=== PATIENT | female | born 1960 | race Asian ===

== ENCOUNTER 2022-02-21 07:55 | Inpatient (IN) | payer MEDICARE ==
[~2022-02-21] VITALS: Ht 144.8 cm; Wt 35.9 kg
[2022-02-21] MEDS ORDERED: CARB-36 PO (08:25)
--- NOTE | 2022-02-21 08:30 | NUR ---
Dr. Wu evaluating patient at this time. family at bedside.
[2022-02-21] MEDS ORDERED: IV NS 1000 ML 1,000 ML IV ONE (08:45)
[2022-02-21] MEDS ORDERED: TRAMADOL HCL 50 MG TABLET PO ONE (08:45)
[2022-02-21] MEDS ORDERED: TRAMADOL HCL 50 MG TABLET ONE (08:48)
[2022-02-21] MEDS ORDERED: PRAM0.253 PO (09:00)
[2022-02-21] MEDS ORDERED: LACT10SO3 PO (09:00)
[2022-02-21] MEDS ORDERED: DIME118C3 TP (09:00)
[2022-02-21] MEDS ORDERED: TRAM50TA2 PO (09:00)
[2022-02-21] MEDS ORDERED: VENL75TA4 PO (09:00)
[2022-02-21] MEDS ORDERED: CLON1TAB12 PO (09:00)
[2022-02-21] MEDS ORDERED: TROL35.4 TP (09:00)
[2022-02-21] MEDS ORDERED: NEOMY/BACITRA/POLYMYXIN B OINT UD PACKET TP ONE ×2 (09:00→09:38)
[2022-02-21] MEDS ORDERED: BACL10TA PO (09:00)
[2022-02-21 09:06] LABS: MEAN CORPUSCULAR HEMOGLOBIN 33.7 uug (24.7-32.8); MEAN CORPUSCULAR VOLUME 97.1 fL (75.5-95.3); PLATELET COUNT (AUTO) 137 K/uL (179-408)
[2022-02-21 09:09] LABS: CARBON DIOXIDE 36 mmol/L (21-32); CHLORIDE 100 mmol/L (98-107); CREATININE 0.5 mg/dL (0.6-1.3); GLUCOSE 124 mg/dL (74-106); POTASSIUM 3.1 mmol/L (3.5-5.1); UREA NITROGEN, BLOOD 7 mg/dL (7-18)
[2022-02-21 09:25] LABS: ALANINE AMINOTRANSFERASE 37 U/L (14-59); ALKALINE PHOSPHATASE 79 U/L (50-136); ASPARTATE AMINOTRANSFERASE 23 U/L (15-37); BILIRUBIN,DIRECT 0.1 mg/dL (0.0-0.2); BILIRUBIN,TOTAL 0.5 mg/dL (0.2-1.0)
[2022-02-21] MEDS ORDERED: NUT.237L66 GT (09:44)
[2022-02-21 09:55] LABS: *BILIRUBIN,URIN NEGATIVE (NEGATIVE); *BLOOD, URINE 1+ (NEGATIVE); *CLARITY,URINE CLEAR (CLEAR); *COLOR,URINE YELLOW (YELLOW); *KETONES,URINE TRACE (NEGATIVE); *UROBILINOGEN,URINE 0.2 E.U./dl (NORMAL); LEUKOCYTE ESTERASE ,URINE 1+ (NEGATIVE); NITRITE, URINE POSITIVE (NEGATIVE); UGLUCOSE NEGATIVE (NEGATIVE)
--- NOTE | 2022-02-21 09:55 | NUR ---
MS bed available room 318 nurse to take patient is Jazzy. waiting for urine and covid test results. Carolyne charge nurse gave room.
[2022-02-21] MEDS ORDERED: PIPERACILLIN SODIUM/TAZOBACTAM 3.375 G in IV DEXTROSE 5% 50 ML IV ONE (10:15)
[2022-02-21] MEDS ORDERED: MORPHINE SULFATE 2 MG/1 ML DISP.SYRIN IV ONE (10:15)
[2022-02-21] MEDS ORDERED: ONDANSETRON 4 MG/2 ML VIAL IV ONE (10:15)
--- NOTE | 2022-02-21 10:23 | NUR ---
patient changed to tele admission with diagnosis of UTI unresolved from previous abx treatment
--- NOTE | 2022-02-21 10:56 | NUR ---
given report at this time to DARLENE SNEED. Patient will go to room 318.
[2022-02-21] MEDS ORDERED: MORPHINE SULFATE 2 MG/1 ML DISP.SYRIN ONE (11:29)
[2022-02-21] MEDS ORDERED: PIPERACILLIN/TAZOBACTAM/D5W 50 ML IV ONE (11:30)
[2022-02-21] MEDS ORDERED: ONDANSETRON 4 MG/2 ML VIAL ONE (11:30)
--- NOTE | 2022-02-21 12:00 | NUR ---
changed to room 306
--- NOTE | 2022-02-21 12:05 | NUR ---
received pt from ER, report received from Zohra. Pt is a/o x 3, unclear speech due to history of Parkinson's. Son and caregiver in room at this time. Pt has a sacral wound, cleaned and applied dressing. Pt has an indwelling urinary catheter draining yellow urine, changed bag to hang under bed. Pt's vitals BP: 114/75, HR 98, 98.8 temp, rr 21 SPO2 91% room air. Comfort measures provided. fluids resumed, notified of pt's arrival. Will continue to monitor pt.
--- NOTE | 2022-02-21 12:10 | NUR ---
PT HAS SACRAL WOUND, ATTEMPTED TO TAKE A PICTURE BUT FAMILY AND PT REFUSED DUE TO PT BEING FRAGILE AND IN PAIN WHEN MOVED.
[2022-02-21 12:15] VITALS: BP 114/75
[2022-02-21 13:23] LABS: BACTERIA,URINE MODERATE /HPF (NONE SEEN); SQUAMOUS EPITHELIAL CELL,UR FEW /HPF (NONE SEEN); URINE AMORPHOUS URATE MODERATE /HPF; WBC,URINE 20-50 /HPF (0-3)
[2022-02-21] MEDS ORDERED: ONDANSETRON 4 MG/2 ML VIAL IV PRN (14:45)
[2022-02-21] MEDS ORDERED: ACETAMINOPHEN 325 MG TABLET PO PRN (14:45)
[2022-02-21] MEDS ORDERED: ACETAMINOPHEN 325 MG TABLET GT PRN (16:19)
[2022-02-21 16:41] VITALS: BP 112/79
[2022-02-21] MEDS: TRAMADOL HCL 50 MG TABLET GT SCH (17:23)
[2022-02-21] MEDS: CARBIDOPA/LEVODOPA 25-250MG TABLET GT SCH ×2 (17:23→20:10)
[2022-02-21] MEDS: PRAMIPEXOLE 0.25 MG TABLET GT SCH (17:23)
[2022-02-21] MEDS: CLONAZEPAM 1 MG TABLET GT SCH ×2 (17:24→20:10)
[2022-02-21] MEDS: CEFTRIAXONE 1 G in IV DEXTROSE 5% 50 ML IV SCH (17:24)
[2022-02-21] MEDS: LACTULOSE 20 G/30 ML LIQUID UDC GT SCH (17:24)
[2022-02-21] MEDS: BACLOFEN 10 MG TABLET GT SCH (17:24)
[2022-02-21] MEDS ORDERED: Medication Not On Formulary EA (Lactulose (Duphalac) 30 ML) PO SCH (18:00)
[2022-02-21] MEDS ORDERED: ASCO-376 GT (18:06)
[2022-02-21] MEDS ORDERED: MULT-1201 GT (18:06)
--- NOTE | 2022-02-21 18:07 | NUR ---
Pt has G tube feeding at home (Suplena). Dietary consult ordered but no installation helper working at this time. Unable to get an order for feeding. MD okayed for home feeding to be given by pt's son until consult takes place tomorrow morning. Pt has difficulty processing new feedings and family requests to keep her on what she is getting at home. They have a supply at bedside until further notice. Per MD will try to get consent for son to stay over night for pt comfort. She does not sleep well without him next to her and will feel better if he stays.
--- NOTE | 2022-02-21 19:10 | NUR ---
special mattress was offered and explained the use and benefits for the patient , son refused to use it
--- NOTE | 2022-02-21 19:45 | NUR ---
patient 's son at bedside , refused the patient to be touched and turned frequently , unable to take picture of the wound skin issue of the sacral
--- NOTE | 2022-02-21 20:00 | NUR ---
RECEIVED PATIENT IN BED, BED BOUND. AAOX4, WITH PERIODS OF FORGETFULNESS. SONLISSETTE AT BEDSIDE GIVEN PERMISSION TO STAY OVERNIGHT TO ACCOMPANY MOTHER, FORM SIGNED AND ATTACHED TO CHART. NURSE PRACTICAL NURSING FACULTY AND DR. MORALES INFORMED. PATIENT NOTED TO HAVE LIMITED MOBILITY, REQUIRES MAXIMUM ASSISTANCE. BED BOUND. WITH G TUBE, FEEDING GIVEN BY SON WITH THEIR PRESCRIBED FEEDING WITH DR. MORALES'S APPROVAL. WITH JOHNSON CATHETER DRAINING CLEAR YELLOW URINE. WITH COMPRESSION PUMP. SINUS RHYTHM WITH EPISODES OF TACHYCARDIA ON TELEMONITOR. O2 SAT WAS NOTED TO BE AT 93%, NOW RECEIVING O2 VIA NASAL CANNULA AT 2LPM, SATURATING AT 97%. OFFERED TO TAKE PICTURE OF SACRAL, HOWEVER, PT'S SON REFUSED D/T TO COMPLAINS OF PAIN WHEN REPOSITIONED. IV ACCESS AT RFA, PATENT AND INTACT, HEPLOCK AND WRAPPED WITH GAUZE. SAFETY PRECAUTIONS IN PLACE. WILL CONTINUE TO MONITOR.
[2022-02-21 20:03] VITALS: BP_SYST 108; BP_SYST 99; BP_DIAS 67; BP_DIAS 74
--- NOTE | 2022-02-21 20:15 | NUR ---
called dr coulter to notify of request of own tf to be use from home , received order ,ok to use own tf
[2022-02-21] MEDS: REMEDY ESSENTIAL ZINC PASTE 113 GM TOP SCH (21:41)
[2022-02-22] VITALS: BP 127/79
[2022-02-22 04:03] VITALS: BP 104/73
--- NOTE | 2022-02-22 05:24 | NUR ---
PATIENT SLEPT THROUGH THE NIGHT. AAOX4. ABLE TO MAKE NEEDS KNOWN. NOTED TO HAVE DIFFICULTY WITH SPEECH. SINUS RHYTHM WITH HR OF 82BPM ON TELEMONITOR. GTUBE FLUSHED WITH 100CC OF WATER, SITE CLEANSED AND COVERED WITH GAUZE. JOHNSON CATHETER PATENT AND INTACT. IV ACCESS PATENT AND INTACT. REPOSITIONED FREQUENTLY. AWAIT DAY WORKER'S ADVISEMENT REGARDING SCHEDULED MRI OF BRAIN WITHOUT CONTRAST. WILL ENDORSE TO DAY SHIFT.
--- NOTE | 2022-02-22 06:29 | NUR ---
TEXT DR. JOHN FOR MRI APPROVAL.
[2022-02-22 06:57] LABS: MEAN CORPUSCULAR HEMOGLOBIN 33.5 uug (24.7-32.8); MEAN CORPUSCULAR VOLUME 96.3 fL (75.5-95.3); PLATELET COUNT (AUTO) 132 K/uL (179-408)
[2022-02-22 07:24] LABS: ALANINE AMINOTRANSFERASE 15 U/L (14-59); ALKALINE PHOSPHATASE 68 U/L (50-136); ASPARTATE AMINOTRANSFERASE 19 U/L (15-37); BILIRUBIN,TOTAL 0.4 mg/dL (0.2-1.0); CARBON DIOXIDE 33 mmol/L (21-32); CHLORIDE 103 mmol/L (98-107); CREATININE 0.4 mg/dL (0.6-1.3); GLUCOSE 87 mg/dL (74-106); MAGNESIUM 2.2 mg/dL (1.8-2.4); PHOSPHOROUS 3.4 mg/dL (2.5-4.9); POTASSIUM 3.1 mmol/L (3.5-5.1); TOTAL PROTEIN, SERUM 6.2 g/dL (6.4-8.2); UREA NITROGEN, BLOOD 6 mg/dL (7-18)
--- NOTE | 2022-02-22 08:00 | NUR ---
Received patient a/o x 4. Garbled speech secondary to illness. Son is at bedside. Denies pain or SOB. On O2 2L NC. Tele SR at 95. PEG tube in place and intact. Flushes well. El draining clear and yellow urine. [facility] assessment done, sacral wound present. Wound care ordered, Mepilex applied. Safety initiated. Call light within reach. Will continue to monitor.
[2022-02-22 08:04] LABS: CHOLESTEROL 171 mg/dL (<200); HDL CHOLESTEROL 74 mg/dL (40-60); TRIGLYCERIDES 54 MG/DL (30-150)
[2022-02-22] MEDS: PANTOPRAZOLE SODIUM 40 MG VIAL IV SCH (08:18)
[2022-02-22] MEDS: CARBIDOPA/LEVODOPA 25-250MG TABLET GT SCH ×4 (08:18→20:40)
[2022-02-22] MEDS: TRAMADOL HCL 50 MG TABLET GT SCH ×2 (08:18→16:47)
[2022-02-22] MEDS: BACLOFEN 10 MG TABLET GT SCH ×3 (08:18→16:46)
[2022-02-22] MEDS: REMEDY ESSENTIAL ZINC PASTE 113 GM TOP SCH ×2 (08:18→20:49)
[2022-02-22] MEDS: VENLAFAXINE 25 MG TABLET GT SCH (08:18)
[2022-02-22] MEDS ORDERED: VENLAFAXINE 25 MG TABLET PO SCH (09:00)
[2022-02-22] MEDS ORDERED: VENLAFAXINE HCL 25 MG PO SCH (09:00)
[2022-02-22 11:30] VITALS: BP 123/81
[2022-02-22] MEDS ORDERED: POTASSIUM CHLORIDE 20 MEQ POWDER PACKET GT ONE (12:00)
--- NOTE | 2022-02-22 12:15 | NUR ---
Transport here to picking tech pt for MRI at [facility]. Pt in stable condition. Denies pain or SOB.
--- NOTE | 2022-02-22 14:15 | NUR ---
Pt back from MRI in [facility]. Settled patient in her room. Back on TELE. Son at bedside. Wound nurse at bedside to eval sacral wound. Will continue to monitor.
--- NOTE | 2022-02-22 14:17 | NUR ---
WOUND CARE CONSULT: PT PRESENTS WITH STAGE 3 PRESSURE ULCER TO SACRUM, PRESENT ON ADMISSION. SURGICAL CONSULT CALLED TO DR AGUAYO. RECOMMENDATIONS MADE FOR SKIN PROTECTION. DISCUSSED WITH NURSING STAFF. CURRENT RASHI SCORE IS 8. FIRST STEP LOW AIRLOSS MATTRESS IS ON ORDER. MD IN AGREEMENT WITH PLAN OF CARE. Addendum: 02/22/22 at 1419 by GRAYSON PAUL RN Amended: Links added.
--- NOTE | 2022-02-22 16:22 | NUR ---
FARSHAD Mi at bedside.
--- NOTE | 2022-02-22 16:27 | NUR ---
Clinical Social Work Note: Pt. is a 61-year-old female brought to [facility] from home. Upon SS consult, pt. is alert and oriented x4. Pt. is bed ridden and presented with a depressed mood. Pt.s speech appeared unclear. Pt.s son Jamir ([phone]) and pt.s caregiver Kathie were bedside. ANASTACIO explored pt.s living situation. Jamir ([phone]) stated that he lives with the pt. and caregiver Kathie. Jamir ([phone]) stated that Kathie did not have a phone number. ANASTACIO explored if pt. was ambulatory. Jamir ([phone]) stated that pt. was bedridden. Jamir ([phone]) stated that pt.s caregiver assists the pt. with DMEs. ANASTACIO explored pt.s financial situation. Jamir ([phone]) stated that pt. receives disability and widows pay. ANASTACIO explored pt.s substance use hx. Jamir ([phone]) stated that the pt. does not have a history of substance use. ANASTACIO explored pt.s psychiatric diagnosis. Jamir ([phone]) stated that pt. is diagnosed with depression. Jamir ([phone]) stated that the pt. Does not see a psychiatrist but pt does see a neurologist Dr. Hui. Upon discharge, Jamir ([phone]) stated that pt. will return home and receive care from Kathie. Per Jamir, Jamir denied substance use for the pt. Jamir also denied suicidal and homicidal ideations for the pt. Jamir also denied auditory and visual hallucinations.
[2022-02-22] MEDS: CEFTRIAXONE 1 G in IV DEXTROSE 5% 50 ML IV SCH (16:47)
[2022-02-22] MEDS: ARGININE/GLUTAMINE/CALCIUM BMB 1 EACH POWD.PACK GT SCH (16:48)
[2022-02-22] MEDS: LACTULOSE 20 G/30 ML LIQUID UDC GT SCH (17:14)
[2022-02-22] MEDS: PRAMIPEXOLE 0.25 MG TABLET GT SCH (17:14)
[2022-02-22 17:15] VITALS: BP 116/62
--- NOTE | 2022-02-22 18:11 | NUR ---
Caregiver at bedside giving bolus feeds. No acute distress noted. Vital signs stable. TELE SR at 90. PEG tube in place, remains patent and intact. Abd soft and non-distended. El draining clear and yellow urine. Comfort and safety measures maintained T/O shift. All meds given as ordered. No new skin issues noted. All needs met.
--- NOTE | 2022-02-22 19:00 | NUR ---
Patient is awake, lying in bed, A/Ox4, slurred speech noted. Denies pain at this time. On RA, no signs of acute distress noted. PEG tube clamped, no gastric residual noted. El catheter draining well to gravity. Bed at lowest position, brakes on, bed alarm on, siderails x2. Call light within reach. Will continue to monitor.
[2022-02-22 20:00] VITALS: BP 141/82
[2022-02-22] MEDS: CLONAZEPAM 1 MG TABLET GT SCH (20:41)
[2022-02-22] MEDS ORDERED: JEVITY 1.2 1000 ML LIQUID GT SCH (22:00)
--- NOTE | 2022-02-22 23:00 | NUR ---
Started TF Jevity 1.2 @10mls/hr, no gastric residual noted. Will continue to monitor closely.
[2022-02-23] VITALS: BP 120/76
--- NOTE | 2022-02-23 03:00 | NUR ---
Restng comfortably. No significant change of condition noted. Will continue to monitor closely.
[2022-02-23 04:00] VITALS: BP 113/75
[2022-02-23] MEDS ORDERED: JEVITY 1.2 1000 ML LIQUID GT PRN (05:19)
[2022-02-23 07:10] LABS: HEMATOCRIT 34.3 % (31.2-41.9); MEAN CORPUSCULAR HEMOGLOBIN 33.9 uug (24.7-32.8); MEAN CORPUSCULAR VOLUME 96.4 fL (75.5-95.3); PLATELET COUNT (AUTO) 135 K/uL (179-408)
[2022-02-23 07:26] LABS: CARBON DIOXIDE 33 mmol/L (21-32); CHLORIDE 105 mmol/L (98-107); CREATININE 0.4 mg/dL (0.6-1.3); GLUCOSE 91 mg/dL (74-106); MAGNESIUM 2.3 mg/dL (1.8-2.4); POTASSIUM 3.5 mmol/L (3.5-5.1); UREA NITROGEN, BLOOD 11 mg/dL (7-18)
[2022-02-23] MEDS: BACLOFEN 10 MG TABLET GT SCH ×3 (08:02→16:17)
[2022-02-23] MEDS: TRAMADOL HCL 50 MG TABLET GT SCH ×2 (08:02→16:17)
[2022-02-23] MEDS: CARBIDOPA/LEVODOPA 25-250MG TABLET GT SCH ×4 (08:02→20:24)
[2022-02-23] MEDS: REMEDY ESSENTIAL ZINC PASTE 113 GM TOP SCH ×2 (08:02→21:00)
[2022-02-23] MEDS: VENLAFAXINE 25 MG TABLET GT SCH (08:05)
[2022-02-23] MEDS: PANTOPRAZOLE SODIUM 40 MG VIAL IV SCH (08:05)
[2022-02-23] MEDS: ARGININE/GLUTAMINE/CALCIUM BMB 1 EACH POWD.PACK GT SCH ×2 (08:12→16:17)
[2022-02-23 08:29] LABS: THYROID STIMULATING HORMONE 5.102 mIU/mL (0.358-3.740)
[2022-02-23 12:01] VITALS: BP 123/82
[2022-02-23] MEDS: THERAHONEY GEL 1.5 OZ TUBE TOP SCH (14:59)
[2022-02-23] MEDS: PRAMIPEXOLE 0.25 MG TABLET GT SCH (16:17)
[2022-02-23 16:29] VITALS: BP 122/83
[2022-02-23] MEDS: CEFTRIAXONE 1 G in IV DEXTROSE 5% 50 ML IV SCH (16:32)
[2022-02-23] MEDS: LACTULOSE 20 G/30 ML LIQUID UDC GT SCH (17:14)
[2022-02-23] MEDS: MEROPENEM 1 G in IV NORMAL SALINE 100 ML IV SCH ×2 (18:10→22:22)
--- NOTE | 2022-02-23 19:00 | NUR ---
Son and caregiver at bedside.
[2022-02-23 20:06] VITALS: BP 114/82
[2022-02-23] MEDS: CLONAZEPAM 1 MG TABLET GT SCH ×2 (20:15→22:56)
--- NOTE | 2022-02-23 20:55 | NUR ---
Clonazepam 1mg tablet wasted at [facility]. Addendum: 02/24/22 at 0246 by Kimberley Carver RN Clonazepam not given due to change of time 2300, wasted at [facility].
--- NOTE | 2022-02-23 23:00 | NUR ---
Restarted TF Jevity 1.2 @25mls/hr, no gastric residual noted.
--- NOTE | 2022-02-24 | NUR ---
Wound photo taken and placed to chart. Wound dressing done.
[2022-02-24 04:06] VITALS: BP 110/77
[2022-02-24] MEDS: MEROPENEM 1 G in IV NORMAL SALINE 100 ML IV SCH ×3 (05:33→22:12)
[2022-02-24] MEDS: CARBIDOPA/LEVODOPA 25-250MG TABLET GT SCH ×4 (08:52→21:09)
[2022-02-24] MEDS: PRAMIPEXOLE 0.25 MG TABLET GT SCH ×2 (08:52→17:13)
[2022-02-24] MEDS: TRAMADOL HCL 50 MG TABLET GT SCH ×2 (08:52→22:13)
[2022-02-24] MEDS: PANTOPRAZOLE ORAL SUSPENSION 40 MG SUSPDR.PKT GT SCH (08:52)
[2022-02-24] MEDS: BACLOFEN 10 MG TABLET GT SCH ×3 (08:52→17:13)
[2022-02-24] MEDS: VENLAFAXINE 25 MG TABLET GT SCH (08:54)
[2022-02-24] MEDS: ARGININE/GLUTAMINE/CALCIUM BMB 1 EACH POWD.PACK GT SCH ×2 (09:00→17:14)
[2022-02-24] MEDS: REMEDY ESSENTIAL ZINC PASTE 113 GM TOP SCH ×2 (09:31→22:14)
[2022-02-24] MEDS: THERAHONEY GEL 1.5 OZ TUBE TOP SCH (09:31)
--- NOTE | 2022-02-24 09:35 | NUR ---
patient is alert and oriented x4, speech is not very clear, caregiver at bedside and translating. patient with being treated for uti, unger catheter in place and patent, patient denies any dysuria or hematuria at this time, urine is clear and yellow, no sedimentation noted. patient with current stage 3 to sacral area with ongoing treatment tolerated well. currently nsr, v/s wnl, on r/a respirations even and non-labored, 0 episode of sob at this time, lungs clear bilateral. patient with abdomen soft and non-tender at this time. patient stating feeling discomfort to sacral area offered to reposition, patient repositioned and routine tramadol administered and tolerated well.
[2022-02-24 12:00] VITALS: BP 122/85
--- NOTE | 2022-02-24 15:00 | NUR ---
Son requesting for ENT consult and requesting for a video swallow and to increase pain medication, Dr. Capellan with new order for video swallow and new order order for tramadol 50mg tid, reviewed and carried out.
[2022-02-24 16:00] VITALS: BP 134/88
--- NOTE | 2022-02-24 16:04 | NUR ---
Per son " cancel the video swallow i dont think it is needed anymore" noted.
[2022-02-24] MEDS: LACTULOSE 20 G/30 ML LIQUID UDC GT SCH (17:13)
[2022-02-24 20:37] VITALS: BP 92/57
--- NOTE | 2022-02-24 21:28 | NUR ---
with orders to follow the patient diet at home.will follow up. gtube feeding at 30ml/hour, tolerating.well. head of bed elevated 45 degrees as per patient preference
[2022-02-24 21:44] VITALS: BP 134/76
[2022-02-24] MEDS ORDERED: TRAMADOL HCL 50 MG TABLET GT PRN (22:00)
[2022-02-24] MEDS: CLONAZEPAM 1 MG TABLET GT SCH (23:07)
--- NOTE | 2022-02-25 01:51 | NUR ---
patient is asleep.with feeding on flow at 30ml/hour. no residual .will follow up with the patient,s home feeding in am. sitter at bedside Addendum: 02/25/22 at 0155 by [facility]RY [facility] RN1 RN suctioning of secretions done.with mouth care had moderate amount of stool ,cleaned and kept dry.head of bed elevated 45 degrees as per sitter choice with patient
--- NOTE | 2022-02-25 03:20 | NUR ---
Asleep.with feeding on flow. tolerating well.
[2022-02-25] MEDS: MEROPENEM 1 G in IV NORMAL SALINE 100 ML IV SCH (05:18)
[2022-02-25] MEDS: TRAMADOL HCL 50 MG TABLET GT SCH (06:11)
--- NOTE | 2022-02-25 06:46 | NUR ---
medication due given via gtube. cleaned and kept dry. turned to sides
[2022-02-25] MEDS: PRAMIPEXOLE 0.25 MG TABLET GT SCH (08:53)
[2022-02-25] MEDS: PANTOPRAZOLE ORAL SUSPENSION 40 MG SUSPDR.PKT GT SCH (08:53)
[2022-02-25] MEDS: THERAHONEY GEL 1.5 OZ TUBE TOP SCH (08:53)
[2022-02-25] MEDS: VENLAFAXINE 25 MG TABLET GT SCH (08:53)
[2022-02-25] MEDS: BACLOFEN 10 MG TABLET GT SCH ×2 (08:53→12:19)
[2022-02-25] MEDS: CARBIDOPA/LEVODOPA 25-250MG TABLET GT SCH ×2 (08:53→12:19)
[2022-02-25] MEDS: ARGININE/GLUTAMINE/CALCIUM BMB 1 EACH POWD.PACK GT SCH (08:54)
[2022-02-25] MEDS: REMEDY ESSENTIAL ZINC PASTE 113 GM TOP SCH (09:04)
--- NOTE | 2022-02-25 11:00 | NUR ---
new discharge orders.
--- NOTE | 2022-02-25 11:50 | NUR ---
[facility] called spoke with Roula report was given. all questions answered.
[2022-02-25 12:00] VITALS: BP 115/78
--- NOTE | 2022-02-25 12:15 | NUR ---
reviewed discharge instructions with patient and with son, they state understanding. IV site remains due to continuation of IV merrem at facility, patient discharged with f/c in place and patent as well. All discharge paperwork given to SON, inventory list completed and signed by Son.
--- NOTE | 2022-02-25 13:00 | NUR ---
[facility] ambulance in unit. patient safely transferred onto [facility]. report was given, upon discharge v/s wnl, 0 co dysuria, hematuria, frequency.
== END 2022-02-25 13:15 | DRG 689 ==
LOC: ER 08:01 → MEDSURG3 11:17 → TELE3 13:00 → MEDSURG3 02-23 11:11
PROVIDERS: ADMIT Internal Medicine; ATTEND Internal Medicine
PROC: 0JB73ZZ Excision of Back Subcutaneous Tissue and Fascia, Percutaneous Approach (ICD-10-PCS; principal; 2022-02-22)
DX: N39.0 Urinary tract infection, site not specified (principal); L89.153 Pressure ulcer of sacral region, stage 3; G92.8 Other toxic encephalopathy; Z68.1 Body mass index [BMI] 19.9 or less, adult; D68.59 Other primary thrombophilia; E46 Unspecified protein-calorie malnutrition; E87.3 Alkalosis; Z16.12 Extended spectrum beta lactamase (ESBL) resistance; E44.0 Moderate protein-calorie malnutrition; G20 Parkinson's disease; R62.7 Adult failure to thrive; D69.6 Thrombocytopenia, unspecified; E03.9 Hypothyroidism, unspecified; E88.09 Other disorders of plasma-protein metabolism, not elsewhere classified; Z20.822 Contact with and (suspected) exposure to COVID-19; Z87.440 Personal history of urinary (tract) infections; Z93.1 Gastrostomy status; Z74.09 Other reduced mobility; D75.89 Other specified diseases of blood and blood-forming organs; F32.A Depression, unspecified; M24.571 Contracture, right ankle; M24.572 Contracture, left ankle; M24.542 Contracture, left hand; M24.541 Contracture, right hand; R53.1 Weakness; B96.20 Unspecified Escherichia coli [E. coli] as the cause of diseases classified elsewhere; F17.210 Nicotine dependence, cigarettes, uncomplicated; E87.6 Hypokalemia
CPT/HCPCS: 36415; 70551; 71045; 83605; 83735; 84100; 84443; 84484; 85025; 85730; 87040; 87077; 87086; 93005; 97161; A4663; A6209; C9113; G0378; J0696; J2185; J2270; J2405; J2543; J7040

== ENCOUNTER 2022-07-05 15:46 | Inpatient (IN) | payer MEDICARE ==
[~2022-07-05] VITALS: Ht 149.9 cm; Wt 38.6 kg
[~2022-07-05 15:46] MED LIST: ASCO-376 GT; BACL10TA PO; CARB-36 GT; CLON1TAB12 PO; DIME118C3 TP; LACT10SO3 PO; MULT-1201 GT; NUT.237L66 GT; PRAM0.253 PO; TRAM50TA2 PO; TROL35.4 TP; VENL75TA4 PO
[2022-07-05] MEDS ORDERED: IV NORMAL SALINE 1000 ML BAG IV ONE (16:15)
[2022-07-05] MEDS ORDERED: VANCOMYCIN 1G/D5W 200 ML PIGGYBACK IV ONE (16:15)
[2022-07-05] MEDS ORDERED: CEFTRIAXONE 1 G in IV DEXTROSE 5% 50 ML IV ONE (16:15)
[2022-07-05] MEDS ORDERED: PANT40TA49 GT (16:23)
[2022-07-05] MEDS ORDERED: MULT-594 GT (16:23)
[2022-07-05] MEDS ORDERED: ACET-73 PO (16:34)
[2022-07-05] MEDS ORDERED: VENL75CA62 PO (16:34)
[2022-07-05] MEDS ORDERED: CLON1TAB12 GT (16:34)
[2022-07-05] MEDS ORDERED: PRAM0.253 GT (16:34)
[2022-07-05] MEDS ORDERED: BACL10TA PO (16:34)
[2022-07-05] MEDS ORDERED: [UNRECOGNIZED DRUG - CODE] SL (16:34)
[2022-07-05] MEDS ORDERED: ARGI1POW17 GT (16:34)
[2022-07-05] MEDS ORDERED: MORPHINE SULFATE 2 MG/1 ML DISP.SYRIN IV ONE (16:45)
[2022-07-05] MEDS ORDERED: CEFTRIAXONE /D5W 50ML IVPB **ER PYXIS IV ONE (16:46)
[2022-07-05] MEDS ORDERED: VANCOMYCIN IV 200 ML ONE (16:46)
[2022-07-05] MEDS ORDERED: MORPHINE SULFATE 2 MG/1 ML DISP.SYRIN ONE (16:46)
[2022-07-05 16:47] LABS: HEMATOCRIT 36.3 % (31.2-41.9); MEAN CORPUSCULAR HEMOGLOBIN 31.3 uug (24.7-32.8); MEAN CORPUSCULAR VOLUME 93.6 fL (75.5-95.3); PLATELET COUNT (AUTO) 180 K/uL (179-408)
[2022-07-05 16:58] LABS: BILIRUBIN,DIRECT 0.1 mg/dL (0.0-0.2); BILIRUBIN,TOTAL 0.4 mg/dL (0.2-1.0); CREATININE 0.5 mg/dL (0.6-1.3); TOTAL PROTEIN, SERUM 7.2 g/dL (6.4-8.2)
--- NOTE | 2022-07-05 18:24 | NUR ---
Tested G-tube, flushes/patent.
--- NOTE | 2022-07-05 19:30 | NUR ---
Dr. Mayfield ordered split dose of Morphine -- wanted to administer 1mg, then later, if necessary a second dose of 1mg. However, the MAR order was for a total of 2mg, which was signed off at the time of first administration. The remaining 1mg ("second dose") was not given and will be wasted.
[2022-07-05] MEDS ORDERED: ENOXAPARIN SODIUM 40 MG/0.4 ML DISP.SYRIN SQ ONE (20:30)
[2022-07-05] MEDS ORDERED: REMEDY ESSENTIAL ZINC PASTE 113 GM TP PRN (21:15)
[2022-07-05] MEDS ORDERED: ONDANSETRON 4 MG/2 ML VIAL IV PRN (21:15)
[2022-07-05] MEDS ORDERED: MAGNESIUM HYDROXIDE 30 ML LIQUID UDC GT PRN (21:15)
--- NOTE | 2022-07-05 21:16 | NUR ---
called to the third floor for report on the pt and I was told that Vida will call back regarding what room and what nurse will take the pt.
--- NOTE | 2022-07-05 21:17 | NUR ---
call to [facility] panel for Dr. Raines per his request.
--- NOTE | 2022-07-05 21:32 | NUR ---
call to third floor, per carl SNEED states they are not ready to take the pt.
[2022-07-05] MEDS ORDERED: MEROPENEM 0.5 G in IV NORMAL SALINE 50 ML IV SCH (22:00)
--- NOTE | 2022-07-05 22:03 | NUR ---
report given to Willa SNEED, DR. Macias changed the status of the pt to tele, an ekg will be performed.
--- NOTE | 2022-07-05 22:45 | NUR ---
pt was transported to room 319 by melt house centrifugal operator Luiz via [place] with all belongings.
--- NOTE | 2022-07-05 22:55 | NUR ---
Admitted a 62 years old female with Dx of DVT and right LE cellulitis. Patient awake, but non-verbal, only makes non-sensical sounds. Upper extremities contracted. PEG tube in place and El catheter in place and draining via gravity. IV site on right hand intact and patent. NSR on tele with HR of 81/min. Noted with open wound on sacral area. Right inner LE reddened. Right heel red and left great toe also with redness noted and keep off pressure area using heel protector. GT site with greenish drainage noted. Clean and change dressing during admit. Routine admission care done. Plan of care initiated. Safety measure initiated. Patient with private caregiver on bedside. Continue to monitor.
[2022-07-05] MEDS ORDERED: MEROPENEM 0.5 G in IV NORMAL SALINE 50 ML IV ONE (23:15)
[2022-07-05] MEDS ORDERED: CARBIDOPA/LEVODOPA 25-250MG TABLET GT ONE (23:30)
[2022-07-05] MEDS ORDERED: BACLOFEN 10 MG TABLET GT ONE (23:30)
[2022-07-05] MEDS ORDERED: MEROPENEM 500 MG VIAL IV ONE (23:38)
[2022-07-05] MEDS: CLONAZEPAM 1 MG TABLET GT SCH (23:41)
[2022-07-05 23:45] VITALS: BP 117/63
[2022-07-05] MEDS: IV NS 1000 ML 1,000 ML IV PRN (23:45)
--- NOTE | 2022-07-06 05:24 | NUR ---
Patient slept well after admission. In no apparent distress. No signs or symptoms of pain or SOB. GT site intact and patent. Dressing dry and clean. IV site on right hand intact and patent. IVF infusing. No adverse reaction noted from IV antibiotic. NSR on tele with HR of 86/min. El catheter intact and draining via gravity with 400ml urine output since admission. Private caregiver on site. Needs assessed and attended to. Safety measure maintained and call light within reached.
[2022-07-06 05:34] VITALS: BP 115/58
[2022-07-06 06:14] LABS: HEMATOCRIT 33.8 % (31.2-41.9); MEAN CORPUSCULAR HEMOGLOBIN 31.6 uug (24.7-32.8); MEAN CORPUSCULAR VOLUME 94.5 fL (75.5-95.3); PLATELET COUNT (AUTO) 150 K/uL (179-408)
[2022-07-06] MEDS: PANTOPRAZOLE ORAL SUSPENSION 40 MG SUSPDR.PKT GT SCH (06:19)
[2022-07-06 06:37] VITALS: BP 115/58
[2022-07-06 06:46] LABS: CREATININE 0.5 mg/dL (0.6-1.3); MAGNESIUM 1.9 mg/dL (1.8-2.4); PHOSPHOROUS 3.3 mg/dL (2.5-4.9); POTASSIUM 3.8 mmol/L (3.5-5.1)
--- NOTE | 2022-07-06 07:30 | NUR ---
RECEIVED PATIENT IN BED NON RESPONSIVE ALL NEEDS ANTICIPATED AND SATISFIED TOTALLY DEPENDENT FOR ALL ADL CONTRACTED UPPER EXT TURNED AND REPOSITIONED Q2H IVF IN PROGRESS ORDERED WITH NO S/S OF INFILTERATION ON SITE AWAITING FOR SPEECH EVEL FOR FEEDINGS AND IF PATIENT CAN HAVE ANY ORAL GRATIFICATION PER FAMILY RLE ELEVATED TO REDUCE SWELLING MADE COMFORTABLE WILL CONTINUE TO OBSERVE.
[2022-07-06] MEDS: TRAMADOL HCL 50 MG TABLET GT SCH ×2 (08:47→17:46)
[2022-07-06] MEDS: BACLOFEN 10 MG TABLET GT SCH ×3 (08:48→17:45)
[2022-07-06] MEDS: ENOXAPARIN SODIUM 40 MG/0.4 ML DISP.SYRIN SQ SCH ×2 (08:49→20:22)
[2022-07-06] MEDS ORDERED: VENLAFAXINE XR 75 MG TAB.ER.24H PO SCH (09:00)
[2022-07-06] MEDS ORDERED: CARBIDOPA/LEVODOPA 25-250MG TABLET PO SCH (09:00)
[2022-07-06] MEDS ORDERED: VENLAFAXINE 25 MG TABLET PO SCH ×2 (09:00)
[2022-07-06] MEDS ORDERED: PANTOPRAZOLE SODIUM 40 MG TABLET.DR PO SCH (09:00)
[2022-07-06] MEDS ORDERED: PRAMIPEXOLE 0.25 MG TABLET PO SCH ×2 (09:00→18:00)
[2022-07-06] MEDS: MEROPENEM 1 G in IV NORMAL SALINE 100 ML IV SCH ×2 (09:02→17:50)
--- NOTE | 2022-07-06 09:50 | NUR ---
PATIENT HAS REGULAR DIET ORDER WHICH I DONT THINK IS APPROPRIATE FOR HER BUT HER FAMILY STATED THAT THEY DO GIVE HER ORAL FOOD IN ADDITION TO HER GT FEEDINGS SO I CALLED THE SLT AND SPOKE WITH HER AND SHE STATED WILL COME AND EVALUATE PATIENT TO MAKE SURE THAT ITS SAFE FOR HER TO HAVE ORAL FEEDINGS.
--- NOTE | 2022-07-06 09:58 | NUR ---
CALLED THE PROGRAM/MUSIC DIRECTOR AND INQUIRED FROM HER TO WHEN SHE WILL BE ABLE TO EVALUATE PATIENT RE HER TUBE FEEDING AND SHE STATED WILL DO IT SOON POSSIBLE.
--- NOTE | 2022-07-06 10:12 | NUR ---
PATIENT SEEN BY THE SLT AND STATED THAT PATIENT IS NOT SAFE FOR ORAL FEEDINGS AT THIS TIME AWAITING FOR THE DIETICIANS RECOMMENDATION TO WHAT TYPE OF FEEDINGS FOR HER AT THIS POINT MEANWHILE SHE IS ON IVF ORDERED.
[2022-07-06 12:16] VITALS: BP 112/51
[2022-07-06] MEDS: VANCOMYCIN IV 500 MG in IV DEXTROSE 5% 100 ML IV SCH (12:37)
[2022-07-06] MEDS: CARBIDOPA/LEVODOPA 25-250MG TABLET GT SCH ×3 (12:56→20:22)
[2022-07-06] MEDS ORDERED: VANCOMYCIN IV 500 MG in IV DEXTROSE 5% 100 ML IV SCH (13:00)
--- NOTE | 2022-07-06 15:45 | NUR ---
PATIENT SEEN AND EXAMINED BY JAMIE RODRIGUEZ JOB COUNSELOR FOR INFECTION CONTROL WITH NEW ORDERS SHE STATED TO NICK THE REDNESS ON HER RIGHT THIGH AND LEG AND ALSO ON HER NECK IN OTHER TO SEE IF ITS SPREADING.
[2022-07-06] MEDS ORDERED: VENL50TA4 PO (15:56)
[2022-07-06 16:14] VITALS: BP 99/65
[2022-07-06] MEDS: PRAMIPEXOLE 0.25 MG TABLET GT SCH (17:45)
[2022-07-06] MEDS: LACTULOSE 20 G/30 ML LIQUID UDC GT SCH (17:46)
[2022-07-06] MEDS: IV NS 1000 ML 1,000 ML IV PRN (18:25)
--- NOTE | 2022-07-06 18:32 | NUR ---
URINE AND MRSA NARES OBTAINED AND SENT TO THE LAB ORDERED.
--- NOTE | 2022-07-06 18:37 | NUR ---
TWO GIOVANNA FEEDING IN PROGRESS AT THIS TIME AT 10ML/HR ORDERED WILL INCREASE TO 20 AT MIDNIGHT NO GASTRIC RESIDUAL AT THIS TIME.WILL CONTINUE TO OBSERVE.
[2022-07-06] MEDS ORDERED: TWOCAL HN 1,000 ML LIQUID GT PRN (18:45)
--- NOTE | 2022-07-06 18:50 | NUR ---
IV SITE VERY POSITIONAL BVERY HARD STICK MD AWARE WITH ORDER TO INSERT A MIDLINE AND NOTED.
[2022-07-06 18:57] LABS: *BILIRUBIN,URIN NEGATIVE (NEGATIVE); *CLARITY,URINE SLIGHTLY CLOUDY (CLEAR); *COLOR,URINE YELLOW (YELLOW); *KETONES,URINE 3+ (NEGATIVE); *UROBILINOGEN,URINE 0.2 E.U./dl (NORMAL); LEUKOCYTE ESTERASE ,URINE 2+ (NEGATIVE); NITRITE, URINE POSITIVE (NEGATIVE); PH,URINE 7.5 (5.0-8.0); UGLUCOSE NEGATIVE (NEGATIVE)
[2022-07-06 18:58] LABS: *BLOOD, URINE TRACE (NEGATIVE)
--- NOTE | 2022-07-06 19:30 | NUR ---
Received patient lying in bed. Asleep at this time. Appears comfortable. In no acute distress. Private caregiver at bedside. GT feeding on going and tolerated at this time. NSR on tele with HR of 87/min. NPO. El catheter intact and draining via gravity. Needs assessed and anticipated to. Safety measure initiated and call light within reached.
[2022-07-06] MEDS: DOCUSATE SODIUM 100 MG/10 ML LIQUID UDC GT SCH (20:22)
[2022-07-06] MEDS: CLONAZEPAM 1 MG TABLET GT SCH (20:22)
[2022-07-06 21:02] LABS: BACTERIA,URINE MANY /HPF (NONE SEEN); SQUAMOUS EPITHELIAL CELL,UR MODERATE /HPF (NONE SEEN); TRIPLE PHOSPHATE CRYSTAL,UR MODERATE /HPF (NONE SEEN); WBC,URINE 50-80 /HPF (0-3)
[2022-07-06 21:40] VITALS: BP 118/64
[2022-07-07] VITALS: BP 97/56
[2022-07-07] MEDS: MEROPENEM 1 G in IV NORMAL SALINE 100 ML IV SCH ×3 (00:09→17:24)
--- NOTE | 2022-07-07 00:12 | NUR ---
Patient tolerating Gt feeding well. only had 5cc residual noted. Increase GT feeding to 20cc/hr. Continue to monitor.
[2022-07-07 04:00] VITALS: BP 102/59
[2022-07-07] MEDS: VANCOMYCIN IV 500 MG in IV DEXTROSE 5% 100 ML IV SCH (04:23)
--- NOTE | 2022-07-07 05:26 | NUR ---
Patient slept well during the night. In no apparent distress. Private caregiver at bedside. GT feeding/flushing well tolerated. NSR on tele with HR of 72/min. Midline on right upper arm and PIV on right hand intact and patent. No adverse effect noted from IV antibiotic. NPO. El catheter intact and draining via gravity. Needs assessed and anticipated to. Safety measure maintained and call light within reached.
[2022-07-07] MEDS: PANTOPRAZOLE ORAL SUSPENSION 40 MG SUSPDR.PKT GT SCH (06:08)
[2022-07-07 06:56] LABS: MEAN CORPUSCULAR HEMOGLOBIN 31.5 uug (24.7-32.8); MEAN CORPUSCULAR VOLUME 93.3 fL (75.5-95.3); PLATELET COUNT (AUTO) 158 K/uL (179-408)
[2022-07-07 07:29] LABS: CARBON DIOXIDE 30 mmol/L (21-32); CHLORIDE 106 mmol/L (98-107); CREATININE 0.4 mg/dL (0.6-1.3); GLUCOSE 106 mg/dL (74-106); PHOSPHOROUS 2.7 mg/dL (2.5-4.9); POTASSIUM 3.4 mmol/L (3.5-5.1); UREA NITROGEN, BLOOD 13 mg/dL (7-18)
--- NOTE | 2022-07-07 07:30 | NUR ---
RECEIVED PATIENT IN BED AWAKE ALERT TO SELF APHASIC MUMBLES BUT IS INCOHERENT ALL NEEDS ANTICIPATED AND SATISFIED REQUIRES MAX ASSIST FOR ALL ADL TURNED AND REPOSITIONED Q2H FOR COMFORT AND GOOD BODY ALLIGNMENT GT WITH FEEDINGS INTACT WITH NO GASTRIC RESIDUAL AT THIS TIME JOHNSON CATH WITH PAIGE COLORED URINE NO HEMATURIA MADE COMFORTABLE WILL CONTINUE TO OBSERVE
[2022-07-07 08:10] LABS: MAGNESIUM 1.9 mg/dL (1.8-2.4)
[2022-07-07] MEDS: BACLOFEN 10 MG TABLET GT SCH ×3 (08:24→17:24)
[2022-07-07] MEDS: TRAMADOL HCL 50 MG TABLET GT SCH ×2 (08:24→17:25)
[2022-07-07] MEDS: PRAMIPEXOLE 0.25 MG TABLET GT SCH ×2 (08:24→17:24)
[2022-07-07] MEDS: CARBIDOPA/LEVODOPA 25-250MG TABLET GT SCH ×4 (08:24→20:49)
[2022-07-07] MEDS: VENLAFAXINE 25 MG TABLET GT SCH (08:25)
[2022-07-07] MEDS: ENOXAPARIN SODIUM 40 MG/0.4 ML DISP.SYRIN SQ SCH ×2 (08:26→20:43)
[2022-07-07] MEDS ORDERED: POTASSIUM CHLORIDE 20 MEQ POWDER PACKET GT ONE (10:00)
[2022-07-07] MEDS: IV NS 1000 ML 1,000 ML IV PRN (11:40)
[2022-07-07 12:00] VITALS: BP 133/76
--- NOTE | 2022-07-07 12:46 | NUR ---
WOUND CARE CONSULT: PT PRESENTS WITH STAGE 3 SACRAL ULCER, AREAS OF REDNESS TO RT NECK AND CHEST WELL REDNESS TO RT LEG, PRESENT ON ADMISSION. DR AGUAYO NOTIFIED OF SURGICAL CONSULT REQUEST. RECOMMENDATIONS MADE FOR SKIN PROTECTION AND WOUND CARE. DISCUSSED WITH NURSING STAFF[facility] IN AGREEMENT WITH PLAN OF CARE.
--- NOTE | 2022-07-07 13:40 | NUR ---
PATIENT SEEN BY BERTHA WYLIE WITH ORDER FOR CONSCENT FOR SERIAL DEBRIDEMENT OF THE SACRUM WILL NOTIFY PATIENTS DAUGHTER FOR CONSCENT.
--- NOTE | 2022-07-07 14:15 | NUR ---
JOHNSON CATH CHANGED INSERTED A NEW GAUGE 16FRENCH AND CONNECTED TO GRAVITY DRAINAGE NOTED WITH YELLOW URINE BUT HAS FEW SEDIMENTS MADE COMFORTABLE WILL CONTINUE TO OBSERVE.
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
[2022-07-07 16:00] VITALS: BP_SYST 105; BP_DIAS 73; BP_DIAS 83
[2022-07-07] MEDS: LACTULOSE 20 G/30 ML LIQUID UDC GT SCH (17:40)
--- NOTE | 2022-07-07 18:00 | NUR ---
REMAIN ON GT FEEDINGS IVF AND IV ATB ORDERED WITH NO ADVERSE EFFECTS NOTED PATIENTS SON HERE AND SIGNED CONSCENT FOR THE SERIAL DEBRIDEMENT OF THE SACRUM AND FILED.DR KNAPP HERE SEEN PATIENT AND SPOKE WITH THE PATIENTS SON AT LENGTH RE PLAN OF CARE WILL CONTINUE TO OBSERVE.
--- NOTE | 2022-07-07 19:30 | NUR ---
Received patient lying in bed. Awake making non-sensical sound. In no acute distress. Private caregiver and son at bedside. GT feeding infusing. Suction secretion PRN. El catheter intact and draining via gravity. Needs assessed and anticipated to. Safety measure initiated and call light within reached.
[2022-07-07 20:00] VITALS: BP 112/48
[2022-07-07] MEDS: CLONAZEPAM 1 MG TABLET GT SCH (20:49)
[2022-07-07] MEDS: VANCOMYCIN IV 750 MG in IV DEXTROSE 5% 250 ML IV SCH (20:50)
[2022-07-07] MEDS: DOCUSATE SODIUM 100 MG/10 ML LIQUID UDC GT SCH (20:50)
[2022-07-08] MEDS: MEROPENEM 1 G in IV NORMAL SALINE 100 ML IV SCH ×2 (00:06→08:54)
[2022-07-08] MEDS: IV NS 1000 ML 1,000 ML IV PRN ×2 (01:05→17:28)
[2022-07-08] MEDS: ACETAMINOPHEN 325 MG TABLET GT PRN ×2 (03:16→12:38)
[2022-07-08 04:42] VITALS: BP 101/56
--- NOTE | 2022-07-08 05:16 | NUR ---
In no apparent distress. Private caregiver at bedside. GT feeding/flushing tolerated. Midline on right upper arm and PIV on right hand intact and patent. No adverse effect noted from IV antibiotic. El catheter intact and draining via gravity. Needs assessed and anticipated to. Safety measure maintained and call light within reached.
[2022-07-08] MEDS: PANTOPRAZOLE ORAL SUSPENSION 40 MG SUSPDR.PKT GT SCH (06:14)
[2022-07-08 06:38] LABS: HEMATOCRIT 31.4 % (31.2-41.9); MEAN CORPUSCULAR HEMOGLOBIN 32.8 uug (24.7-32.8); MEAN CORPUSCULAR VOLUME 94.1 fL (75.5-95.3); PLATELET COUNT (AUTO) 163 K/uL (179-408)
[2022-07-08 07:01] LABS: BILIRUBIN,TOTAL 0.2 mg/dL (0.2-1.0); CREATININE 0.5 mg/dL (0.6-1.3); MAGNESIUM 1.9 mg/dL (1.8-2.4); PHOSPHOROUS 2.3 mg/dL (2.5-4.9); POTASSIUM 3.5 mmol/L (3.5-5.1); TOTAL PROTEIN, SERUM 5.4 g/dL (6.4-8.2)
--- NOTE | 2022-07-08 08:00 | NUR ---
RECEIVED PATIENT MOANING WITH EYES CLOSED, NO SS OF DISTRESS CONTINUE WITH PAIN MANAGEMENT. TOLERATING FEEDING WELL
[2022-07-08] MEDS: CARBIDOPA/LEVODOPA 25-250MG TABLET GT SCH ×4 (08:55→20:41)
[2022-07-08] MEDS: ENOXAPARIN SODIUM 40 MG/0.4 ML DISP.SYRIN SQ SCH ×2 (08:55→20:44)
[2022-07-08] MEDS: PRAMIPEXOLE 0.25 MG TABLET GT SCH ×2 (08:55→16:58)
[2022-07-08] MEDS: BACLOFEN 10 MG TABLET GT SCH ×3 (08:55→16:58)
[2022-07-08] MEDS: TRAMADOL HCL 50 MG TABLET GT SCH ×2 (08:56→16:58)
[2022-07-08] MEDS: VANCOMYCIN IV 750 MG in IV DEXTROSE 5% 250 ML IV SCH (08:56)
[2022-07-08] MEDS: VENLAFAXINE 25 MG TABLET GT SCH (09:05)
[2022-07-08 10:12] LABS: THYROID STIMULATING HORMONE 1.572 mIU/mL (0.358-3.740)
[2022-07-08] MEDS: GUAIFENESIN/DEXTROMETHORPHAN 5 ML UDC PO PRN ×2 (10:33→20:46)
[2022-07-08] MEDS: MORPHINE SULFATE 2 MG/1 ML DISP.SYRIN IV PRN ×2 (10:34→20:43)
[2022-07-08] MEDS: ALBUTEROL SULFATE 1.25 MG/3 ML NEBU NEB PRN (11:18)
[2022-07-08 11:31] VITALS: BP 120/74
--- NOTE | 2022-07-08 12:00 | NUR ---
NOTED WITH ON AND OFF COUGH WITH MINIMAL WHITISH SECRETION HHN TX ORDERED. O2 3L NC STARTED FOR O2 SAT 86-88%. O2 SAT WENT UP TO 96-98% AFTER
[2022-07-08] MEDS ORDERED: POTASSIUM PHOSPHATE MM 7.5 MMOL in IV NORMAL SALINE 97.5 ML IV ONE (12:30)
[2022-07-08] MEDS: CEFAZOLIN 2 G in IV DEXTROSE 5% 100 ML IV SCH ×2 (12:43→21:36)
[2022-07-08 15:09] VITALS: BP 119/66
--- NOTE | 2022-07-08 16:37 | NUR ---
CONTINUE WITH IV ANTIBIOTICS AND PAIN MANAGEMENT. STARTED ON HHN TX WITH GOOD HELP. AFEBRILE
[2022-07-08] MEDS: LACTULOSE 20 G/30 ML LIQUID UDC GT SCH (17:03)
[2022-07-08 20:00] VITALS: BP 110/57
[2022-07-08] MEDS: DOCUSATE SODIUM 100 MG/10 ML LIQUID UDC GT SCH (20:40)
[2022-07-08] MEDS: CLONAZEPAM 1 MG TABLET GT SCH (20:40)
[2022-07-09] MEDS: ALBUTEROL SULFATE 1.25 MG/3 ML NEBU NEB PRN (03:06)
[2022-07-09] MEDS: MORPHINE SULFATE 2 MG/1 ML DISP.SYRIN IV PRN (03:53)
[2022-07-09] MEDS: GUAIFENESIN/DEXTROMETHORPHAN 5 ML UDC PO PRN (03:54)
[2022-07-09 04:30] VITALS: BP 107/63
[2022-07-09] MEDS: CEFAZOLIN 2 G in IV DEXTROSE 5% 100 ML IV SCH ×3 (05:30→21:21)
[2022-07-09] MEDS: IV NS 1000 ML 1,000 ML IV PRN ×2 (05:57→22:49)
[2022-07-09] MEDS: ACETAMINOPHEN 325 MG TABLET GT PRN ×2 (05:57→21:11)
[2022-07-09] MEDS: PANTOPRAZOLE ORAL SUSPENSION 40 MG SUSPDR.PKT GT SCH (06:07)
--- NOTE | 2022-07-09 06:54 | NUR ---
0615 pt picked up by ambulance for transport to [facility] same day surgery; pt will come back to room 303 for possible dc; pt npo fr midnight. continue to monitor; continue plan of care.
[2022-07-09] MEDS: BACLOFEN 10 MG TABLET GT SCH ×3 (09:29→17:31)
[2022-07-09] MEDS: VENLAFAXINE 25 MG TABLET GT SCH (09:29)
[2022-07-09] MEDS: CARBIDOPA/LEVODOPA 25-250MG TABLET GT SCH ×4 (09:29→21:00)
[2022-07-09] MEDS: PRAMIPEXOLE 0.25 MG TABLET GT SCH ×2 (09:29→17:32)
[2022-07-09] MEDS: TRAMADOL HCL 50 MG TABLET GT SCH ×2 (09:30→17:32)
[2022-07-09] MEDS: ENOXAPARIN SODIUM 40 MG/0.4 ML DISP.SYRIN SQ SCH ×2 (09:35→21:12)
[2022-07-09 11:08] VITALS: BP 147/78
[2022-07-09 15:29] VITALS: BP 143/85
[2022-07-09] MEDS: LACTULOSE 20 G/30 ML LIQUID UDC GT SCH (17:32)
--- NOTE | 2022-07-09 18:33 | NUR ---
Pt family at bedside. I explained that per speech therapist recommendation, pt should be NPO due to aspiration risk. Moistened pt lips with sponge and suctioned for comfort and complaint of dryness. Breathing tx Prn Requested from RT. Comfort measures provided, call light within reach. Will endorse to nuclear technologist.
[2022-07-09 20:00] VITALS: BP 146/76
[2022-07-09] MEDS: CLONAZEPAM 1 MG TABLET GT SCH (21:11)
[2022-07-09] MEDS: DOCUSATE SODIUM 100 MG/10 ML LIQUID UDC GT SCH (21:14)
--- NOTE | 2022-07-10 04:34 | NUR ---
Awake but non verbal. Family in @ beginning of shift. On continous TF of Two Wesley HN @ 30 cc/hr. Repositioned for comfort. Caregiver at bedside. IVF's infusing well via Right upper midline. IVF's infusing well. Oral suction done as needed. Respiratory Tx given as needed. VSS. El catheter draining yellow urine. I & O monitor. Incontinent of BM x2 Kept clean and dry. Will monitor patient. Siderails up for safety.
[2022-07-10 05:06] VITALS: BP 135/89
[2022-07-10] MEDS: CEFAZOLIN 2 G in IV DEXTROSE 5% 100 ML IV SCH ×3 (05:31→23:00)
[2022-07-10] MEDS: PANTOPRAZOLE ORAL SUSPENSION 40 MG SUSPDR.PKT GT SCH (07:00)
[2022-07-10] MEDS: ALBUTEROL SULFATE 1.25 MG/3 ML NEBU NEB PRN (07:53)
[2022-07-10] MEDS: ACETAMINOPHEN 325 MG TABLET GT PRN ×2 (08:50→17:20)
[2022-07-10] MEDS: PRAMIPEXOLE 0.25 MG TABLET GT SCH ×2 (08:50→17:20)
[2022-07-10] MEDS: BACLOFEN 10 MG TABLET GT SCH ×3 (08:50→17:20)
[2022-07-10] MEDS: TRAMADOL HCL 50 MG TABLET GT SCH ×2 (08:51→17:21)
[2022-07-10] MEDS: GUAIFENESIN/DEXTROMETHORPHAN 5 ML UDC PO PRN (08:51)
[2022-07-10] MEDS: CARBIDOPA/LEVODOPA 25-250MG TABLET GT SCH ×4 (08:51→21:23)
[2022-07-10] MEDS: VENLAFAXINE 25 MG TABLET GT SCH (08:52)
[2022-07-10] MEDS: ENOXAPARIN SODIUM 40 MG/0.4 ML DISP.SYRIN SQ SCH ×2 (08:53→21:23)
--- NOTE | 2022-07-10 11:44 | NUR ---
Pt has been afebrile this morning. Report of temperature during pm shift . Administered robitussen prn for cough this morning and had breathing tx prn as well. Educated family not to give anything PO to pt because she is aspiration risk.
[2022-07-10] MEDS: IV NS 1000 ML 1,000 ML IV PRN (13:47)
[2022-07-10] MEDS: LACTULOSE 20 G/30 ML LIQUID UDC GT SCH (17:21)
[2022-07-10 20:57] VITALS: BP 137/82
[2022-07-10] MEDS: CLONAZEPAM 1 MG TABLET GT SCH (21:23)
[2022-07-10] MEDS: DOCUSATE SODIUM 100 MG/10 ML LIQUID UDC GT SCH (21:23)
[2022-07-11 04:45] VITALS: BP 109/68
[2022-07-11] MEDS: CEFAZOLIN 2 G in IV DEXTROSE 5% 100 ML IV SCH ×2 (05:01→13:09)
[2022-07-11] MEDS: IV NS 1000 ML 1,000 ML IV PRN (05:10)
[2022-07-11] MEDS: PANTOPRAZOLE ORAL SUSPENSION 40 MG SUSPDR.PKT GT SCH (06:32)
[2022-07-11 07:34] LABS: MEAN CORPUSCULAR HEMOGLOBIN 32.1 uug (24.7-32.8); MEAN CORPUSCULAR VOLUME 93.9 fL (75.5-95.3); PLATELET COUNT (AUTO) 219 K/uL (179-408)
[2022-07-11 07:39] LABS: ALANINE AMINOTRANSFERASE 41 U/L (14-59); ALKALINE PHOSPHATASE 74 U/L (50-136); ASPARTATE AMINOTRANSFERASE 60 U/L (15-37); BILIRUBIN,TOTAL 0.1 mg/dL (0.2-1.0); CARBON DIOXIDE 32 mmol/L (21-32); CHLORIDE 104 mmol/L (98-107); CREATININE 0.4 mg/dL (0.6-1.3); GLUCOSE 120 mg/dL (74-106); MAGNESIUM 2.1 mg/dL (1.8-2.4); PHOSPHOROUS 2.7 mg/dL (2.5-4.9); TOTAL PROTEIN, SERUM 5.5 g/dL (6.4-8.2); UREA NITROGEN, BLOOD 6 mg/dL (7-18)
--- NOTE | 2022-07-11 08:00 | NUR ---
Patient is alert and awake. In no acute distress. On 2 L 02 via NC, no SOB or congestion noted. Patient is free of facial grimacing CG at bedside. Midline to right upper arm is intact and patent. GT feeding on at this time. GT placement confirmed by auscultation and flushing. All needs attended by staff.
[2022-07-11] MEDS: BACLOFEN 10 MG TABLET GT SCH ×3 (09:06→17:16)
[2022-07-11] MEDS: VENLAFAXINE 25 MG TABLET GT SCH (09:06)
[2022-07-11] MEDS: TRAMADOL HCL 50 MG TABLET GT SCH ×2 (09:06→17:17)
[2022-07-11] MEDS: PRAMIPEXOLE 0.25 MG TABLET GT SCH ×2 (09:06→17:17)
[2022-07-11] MEDS: CARBIDOPA/LEVODOPA 25-250MG TABLET GT SCH ×3 (09:06→17:17)
[2022-07-11] MEDS: ENOXAPARIN SODIUM 40 MG/0.4 ML DISP.SYRIN SQ SCH (09:11)
[2022-07-11] MEDS ORDERED: POTASSIUM CHLORIDE 20 MEQ POWDER PACKET GT ONE (11:00)
[2022-07-11] MEDS ORDERED: ACID1TAB4 GT (14:03)
[2022-07-11] MEDS ORDERED: CEPH500C2 GT (14:03)
[2022-07-11] MEDS ORDERED: APIX2.5T GT (14:09)
[2022-07-11] MEDS ORDERED: SCOP1PAT13 TP (14:13)
[2022-07-11 16:22] VITALS: BP 147/88
[2022-07-11] MEDS: LACTULOSE 20 G/30 ML LIQUID UDC GT SCH (17:17)
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
--- NOTE | 2022-07-11 18:45 | NUR ---
Patient is discharge home via private car with son Jamir and ANN. Discharge instructions and paperwork provided. Discharged home with all belongings. Patient is in stable condition. In no acute distress.
== END 2022-07-11 18:45 | disposition home or self-care (01) | DRG 853 ==
LOC: ER 15:46 → TELE3 22:32 → MEDSURG3 07-07 18:44
PROVIDERS: ADMIT Internal Medicine; ATTEND Internal Medicine
PROC: 05H533Z Insertion of Infusion Device into Right Subclavian Vein, Percutaneous Approach (ICD-10-PCS; principal; 2022-07-06)
PROC: B546ZZA Ultrasonography of Right Subclavian Vein, Guidance (ICD-10-PCS; 2022-07-06)
PROC: 0JB70ZZ Excision of Back Subcutaneous Tissue and Fascia, Open Approach (ICD-10-PCS; 2022-07-08)
DX: A41.9 Sepsis, unspecified organism (principal); E43 Unspecified severe protein-calorie malnutrition; L89.153 Pressure ulcer of sacral region, stage 3; N17.0 Acute kidney failure with tubular necrosis; G92.8 Other toxic encephalopathy; I82.411 Acute embolism and thrombosis of right femoral vein; L03.115 Cellulitis of right lower limb; D68.59 Other primary thrombophilia; E87.1 Hypo-osmolality and hyponatremia; N39.0 Urinary tract infection, site not specified; L03.221 Cellulitis of neck; Z74.09 Other reduced mobility; E03.9 Hypothyroidism, unspecified; D69.6 Thrombocytopenia, unspecified; E83.39 Other disorders of phosphorus metabolism; E86.1 Hypovolemia; E87.6 Hypokalemia; F32.9 Major depressive disorder, single episode, unspecified; K56.41 Fecal impaction; M20.41 Other hammer toe(s) (acquired), right foot; M20.42 Other hammer toe(s) (acquired), left foot; R13.10 Dysphagia, unspecified; Z87.891 Personal history of nicotine dependence; E88.09 Other disorders of plasma-protein metabolism, not elsewhere classified; R53.1 Weakness; Z93.1 Gastrostomy status; Z87.440 Personal history of urinary (tract) infections; M24.541 Contracture, right hand; M24.542 Contracture, left hand; M24.571 Contracture, right ankle; M24.572 Contracture, left ankle; G20 Parkinson's disease
CPT/HCPCS: 36415; 71045; 72192; 83605; 83735; 84100; 84443; 85025; 86803; 87040; 87086; 87806; 93005; 93307; 94640; 94664; A4663; A6209; A6213; G0378; J0690; J0696; J1650; J2185; J2270; J3370; J3490; J7040; J7050

== ENCOUNTER 2022-08-28 11:35 | Inpatient (IN) | payer MEDICARE ==
[~2022-08-28] VITALS: Ht 149.9 cm; Wt 36.3 kg
[~2022-08-28 11:35] MED LIST changes: +ACET-73 PO; +ACID1TAB4 GT; +APIX2.5T GT; +ARGI1POW17 GT; +CEPH500C2 GT; +CLON1TAB12 GT; -CLON1TAB12 PO; -MULT-1201 GT; +MULT-594 GT; +PANT40TA49 GT; +PRAM0.253 GT; -PRAM0.253 PO; +SCOP1PAT13 TP; +VENL50TA4 PO; -VENL75TA4 PO
[2022-08-28 13:00] LABS: HEMATOCRIT 40.4 % (31.2-41.9); MEAN CORPUSCULAR HEMOGLOBIN 32.7 uug (24.7-32.8); MEAN CORPUSCULAR VOLUME 97.3 fL (75.5-95.3); PLATELET COUNT (AUTO) 184 K/uL (179-408)
[2022-08-28 13:14] LABS: ALANINE AMINOTRANSFERASE 12 U/L (14-59); ALKALINE PHOSPHATASE 70 U/L (50-136); ASPARTATE AMINOTRANSFERASE 18 U/L (15-37); BILIRUBIN,TOTAL 0.3 mg/dL (0.2-1.0); CARBON DIOXIDE 30 mmol/L (21-32); CHLORIDE 102 mmol/L (98-107); CREATININE 0.4 mg/dL (0.6-1.3); GLUCOSE 104 mg/dL (74-106); TOTAL PROTEIN, SERUM 7.4 g/dL (6.4-8.2); UREA NITROGEN, BLOOD 23 mg/dL (7-18)
[2022-08-28] MEDS ORDERED: MEROPENEM 1,000 MG in IV NORMAL SALINE 100 ML IV ONE (13:15)
[2022-08-28 14:01] LABS: *BILIRUBIN,URIN NEGATIVE (NEGATIVE); *CLARITY,URINE CLOUDY (CLEAR); *COLOR,URINE YELLOW (YELLOW); *KETONES,URINE 1+ (NEGATIVE); *UROBILINOGEN,URINE 0.2 E.U./dl (NORMAL); LEUKOCYTE ESTERASE ,URINE 2+ (NEGATIVE); NITRITE, URINE NEGATIVE (NEGATIVE); PH,URINE 8.5 (5.0-8.0); UGLUCOSE NEGATIVE (NEGATIVE)
[2022-08-28] MEDS ORDERED: SCOPOLAMINE PATCH 1 MG/72 HRS PATCH TD PRN (14:15)
[2022-08-28] MEDS ORDERED: TRAMADOL HCL 50 MG TABLET GT PRN (14:15)
[2022-08-28] MEDS ORDERED: MEROPENEM 0.5 G in IV NORMAL SALINE 50 ML IV SCH (14:15)
[2022-08-28] MEDS ORDERED: ONDANSETRON 4 MG/2 ML VIAL IV PRN (14:15)
[2022-08-28] MEDS ORDERED: ACETAMINOPHEN ES 500 MG TABLET PO PRN ×2 (14:15→17:15)
[2022-08-28] MEDS ORDERED: REMEDY ESSENTIAL ZINC PASTE 113 GM TP PRN (14:15)
[2022-08-28] MEDS ORDERED: MEROPENEM 1GM/NS 100ML IVPB **ER PYXIS ONLY IV ONE (14:16)
[2022-08-28 14:20] LABS: *BLOOD, URINE TRACE (NEGATIVE)
[2022-08-28 14:27] LABS: BACTERIA,URINE MANY /HPF (NONE SEEN); CALCIUM PHOSPHATE CRYSTALS,UR RARE /HPF (NONE SEEN); SQUAMOUS EPITHELIAL CELL,UR FEW /HPF (NONE SEEN); WBC,URINE 20-50 /HPF (0-3)
[2022-08-28] MEDS ORDERED: KETOROLAC TROMETHAMINE 15 MG INJ IVP ONE (15:30)
[2022-08-28] MEDS ORDERED: KETOROLAC TROMETHAMINE 15 MG INJ ONE (15:47)
--- NOTE | 2022-08-28 16:01 | NUR ---
pt to be tramsfered to [facility] unit for midline placement and peg tube placement. accepting MD is . report given to NEDRA Le. pt in stable condition. pt is accompanied by her daughter and caregiver, they have all her belongings.
[2022-08-28] MEDS ORDERED: ACET-73 PO (17:00)
[2022-08-28] MEDS ORDERED: BACLOFEN 10 MG TABLET GT SCH (17:00)
[2022-08-28] MEDS: MEROPENEM 1 G in IV NORMAL SALINE 100 ML IV SCH (17:25)
[2022-08-28] MEDS: CARBIDOPA/LEVODOPA 25-250MG TABLET GT SCH ×2 (17:25→21:11)
[2022-08-28] MEDS: PRAMIPEXOLE 0.25 MG TABLET GT SCH (17:25)
[2022-08-28] MEDS ORDERED: LACTULOSE 20 G/30 ML LIQUID UDC PO SCH (18:00)
[2022-08-28] MEDS ORDERED: LACTULOSE 20 G/30 ML LIQUID UDC GT SCH (18:00)
--- NOTE | 2022-08-28 18:00 | NUR ---
Received pt from ER, daughter and caregiver sitter at bedside. Caregiver sitter will stay with the patient over night. Patient is not in distress or pain. All needs met right away. Skinwise, patient had red coccyx area with moisture related skin tearing. Pictures are in the chart. Also, around PEG tube skin is pinkish and moist (pic also in her chart). Other than that, skin is intact throughout. Dietary made a tube feeding recommendation, dr Buck is informed. Still waiting for his answer to approve it in order to start the feeding.
[2022-08-28 18:01] VITALS: BP 116/74
[2022-08-28 20:30] VITALS: BP 108/68
[2022-08-28] MEDS ORDERED: CLONAZEPAM 1 MG TABLET GT SCH (21:00)
[2022-08-28] MEDS ORDERED: ACIDOPHILUS/BULGARICUS CHEW TAB GT SCH (21:00)
[2022-08-28] MEDS: APIXABAN 2.5 MG TABLET GT SCH (21:11)
[2022-08-28] MEDS: ACETAMINOPHEN ES 500 MG TABLET PO SCH (22:07)
[2022-08-28] MEDS: CLONAZEPAM 1 MG TABLET GT SCH (22:07)
[2022-08-28] MEDS: BACLOFEN 10 MG TABLET GT SCH (22:07)
[2022-08-29] MEDS: MEROPENEM 1 G in IV NORMAL SALINE 100 ML IV SCH ×3 (02:02→17:31)
[2022-08-29 04:48] VITALS: BP 98/59
[2022-08-29] MEDS: PANTOPRAZOLE ORAL SUSPENSION 40 MG SUSPDR.PKT GT SCH (06:28)
[2022-08-29] MEDS: ACETAMINOPHEN ES 500 MG TABLET PO SCH ×3 (06:29→22:18)
--- NOTE | 2022-08-29 06:48 | NUR ---
Slept intermittently, no acute distress noted, denies pain. GT intact and patent. Needs assessed and attended to. Left bed in low and lock position. Call light within easy reach.
[2022-08-29 07:06] LABS: HEMATOCRIT 36.8 % (31.2-41.9); MEAN CORPUSCULAR HEMOGLOBIN 32.8 uug (24.7-32.8); MEAN CORPUSCULAR VOLUME 97.8 fL (75.5-95.3); PLATELET COUNT (AUTO) 166 K/uL (179-408)
[2022-08-29 07:26] LABS: CARBON DIOXIDE 30 mmol/L (21-32); CHLORIDE 104 mmol/L (98-107); CREATININE 0.4 mg/dL (0.6-1.3); GLUCOSE 81 mg/dL (74-106); MAGNESIUM 2.2 mg/dL (1.8-2.4); PHOSPHOROUS 4.2 mg/dL (2.5-4.9); UREA NITROGEN, BLOOD 18 mg/dL (7-18)
[2022-08-29] MEDS: PRAMIPEXOLE 0.25 MG TABLET GT SCH ×2 (08:37→17:30)
[2022-08-29] MEDS: LACTULOSE 20 G/30 ML LIQUID UDC GT SCH (08:37)
[2022-08-29] MEDS: APIXABAN 2.5 MG TABLET GT SCH ×2 (08:38→21:05)
[2022-08-29] MEDS: CARBIDOPA/LEVODOPA 25-250MG TABLET GT SCH ×4 (08:39→21:05)
[2022-08-29] MEDS: VENLAFAXINE 25 MG TABLET GT SCH (08:41)
[2022-08-29] MEDS: HYDROCODONE/APAP 5-325MG TABLET GT PRN ×2 (09:43→15:05)
[2022-08-29 11:58] VITALS: BP 117/63
[2022-08-29] MEDS: BACLOFEN 10 MG TABLET GT SCH ×2 (13:52→22:18)
[2022-08-29 16:00] VITALS: BP 116/72
[2022-08-29 20:00] VITALS: BP 117/72
[2022-08-29] MEDS: CLONAZEPAM 1 MG TABLET GT SCH (22:18)
[2022-08-30] MEDS: MEROPENEM 1 G in IV NORMAL SALINE 100 ML IV SCH ×3 (01:16→18:17)
[2022-08-30 04:00] VITALS: BP 122/65
[2022-08-30 06:33] LABS: HEMATOCRIT 34.6 % (31.2-41.9); MEAN CORPUSCULAR HEMOGLOBIN 33.2 uug (24.7-32.8); PLATELET COUNT (AUTO) 172 K/uL (179-408)
--- NOTE | 2022-08-30 06:34 | NUR ---
Slept comfortably. Air mattress placed. Gtube feedings at 35 cc/hr. Tolerated well. No residual. Administered meds as ordered. Le cath intact and draining. All needs attended. Safety and Aspiration precautions maintained. Will endorse to incoming shift.
[2022-08-30] MEDS: PANTOPRAZOLE ORAL SUSPENSION 40 MG SUSPDR.PKT GT SCH (06:37)
[2022-08-30] MEDS: ACETAMINOPHEN ES 500 MG TABLET PO SCH ×3 (06:38→15:52)
[2022-08-30 07:05] LABS: CREATININE 0.5 mg/dL (0.6-1.3); MAGNESIUM 2.2 mg/dL (1.8-2.4); PHOSPHOROUS 3.2 mg/dL (2.5-4.9); POTASSIUM 3.6 mmol/L (3.5-5.1)
[2022-08-30] MEDS: LACTULOSE 20 G/30 ML LIQUID UDC GT SCH (08:27)
[2022-08-30] MEDS: PRAMIPEXOLE 0.25 MG TABLET GT SCH ×2 (08:27→16:54)
[2022-08-30] MEDS: CARBIDOPA/LEVODOPA 25-250MG TABLET GT SCH ×4 (08:27→21:55)
[2022-08-30] MEDS: APIXABAN 2.5 MG TABLET GT SCH ×2 (08:29→21:54)
[2022-08-30] MEDS: VENLAFAXINE 25 MG TABLET GT SCH (08:32)
[2022-08-30 11:31] VITALS: BP 134/43
--- NOTE | 2022-08-30 12:04 | NUR ---
62 year old female, came from home. Admit Dx: Peg placement. A&Ox2, on room air and EMILY mid line/RFA 20 gauge which is not suppose to be removed. Patient found awake in hospital bed. She is comfortable at this time. Pcg at bedside. No apparent distress noted. She is full code. Allergies NKA. She has a bedbound has unger and diaper. Patient is contracted both arm and has bootys on lower bilateral feet. She is NPO, g-tube, Jevity plus 1.2. Usually feedings are stopped at 0900 and starts at 1300. Will continue to monitor.
[2022-08-30] MEDS: BACLOFEN 10 MG TABLET GT SCH ×2 (13:41→21:52)
--- NOTE | 2022-08-30 15:36 | NUR ---
Peg placement will be done matthew, Spoke with Dr. Woody. Procedure consent order placed. Pt was unable to sign due to both contractions on both arm. Daughter was able to sign for patient considering the fact that she does have a power of yarn conditioner.
[2022-08-30 16:00] VITALS: BP 135/87
[2022-08-30 20:00] VITALS: BP 116/93
[2022-08-30] MEDS: HYDROCODONE/APAP 5-325MG TABLET GT PRN (20:12)
[2022-08-30] MEDS: CLONAZEPAM 1 MG TABLET GT SCH (21:54)
[2022-08-31] MEDS: MEROPENEM 1 G in IV NORMAL SALINE 100 ML IV SCH ×3 (02:21→18:00)
[2022-08-31 04:00] VITALS: BP 101/58
--- NOTE | 2022-08-31 05:53 | NUR ---
DR ALICEA SAW PT AND REMOVED OLD PEG TUBE AND LEFT PT IN WITH POOL OF BLOOD FAMILY MEMBER WANTS A ABD XRAY FOR PLACEMENT CALL DR MARC SANCHEZ HE OKAYED FOR AM CHEST XRAY THIS AM. NO SIGNS OF DISTRESS NOTED CLEANED AREA APPLIED GAUZE DRAINED. PT GIVEN NORCO 5/325 FOR PAIN INSTEAD OF TYLENOL WILL CONTINUE TO MONITOR AND ENDORSE TO AM NURSE. FALL AND SAFETY MAINTAINED.
[2022-08-31 06:14] LABS: MEAN CORPUSCULAR HEMOGLOBIN 32.3 uug (24.7-32.8); MEAN CORPUSCULAR VOLUME 96.4 fL (75.5-95.3); PLATELET COUNT (AUTO) 163 K/uL (179-408)
[2022-08-31 06:42] LABS: CARBON DIOXIDE 30 mmol/L (21-32); CHLORIDE 106 mmol/L (98-107); CREATININE 0.4 mg/dL (0.6-1.3); GLUCOSE 101 mg/dL (74-106); MAGNESIUM 2.2 mg/dL (1.8-2.4); PHOSPHOROUS 2.9 mg/dL (2.5-4.9); POTASSIUM 3.6 mmol/L (3.5-5.1); UREA NITROGEN, BLOOD 13 mg/dL (7-18)
[2022-08-31] MEDS: PANTOPRAZOLE ORAL SUSPENSION 40 MG SUSPDR.PKT GT SCH (07:52)
[2022-08-31] MEDS: ACETAMINOPHEN ES 500 MG TABLET PO SCH ×3 (07:52→20:39)
[2022-08-31 08:00] VITALS: BP 108/63
[2022-08-31] MEDS: LACTULOSE 20 G/30 ML LIQUID UDC GT SCH (09:33)
[2022-08-31] MEDS: PRAMIPEXOLE 0.25 MG TABLET GT SCH ×2 (09:33→18:01)
[2022-08-31] MEDS: CARBIDOPA/LEVODOPA 25-250MG TABLET GT SCH ×4 (09:33→20:39)
[2022-08-31] MEDS: APIXABAN 2.5 MG TABLET GT SCH ×2 (09:34→20:40)
[2022-08-31] MEDS: VENLAFAXINE 25 MG TABLET GT SCH (09:35)
[2022-08-31 11:40] VITALS: BP 123/82
[2022-08-31] MEDS: BACLOFEN 10 MG TABLET GT SCH ×2 (13:08→20:40)
[2022-08-31 15:45] VITALS: BP 122/78
[2022-08-31] MEDS: HYDROCODONE/APAP 5-325MG TABLET GT PRN (18:01)
[2022-08-31 20:00] VITALS: BP 122/77
[2022-08-31] MEDS: CLONAZEPAM 1 MG TABLET GT SCH (20:39)
[2022-09-01] MEDS: MEROPENEM 1 G in IV NORMAL SALINE 100 ML IV SCH ×3 (02:45→17:13)
[2022-09-01 04:00] VITALS: BP 103/69
--- NOTE | 2022-09-01 08:31 | NUR ---
RECEIVED REPORT FROM AM NURSE PT IS ALERT AND ORIENTED FAMILY MEMBERS AT BEDSIDE NO SIGNS OF RESPIRATORY DISTRESS NOTED. PT GIVEN MEDICATION FOR PAIN TYLENOL ES NO SIGNS OF ADVERSE REACTION FROM ANY OF THE MEDICATION. PT HAD PICTURES TAKEN OF WOUND TOLERATED WELL NO SIGNS OF DISTRESS NOTED. WILL CONTINUE TO MONITOR FOR SAFETY AND FALLLS
[2022-09-01] MEDS: PANTOPRAZOLE ORAL SUSPENSION 40 MG SUSPDR.PKT GT SCH (09:12)
[2022-09-01] MEDS: ACETAMINOPHEN ES 500 MG TABLET PO SCH ×3 (09:12→22:28)
[2022-09-01] MEDS: LACTULOSE 20 G/30 ML LIQUID UDC GT SCH (09:17)
[2022-09-01] MEDS: CARBIDOPA/LEVODOPA 25-250MG TABLET GT SCH ×4 (09:17→22:28)
[2022-09-01] MEDS: PRAMIPEXOLE 0.25 MG TABLET GT SCH ×2 (09:17→17:13)
[2022-09-01] MEDS: APIXABAN 2.5 MG TABLET GT SCH ×2 (09:18→22:28)
[2022-09-01] MEDS: VENLAFAXINE 25 MG TABLET GT SCH (10:09)
--- NOTE | 2022-09-01 10:37 | NUR ---
PATIENT SEEN AND EXAMINED BY HANH FLORES AND JAMIE HUTCHISON LAB ENGINEER WITH NEW ORDERS AND NOTED FAMILY AT THE BEDSIDE RAN GT FEEDING WITH NO GASTRIC RESIDUAL AT THIS TIME IVPB ATB IN PROGRESS WITH NO S/S OF INFILTERATION MAX ASSIST FOR ALL ADL REPOSITIONED FOR COMFORT MADE COMFORTABLE WILL CONTINUE TO OBSERVE.
[2022-09-01 11:40] VITALS: BP 132/77
[2022-09-01] MEDS: BACLOFEN 10 MG TABLET GT SCH ×2 (12:26→22:29)
--- NOTE | 2022-09-01 12:26 | NUR ---
TEMP AT THIS TIME IS 99.6 PATIENT HAS ROUTINE TYLENOL DUE SO GIVEN AT THIS TIME PATIENT MADE COMFORTABLE WILL CONTINUE WO OBSERVE.
[2022-09-01] MEDS: JEVITY 1.2 1000 ML LIQUID GT PRN (14:33)
[2022-09-01 16:00] VITALS: BP 135/93
--- NOTE | 2022-09-01 18:00 | NUR ---
RESTING AFEBRILE WITH GT FEEDINGS IN PROGRESS ORDERED WITH NO GASTRIC RESIDUAL AT THIS TIME TURNED AND REPOSITIONED Q2H IV ATB IN PROGRESS WITH NO S/S OF GASTRIC RESIDUAL NO DISTRESS AT THIS TIME.
[2022-09-01 20:00] VITALS: BP_SYST 104; BP_SYST 123; BP_DIAS 63; BP_DIAS 73; BP_DIAS 77
[2022-09-01] MEDS: CLONAZEPAM 1 MG TABLET GT SCH (22:28)
[2022-09-02] VITALS: BP 119/69
[2022-09-02] MEDS: MEROPENEM 1 G in IV NORMAL SALINE 100 ML IV SCH (02:31)
[2022-09-02 04:00] VITALS: BP 105/69
[2022-09-02] MEDS: ACETAMINOPHEN ES 500 MG TABLET PO SCH ×3 (06:13→21:12)
[2022-09-02] MEDS: PANTOPRAZOLE ORAL SUSPENSION 40 MG SUSPDR.PKT GT SCH (06:14)
[2022-09-02 07:19] LABS: HEMATOCRIT 35.7 % (31.2-41.9); MEAN CORPUSCULAR HEMOGLOBIN 33.3 uug (24.7-32.8); MEAN CORPUSCULAR VOLUME 97.7 fL (75.5-95.3); PLATELET COUNT (AUTO) 180 K/uL (179-408)
[2022-09-02] MEDS ORDERED: levoFLOXacin 500 MG TABLET PO SCH (07:45)
[2022-09-02 07:46] LABS: CARBON DIOXIDE 31 mmol/L (21-32); CHLORIDE 104 mmol/L (98-107); CREATININE 0.4 mg/dL (0.6-1.3); GLUCOSE 122 mg/dL (74-106); MAGNESIUM 2.3 mg/dL (1.8-2.4); POTASSIUM 3.5 mmol/L (3.5-5.1); UREA NITROGEN, BLOOD 12 mg/dL (7-18)
--- NOTE | 2022-09-02 07:53 | NUR ---
SHIFT NOTES; RECEIVED REPORT FROM AM NURSE ON 09/01/22 IRIS PATIENT WAS GIVEN MEDICATION ORDERED PATIENT DENIES PAIN PATIENT WAS IV FLUSHED WITH 200ML OF WATER EVERY 6 HOURS. NO SIGNS OF RESPIRATORY DISTRESS NOTED. PLT DENIES PAIN AND OTHER SIGNS OF PT IS MONITORED ON HOURLY ROUNDS NO SIGNS FALLS NOTED AND SAFETY KEPT.PT ALSO HAS A CAREGIVER. GAVE REPORT TO SOFI SHARMA PT TODAY . Addendum: 09/02/22 at 0759 by [facility] RN6 RN REPORT GIVEN TO EDITH MOYA 09/02/22 NURSE WILL HANG FEEDING OF JEVKENNEDY 1.2.
[2022-09-02] MEDS ORDERED: AMOXICILLIN-CLAVUL 875-125MG TABLET ONE (08:17)
--- NOTE | 2022-09-02 08:20 | NUR ---
El cath plugged. Unable to irrigate cath. El cath. dc'd, and large amount of urine followed.
[2022-09-02] MEDS: PRAMIPEXOLE 0.25 MG TABLET GT SCH ×2 (08:25→17:18)
[2022-09-02] MEDS: LACTULOSE 20 G/30 ML LIQUID UDC GT SCH (08:27)
[2022-09-02] MEDS: CARBIDOPA/LEVODOPA 25-250MG TABLET GT SCH ×4 (08:27→21:12)
[2022-09-02] MEDS: APIXABAN 2.5 MG TABLET GT SCH ×2 (08:28→21:31)
[2022-09-02] MEDS: AMOXICILLIN-CLAVUL 875-125MG TABLET PO SCH ×2 (08:29→21:12)
[2022-09-02] MEDS: VENLAFAXINE 25 MG TABLET GT SCH (08:31)
[2022-09-02 08:47] LABS: EOSINOPHILS % (MANUAL) 4 % (0-8); LYMPHOCYTES % (MANUAL) 34 % (20-40); MONOCYTES % (MANUAL) 5 % (2-10); NEUTROPHILS % (MANUAL) 57 % (42-75)
--- NOTE | 2022-09-02 08:55 | NUR ---
El cath number 18 inserted without incidence, and draining moderate amount of clear yellow urine.
[2022-09-02 11:23] VITALS: BP 118/78
[2022-09-02] MEDS: BACLOFEN 10 MG TABLET GT SCH ×2 (13:10→21:13)
[2022-09-02] MEDS: HYDROCODONE/APAP 5-325MG TABLET GT PRN (14:53)
[2022-09-02 15:09] VITALS: BP 136/84
--- NOTE | 2022-09-02 19:30 | NUR ---
received patient in bed, with private sitter, patient has multiple episode of anxiety, crying and shaking, tries attend all needs as much as possible, kept clean dry and comfortable, hob elevated GTf tolerate well, cont to monitor.
--- NOTE | 2022-09-02 20:40 | NUR ---
Patient midline was changed by Midline staff, tolerate well, cont to monitor.
[2022-09-02] MEDS: CLONAZEPAM 1 MG TABLET GT SCH (21:12)
[2022-09-02 21:32] VITALS: BP 125/51
[2022-09-03 04:10] VITALS: BP 117/68
[2022-09-03] MEDS: ACETAMINOPHEN ES 500 MG TABLET PO SCH ×3 (05:52→21:27)
[2022-09-03] MEDS: PANTOPRAZOLE ORAL SUSPENSION 40 MG SUSPDR.PKT GT SCH (05:52)
--- NOTE | 2022-09-03 06:13 | NUR ---
Patient slept most of the night no sob no chest pain noted, no s/s of pain at this time. Patient still has episode of low grade fever, on Tylenol Es for pain and temp, unger cath patent draining yellow color urine in moderate amount, GTF tolerate well no residual noted, kept comfortable.
[2022-09-03 07:03] LABS: HEMATOCRIT 35.9 % (31.2-41.9); MEAN CORPUSCULAR VOLUME 97.6 fL (75.5-95.3); PLATELET COUNT (AUTO) 174 K/uL (179-408)
[2022-09-03] MEDS: CARBIDOPA/LEVODOPA 25-250MG TABLET GT SCH ×4 (08:28→21:27)
[2022-09-03] MEDS: LACTULOSE 20 G/30 ML LIQUID UDC GT SCH (08:28)
[2022-09-03] MEDS: PRAMIPEXOLE 0.25 MG TABLET GT SCH ×2 (08:28→17:12)
[2022-09-03] MEDS: VENLAFAXINE 25 MG TABLET GT SCH (08:29)
[2022-09-03] MEDS: APIXABAN 2.5 MG TABLET GT SCH ×2 (08:30→21:31)
[2022-09-03] MEDS: JEVITY 1.2 1000 ML LIQUID GT PRN (09:04)
[2022-09-03] MEDS: ACIDOPHILUS/BULGARICUS CHEW TAB GT SCH ×2 (14:07→21:27)
[2022-09-03] MEDS: BACLOFEN 10 MG TABLET GT SCH ×2 (14:07→21:27)
[2022-09-03 15:43] VITALS: BP 121/84
[2022-09-03 16:28] LABS: *BILIRUBIN,URIN NEGATIVE (NEGATIVE); *BLOOD, URINE 1+ (NEGATIVE); *CLARITY,URINE CLEAR (CLEAR); *COLOR,URINE YELLOW (YELLOW); *KETONES,URINE NEGATIVE (NEGATIVE); *UROBILINOGEN,URINE 0.2 E.U./dl (NORMAL); LEUKOCYTE ESTERASE ,URINE TRACE (NEGATIVE); NITRITE, URINE NEGATIVE (NEGATIVE); UGLUCOSE NEGATIVE (NEGATIVE)
[2022-09-03 16:57] LABS: BACTERIA,URINE MODERATE /HPF (NONE SEEN); SQUAMOUS EPITHELIAL CELL,UR FEW /HPF (NONE SEEN)
[2022-09-03 16:58] LABS: URINE AMORPHOUS URATE MODERATE /HPF
[2022-09-03 20:46] VITALS: BP 115/77
[2022-09-03] MEDS: CLONAZEPAM 1 MG TABLET GT SCH (21:27)
--- NOTE | 2022-09-04 01:24 | NUR ---
Patient moaning, check and clean GT site, check unger cath for placement and patentcy, turn and reposition, pillow applied on sacral area per patient request/and family, given Tylenol ES via gt for pain and comfort. cont to monitor.
[2022-09-04 04:35] VITALS: BP 113/74
[2022-09-04] MEDS: ACIDOPHILUS/BULGARICUS CHEW TAB GT SCH ×3 (06:00→21:04)
[2022-09-04] MEDS: ACETAMINOPHEN ES 500 MG TABLET PO SCH ×3 (06:00→21:02)
[2022-09-04] MEDS: PANTOPRAZOLE ORAL SUSPENSION 40 MG SUSPDR.PKT GT SCH (06:00)
--- NOTE | 2022-09-04 06:49 | NUR ---
Patient asleep no further episode of moaning at this time, GTF tolerate well, no residual noted, unger cath patent, draining with yellow color urine, in moderate amount, private inspector health care facilities at bedside, cont to monitor.
[2022-09-04 07:32] LABS: HEMATOCRIT 35.1 % (31.2-41.9); MEAN CORPUSCULAR HEMOGLOBIN 32.9 uug (24.7-32.8); MEAN CORPUSCULAR VOLUME 96.4 fL (75.5-95.3); PLATELET COUNT (AUTO) 169 K/uL (179-408)
[2022-09-04 07:37] LABS: CARBON DIOXIDE 31 mmol/L (21-32); CHLORIDE 105 mmol/L (98-107); CREATININE 0.4 mg/dL (0.6-1.3); GLUCOSE 101 mg/dL (74-106); POTASSIUM 3.7 mmol/L (3.5-5.1); UREA NITROGEN, BLOOD 13 mg/dL (7-18)
[2022-09-04] MEDS: CARBIDOPA/LEVODOPA 25-250MG TABLET GT SCH ×4 (09:09→21:02)
[2022-09-04] MEDS: PRAMIPEXOLE 0.25 MG TABLET GT SCH ×2 (09:09→17:58)
[2022-09-04] MEDS: VENLAFAXINE 25 MG TABLET GT SCH (09:09)
[2022-09-04] MEDS: APIXABAN 2.5 MG TABLET GT SCH ×2 (09:11→21:14)
[2022-09-04 11:39] VITALS: BP 124/77
[2022-09-04] MEDS: BACLOFEN 10 MG TABLET GT SCH ×2 (15:08→21:02)
[2022-09-04 15:42] VITALS: BP 138/87
--- NOTE | 2022-09-04 17:53 | NUR ---
Flushed FC. no obstruction. ptent and draining well
[2022-09-04 20:33] VITALS: BP 118/68
[2022-09-04] MEDS: CLONAZEPAM 1 MG TABLET GT SCH (21:02)
[2022-09-05 04:23] VITALS: BP 101/67
[2022-09-05] MEDS: PANTOPRAZOLE ORAL SUSPENSION 40 MG SUSPDR.PKT GT SCH (06:06)
[2022-09-05] MEDS: ACETAMINOPHEN ES 500 MG TABLET PO SCH ×2 (06:06→13:00)
[2022-09-05] MEDS: ACIDOPHILUS/BULGARICUS CHEW TAB GT SCH ×2 (06:06→14:00)
[2022-09-05] MEDS: PRAMIPEXOLE 0.25 MG TABLET GT SCH (08:47)
[2022-09-05] MEDS: CARBIDOPA/LEVODOPA 25-250MG TABLET GT SCH ×2 (08:47→13:00)
[2022-09-05] MEDS: VENLAFAXINE 25 MG TABLET GT SCH (08:48)
[2022-09-05] MEDS: APIXABAN 2.5 MG TABLET GT SCH (08:49)
[2022-09-05] MEDS: LACTULOSE 20 G/30 ML LIQUID UDC PO SCH ×2 (08:49→08:53)
[2022-09-05 11:41] VITALS: BP 102/54
[2022-09-05] MEDS ORDERED: ACID1TAB4 GT (11:45)
[2022-09-05] MEDS ORDERED: LACT-209 GT (11:45)
--- NOTE | 2022-09-05 11:49 | NUR ---
pt will be discharge today. pt will go home with a caregiver via s ambulance, machine operator picker [phone]. family notified.
[2022-09-05] MEDS: BACLOFEN 10 MG TABLET GT SCH (13:00)
--- NOTE | 2022-09-05 14:15 | NUR ---
pt is discharge. pt was miner pick by the emt. all belongings accounted for. vitals wnl. pt cg was accompanied by her cg. pt family is notified. pt will go back to her home.
== END 2022-09-05 14:15 | disposition home health service (06) | DRG 689 ==
LOC: ER 11:37 → MEDSURG3 16:25
PROVIDERS: ATTEND Nurse Practitioner Acute Care
PROC: 05H533Z Insertion of Infusion Device into Right Subclavian Vein, Percutaneous Approach (ICD-10-PCS; principal; 2022-08-28)
PROC: B546ZZA Ultrasonography of Right Subclavian Vein, Guidance (ICD-10-PCS; 2022-08-28)
PROC: 0D20XUZ Change Feeding Device in Upper Intestinal Tract, External Approach (ICD-10-PCS; 2022-08-31)
PROC: 05H533Z Insertion of Infusion Device into Right Subclavian Vein, Percutaneous Approach (ICD-10-PCS; 2022-09-02)
PROC: B546ZZA Ultrasonography of Right Subclavian Vein, Guidance (ICD-10-PCS; 2022-09-02)
DX: N39.0 Urinary tract infection, site not specified (principal); E43 Unspecified severe protein-calorie malnutrition; D68.59 Other primary thrombophilia; R64 Cachexia; Z16.12 Extended spectrum beta lactamase (ESBL) resistance; Z68.1 Body mass index [BMI] 19.9 or less, adult; Z16.24 Resistance to multiple antibiotics; B96.5 Pseudomonas (aeruginosa) (mallei) (pseudomallei) as the cause of diseases classified elsewhere; B96.20 Unspecified Escherichia coli [E. coli] as the cause of diseases classified elsewhere; D64.9 Anemia, unspecified; D69.6 Thrombocytopenia, unspecified; E03.9 Hypothyroidism, unspecified; G20 Parkinson's disease; E88.09 Other disorders of plasma-protein metabolism, not elsewhere classified; F32.9 Major depressive disorder, single episode, unspecified; L89.159 Pressure ulcer of sacral region, unspecified stage; R13.10 Dysphagia, unspecified; Z87.891 Personal history of nicotine dependence; Z20.822 Contact with and (suspected) exposure to COVID-19; M62.50 Muscle wasting and atrophy, not elsewhere classified, unspecified site; B95.2 Enterococcus as the cause of diseases classified elsewhere; M24.59 Contracture, other specified joint; Z99.3 Dependence on wheelchair; Z86.718 Personal history of other venous thrombosis and embolism; Z93.1 Gastrostomy status
CPT/HCPCS: 36415; 70030-TC; 71045; 74018; 83735; 84100; 85025; 85730; 87040; 87077; 87086; 87806; 93005; A4663; A6209; A6213; A9150; G0378; J1885; J2185; J7040

== ENCOUNTER 2023-04-19 08:45 | Inpatient (IN) | payer MEDICARE ==
[~2023-04-19] VITALS: Ht 149.9 cm; Wt 42.3 kg
[~2023-04-19 08:45] MED LIST changes: +ACET-73 GT; -ACET-73 PO; +BACL10TA GT; -BACL10TA PO; -CEPH500C2 GT; -DIME118C3 TP; +LACT-209 GT; +LACT10SO3 GT; -LACT10SO3 PO; -NUT.237L66 GT; -SCOP1PAT13 TP; -TRAM50TA2 PO; -TROL35.4 TP; +VENL50TA4 GT; -VENL50TA4 PO
[2023-04-19] MEDS ORDERED: PIPERACILLIN SODIUM/TAZOBACTAM 3.375 G in IV DEXTROSE 5% 50 ML IV ONE (09:15)
[2023-04-19] MEDS ORDERED: IV NORMAL SALINE 1000 ML BAG IV ONE (09:15)
[2023-04-19] MEDS ORDERED: CLINDAMYCIN PHOSPHATE IV 600 MG in IV DEXTROSE 5% 100 ML IV ONE (09:15)
[2023-04-19] MEDS ORDERED: VANCOMYCIN IV 1,000 MG in IV DEXTROSE 5% 250 ML IV ONE (09:15)
--- NOTE | 2023-04-19 09:20 | NUR ---
Seen and examined by
--- NOTE | 2023-04-19 09:24 | NUR ---
cxr in process
--- NOTE | 2023-04-19 09:25 | NUR ---
covid and mrsa swab collected and sent to lab
--- NOTE | 2023-04-19 09:48 | NUR ---
midline insertion in process
--- NOTE | 2023-04-19 09:48 | NUR ---
family at bedside
[2023-04-19 09:50] LABS: HEMATOCRIT 36.7 % (31.2-41.9); MEAN CORPUSCULAR VOLUME 93.4 fL (75.5-95.3); PLATELET COUNT (AUTO) 316 K/uL (179-408)
[2023-04-19] MEDS ORDERED: VANCOMYCIN IV 200 ML ONE (09:51)
[2023-04-19] MEDS ORDERED: CLINDAMYCIN 600 MG PIGGYBACK**ER OMNI IV ONE (09:51)
[2023-04-19] MEDS ORDERED: PIPERACILLIN/TAZOBACTAM/D5W 50 ML IV ONE ×2 (09:51→23:10)
--- NOTE | 2023-04-19 10:32 | NUR ---
meds given 120/80, 95, 95% 02 sat, 18 rr family at bedside
[2023-04-19 10:33] LABS: CARBON DIOXIDE 32 mmol/L (21-32); CHLORIDE 98 mmol/L (98-107); CREATININE 0.5 mg/dL (0.6-1.3); GLUCOSE 124 mg/dL (74-106); POTASSIUM 4.1 mmol/L (3.5-5.1); UREA NITROGEN, BLOOD 26 mg/dL (7-18)
[2023-04-19 10:41] LABS: ALANINE AMINOTRANSFERASE 8 U/L (14-59); ALKALINE PHOSPHATASE 90 U/L (50-136); ASPARTATE AMINOTRANSFERASE 11 U/L (15-37); BILIRUBIN,DIRECT 0.1 mg/dL (0.0-0.2); BILIRUBIN,TOTAL 0.4 mg/dL (0.2-1.0); TOTAL PROTEIN, SERUM 7.8 g/dL (6.4-8.2)
[2023-04-19 13:20] LABS: *BILIRUBIN,URIN NEGATIVE (NEGATIVE); *BLOOD, URINE NEGATIVE (NEGATIVE); *CLARITY,URINE CLOUDY (CLEAR); *COLOR,URINE YELLOW (YELLOW); *KETONES,URINE 1+ (NEGATIVE); *UROBILINOGEN,URINE 0.2 E.U./dl (NORMAL); LEUKOCYTE ESTERASE ,URINE 2+ (NEGATIVE); NITRITE, URINE POSITIVE (NEGATIVE); UGLUCOSE NEGATIVE (NEGATIVE)
[2023-04-19 13:27] LABS: BACTERIA,URINE FEW /HPF (NONE SEEN); RBC,URINE 0-3 /HPF (0-3); WBC,URINE 20-50 /HPF (0-3)
[2023-04-19 13:28] LABS: SQUAMOUS EPITHELIAL CELL,UR FEW /HPF (NONE SEEN)
[2023-04-19] MEDS ORDERED: ONDANSETRON 4 MG/2 ML VIAL IV ONE (13:45)
[2023-04-19] MEDS ORDERED: MORPHINE SULFATE 4 MG/1 ML DISP.SYRIN IV ONE (13:45)
[2023-04-19] MEDS ORDERED: MORPHINE SULFATE 4 MG/1 ML DISP.SYRIN ONE (13:48)
[2023-04-19] MEDS ORDERED: ONDANSETRON 4 MG/2 ML VIAL ONE (13:57)
--- NOTE | 2023-04-19 19:15 | NUR ---
REPORT RECEIVED FROM ELIZABETH GALAVIZ
--- NOTE | 2023-04-19 21:00 | NUR ---
PT STABLE WITH VSS AND NO S/S OF PAIN WITH HOB UP 45 DEGREES AND PIGMENT PROCESSOR AT BEDSIDE.
[2023-04-19] MEDS: PRAMIPEXOLE 0.25 MG TABLET GT SCH (21:15)
[2023-04-19] MEDS ORDERED: ONDANSETRON 4 MG/2 ML VIAL IV PRN (21:15)
[2023-04-19] MEDS: PIPERACILLIN SODIUM/TAZOBACTAM 3.375 G in IV DEXTROSE 5% 50 ML IV SCH (23:00)
--- NOTE | 2023-04-19 23:00 | NUR ---
PT STABLE WITH KATLIN UPPER EXT'S CONTRACTED AND KATLIN LOWER EXT'S FLACCID. PEG IN UPPER ABD ,SITE C/D/I WITH NUTREN 2.0 INFUSING AT 40 ML/HR, F/C IN PLACE DRAINING DK YELLOW URINE. PT TURNED ON HER RIGHT SIDE WITH JOURNEYMAN MEAT CUTTER AT BEDSIDE.
[2023-04-20] MEDS: PIPERACILLIN SODIUM/TAZOBACTAM 3.375 G in IV DEXTROSE 5% 50 ML IV SCH ×3 (00:37→12:00)
--- NOTE | 2023-04-20 02:00 | NUR ---
PT SLEEPING QUIETLY WITH NAD OBSERVED, TOP LIFT TRIMMER AT BEDSIDE.
--- NOTE | 2023-04-20 04:00 | NUR ---
PT STABLE,VSS. PT TURNED TO L SIDE WITH HOB UP 45 DEGREES, F/C [id number] DK YELLOW URINE.
[2023-04-20] MEDS ORDERED: PIPERACILLIN/TAZOBACTAM/D5W 50 ML IV ONE (06:03)
--- NOTE | 2023-04-20 06:30 | NUR ---
PT SLEEPING QUIETLY WITH VSS AND NAD OBSERVED.
--- NOTE | 2023-04-20 07:00 | NUR ---
Endorsed by NEDRA Contreras, flushed line on R arm flushing well.
--- NOTE | 2023-04-20 07:15 | NUR ---
REPORT GIVEN TO ELIZABETH SNEED.
[2023-04-20 07:37] LABS: HEMATOCRIT 31.8 % (31.2-41.9); MEAN CORPUSCULAR HEMOGLOBIN 30.9 uug (24.7-32.8); MEAN CORPUSCULAR VOLUME 94.6 fL (75.5-95.3); PLATELET COUNT (AUTO) 254 K/uL (179-408)
[2023-04-20 07:59] LABS: ALANINE AMINOTRANSFERASE 24 U/L (14-59); ALKALINE PHOSPHATASE 76 U/L (50-136); ASPARTATE AMINOTRANSFERASE 11 U/L (15-37); BILIRUBIN,TOTAL 0.3 mg/dL (0.2-1.0); CARBON DIOXIDE 29 mmol/L (21-32); CHLORIDE 102 mmol/L (98-107); CREATININE 0.4 mg/dL (0.6-1.3); GLUCOSE 151 mg/dL (74-106); MAGNESIUM 2.1 mg/dL (1.8-2.4); PHOSPHOROUS 3.2 mg/dL (2.5-4.9); POTASSIUM 3.7 mmol/L (3.5-5.1); TOTAL PROTEIN, SERUM 6.3 g/dL (6.4-8.2); UREA NITROGEN, BLOOD 17 mg/dL (7-18)
[2023-04-20] MEDS ORDERED: VANCOMYCIN IV 500 MG in IV DEXTROSE 5% 100 ML IV SCH (08:00)
[2023-04-20 08:09] LABS: THYROID STIMULATING HORMONE 3.822 mIU/mL (0.358-3.740)
--- NOTE | 2023-04-20 08:15 | NUR ---
RECEIVED REPORT: 1) Patient AO x 1 - 2, able to state needs, but no speach 2) Bilateral upper contraction. Lower extremities Flaccid. 3) Patient has a PEG feed patient's own running at 44ml/hr. 4) El catheter running as per regime 5) Patient needs all care.
[2023-04-20] MEDS: BACLOFEN 10 MG TABLET GT SCH ×3 (09:00→21:04)
[2023-04-20] MEDS: CARBIDOPA/LEVODOPA 25-250MG TABLET GT SCH ×4 (09:00→21:02)
[2023-04-20] MEDS: VENLAFAXINE 25 MG TABLET GT SCH (09:00)
[2023-04-20] MEDS: PRAMIPEXOLE 0.25 MG TABLET GT SCH ×3 (09:00→16:58)
[2023-04-20] MEDS ORDERED: LACTULOSE 20 G/30 ML LIQUID UDC GT SCH (09:00)
[2023-04-20] MEDS ORDERED: MULTIVITAMINS 5 ML LIQUID UDC GT SCH (09:00)
[2023-04-20] MEDS: APIXABAN 2.5 MG TABLET GT SCH ×2 (09:00→21:02)
[2023-04-20] MEDS: PANTOPRAZOLE ORAL SUSPENSION 40 MG SUSPDR.PKT GT SCH (09:00)
[2023-04-20] MEDS ORDERED: ARGININE/GLUTAMINE/CALCIUM BMB 1 EACH POWD.PACK GT SCH ×2 (09:00→17:00)
[2023-04-20] MEDS: ASCORBIC ACID 500 MG TABLET GT SCH (09:00)
[2023-04-20] MEDS: VANCOMYCIN IV 750 MG in IV DEXTROSE 5% 250 ML IV SCH ×2 (10:43→11:26)
[2023-04-20] MEDS: MULTIVITAMINS,THERAPEUTIC TABLET GT SCH (10:47)
--- NOTE | 2023-04-20 11:02 | NUR ---
AM MEDICATION: 1) Family administered home meds per their regime. 2) Pharmacy in ER at the time of this report - aware and family informed to not administer meds without
[2023-04-20 11:46] LABS: IRON, SERUM 24 ug/dL (50-175)
[2023-04-20] MEDS ORDERED: PIPERACILLIN SODIUM/TAZO 3.375 GM VIAL ONE ×2 (12:53→22:17)
[2023-04-20] MEDS ORDERED: BACLOFEN 10 MG TABLET ONE (13:50)
[2023-04-20] MEDS ORDERED: CARBIDOPA/LEVODOPA 25-250MG TABLET ONE ×2 (13:50→16:43)
--- NOTE | 2023-04-20 17:00 | NUR ---
TRANSFER TO MED/SUR) BERNA with a patient and ER nurse not allocated a patient a nurse. 2) company secretary will let BERNA know.
[2023-04-20] MEDS: JEVITY 1.2 1000 ML LIQUID GT PRN (17:31)
--- NOTE | 2023-04-20 17:35 | NUR ---
TRANSFER TO MED/SUR) Called and room still not fully cleaned. 2) Will call us once done - and the allocated nurse will take report then. 3) BERNA in charge informed.
--- NOTE | 2023-04-20 17:47 | NUR ---
PM MEDICATION: 1) Family wanted Baclofen administered at 22:00hrs not 17:00hrs. 2) Pharmacist changed dosage to 21:00 instead. 3) Family wants Tylenol extra strength added - Parhist will talk to MD to have that ordered as well.
--- NOTE | 2023-04-20 17:50 | NUR ---
TRANSFER TO MED SUR) Called to check of progress with room cleaning. 2) Room still not completely cleaned. 3) Unit nurses will call when ready.
--- NOTE | 2023-04-20 17:59 | NUR ---
PEG FEED: 1) Jevity started at 44ml, instead of the prescribed rate of 30ml/hr. 2) Daughter stated that the MD prescription will result in mum's loosing weight. 3) No residual, no sigh of vomiting, aspiration observed at the time of this report.
--- NOTE | 2023-04-20 19:00 | NUR ---
Received admission from ER via stretcher 62y/lo female. Dx. Skin wounds, patient conscious and coherent. IV site at right AC midline intact and patent. El catheter intact connected to urine bag. G-tube intact and clean with Jevity 1.2 @ 35ml/hr. Routine admission done. Safety measures initiated and call light within reached.
[2023-04-20 19:30] VITALS: BP 139/93
--- NOTE | 2023-04-20 19:30 | NUR ---
Endorsed care to night nurse accordingly.
--- NOTE | 2023-04-20 19:31 | NUR ---
Transferred to Tele unit - clinically stable, no sign of distress
--- NOTE | 2023-04-20 20:00 | NUR ---
Admitted a 62 years old female with Dx of Skin wound. Patient with open wound on sacral area. Cleans with saline and cover with dry dressing and Optifoam. Patient non-verbal. Nathaniel UE severely contracted. Gt site with redness and minimal bleeding noted. Midline on right upper arm intact and patent. El catheter intact and draining via gravity. Routine admission care done. Plan of care initiated. Safety measure initiated. Private caregiver and son on site during admission.
[2023-04-20] MEDS ORDERED: ACIDOPHILUS/BULGARICUS CHEW TAB GT SCH (21:00)
[2023-04-20] MEDS: ACETAMINOPHEN ES 500 MG TABLET PO SCH (21:01)
[2023-04-20] MEDS: CLONAZEPAM 1 MG TABLET GT SCH (21:02)
[2023-04-20] MEDS: ARGININE/GLUTAMINE/CALCIUM BMB 1 EACH POWD.PACK GT SCH (21:09)
[2023-04-20] MEDS ORDERED: VANCOMYCIN 1000 MG VIAL ONE (22:18)
[2023-04-20 22:34] VITALS: BP 132/88
[2023-04-21] MEDS: PIPERACILLIN SODIUM/TAZOBACTAM 3.375 G in IV DEXTROSE 5% 50 ML IV SCH ×2 (00:39→05:35)
[2023-04-21] MEDS ORDERED: PIPERACILLIN SODIUM/TAZO 3.375 GM VIAL ONE (04:17)
[2023-04-21] MEDS: VANCOMYCIN IV 750 MG in IV DEXTROSE 5% 250 ML IV SCH ×2 (04:34→22:08)
[2023-04-21 04:48] VITALS: BP 108/69
[2023-04-21] MEDS: BACLOFEN 10 MG TABLET GT SCH ×3 (06:13→21:42)
--- NOTE | 2023-04-21 07:30 | NUR ---
MORNING REPORT: 1) Received awake and seemed comfortable. 2) No sign of SOB - on 2 liters oxygen, no sign of pain, or discomfort observed. 3) Iv access dressing, clean , dry, patent and intact. 4) PEG feeds off , to restart at 8am. 4) Family in the room giving care accordingly. 5) Clinically stable at the time of report
[2023-04-21] MEDS: LACTULOSE 20 G/30 ML LIQUID UDC GT SCH (09:42)
[2023-04-21] MEDS: PRAMIPEXOLE 0.25 MG TABLET GT SCH ×2 (09:46→18:40)
[2023-04-21] MEDS: ARGININE/GLUTAMINE/CALCIUM BMB 1 EACH POWD.PACK GT SCH ×2 (09:46→15:00)
[2023-04-21] MEDS: CARBIDOPA/LEVODOPA 25-250MG TABLET GT SCH ×4 (09:46→21:00)
[2023-04-21] MEDS: ACETAMINOPHEN ES 500 MG TABLET PO SCH ×4 (09:47→21:36)
[2023-04-21] MEDS: ASCORBIC ACID 500 MG TABLET GT SCH (09:47)
[2023-04-21] MEDS: MULTIVITAMINS,THERAPEUTIC TABLET GT SCH (09:47)
[2023-04-21] MEDS: PANTOPRAZOLE ORAL SUSPENSION 40 MG SUSPDR.PKT GT SCH (09:48)
[2023-04-21] MEDS: APIXABAN 2.5 MG TABLET GT SCH ×2 (09:58→20:59)
--- NOTE | 2023-04-21 10:51 | NUR ---
WOUND CARE CONSULT: PT PRESENTS WITH SACRAL STAGE 4 PRESSURE ULCER WITH SURROUNDING ERYTHEMA AND REDNESS/OPEN SKIN AROUND G TUBE SITE, PRESENT ON ADMISSION. DR AGUAYO CALLED FOR SURGICAL CONSULT. DISCUSSED SKIN PROTECTION AND WOUND CARE RECOMMENDATIONS WITH NURSING STAFF. PT IS ON FIRST STEP CHEN SILVERIO MD IN AGREEMENT WITH PLAN OF CARE. Addendum: 04/21/23 at 1055 by GRAYSON PAUL RN Amended: Links added.
--- NOTE | 2023-04-21 11:00 | NUR ---
WOUND CARE: Seen by wound care - see notes for dressing orders
[2023-04-21] MEDS: VENLAFAXINE 25 MG TABLET GT SCH (11:31)
[2023-04-21 12:00] VITALS: BP 139/84
--- NOTE | 2023-04-21 14:25 | NUR ---
Wound dressed according to pln
[2023-04-21 16:00] VITALS: BP 146/98
[2023-04-21] MEDS: SODIUM HYPOCHLORITE 0.125% (QUARTER STRENGTH) 473 ML BOTTLE TP SCH (16:04)
[2023-04-21] MEDS ORDERED: PIPERACILLIN SODIUM/TAZOBACTAM 3.375 G in IV DEXTROSE 5% 100 ML IV SCH (17:00)
[2023-04-21] MEDS: MORPHINE SULFATE 2 MG/1 ML DISP.SYRIN IV PRN (18:33)
--- NOTE | 2023-04-21 19:45 | NUR ---
Endorsed care accordingly to night nurses.
--- NOTE | 2023-04-21 19:46 | NUR ---
Informed night nurse - MD allowed patient's family to stay overnight moving forward
[2023-04-21] MEDS: CLONAZEPAM 1 MG TABLET GT SCH (20:56)
[2023-04-21] MEDS: CEFEPIME HCL 1 G in IV DEXTROSE 5% 50 ML IV SCH (22:07)
[2023-04-21] MEDS: METRONIDAZOLE 500 MG TABLET PO SCH (22:08)
[2023-04-21] MEDS ORDERED: LIDOCAINE 1%-EPI 1:200,000 MPF 30 ML VIAL IJ ONE (22:15)
[2023-04-21] MEDS ORDERED: SILVER NITRATE APPLICATOR STICK EACH TP ONE ×2 (22:15→22:51)
[2023-04-21] MEDS ORDERED: SODIUM HYPOCHLORITE 0.125% (QUARTER STRENGTH) 473 ML BOTTLE TP SCH (22:15)
[2023-04-21] MEDS ORDERED: LIDOCAINE 1%-EPI 1:100,000 20 ML VIAL ONE (22:52)
[2023-04-22] MEDS ORDERED: CEFEPIME HCL 1 G VIAL ONE (01:25)
[2023-04-22 04:58] VITALS: BP 115/69
[2023-04-22] MEDS: MORPHINE SULFATE 2 MG/1 ML DISP.SYRIN IV PRN (05:24)
--- NOTE | 2023-04-22 06:00 | NUR ---
Receive the patient in bed resting comfortably, no acute distress noted, no dressing change completed. Abx given, family at bedside and are very helpful. Medicated with morphine 2mg IV when the patient began groaning aloud. Good relief noted.
[2023-04-22] MEDS: METRONIDAZOLE 500 MG TABLET PO SCH ×3 (06:08→22:26)
[2023-04-22] MEDS: CEFEPIME HCL 1 G in IV DEXTROSE 5% 50 ML IV SCH (06:08)
[2023-04-22] MEDS: BACLOFEN 10 MG TABLET GT SCH ×3 (06:09→22:25)
[2023-04-22 06:26] LABS: HEMATOCRIT 33.9 % (31.2-41.9); MEAN CORPUSCULAR HEMOGLOBIN 30.8 uug (24.7-32.8); MEAN CORPUSCULAR VOLUME 94.5 fL (75.5-95.3); PLATELET COUNT (AUTO) 247 K/uL (179-408)
[2023-04-22 07:08] LABS: CARBON DIOXIDE 32 mmol/L (21-32); CHLORIDE 104 mmol/L (98-107); CREATININE 0.4 mg/dL (0.6-1.3); GLUCOSE 94 mg/dL (74-106); MAGNESIUM 2.3 mg/dL (1.8-2.4); PHOSPHOROUS 4.7 mg/dL (2.5-4.9); POTASSIUM 3.9 mmol/L (3.5-5.1); UREA NITROGEN, BLOOD 23 mg/dL (7-18)
[2023-04-22] MEDS: SODIUM HYPOCHLORITE 0.125% (QUARTER STRENGTH) 473 ML BOTTLE TP SCH (09:00)
[2023-04-22] MEDS: ARGININE/GLUTAMINE/CALCIUM BMB 1 EACH POWD.PACK GT SCH ×2 (09:00→14:57)
[2023-04-22] MEDS: LACTULOSE 20 G/30 ML LIQUID UDC GT SCH (10:02)
[2023-04-22] MEDS: VENLAFAXINE 25 MG TABLET GT SCH (10:18)
[2023-04-22] MEDS: CARBIDOPA/LEVODOPA 25-250MG TABLET GT SCH ×4 (10:18→20:44)
[2023-04-22] MEDS: PANTOPRAZOLE ORAL SUSPENSION 40 MG SUSPDR.PKT GT SCH (10:18)
[2023-04-22] MEDS: ACETAMINOPHEN ES 500 MG TABLET PO SCH ×4 (10:19→20:43)
[2023-04-22] MEDS: APIXABAN 2.5 MG TABLET GT SCH ×2 (10:19→20:45)
[2023-04-22] MEDS: PRAMIPEXOLE 0.25 MG TABLET GT SCH ×2 (10:19→17:59)
[2023-04-22] MEDS: MULTIVITAMINS,THERAPEUTIC TABLET GT SCH (10:19)
[2023-04-22] MEDS: ASCORBIC ACID 500 MG TABLET GT SCH (10:20)
[2023-04-22 12:00] VITALS: BP 125/61
[2023-04-22] MEDS: CEFEPIME HCL 2 G in IV DEXTROSE 5% 100 ML IV SCH (14:58)
[2023-04-22 15:49] VITALS: BP 135/80
[2023-04-22 20:17] VITALS: BP 124/67
[2023-04-22] MEDS: VANCOMYCIN IV 500 MG in IV DEXTROSE 5% 100 ML IV SCH (20:40)
[2023-04-22] MEDS: CLONAZEPAM 1 MG TABLET GT SCH (20:44)
[2023-04-23] MEDS: CEFEPIME HCL 2 G in IV DEXTROSE 5% 100 ML IV SCH (01:05)
[2023-04-23] MEDS: VANCOMYCIN IV 500 MG in IV DEXTROSE 5% 100 ML IV SCH ×3 (01:05→18:31)
[2023-04-23 04:12] VITALS: BP 111/74
[2023-04-23] MEDS: METRONIDAZOLE 500 MG TABLET PO SCH ×3 (06:07→21:45)
[2023-04-23] MEDS: BACLOFEN 10 MG TABLET GT SCH ×3 (06:07→21:45)
[2023-04-23] MEDS ORDERED: GLUCERNA 1.2 1000ML LIQUID GT SCH (08:00)
[2023-04-23] MEDS: PANTOPRAZOLE ORAL SUSPENSION 40 MG SUSPDR.PKT GT SCH (08:39)
[2023-04-23] MEDS: ASCORBIC ACID 500 MG TABLET GT SCH (08:39)
[2023-04-23] MEDS: ACETAMINOPHEN ES 500 MG TABLET PO SCH ×4 (08:39→21:44)
[2023-04-23] MEDS: PRAMIPEXOLE 0.25 MG TABLET GT SCH ×2 (08:40→16:14)
[2023-04-23] MEDS: APIXABAN 2.5 MG TABLET GT SCH ×2 (08:40→21:44)
[2023-04-23] MEDS: MULTIVITAMINS,THERAPEUTIC TABLET GT SCH (08:40)
[2023-04-23] MEDS: CARBIDOPA/LEVODOPA 25-250MG TABLET GT SCH ×4 (08:40→21:45)
[2023-04-23] MEDS: LACTULOSE 20 G/30 ML LIQUID UDC GT SCH (08:40)
[2023-04-23] MEDS: SODIUM HYPOCHLORITE 0.125% (QUARTER STRENGTH) 473 ML BOTTLE TP SCH (08:41)
[2023-04-23] MEDS: ARGININE/GLUTAMINE/CALCIUM BMB 1 EACH POWD.PACK GT SCH ×2 (08:41→12:52)
[2023-04-23] MEDS: VENLAFAXINE 25 MG TABLET GT SCH (08:57)
[2023-04-23] MEDS ORDERED: MEROPENEM 1 G in IV NORMAL SALINE 100 ML IV SCH (10:30)
[2023-04-23] MEDS: MEROPENEM 1 G in IV NORMAL SALINE 100 ML IV SCH ×2 (11:48→21:43)
[2023-04-23 12:32] VITALS: BP 136/80
[2023-04-23 16:41] VITALS: BP 112/50
[2023-04-23] MEDS: JEVITY 1.2 1000 ML LIQUID GT PRN (18:31)
--- NOTE | 2023-04-23 18:54 | NUR ---
g-tube noted with redness, wound care consult in place. kept clean and dry, new dressing placed. no events noted during shift
[2023-04-23 20:12] VITALS: BP 136/81
[2023-04-23] MEDS: CLONAZEPAM 1 MG TABLET GT SCH (21:45)
[2023-04-24] MEDS: VANCOMYCIN IV 500 MG in IV DEXTROSE 5% 100 ML IV SCH (02:59)
[2023-04-24] MEDS: MEROPENEM 1 G in IV NORMAL SALINE 100 ML IV SCH ×3 (03:01→19:59)
[2023-04-24 04:22] VITALS: BP 112/62
[2023-04-24] MEDS: BACLOFEN 10 MG TABLET GT SCH ×3 (06:41→21:57)
[2023-04-24] MEDS: METRONIDAZOLE 500 MG TABLET PO SCH (06:41)
[2023-04-24] MEDS: CARBIDOPA/LEVODOPA 25-250MG TABLET GT SCH ×4 (08:41→20:51)
[2023-04-24] MEDS: LACTULOSE 20 G/30 ML LIQUID UDC GT SCH (08:41)
[2023-04-24] MEDS: ACETAMINOPHEN ES 500 MG TABLET PO SCH ×4 (08:41→20:53)
[2023-04-24] MEDS: APIXABAN 2.5 MG TABLET GT SCH ×2 (08:42→20:52)
[2023-04-24] MEDS: ASCORBIC ACID 500 MG TABLET GT SCH (08:43)
[2023-04-24] MEDS: PRAMIPEXOLE 0.25 MG TABLET GT SCH ×2 (08:47→17:20)
[2023-04-24] MEDS: PANTOPRAZOLE ORAL SUSPENSION 40 MG SUSPDR.PKT GT SCH (08:47)
[2023-04-24] MEDS: ARGININE/GLUTAMINE/CALCIUM BMB 1 EACH POWD.PACK GT SCH ×2 (08:48→13:07)
[2023-04-24] MEDS: VENLAFAXINE 25 MG TABLET GT SCH (08:49)
[2023-04-24] MEDS: MULTIVITAMINS,THERAPEUTIC TABLET GT SCH (08:49)
[2023-04-24] MEDS: SODIUM HYPOCHLORITE 0.125% (QUARTER STRENGTH) 473 ML BOTTLE TP SCH (08:50)
[2023-04-24] MEDS: VANCOMYCIN IV 1,000 MG in IV DEXTROSE 5% 250 ML IV SCH ×2 (08:50→20:53)
--- NOTE | 2023-04-24 10:00 | NUR ---
Wound dressing done as ordered. Sacral wound no odor noted. Wound beefy red Packed with dakins soln as ordered, noted scant serous sanguanous drainage noted.
[2023-04-24 11:37] VITALS: BP 128/87
[2023-04-24] MEDS: FLUCONAZOLE 200 MG TABLET PO SCH (11:42)
[2023-04-24 16:00] VITALS: BP 133/86
[2023-04-24 20:00] VITALS: BP 126/82
[2023-04-24] MEDS: CLONAZEPAM 1 MG TABLET GT SCH (20:53)
[2023-04-25] MEDS: MEROPENEM 1 G in IV NORMAL SALINE 100 ML IV SCH (02:55)
[2023-04-25 04:00] VITALS: BP 108/68
[2023-04-25] MEDS: BACLOFEN 10 MG TABLET GT SCH ×3 (06:24→21:43)
--- NOTE | 2023-04-25 06:41 | NUR ---
Slept well throughout the night. GT intact and patent with on going feeding, no residual noted. Head of bed elevated. El cath intact and draining to yellow color urine output. Needs assessed and attended to.
[2023-04-25 06:52] LABS: CARBON DIOXIDE 34 mmol/L (21-32); CHLORIDE 104 mmol/L (98-107); CREATININE 0.4 mg/dL (0.6-1.3); GLUCOSE 112 mg/dL (74-106); POTASSIUM 3.3 mmol/L (3.5-5.1); UREA NITROGEN, BLOOD 15 mg/dL (7-18)
[2023-04-25] MEDS: LACTULOSE 20 G/30 ML LIQUID UDC GT SCH (10:08)
[2023-04-25] MEDS: SODIUM HYPOCHLORITE 0.125% (QUARTER STRENGTH) 473 ML BOTTLE TP SCH (10:11)
[2023-04-25] MEDS: FLUCONAZOLE 200 MG TABLET PO SCH (10:11)
[2023-04-25] MEDS: ASCORBIC ACID 500 MG TABLET GT SCH (10:14)
[2023-04-25] MEDS: CARBIDOPA/LEVODOPA 25-250MG TABLET GT SCH ×4 (10:15→21:44)
[2023-04-25] MEDS: PANTOPRAZOLE ORAL SUSPENSION 40 MG SUSPDR.PKT GT SCH (10:15)
[2023-04-25] MEDS: MULTIVITAMINS,THERAPEUTIC TABLET GT SCH (10:15)
[2023-04-25] MEDS: PRAMIPEXOLE 0.25 MG TABLET GT SCH ×2 (10:16→17:15)
[2023-04-25] MEDS: VENLAFAXINE 25 MG TABLET GT SCH (10:17)
[2023-04-25] MEDS: APIXABAN 2.5 MG TABLET GT SCH ×2 (10:18→21:43)
[2023-04-25] MEDS: ARGININE/GLUTAMINE/CALCIUM BMB 1 EACH POWD.PACK GT SCH ×2 (10:19→12:23)
[2023-04-25] MEDS: ACETAMINOPHEN ES 500 MG TABLET PO SCH (10:19)
[2023-04-25 11:52] VITALS: BP 139/86
[2023-04-25] MEDS: ACETAMINOPHEN ES 500 MG TABLET GT SCH ×3 (12:22→21:44)
[2023-04-25] MEDS ORDERED: POTASSIUM CHLORIDE 20 MEQ POWDER PACKET GT ONE (12:30)
[2023-04-25 16:05] VITALS: BP 138/83
[2023-04-25] MEDS: JEVITY 1.2 1000 ML LIQUID GT PRN (17:16)
[2023-04-25] MEDS ORDERED: VANCOMYCIN IV 750 MG in IV DEXTROSE 5% 250 ML IV SCH (21:00)
[2023-04-25] MEDS: CLONAZEPAM 1 MG TABLET GT SCH (21:43)
[2023-04-26] MEDS ORDERED: levoFLOXacin 500 MG TABLET GT SCH
[2023-04-26 04:00] VITALS: BP 121/83
[2023-04-26] MEDS: BACLOFEN 10 MG TABLET GT SCH ×2 (06:25→12:52)
[2023-04-26] MEDS: LACTULOSE 20 G/30 ML LIQUID UDC GT SCH (08:49)
[2023-04-26] MEDS: PRAMIPEXOLE 0.25 MG TABLET GT SCH (08:49)
[2023-04-26] MEDS: CARBIDOPA/LEVODOPA 25-250MG TABLET GT SCH ×2 (08:50→12:35)
[2023-04-26] MEDS: MULTIVITAMINS,THERAPEUTIC TABLET GT SCH (08:50)
[2023-04-26] MEDS: APIXABAN 2.5 MG TABLET GT SCH (08:51)
[2023-04-26] MEDS: PANTOPRAZOLE ORAL SUSPENSION 40 MG SUSPDR.PKT GT SCH (08:51)
[2023-04-26] MEDS: ARGININE/GLUTAMINE/CALCIUM BMB 1 EACH POWD.PACK GT SCH ×2 (08:51→12:52)
[2023-04-26] MEDS: ASCORBIC ACID 500 MG TABLET GT SCH (08:52)
[2023-04-26] MEDS: ACETAMINOPHEN ES 500 MG TABLET GT SCH ×2 (08:56→12:35)
[2023-04-26] MEDS: VENLAFAXINE 25 MG TABLET GT SCH (08:56)
[2023-04-26] MEDS: FLUCONAZOLE 200 MG TABLET PO SCH (08:56)
[2023-04-26] MEDS: SODIUM HYPOCHLORITE 0.125% (QUARTER STRENGTH) 473 ML BOTTLE TP SCH (08:57)
[2023-04-26] MEDS ORDERED: LEVO500T90 PO (11:15)
[2023-04-26] MEDS ORDERED: FLUC200T8 PO (11:15)
[2023-04-26 11:43] VITALS: BP 153/95
--- NOTE | 2023-04-26 12:08 | NUR ---
WOUND CARE CONSULT/FOLLOW UP: PT SEEN FOR RE-EVALUATION OF G TUBE SITE WHICH HAS LESS REDNESS AT THIS TIME. CONTINUE PRESENT TREATMENT. DISCUSSED WITH NURSING STAFF.
--- NOTE | 2023-04-26 14:00 | NUR ---
Dressing on sacral wound done as ordered. Noted Red beefy colored wound with Scant sanguineous drainage.
--- NOTE | 2023-04-26 15:40 | NUR ---
Pt is in no acute distress upon d/c. D/c MidLine on RIGht upper arm and HL on left hand. Discharge instructions given to daughter and report given to Kathya SNEED from SNF. Pictures updated of wound sacral and g tube site. Report given to EMT.
== END 2023-04-26 15:40 | DRG 539 ==
LOC: ER 08:45 → TRANSITION 19:04 → TELE3 04-20 19:14 → MEDSURG3 04-20 19:35
PROVIDERS: ADMIT Internal Medicine; ATTEND Internal Medicine
PROC: 05H933Z Insertion of Infusion Device into Right Brachial Vein, Percutaneous Approach (ICD-10-PCS; 2023-04-19)
PROC: 0KBP3ZZ Excision of Left Hip Muscle, Percutaneous Approach (ICD-10-PCS; principal; 2023-04-22)
PROC: 0KBN3ZZ Excision of Right Hip Muscle, Percutaneous Approach (ICD-10-PCS; 2023-04-22)
DX: M46.28 Osteomyelitis of vertebra, sacral and sacrococcygeal region (principal); G92.8 Other toxic encephalopathy; L89.154 Pressure ulcer of sacral region, stage 4; J69.0 Pneumonitis due to inhalation of food and vomit; N39.0 Urinary tract infection, site not specified; D68.59 Other primary thrombophilia; E46 Unspecified protein-calorie malnutrition; L08.9 Local infection of the skin and subcutaneous tissue, unspecified; G20 Parkinson's disease; M17.12 Unilateral primary osteoarthritis, left knee; E88.09 Other disorders of plasma-protein metabolism, not elsewhere classified; Z74.01 Bed confinement status; R13.10 Dysphagia, unspecified; Z93.1 Gastrostomy status; Z86.718 Personal history of other venous thrombosis and embolism; Z87.891 Personal history of nicotine dependence; E03.9 Hypothyroidism, unspecified; M62.49 Contracture of muscle, multiple sites; Z79.890 Hormone replacement therapy; Z79.01 Long term (current) use of anticoagulants; Z79.899 Other long term (current) drug therapy; G31.9 Degenerative disease of nervous system, unspecified; Z20.822 Contact with and (suspected) exposure to COVID-19
CPT/HCPCS: 36415; 71045; 72192; 72220; 83550; 83605; 83735; 84100; 84443; 84484; 85025; 85730; 87040; 93005; A6209; A6213; A9150; G0378; J0692; J2185; J2270; J2405; J2543; J3370; J3490; J7040; J7050

== ENCOUNTER 2023-11-09 17:15 | Inpatient (IN) | payer MEDICARE ==
[~2023-11-09] VITALS: Ht 152.4 cm; Wt 60.0 kg
[~2023-11-09 17:15] MED LIST changes: +FLUC200T8 PO; +LEVO500T90 PO
[2023-11-09] MEDS ORDERED: IV NORMAL SALINE 1000 ML BAG IV ONE (18:30)
[2023-11-09 19:00] LABS: BASOPHILS % (AUTO) 0.4 % (0.0-2.0); EOSINOPHILS % (AUTO) 0.1 % (0.0-7.0); HEMOGLOBIN 8.9 g/dL (10.9-14.3); LYMPHOCYTES # (AUTO) 0.7 K/uL (0.8-4.8); LYMPHOCYTES % (AUTO) 6.5 % (20.5-51.5); MEAN CORPUSCULAR HGB CONC 32 g/dL (32.3-35.6); MEAN CORPUSCULAR VOLUME 87.8 fL (75.5-95.3); MONOCYTES # (AUTO) 0.6 K/uL (0.1-1.30); MONOCYTES % (AUTO) 5.6 % (0.0-11.0); NEUTROPHILS # (AUTO) 9.5 K/uL (1.8-8.9); NEUTROPHILS % (AUTO) 87.4 % (38.5-71.5); PLATELET COUNT (AUTO) 244 K/uL (179-408); RED BLOOD CELL COUNT(AUTO) 3.19 MIL/uL (3.63-4.92); RED CELL DISTRIBUTION WIDTH 19.9 % (12.3-17.7); WHITE BLOOD COUNT (AUTO) 10.8 K/uL (3.8-11.8)
[2023-11-09 19:10] LABS: DIFFERENTIAL COMMENT 1
[2023-11-09 19:14] LABS: CALCIUM 8.2 mg/dL (8.5-10.1); CARBON DIOXIDE 32 mmol/L (21-32); CHLORIDE 85 mmol/L (98-107); CREATININE 0.3 mg/dL (0.6-1.3); GLUCOSE 122 mg/dL (74-106); POTASSIUM 4.2 mmol/L (3.5-5.1); SODIUM SERUM 123 mmol/L (136-145); UREA NITROGEN, BLOOD 26 mg/dL (7-18)
[2023-11-09 19:15] LABS: *BILIRUBIN,URIN NEGATIVE (NEGATIVE); *CLARITY,URINE CLEAR (CLEAR); *COLOR,URINE YELLOW (YELLOW); *KETONES,URINE TRACE (NEGATIVE); *PROTEIN,URINE 2+ (NEGATIVE); *UROBILINOGEN,URINE 0.2 E.U./dl (NORMAL); LEUKOCYTE ESTERASE ,URINE 1+ (NEGATIVE); NITRITE, URINE POSITIVE (NEGATIVE); UGLUCOSE NEGATIVE (NEGATIVE)
[2023-11-09 19:21] LABS: *BLOOD, URINE TRACE (NEGATIVE)
[2023-11-09 19:23] LABS: ALANINE AMINOTRANSFERASE 16 U/L (14-59); ALBUMIN 2.3 g/dL (3.4-5.0); ALKALINE PHOSPHATASE 58 U/L (50-136); ASPARTATE AMINOTRANSFERASE 46 U/L (15-37); BILIRUBIN,DIRECT < 0.1 mg/dL (0.0-0.2); BILIRUBIN,TOTAL 0.5 mg/dL (0.2-1.0); TOTAL PROTEIN, SERUM 6.7 g/dL (6.4-8.2)
[2023-11-09 19:42] LABS: BACTERIA,URINE MODERATE /HPF (NONE SEEN); RBC,URINE 0-3 /HPF (0-3); SQUAMOUS EPITHELIAL CELL,UR FEW /HPF (NONE SEEN); WBC,URINE 20-50 /HPF (0-3)
[2023-11-09] MEDS ORDERED: KETOROLAC TROMETHAMINE 30 MG INJ ONE (20:04)
[2023-11-09] MEDS ORDERED: KETOROLAC TROMETHAMINE 30 MG INJ IVP ONE (20:15)
[2023-11-09] MEDS ORDERED: ALBU0.63 IH (20:52)
[2023-11-09] MEDS ORDERED: ZINC1CAP3 PO (20:52)
[2023-11-09] MEDS ORDERED: FERR-68 PO (20:52)
[2023-11-09] MEDS ORDERED: CEFTRIAXONE /D5W 50ML IVPB **ER PYXIS IV ONE (21:28)
[2023-11-09] MEDS ORDERED: CEFTRIAXONE 1 G in IV DEXTROSE 5% 50 ML IV ONE (21:30)
[2023-11-09] MEDS ORDERED: ACETAMINOPHEN 650 MG/20.3 ML LIQUID UDC PO PRN (23:15)
[2023-11-09] MEDS ORDERED: ONDANSETRON 4 MG/2 ML VIAL IV PRN (23:15)
[2023-11-10] VITALS (8 sets, daily range): BP systolic 120–155; BP diastolic 82–89; TEMP 97.7–102.4; O2SAT 94–100
[2023-11-10] MEDS ORDERED: ACETAMINOPHEN 160 MG/5 ML UDC PO ONE (02:03)
[2023-11-10] MEDS ORDERED: ACETAMINOPHEN 650 MG/20.3 ML LIQUID UDC ONE (02:04)
[2023-11-10 06:46] LABS: BASOPHILS % (AUTO) 0.3 % (0.0-2.0); EOSINOPHILS % (AUTO) 0.1 % (0.0-7.0); HEMATOCRIT 28.6 % (31.2-41.9); HEMOGLOBIN 9.2 g/dL (10.9-14.3); LYMPHOCYTES # (AUTO) 0.7 K/uL (0.8-4.8); LYMPHOCYTES % (AUTO) 7.5 % (20.5-51.5); MEAN CORPUSCULAR HEMOGLOBIN 28.1 uug (24.7-32.8); MEAN CORPUSCULAR HGB CONC 32 g/dL (32.3-35.6); MEAN CORPUSCULAR VOLUME 87.6 fL (75.5-95.3); MONOCYTES # (AUTO) 0.4 K/uL (0.1-1.30); MONOCYTES % (AUTO) 4.8 % (0.0-11.0); NEUTROPHILS # (AUTO) 7.6 K/uL (1.8-8.9); NEUTROPHILS % (AUTO) 87.3 % (38.5-71.5); PLATELET COUNT (AUTO) 229 K/uL (179-408); RED BLOOD CELL COUNT(AUTO) 3.27 MIL/uL (3.63-4.92); RED CELL DISTRIBUTION WIDTH 19.4 % (12.3-17.7); WHITE BLOOD COUNT (AUTO) 8.7 K/uL (3.8-11.8)
[2023-11-10 06:57] LABS: CALCIUM 8.7 mg/dL (8.5-10.1); CARBON DIOXIDE 31 mmol/L (21-32); CHLORIDE 86 mmol/L (98-107); CREATININE 0.2 mg/dL (0.6-1.3); GLUCOSE 105 mg/dL (74-106); MAGNESIUM 2.3 mg/dL (1.8-2.4); POTASSIUM 4.1 mmol/L (3.5-5.1); SODIUM SERUM 123 mmol/L (136-145); UREA NITROGEN, BLOOD 22 mg/dL (7-18)
[2023-11-10 07:05] LABS: DIFFERENTIAL COMMENT 1
[2023-11-10] MEDS: IV NS 1000 ML 1,000 ML IV PRN (07:57)
[2023-11-10] MEDS ORDERED: ACETAMINOPHEN 325 MG TABLET PO PRN (09:00)
[2023-11-10] MEDS ORDERED: LEVODOPA GT SCH (09:00)
[2023-11-10] MEDS ORDERED: APIXABAN 2.5 MG TABLET GT SCH (09:00)
[2023-11-10] MEDS ORDERED: BACLOFEN 10 MG TABLET GT SCH (09:00)
[2023-11-10] MEDS ORDERED: CARBIDOPA GT SCH (09:00)
[2023-11-10] MEDS ORDERED: MULTIVITAMINS,THERAPEUTIC TABLET GT SCH (09:00)
[2023-11-10] MEDS: ARGININE/GLUTAMINE/CALCIUM BMB 1 EACH POWD.PACK GT SCH ×2 (09:00→17:00)
[2023-11-10] MEDS ORDERED: [UNRECOGNIZED DRUG - OTHER] GT SCH (09:00)
[2023-11-10] MEDS ORDERED: ACETAMINOPHEN 325 MG TABLET GT PRN (09:00)
[2023-11-10] MEDS ORDERED: VENLAFAXINE 25 MG TABLET GT SCH (09:00)
[2023-11-10] MEDS ORDERED: MULTIVITAMINS 5 ML LIQUID UDC GT SCH (09:00)
[2023-11-10] MEDS ORDERED: CARBIDOPA/LEVODOPA 25-250MG TABLET GT SCH (09:00)
[2023-11-10] MEDS: LACTULOSE 20 G/30 ML LIQUID UDC GT SCH (11:34)
[2023-11-10] MEDS: ASCORBIC ACID 500 MG TABLET GT SCH (11:34)
[2023-11-10] MEDS: FERROUS SULFATE 300 MG/5 ML LIQUID UDC GT SCH ×2 (11:34→22:23)
[2023-11-10] MEDS: NUTREN 2.0 1,000 ML LIQUID GT PRN (11:34)
[2023-11-10] MEDS: CARBIDOPA/LEVODOPA 25-250MG TABLET GT SCH ×3 (11:35→23:13)
[2023-11-10] MEDS: PRAMIPEXOLE 0.25 MG TABLET GT SCH ×2 (11:36→18:22)
[2023-11-10] MEDS: VENLAFAXINE 25 MG TABLET GT SCH (11:41)
[2023-11-10] MEDS: BACLOFEN 10 MG TABLET GT SCH ×3 (11:43→22:23)
[2023-11-10] MEDS: ZINC SULFATE 220 MG CAPSULE GT SCH (11:43)
[2023-11-10] MEDS: PROTEIN SUPPLEMENT (PROSTAT) 30 ML LIQUID PO SCH (11:47)
[2023-11-10] MEDS ORDERED: PIPERACILLIN SODIUM/TAZOBACTAM 3.375 G in IV DEXTROSE 5% 100 ML IV SCH (14:00)
[2023-11-10] MEDS ORDERED: PIPERACILLIN SODIUM/TAZOBACTAM 3.375 G in IV DEXTROSE 5% 50 ML IV SCH (14:00)
[2023-11-10 14:59] LABS: *SODIUM RNDM,URINE 25 mmol/L (40-220)
[2023-11-10] MEDS ORDERED: NEUTRA PHOS PACKET GT ONE (15:15)
[2023-11-10] MEDS ORDERED: NEUTRA PHOS PACKET PO ONE (15:15)
[2023-11-10] MEDS: MULTIVITAMINS,THERAPEUTIC TABLET GT SCH (15:18)
[2023-11-10] MEDS: IPRATROPIUM BROMIDE 0.5 MG/2.5 ML NEBU NEB SCH ×2 (15:56→19:35)
[2023-11-10] MEDS: ALBUTEROL SULFATE 2.5 MG/3 ML NEBU NEB SCH ×2 (15:56→19:35)
[2023-11-10] MEDS: MEDIHONEY= THERAHONEY 1.5 OZ TUBE TOP SCH (18:22)
[2023-11-10] MEDS: VANCOMYCIN IV 500 MG in IV DEXTROSE 5% 100 ML IV SCH (18:24)
[2023-11-10] MEDS: MEROPENEM 1 G in IV NORMAL SALINE 100 ML IV SCH (20:28)
[2023-11-10] MEDS ORDERED: CEFTRIAXONE 1 G in IV DEXTROSE 5% 50 ML IV SCH (21:00)
[2023-11-10] MEDS ORDERED: CLONAZEPAM 1 MG TABLET GT SCH (21:00)
[2023-11-10] MEDS: CLONAZEPAM 1 MG TABLET GT SCH (22:23)
[2023-11-10] MEDS: ACETAMINOPHEN ES 500 MG TABLET GT SCH (22:23)
[2023-11-10] MEDS: APIXABAN 2.5 MG TABLET GT SCH (23:09)
[2023-11-11] VITALS (12 sets, daily range): BP systolic 115–145; BP diastolic 70–90; TEMP 97–99.4; O2SAT 93–100
[2023-11-11] MEDS: VANCOMYCIN IV 500 MG in IV DEXTROSE 5% 100 ML IV SCH ×2 (01:19→08:52)
[2023-11-11] MEDS: MEROPENEM 1 G in IV NORMAL SALINE 100 ML IV SCH ×3 (02:34→17:23)
[2023-11-11] MEDS: IV NS 1000 ML 1,000 ML IV PRN (02:44)
[2023-11-11 06:04] LABS: ABG BASE EXCESS 12.8 mmol/L (-2.0-2.0); ABG HCO3 38.4 mmol/L (22.0-26.0); ABG PCO2 54.9 mmHg (35.0-48.0); ABG PH 7.463 (7.340-7.440); ABG PO2 71.7 mmHg (75.0-100.0); ABG SITE RIGHT RADIAL; ABG TOTAL HEMOGLOBIN 11.1 G/dL (12.0-16.0); AaDO2 94.9 mmHg; COHb 0.6 % (0.0-3.9); MetHb 0.3 % (0.0-1.5); O2Hb 94.4 % (94.0-97.0)
[2023-11-11] MEDS: PANTOPRAZOLE ORAL SUSPENSION 40 MG SUSPDR.PKT GT SCH (06:23)
[2023-11-11] MEDS: ACETAMINOPHEN ES 500 MG TABLET GT SCH ×2 (06:23→22:15)
[2023-11-11 07:05] LABS: BASOPHILS % (AUTO) 0.2 % (0.0-2.0); EOSINOPHILS % (AUTO) 0.2 % (0.0-7.0); HEMATOCRIT 25.6 % (31.2-41.9); HEMOGLOBIN 8.2 g/dL (10.9-14.3); LYMPHOCYTES # (AUTO) 0.5 K/uL (0.8-4.8); LYMPHOCYTES % (AUTO) 7.7 % (20.5-51.5); MEAN CORPUSCULAR HEMOGLOBIN 28.2 uug (24.7-32.8); MEAN CORPUSCULAR HGB CONC 32 g/dL (32.3-35.6); MEAN CORPUSCULAR VOLUME 87.6 fL (75.5-95.3); MONOCYTES # (AUTO) 0.4 K/uL (0.1-1.30); MONOCYTES % (AUTO) 7.3 % (0.0-11.0); NEUTROPHILS # (AUTO) 5.2 K/uL (1.8-8.9); NEUTROPHILS % (AUTO) 84.6 % (38.5-71.5); PLATELET COUNT (AUTO) 218 K/uL (179-408); RED BLOOD CELL COUNT(AUTO) 2.92 MIL/uL (3.63-4.92); RED CELL DISTRIBUTION WIDTH 19.3 % (12.3-17.7); WHITE BLOOD COUNT (AUTO) 6.1 K/uL (3.8-11.8)
[2023-11-11 07:07] LABS: DIFFERENTIAL COMMENT 1
[2023-11-11 07:16] LABS: CALCIUM 7.9 mg/dL (8.5-10.1); CARBON DIOXIDE 37 mmol/L (21-32); CHLORIDE 91 mmol/L (98-107); CREATININE 0.4 mg/dL (0.6-1.3); GLUCOSE 147 mg/dL (74-106); MAGNESIUM 2.2 mg/dL (1.8-2.4); POTASSIUM 3.2 mmol/L (3.5-5.1); SODIUM SERUM 131 mmol/L (136-145); UREA NITROGEN, BLOOD 17 mg/dL (7-18); URIC ACID 1.7 mg/dL (2.6-6.0)
[2023-11-11 07:25] LABS: THYROID STIMULATING HORMONE 1.491 mIU/mL (0.358-3.740)
[2023-11-11] MEDS: ALBUTEROL SULFATE 2.5 MG/3 ML NEBU NEB SCH ×3 (08:03→21:47)
[2023-11-11] MEDS: IPRATROPIUM BROMIDE 0.5 MG/2.5 ML NEBU NEB SCH ×3 (08:03→21:46)
[2023-11-11] MEDS ORDERED: POTASSIUM PHOSPHATE MM 15 MMOL in IV NORMAL SALINE 250 ML IV ONE ×2 (08:15→09:15)
[2023-11-11] MEDS: CARBIDOPA/LEVODOPA 25-250MG TABLET GT SCH ×4 (08:45→20:30)
[2023-11-11] MEDS: ASCORBIC ACID 500 MG TABLET GT SCH (08:45)
[2023-11-11] MEDS: ZINC SULFATE 220 MG CAPSULE GT SCH (08:45)
[2023-11-11] MEDS: APIXABAN 2.5 MG TABLET GT SCH ×2 (08:46→20:31)
[2023-11-11] MEDS: MEDIHONEY= THERAHONEY 1.5 OZ TUBE TOP SCH (08:47)
[2023-11-11] MEDS: ARGININE/GLUTAMINE/CALCIUM BMB 1 EACH POWD.PACK GT SCH ×2 (08:47→16:32)
[2023-11-11] MEDS: PRAMIPEXOLE 0.25 MG TABLET GT SCH ×2 (08:47→16:28)
[2023-11-11] MEDS: BACLOFEN 10 MG TABLET GT SCH ×3 (08:47→22:15)
[2023-11-11] MEDS: LACTULOSE 20 G/30 ML LIQUID UDC GT SCH (08:47)
[2023-11-11] MEDS: VENLAFAXINE 25 MG TABLET GT SCH (10:32)
[2023-11-11] MEDS: FERROUS SULFATE 300 MG/5 ML LIQUID UDC GT SCH ×2 (10:32→22:15)
[2023-11-11] MEDS: PROTEIN SUPPLEMENT (PROSTAT) 30 ML LIQUID PO SCH (10:33)
[2023-11-11] MEDS: MULTIVITAMINS,THERAPEUTIC TABLET GT SCH (13:04)
[2023-11-11] MEDS: VANCOMYCIN IV 750 MG in IV DEXTROSE 5% 250 ML IV SCH (16:32)
[2023-11-11] MEDS: CLONAZEPAM 1 MG TABLET GT SCH (22:15)
[2023-11-12] VITALS (12 sets, daily range): BP systolic 125–137; BP diastolic 78–83; TEMP 98–101.5; O2SAT 93–99
[2023-11-12] MEDS: VANCOMYCIN IV 750 MG in IV DEXTROSE 5% 250 ML IV SCH ×4 (00:06→23:15)
[2023-11-12] MEDS: MEROPENEM 1 G in IV NORMAL SALINE 100 ML IV SCH ×3 (02:10→17:31)
[2023-11-12] MEDS: PANTOPRAZOLE ORAL SUSPENSION 40 MG SUSPDR.PKT GT SCH (06:48)
[2023-11-12] MEDS: ACETAMINOPHEN ES 500 MG TABLET GT SCH ×2 (06:48→21:00)
[2023-11-12 07:04] LABS: BASOPHILS % (AUTO) 0.5 % (0.0-2.0); EOSINOPHILS # (AUTO) 0.1 K/uL (0.0-0.7); EOSINOPHILS % (AUTO) 1.9 % (0.0-7.0); HEMATOCRIT 26.2 % (31.2-41.9); HEMOGLOBIN 8.4 g/dL (10.9-14.3); LYMPHOCYTES # (AUTO) 0.4 K/uL (0.8-4.8); LYMPHOCYTES % (AUTO) 6.5 % (20.5-51.5); MEAN CORPUSCULAR HEMOGLOBIN 28.1 uug (24.7-32.8); MEAN CORPUSCULAR HGB CONC 32 g/dL (32.3-35.6); MEAN CORPUSCULAR VOLUME 87.6 fL (75.5-95.3); MONOCYTES # (AUTO) 0.4 K/uL (0.1-1.30); MONOCYTES % (AUTO) 6.1 % (0.0-11.0); NEUTROPHILS # (AUTO) 5.7 K/uL (1.8-8.9); PLATELET COUNT (AUTO) 213 K/uL (179-408); RED BLOOD CELL COUNT(AUTO) 2.99 MIL/uL (3.63-4.92); RED CELL DISTRIBUTION WIDTH 20.2 % (12.3-17.7); WHITE BLOOD COUNT (AUTO) 6.7 K/uL (3.8-11.8)
[2023-11-12 07:21] LABS: DIFFERENTIAL COMMENT 1
[2023-11-12] MEDS: IPRATROPIUM BROMIDE 0.5 MG/2.5 ML NEBU NEB SCH ×3 (07:31→21:21)
[2023-11-12] MEDS: ALBUTEROL SULFATE 2.5 MG/3 ML NEBU NEB SCH ×3 (07:31→21:21)
[2023-11-12 07:35] LABS: CALCIUM 8.3 mg/dL (8.5-10.1); CARBON DIOXIDE 37 mmol/L (21-32); CHLORIDE 93 mmol/L (98-107); CREATININE 0.3 mg/dL (0.6-1.3); GLUCOSE 136 mg/dL (74-106); MAGNESIUM 2.2 mg/dL (1.8-2.4); PHOSPHOROUS 1.6 mg/dL (2.5-4.9); POTASSIUM 3.1 mmol/L (3.5-5.1); SODIUM SERUM 132 mmol/L (136-145); UREA NITROGEN, BLOOD 16 mg/dL (7-18)
[2023-11-12] MEDS: APIXABAN 2.5 MG TABLET GT SCH ×2 (08:18→20:59)
[2023-11-12] MEDS: LACTULOSE 20 G/30 ML LIQUID UDC GT SCH (08:18)
[2023-11-12] MEDS: CARBIDOPA/LEVODOPA 25-250MG TABLET GT SCH ×4 (08:18→20:59)
[2023-11-12] MEDS: ZINC SULFATE 220 MG CAPSULE GT SCH (08:19)
[2023-11-12] MEDS: BACLOFEN 10 MG TABLET GT SCH ×3 (08:19→21:00)
[2023-11-12] MEDS: PRAMIPEXOLE 0.25 MG TABLET GT SCH ×2 (08:19→16:55)
[2023-11-12] MEDS: ARGININE/GLUTAMINE/CALCIUM BMB 1 EACH POWD.PACK GT SCH ×2 (08:19→17:31)
[2023-11-12] MEDS: ASCORBIC ACID 500 MG TABLET GT SCH (08:19)
[2023-11-12] MEDS: MEDIHONEY= THERAHONEY 1.5 OZ TUBE TOP SCH (08:21)
[2023-11-12] MEDS: MUPIROCIN 2% OINT 22 GM TUBE NS SCH ×2 (08:32→21:01)
[2023-11-12] MEDS ORDERED: POTASSIUM PHOSPHATE MM 15 MMOL in IV NORMAL SALINE 250 ML IV ONE (10:00)
[2023-11-12] MEDS: PROTEIN SUPPLEMENT (PROSTAT) 30 ML LIQUID PO SCH (11:18)
[2023-11-12] MEDS: FERROUS SULFATE 300 MG/5 ML LIQUID UDC GT SCH ×2 (11:18→21:00)
[2023-11-12] MEDS: VENLAFAXINE 25 MG TABLET GT SCH (11:46)
[2023-11-12] MEDS: MULTIVITAMINS,THERAPEUTIC TABLET GT SCH (13:42)
[2023-11-12] MEDS: CLONAZEPAM 1 MG TABLET GT SCH (21:00)
[2023-11-13] VITALS (11 sets, daily range): BP systolic 99–129; BP diastolic 62–78; TEMP 97.8–102.4; O2SAT 93–100
[2023-11-13] MEDS: MEROPENEM 1 G in IV NORMAL SALINE 100 ML IV SCH ×3 (01:04→17:12)
[2023-11-13] MEDS: ACETAMINOPHEN ES 500 MG TABLET GT SCH ×2 (06:25→21:37)
[2023-11-13] MEDS: PANTOPRAZOLE ORAL SUSPENSION 40 MG SUSPDR.PKT GT SCH (06:26)
[2023-11-13 07:13] LABS: BASOPHILS % (AUTO) 0.9 % (0.0-2.0); EOSINOPHILS # (AUTO) 0.4 K/uL (0.0-0.7); HEMATOCRIT 26.5 % (31.2-41.9); HEMOGLOBIN 8.4 g/dL (10.9-14.3); LYMPHOCYTES # (AUTO) 0.4 K/uL (0.8-4.8); LYMPHOCYTES % (AUTO) 9.1 % (20.5-51.5); MEAN CORPUSCULAR HGB CONC 32 g/dL (32.3-35.6); MEAN CORPUSCULAR VOLUME 88.6 fL (75.5-95.3); MONOCYTES # (AUTO) 0.4 K/uL (0.1-1.30); MONOCYTES % (AUTO) 7.2 % (0.0-11.0); NEUTROPHILS # (AUTO) 3.7 K/uL (1.8-8.9); NEUTROPHILS % (AUTO) 74.8 % (38.5-71.5); PLATELET COUNT (AUTO) 199 K/uL (179-408); RED CELL DISTRIBUTION WIDTH 19.9 % (12.3-17.7); WHITE BLOOD COUNT (AUTO) 4.9 K/uL (3.8-11.8)
[2023-11-13 07:30] LABS: CALCIUM 8.5 mg/dL (8.5-10.1); CARBON DIOXIDE 38 mmol/L (21-32); CHLORIDE 96 mmol/L (98-107); CREATININE 0.2 mg/dL (0.6-1.3); GLUCOSE 133 mg/dL (74-106); MAGNESIUM 2.3 mg/dL (1.8-2.4); PHOSPHOROUS 1.5 mg/dL (2.5-4.9); SODIUM SERUM 136 mmol/L (136-145); UREA NITROGEN, BLOOD 14 mg/dL (7-18)
[2023-11-13 07:35] LABS: DIFFERENTIAL COMMENT 1
[2023-11-13] MEDS: IPRATROPIUM BROMIDE 0.5 MG/2.5 ML NEBU NEB SCH ×3 (08:05→21:36)
[2023-11-13] MEDS: ALBUTEROL SULFATE 2.5 MG/3 ML NEBU NEB SCH ×3 (08:05→21:36)
[2023-11-13] MEDS: VANCOMYCIN IV 750 MG in IV DEXTROSE 5% 250 ML IV SCH (08:14)
[2023-11-13] MEDS: LACTULOSE 20 G/30 ML LIQUID UDC GT SCH (08:14)
[2023-11-13] MEDS: ZINC SULFATE 220 MG CAPSULE GT SCH (08:14)
[2023-11-13] MEDS: CARBIDOPA/LEVODOPA 25-250MG TABLET GT SCH ×4 (08:15→21:38)
[2023-11-13] MEDS: BACLOFEN 10 MG TABLET GT SCH ×3 (08:15→21:37)
[2023-11-13] MEDS: PRAMIPEXOLE 0.25 MG TABLET GT SCH ×2 (08:15→16:11)
[2023-11-13] MEDS: APIXABAN 2.5 MG TABLET GT SCH ×2 (08:15→22:53)
[2023-11-13] MEDS: ASCORBIC ACID 500 MG TABLET GT SCH (08:15)
[2023-11-13] MEDS: ARGININE/GLUTAMINE/CALCIUM BMB 1 EACH POWD.PACK GT SCH ×2 (08:42→16:22)
[2023-11-13] MEDS: MUPIROCIN 2% OINT 22 GM TUBE NS SCH ×2 (08:42→21:59)
[2023-11-13] MEDS: MEDIHONEY= THERAHONEY 1.5 OZ TUBE TOP SCH (08:42)
[2023-11-13] MEDS ORDERED: POTASSIUM CHLORIDE 20 MEQ POWDER PACKET GT ONE (10:00)
[2023-11-13] MEDS ORDERED: POTASSIUM PHOSPHATE MM 15 MMOL in IV NORMAL SALINE 250 ML IV ONE (10:00)
[2023-11-13] MEDS: FERROUS SULFATE 300 MG/5 ML LIQUID UDC GT SCH ×2 (10:28→21:38)
[2023-11-13] MEDS: PROTEIN SUPPLEMENT (PROSTAT) 30 ML LIQUID PO SCH (10:37)
[2023-11-13] MEDS: VENLAFAXINE 25 MG TABLET GT SCH (10:37)
[2023-11-13] MEDS ORDERED: ACETAzolamide SODIUM 500 MG VIAL IV ONE (11:45)
[2023-11-13] MEDS: MULTIVITAMINS,THERAPEUTIC TABLET GT SCH (12:17)
[2023-11-13] MEDS: NUTREN 2.0 1,000 ML LIQUID GT PRN (13:08)
[2023-11-13] MEDS: ACETAMINOPHEN 650 MG/20.3 ML LIQUID UDC GT PRN (14:54)
[2023-11-13] MEDS: CLONAZEPAM 1 MG TABLET GT SCH (21:37)
[2023-11-13] MEDS: IV NS 1000 ML 1,000 ML IV PRN (22:00)
[2023-11-14] VITALS (10 sets, daily range): BP systolic 105–145; BP diastolic 69–86; TEMP 98.2–101.7; O2SAT 94–100
[2023-11-14] MEDS: MEROPENEM 1 G in IV NORMAL SALINE 100 ML IV SCH ×2 (02:21→09:05)
[2023-11-14] MEDS: PANTOPRAZOLE ORAL SUSPENSION 40 MG SUSPDR.PKT GT SCH (06:05)
[2023-11-14] MEDS: ACETAMINOPHEN ES 500 MG TABLET GT SCH ×2 (06:06→21:46)
[2023-11-14] MEDS: IPRATROPIUM BROMIDE 0.5 MG/2.5 ML NEBU NEB SCH ×3 (07:35→20:44)
[2023-11-14] MEDS: ALBUTEROL SULFATE 2.5 MG/3 ML NEBU NEB SCH ×3 (07:35→20:44)
[2023-11-14] MEDS: APIXABAN 2.5 MG TABLET GT SCH ×2 (08:08→20:45)
[2023-11-14] MEDS: BACLOFEN 10 MG TABLET GT SCH ×3 (08:26→21:46)
[2023-11-14] MEDS: LACTULOSE 20 G/30 ML LIQUID UDC GT SCH (08:26)
[2023-11-14] MEDS: CARBIDOPA/LEVODOPA 25-250MG TABLET GT SCH ×4 (08:26→20:44)
[2023-11-14] MEDS: ASCORBIC ACID 500 MG TABLET GT SCH (08:26)
[2023-11-14] MEDS: ZINC SULFATE 220 MG CAPSULE GT SCH (08:26)
[2023-11-14] MEDS: PRAMIPEXOLE 0.25 MG TABLET GT SCH ×2 (08:26→16:04)
[2023-11-14 08:27] LABS: BASOPHILS # (AUTO) 0.1 K/UL (0.0-0.2); BASOPHILS % (AUTO) 1.2 % (0.0-2.0); EOSINOPHILS # (AUTO) 0.2 K/uL (0.0-0.7); EOSINOPHILS % (AUTO) 2.6 % (0.0-7.0); HEMATOCRIT 27.8 % (31.2-41.9); HEMOGLOBIN 8.7 g/dL (10.9-14.3); LYMPHOCYTES # (AUTO) 0.4 K/uL (0.8-4.8); LYMPHOCYTES % (AUTO) 5.8 % (20.5-51.5); MEAN CORPUSCULAR HEMOGLOBIN 27.9 uug (24.7-32.8); MEAN CORPUSCULAR HGB CONC 31 g/dL (32.3-35.6); MEAN CORPUSCULAR VOLUME 89.6 fL (75.5-95.3); MONOCYTES # (AUTO) 0.2 K/uL (0.1-1.30); MONOCYTES % (AUTO) 2.3 % (0.0-11.0); NEUTROPHILS # (AUTO) 6.4 K/uL (1.8-8.9); NEUTROPHILS % (AUTO) 88.1 % (38.5-71.5); PLATELET COUNT (AUTO) 245 K/uL (179-408); RED CELL DISTRIBUTION WIDTH 20.1 % (12.3-17.7); WHITE BLOOD COUNT (AUTO) 7.2 K/uL (3.8-11.8)
[2023-11-14] MEDS: ARGININE/GLUTAMINE/CALCIUM BMB 1 EACH POWD.PACK GT SCH ×2 (08:27→16:04)
[2023-11-14 08:42] LABS: DIFFERENTIAL COMMENT 1
[2023-11-14] MEDS: MEDIHONEY= THERAHONEY 1.5 OZ TUBE TOP SCH (08:47)
[2023-11-14] MEDS: MUPIROCIN 2% OINT 22 GM TUBE NS SCH ×2 (08:49→21:49)
[2023-11-14 09:40] LABS: CALCIUM 8.4 mg/dL (8.5-10.1); CARBON DIOXIDE 30 mmol/L (21-32); CHLORIDE 96 mmol/L (98-107); CREATININE 0.3 mg/dL (0.6-1.3); GLUCOSE 114 mg/dL (74-106); MAGNESIUM 2.5 mg/dL (1.8-2.4); PHOSPHOROUS 1.6 mg/dL (2.5-4.9); POTASSIUM 4.4 mmol/L (3.5-5.1); SODIUM SERUM 131 mmol/L (136-145); UREA NITROGEN, BLOOD 19 mg/dL (7-18); VANCOMYCIN,RANDOM 5.6 ug/mL (20.0-30.0)
[2023-11-14] MEDS: VENLAFAXINE 25 MG TABLET GT SCH (11:10)
[2023-11-14] MEDS: FERROUS SULFATE 300 MG/5 ML LIQUID UDC GT SCH ×2 (11:10→21:46)
[2023-11-14] MEDS: PROTEIN SUPPLEMENT (PROSTAT) 30 ML LIQUID PO SCH (11:11)
[2023-11-14] MEDS: VANCOMYCIN IV 750 MG in IV DEXTROSE 5% 250 ML IV SCH ×2 (11:42→22:04)
[2023-11-14] MEDS: MULTIVITAMINS,THERAPEUTIC TABLET GT SCH (12:13)
[2023-11-14] MEDS: CEFEPIME HCL 2 G in IV DEXTROSE 5% 100 ML IV SCH ×2 (14:07→21:47)
[2023-11-14] MEDS ORDERED: NEUTRA PHOS PACKET GT ONE (15:45)
[2023-11-14] MEDS ORDERED: NEUTRA PHOS PACKET PO ONE (15:45)
[2023-11-14] MEDS: NUTREN 2.0 1,000 ML LIQUID GT PRN (15:54)
[2023-11-14 16:34] LABS: *BILIRUBIN,URIN NEGATIVE (NEGATIVE); *CLARITY,URINE CLEAR (CLEAR); *COLOR,URINE YELLOW (YELLOW); *KETONES,URINE NEGATIVE (NEGATIVE); *PROTEIN,URINE 1+ (NEGATIVE); *UROBILINOGEN,URINE 0.2 E.U./dl (NORMAL); LEUKOCYTE ESTERASE ,URINE NEGATIVE (NEGATIVE); NITRITE, URINE NEGATIVE (NEGATIVE); PH,URINE 7.5 (5.0-8.0); UGLUCOSE NEGATIVE (NEGATIVE)
[2023-11-14 16:43] LABS: *BLOOD, URINE NEGATIVE (NEGATIVE)
[2023-11-14 16:44] LABS: RBC,URINE 0-3 /HPF (0-3); WBC,URINE 0-3 /HPF (0-3)
[2023-11-14 16:47] LABS: *CREATININE,URINE 17.6 mg/dL (30-125); *URINE TOTAL PROTEIN RANDOM 35.1 mg/dL (<150/24HR)
[2023-11-14] MEDS: CLONAZEPAM 1 MG TABLET GT SCH (21:46)
[2023-11-15] VITALS (12 sets, daily range): BP systolic 105–135; BP diastolic 63–85; TEMP 98–101.8; O2SAT 96–100
[2023-11-15] MEDS: PANTOPRAZOLE ORAL SUSPENSION 40 MG SUSPDR.PKT GT SCH (06:27)
[2023-11-15] MEDS: ACETAMINOPHEN ES 500 MG TABLET GT SCH ×2 (06:27→22:29)
[2023-11-15] MEDS: CEFEPIME HCL 2 G in IV DEXTROSE 5% 100 ML IV SCH ×3 (06:29→22:43)
[2023-11-15] MEDS: IPRATROPIUM BROMIDE 0.5 MG/2.5 ML NEBU NEB SCH ×3 (07:35→20:10)
[2023-11-15] MEDS: ALBUTEROL SULFATE 2.5 MG/3 ML NEBU NEB SCH ×3 (07:35→20:10)
[2023-11-15 07:41] LABS: BASOPHILS % (AUTO) 0.7 % (0.0-2.0); EOSINOPHILS # (AUTO) 0.3 K/uL (0.0-0.7); EOSINOPHILS % (AUTO) 5.1 % (0.0-7.0); HEMATOCRIT 26.7 % (31.2-41.9); HEMOGLOBIN 8.4 g/dL (10.9-14.3); LYMPHOCYTES # (AUTO) 0.4 K/uL (0.8-4.8); LYMPHOCYTES % (AUTO) 7.1 % (20.5-51.5); MEAN CORPUSCULAR HEMOGLOBIN 28.2 uug (24.7-32.8); MEAN CORPUSCULAR HGB CONC 32 g/dL (32.3-35.6); MEAN CORPUSCULAR VOLUME 89.2 fL (75.5-95.3); MONOCYTES # (AUTO) 0.3 K/uL (0.1-1.30); MONOCYTES % (AUTO) 5.8 % (0.0-11.0); NEUTROPHILS # (AUTO) 4.4 K/uL (1.8-8.9); NEUTROPHILS % (AUTO) 81.3 % (38.5-71.5); PLATELET COUNT (AUTO) 201 K/uL (179-408); RED CELL DISTRIBUTION WIDTH 20.3 % (12.3-17.7); WHITE BLOOD COUNT (AUTO) 5.4 K/uL (3.8-11.8)
[2023-11-15 07:51] LABS: CALCIUM 8.2 mg/dL (8.5-10.1); CARBON DIOXIDE 36 mmol/L (21-32); CHLORIDE 97 mmol/L (98-107); CREATININE 0.3 mg/dL (0.6-1.3); GLUCOSE 135 mg/dL (74-106); MAGNESIUM 2.2 mg/dL (1.8-2.4); PHOSPHOROUS 1.7 mg/dL (2.5-4.9); POTASSIUM 3.7 mmol/L (3.5-5.1); SODIUM SERUM 135 mmol/L (136-145); UREA NITROGEN, BLOOD 18 mg/dL (7-18)
[2023-11-15 08:02] LABS: DIFFERENTIAL COMMENT 1
[2023-11-15 08:10] LABS: ABG BASE EXCESS 8.1 mmol/L (-2.0-2.0); ABG HCO3 33.8 mmol/L (22.0-26.0); ABG PCO2 53.4 mmHg (35.0-48.0); ABG PH 7.419 (7.340-7.440); ABG PO2 115.1 mmHg (75.0-100.0); ABG SITE RIGHT RADIAL; ABG TOTAL HEMOGLOBIN 10.1 G/dL (12.0-16.0); AaDO2 98.2 mmHg; COHb 0.2 % (0.0-3.9); MetHb 0.3 % (0.0-1.5); O2Hb 97.8 % (94.0-97.0)
[2023-11-15] MEDS: CARBIDOPA/LEVODOPA 25-250MG TABLET GT SCH ×4 (08:59→20:13)
[2023-11-15] MEDS: ASCORBIC ACID 500 MG TABLET GT SCH (08:59)
[2023-11-15] MEDS: PRAMIPEXOLE 0.25 MG TABLET GT SCH ×2 (08:59→16:14)
[2023-11-15] MEDS: VANCOMYCIN IV 750 MG in IV DEXTROSE 5% 250 ML IV SCH ×2 (08:59→18:30)
[2023-11-15] MEDS: BACLOFEN 10 MG TABLET GT SCH ×3 (08:59→22:29)
[2023-11-15] MEDS: ARGININE/GLUTAMINE/CALCIUM BMB 1 EACH POWD.PACK GT SCH ×2 (08:59→16:13)
[2023-11-15] MEDS: ZINC SULFATE 220 MG CAPSULE GT SCH (08:59)
[2023-11-15] MEDS: MUPIROCIN 2% OINT 22 GM TUBE NS SCH ×2 (09:01→20:59)
[2023-11-15] MEDS: MEDIHONEY= THERAHONEY 1.5 OZ TUBE TOP SCH (09:01)
[2023-11-15] MEDS: APIXABAN 2.5 MG TABLET GT SCH ×2 (09:24→20:14)
[2023-11-15] MEDS: FERROUS SULFATE 300 MG/5 ML LIQUID UDC GT SCH ×2 (11:58→22:29)
[2023-11-15] MEDS: VENLAFAXINE 25 MG TABLET GT SCH (11:59)
[2023-11-15] MEDS: PROTEIN SUPPLEMENT (PROSTAT) 30 ML LIQUID PO SCH (11:59)
[2023-11-15] MEDS: MULTIVITAMINS,THERAPEUTIC TABLET GT SCH (13:59)
[2023-11-15] MEDS ORDERED: SODIUM PHOSPHATE MM 15 MMOL in IV NORMAL SALINE 250 ML IV ONE (16:00)
[2023-11-15] MEDS: ACETAMINOPHEN 650 MG/20.3 ML LIQUID UDC GT PRN (18:29)
[2023-11-15] MEDS: CLONAZEPAM 1 MG TABLET GT SCH (22:29)
[2023-11-16] VITALS (8 sets, daily range): BP systolic 101–143; BP diastolic 61–78; TEMP 98.4–101.4; O2SAT 96–99
[2023-11-16] MEDS: ACETAMINOPHEN 650 MG/20.3 ML LIQUID UDC GT PRN ×2 (00:45→20:22)
[2023-11-16] MEDS: VANCOMYCIN IV 750 MG in IV DEXTROSE 5% 250 ML IV SCH ×3 (03:56→23:59)
[2023-11-16] MEDS: CEFEPIME HCL 2 G in IV DEXTROSE 5% 100 ML IV SCH ×3 (05:50→22:01)
[2023-11-16] MEDS: ACETAMINOPHEN ES 500 MG TABLET GT SCH ×2 (06:33→21:55)
[2023-11-16] MEDS: PANTOPRAZOLE ORAL SUSPENSION 40 MG SUSPDR.PKT GT SCH (06:33)
[2023-11-16 06:35] LABS: BASOPHILS # (AUTO) 0.1 K/UL (0.0-0.2); BASOPHILS % (AUTO) 0.9 % (0.0-2.0); EOSINOPHILS # (AUTO) 0.2 K/uL (0.0-0.7); EOSINOPHILS % (AUTO) 3.8 % (0.0-7.0); HEMATOCRIT 26.6 % (31.2-41.9); HEMOGLOBIN 8.5 g/dL (10.9-14.3); LYMPHOCYTES # (AUTO) 0.7 K/uL (0.8-4.8); LYMPHOCYTES % (AUTO) 12.2 % (20.5-51.5); MEAN CORPUSCULAR HEMOGLOBIN 28.3 uug (24.7-32.8); MEAN CORPUSCULAR HGB CONC 32 g/dL (32.3-35.6); MEAN CORPUSCULAR VOLUME 88.4 fL (75.5-95.3); MONOCYTES # (AUTO) 0.4 K/uL (0.1-1.30); MONOCYTES % (AUTO) 7.7 % (0.0-11.0); NEUTROPHILS # (AUTO) 4.4 K/uL (1.8-8.9); NEUTROPHILS % (AUTO) 75.4 % (38.5-71.5); PLATELET COUNT (AUTO) 221 K/uL (179-408); RED BLOOD CELL COUNT(AUTO) 3.01 MIL/uL (3.63-4.92); RED CELL DISTRIBUTION WIDTH 20.6 % (12.3-17.7); WHITE BLOOD COUNT (AUTO) 5.8 K/uL (3.8-11.8)
[2023-11-16 06:42] LABS: DIFFERENTIAL COMMENT 1
[2023-11-16 06:46] LABS: CALCIUM 8.2 mg/dL (8.5-10.1); CARBON DIOXIDE 35 mmol/L (21-32); CHLORIDE 92 mmol/L (98-107); CREATININE 0.3 mg/dL (0.6-1.3); GLUCOSE 143 mg/dL (74-106); POTASSIUM 3.9 mmol/L (3.5-5.1); SODIUM SERUM 131 mmol/L (136-145); UREA NITROGEN, BLOOD 19 mg/dL (7-18)
[2023-11-16] MEDS: IPRATROPIUM BROMIDE 0.5 MG/2.5 ML NEBU NEB SCH ×3 (08:04→23:30)
[2023-11-16] MEDS: ALBUTEROL SULFATE 2.5 MG/3 ML NEBU NEB SCH (08:04)
[2023-11-16] MEDS: CARBIDOPA/LEVODOPA 25-250MG TABLET GT SCH ×4 (08:35→20:08)
[2023-11-16] MEDS: ARGININE/GLUTAMINE/CALCIUM BMB 1 EACH POWD.PACK GT SCH ×2 (08:35→17:17)
[2023-11-16] MEDS: ZINC SULFATE 220 MG CAPSULE GT SCH (08:35)
[2023-11-16] MEDS: PRAMIPEXOLE 0.25 MG TABLET GT SCH ×2 (08:35→16:43)
[2023-11-16] MEDS: BACLOFEN 10 MG TABLET GT SCH ×3 (08:35→21:55)
[2023-11-16] MEDS: ASCORBIC ACID 500 MG TABLET GT SCH (08:35)
[2023-11-16] MEDS: MUPIROCIN 2% OINT 22 GM TUBE NS SCH ×2 (08:36→21:57)
[2023-11-16] MEDS: MEDIHONEY= THERAHONEY 1.5 OZ TUBE TOP SCH (08:36)
[2023-11-16] MEDS: APIXABAN 2.5 MG TABLET GT SCH ×2 (08:39→20:10)
[2023-11-16] MEDS ORDERED: POTASSIUM PHOSPHATE MM 15 MMOL in IV NORMAL SALINE 250 ML IV ONE (09:00)
[2023-11-16] MEDS ORDERED: LEVALBUTEROL HCL 1.25 MG/0.5 ML NEB NEB SCH (11:20)
[2023-11-16] MEDS ORDERED: LACTULOSE 20 G/30 ML LIQUID UDC PO ONE (11:30)
[2023-11-16] MEDS: VENLAFAXINE 25 MG TABLET GT SCH (11:43)
[2023-11-16] MEDS: FERROUS SULFATE 300 MG/5 ML LIQUID UDC GT SCH ×2 (11:43→22:02)
[2023-11-16] MEDS: PROTEIN SUPPLEMENT (PROSTAT) 30 ML LIQUID PO SCH (11:44)
[2023-11-16] MEDS: LEVALBUTEROL HCL 1.25 MG/0.5 ML NEB NEB SCH ×2 (13:30→23:30)
[2023-11-16] MEDS: MULTIVITAMINS,THERAPEUTIC TABLET GT SCH (13:45)
[2023-11-16] MEDS: CLONAZEPAM 1 MG TABLET GT SCH (21:55)
[2023-11-17] VITALS (14 sets, daily range): BP systolic 101–159; BP diastolic 57–86; TEMP 97.8–103.4; O2SAT 95–99
[2023-11-17] MEDS: IPRATROPIUM BROMIDE 0.5 MG/2.5 ML NEBU NEB SCH ×4 (01:50→22:36)
[2023-11-17] MEDS: LEVALBUTEROL HCL 1.25 MG/0.5 ML NEB NEB SCH ×4 (01:55→22:36)
[2023-11-17] MEDS: ACETAMINOPHEN 650 MG/20.3 ML LIQUID UDC GT PRN ×2 (05:10→21:04)
[2023-11-17] MEDS: CEFEPIME HCL 2 G in IV DEXTROSE 5% 100 ML IV SCH ×3 (05:22→23:28)
[2023-11-17] MEDS: PANTOPRAZOLE ORAL SUSPENSION 40 MG SUSPDR.PKT GT SCH (06:07)
[2023-11-17] MEDS: ACETAMINOPHEN ES 500 MG TABLET GT SCH ×2 (06:07→22:37)
[2023-11-17 08:01] LABS: BASOPHILS % (AUTO) 0.8 % (0.0-2.0); EOSINOPHILS % (AUTO) 0.8 % (0.0-7.0); HEMATOCRIT 27.1 % (31.2-41.9); HEMOGLOBIN 8.7 g/dL (10.9-14.3); LYMPHOCYTES # (AUTO) 0.7 K/uL (0.8-4.8); MEAN CORPUSCULAR HEMOGLOBIN 28.2 uug (24.7-32.8); MEAN CORPUSCULAR HGB CONC 32 g/dL (32.3-35.6); MEAN CORPUSCULAR VOLUME 88.2 fL (75.5-95.3); MONOCYTES # (AUTO) 0.7 K/uL (0.1-1.30); MONOCYTES % (AUTO) 10.5 % (0.0-11.0); NEUTROPHILS # (AUTO) 4.7 K/uL (1.8-8.9); NEUTROPHILS % (AUTO) 75.9 % (38.5-71.5); PLATELET COUNT (AUTO) 253 K/uL (179-408); RED BLOOD CELL COUNT(AUTO) 3.07 MIL/uL (3.63-4.92); RED CELL DISTRIBUTION WIDTH 20.6 % (12.3-17.7); WHITE BLOOD COUNT (AUTO) 6.2 K/uL (3.8-11.8)
[2023-11-17 08:15] LABS: CALCIUM 8.1 mg/dL (8.5-10.1); CARBON DIOXIDE 36 mmol/L (21-32); CHLORIDE 88 mmol/L (98-107); CREATININE 0.3 mg/dL (0.6-1.3); GLUCOSE 149 mg/dL (74-106); SODIUM SERUM 126 mmol/L (136-145); UREA NITROGEN, BLOOD 12 mg/dL (7-18)
[2023-11-17 08:17] LABS: MAGNESIUM 2.5 mg/dL (1.8-2.4)
[2023-11-17 08:27] LABS: DIFFERENTIAL COMMENT 1
[2023-11-17] MEDS: PRAMIPEXOLE 0.25 MG TABLET GT SCH ×2 (08:32→16:34)
[2023-11-17] MEDS: CARBIDOPA/LEVODOPA 25-250MG TABLET GT SCH ×4 (08:32→20:47)
[2023-11-17] MEDS: ASCORBIC ACID 500 MG TABLET GT SCH (08:32)
[2023-11-17] MEDS: ZINC SULFATE 220 MG CAPSULE GT SCH (08:32)
[2023-11-17] MEDS: BACLOFEN 10 MG TABLET GT SCH ×3 (08:32→22:37)
[2023-11-17] MEDS: MUPIROCIN 2% OINT 22 GM TUBE NS SCH ×2 (08:34→21:46)
[2023-11-17] MEDS: MEDIHONEY= THERAHONEY 1.5 OZ TUBE TOP SCH (08:34)
[2023-11-17] MEDS: ARGININE/GLUTAMINE/CALCIUM BMB 1 EACH POWD.PACK GT SCH ×2 (08:34→17:50)
[2023-11-17] MEDS: APIXABAN 2.5 MG TABLET GT SCH ×2 (08:37→20:48)
[2023-11-17] MEDS: METRONIDAZOLE 500 MG TABLET GT SCH ×3 (08:38→22:38)
[2023-11-17] MEDS: VENLAFAXINE 25 MG TABLET GT SCH (10:33)
[2023-11-17] MEDS: FERROUS SULFATE 300 MG/5 ML LIQUID UDC GT SCH ×2 (10:34→22:37)
[2023-11-17] MEDS: PROTEIN SUPPLEMENT (PROSTAT) 30 ML LIQUID PO SCH (10:34)
[2023-11-17] MEDS: VANCOMYCIN IV 750 MG in IV DEXTROSE 5% 250 ML IV SCH ×2 (10:35→20:53)
[2023-11-17] MEDS: MULTIVITAMINS,THERAPEUTIC TABLET GT SCH (13:40)
[2023-11-17] MEDS ORDERED: LACTULOSE 20 G/30 ML LIQUID UDC GT PRN (13:45)
[2023-11-17] MEDS ORDERED: NEUTRA PHOS PACKET GT ONE (16:00)
[2023-11-17] MEDS: CLONAZEPAM 1 MG TABLET GT SCH (22:37)
[2023-11-18] VITALS (7 sets, daily range): BP systolic 93; BP diastolic 49; TEMP 98.2–98.4; O2SAT 92–99
[2023-11-18] MEDS: VANCOMYCIN IV 750 MG in IV DEXTROSE 5% 250 ML IV SCH (05:05)
[2023-11-18] MEDS: ACETAMINOPHEN ES 500 MG TABLET GT SCH ×2 (06:08→22:00)
[2023-11-18] MEDS: METRONIDAZOLE 500 MG TABLET GT SCH ×3 (06:08→22:27)
[2023-11-18 06:10] LABS: ADENOVIRUS Not Detected (Not Detected); CORONAVIRUS 229E Not Detected (Not Detected); CORONAVIRUS HKU1 Not Detected (Not Detected); CORONAVIRUS NL63 Not Detected (Not Detected); CORONAVIRUS OC43 Not Detected (Not Detected); NP BORDETELLA PERTUSIS Not Detected (Not Detected); NP CHLAMYDOPHILA PNEUMONIAE Not Detected (Not Detected); NP HUMAN METAPNEUMOVIRUS Not Detected (Not Detected); NP HUMAN RHINO/ENTERO VIRUS Not Detected (Not Detected); NP INFLUENZA A Not Detected (Not Detected); NP INFLUENZA A/H1 Not Detected (Not Detected); NP INFLUENZA A/H1-2009 Not Detected (Not Detected); NP INFLUENZA A/H3 Not Detected (Not Detected); NP INFLUENZA B Not Detected (Not Detected); NP MYCOPLASMA PNEUMONIAE Not Detected (Not Detected); NP PARAINFLUENZA 1 Not Detected (Not Detected); NP PARAINFLUENZA 2 Not Detected (Not Detected); NP PARAINFLUENZA 3 Not Detected (Not Detected); NP PARAINFLUENZA 4 Not Detected (Not Detected); NP RESPIRATORY SYNCYTIAL VIRUS Not Detected (Not Detected)
[2023-11-18] MEDS: CEFEPIME HCL 2 G in IV DEXTROSE 5% 100 ML IV SCH ×3 (06:53→23:28)
[2023-11-18] MEDS: PANTOPRAZOLE ORAL SUSPENSION 40 MG SUSPDR.PKT GT SCH (06:54)
[2023-11-18 07:14] LABS: BASOPHILS % (AUTO) 0.7 % (0.0-2.0); CALCIUM 8.3 mg/dL (8.5-10.1); CARBON DIOXIDE 36 mmol/L (21-32); CHLORIDE 90 mmol/L (98-107); CREATININE 0.3 mg/dL (0.6-1.3); DIFFERENTIAL COMMENT 0; EOSINOPHILS % (AUTO) 0.4 % (0.0-7.0); GLUCOSE 177 mg/dL (74-106); HEMATOCRIT 25.2 % (31.2-41.9); HEMOGLOBIN 8.1 g/dL (10.9-14.3); LYMPHOCYTES # (AUTO) 0.8 K/uL (0.8-4.8); LYMPHOCYTES % (AUTO) 16.1 % (20.5-51.5); MEAN CORPUSCULAR HEMOGLOBIN 28.4 uug (24.7-32.8); MEAN CORPUSCULAR HGB CONC 32 g/dL (32.3-35.6); MEAN CORPUSCULAR VOLUME 88.1 fL (75.5-95.3); MONOCYTES # (AUTO) 0.7 K/uL (0.1-1.30); MONOCYTES % (AUTO) 14.4 % (0.0-11.0); NEUTROPHILS # (AUTO) 3.2 K/uL (1.8-8.9); NEUTROPHILS % (AUTO) 68.4 % (38.5-71.5); PLATELET COUNT (AUTO) 214 K/uL (179-408); POTASSIUM 3.5 mmol/L (3.5-5.1); RED BLOOD CELL COUNT(AUTO) 2.86 MIL/uL (3.63-4.92); RED CELL DISTRIBUTION WIDTH 20.3 % (12.3-17.7); SODIUM SERUM 128 mmol/L (136-145); UREA NITROGEN, BLOOD 18 mg/dL (7-18); WHITE BLOOD COUNT (AUTO) 4.7 K/uL (3.8-11.8)
[2023-11-18] MEDS: LEVALBUTEROL HCL 1.25 MG/0.5 ML NEB NEB SCH ×3 (07:35→22:33)
[2023-11-18] MEDS: IPRATROPIUM BROMIDE 0.5 MG/2.5 ML NEBU NEB SCH ×3 (07:35→22:33)
[2023-11-18] MEDS: ASCORBIC ACID 500 MG TABLET GT SCH (08:57)
[2023-11-18] MEDS: ZINC SULFATE 220 MG CAPSULE GT SCH (08:57)
[2023-11-18] MEDS: PRAMIPEXOLE 0.25 MG TABLET GT SCH ×2 (08:57→16:31)
[2023-11-18] MEDS: BACLOFEN 10 MG TABLET GT SCH ×3 (08:57→22:27)
[2023-11-18] MEDS: MEDIHONEY= THERAHONEY 1.5 OZ TUBE TOP SCH (09:06)
[2023-11-18] MEDS: MUPIROCIN 2% OINT 22 GM TUBE NS SCH ×2 (09:06→20:54)
[2023-11-18] MEDS: ARGININE/GLUTAMINE/CALCIUM BMB 1 EACH POWD.PACK GT SCH ×2 (09:06→16:32)
[2023-11-18] MEDS: CARBIDOPA/LEVODOPA 25-250MG TABLET GT SCH ×4 (09:10→20:54)
[2023-11-18] MEDS: APIXABAN 2.5 MG TABLET GT SCH ×2 (09:16→20:56)
[2023-11-18] MEDS: DOXYCYCLINE HYCLATE IV 100 MG in IV DEXTROSE 5% 100 ML IV SCH ×2 (10:53→21:59)
[2023-11-18] MEDS: MULTIVITAMINS,THERAPEUTIC TABLET GT SCH (12:02)
[2023-11-18] MEDS: PROTEIN SUPPLEMENT (PROSTAT) 30 ML LIQUID PO SCH (12:02)
[2023-11-18] MEDS: FERROUS SULFATE 300 MG/5 ML LIQUID UDC GT SCH ×2 (12:02→22:26)
[2023-11-18] MEDS ORDERED: NEUTRA PHOS PACKET GT ONE (15:30)
[2023-11-18] MEDS: ACETAMINOPHEN 650 MG/20.3 ML LIQUID UDC GT PRN (20:53)
[2023-11-18] MEDS: CLONAZEPAM 1 MG TABLET GT SCH (22:27)
[2023-11-18] MEDS: NUTREN 2.0 1,000 ML LIQUID GT PRN (22:34)
[2023-11-19] VITALS (16 sets, daily range): BP systolic 107–123; BP diastolic 66–83; TEMP 97.6–101.3; O2SAT 95–100
[2023-11-19] MEDS: PANTOPRAZOLE ORAL SUSPENSION 40 MG SUSPDR.PKT GT SCH (06:02)
[2023-11-19] MEDS: ACETAMINOPHEN ES 500 MG TABLET GT SCH ×2 (06:03→22:10)
[2023-11-19] MEDS: METRONIDAZOLE 500 MG TABLET GT SCH ×3 (06:03→21:36)
[2023-11-19] MEDS: CEFEPIME HCL 2 G in IV DEXTROSE 5% 100 ML IV SCH ×3 (06:04→23:00)
[2023-11-19 06:39] LABS: BASOPHILS % (AUTO) 0.8 % (0.0-2.0); EOSINOPHILS # (AUTO) 0.1 K/uL (0.0-0.7); HEMATOCRIT 26.1 % (31.2-41.9); HEMOGLOBIN 8.3 g/dL (10.9-14.3); LYMPHOCYTES # (AUTO) 0.6 K/uL (0.8-4.8); LYMPHOCYTES % (AUTO) 11.3 % (20.5-51.5); MEAN CORPUSCULAR HEMOGLOBIN 28.3 uug (24.7-32.8); MEAN CORPUSCULAR HGB CONC 32 g/dL (32.3-35.6); MONOCYTES # (AUTO) 0.5 K/uL (0.1-1.30); MONOCYTES % (AUTO) 10.3 % (0.0-11.0); NEUTROPHILS # (AUTO) 3.7 K/uL (1.8-8.9); NEUTROPHILS % (AUTO) 74.6 % (38.5-71.5); PLATELET COUNT (AUTO) 230 K/uL (179-408); RED BLOOD CELL COUNT(AUTO) 2.94 MIL/uL (3.63-4.92); RED CELL DISTRIBUTION WIDTH 20.6 % (12.3-17.7); WHITE BLOOD COUNT (AUTO) 4.9 K/uL (3.8-11.8)
[2023-11-19 06:44] LABS: DIFFERENTIAL COMMENT 1
[2023-11-19 06:51] LABS: CALCIUM 8.5 mg/dL (8.5-10.1); CARBON DIOXIDE 38 mmol/L (21-32); CHLORIDE 93 mmol/L (98-107); CREATININE 0.3 mg/dL (0.6-1.3); GLUCOSE 137 mg/dL (74-106); POTASSIUM 3.9 mmol/L (3.5-5.1); SODIUM SERUM 131 mmol/L (136-145); UREA NITROGEN, BLOOD 19 mg/dL (7-18)
[2023-11-19] MEDS: IPRATROPIUM BROMIDE 0.5 MG/2.5 ML NEBU NEB SCH ×3 (08:02→23:31)
[2023-11-19] MEDS: LEVALBUTEROL HCL 1.25 MG/0.5 ML NEB NEB SCH ×3 (08:02→23:30)
[2023-11-19] MEDS: BACLOFEN 10 MG TABLET GT SCH ×3 (10:19→21:35)
[2023-11-19] MEDS: CARBIDOPA/LEVODOPA 25-250MG TABLET GT SCH ×5 (10:19→21:36)
[2023-11-19] MEDS: PRAMIPEXOLE 0.25 MG TABLET GT SCH ×2 (10:19→18:06)
[2023-11-19] MEDS: ZINC SULFATE 220 MG CAPSULE GT SCH (10:20)
[2023-11-19] MEDS: ASCORBIC ACID 500 MG TABLET GT SCH (10:20)
[2023-11-19] MEDS: ARGININE/GLUTAMINE/CALCIUM BMB 1 EACH POWD.PACK GT SCH ×2 (10:20→17:42)
[2023-11-19] MEDS: APIXABAN 2.5 MG TABLET GT SCH ×2 (10:21→21:40)
[2023-11-19] MEDS: DOXYCYCLINE HYCLATE IV 100 MG in IV DEXTROSE 5% 100 ML IV SCH ×2 (10:32→21:30)
[2023-11-19] MEDS: MEDIHONEY= THERAHONEY 1.5 OZ TUBE TOP SCH (10:46)
[2023-11-19] MEDS: PROTEIN SUPPLEMENT (PROSTAT) 30 ML LIQUID PO SCH (11:08)
[2023-11-19] MEDS: FERROUS SULFATE 300 MG/5 ML LIQUID UDC GT SCH ×2 (11:51→21:36)
[2023-11-19 13:44] LABS: ABG BASE EXCESS 11.5 mmol/L (-2.0-2.0); ABG HCO3 37.7 mmol/L (22.0-26.0); ABG PCO2 59.8 mmHg (35.0-48.0); ABG PH 7.417 (7.340-7.440); ABG PO2 99.9 mmHg (75.0-100.0); ABG SITE RIGHT RADIAL; AaDO2 97.5 mmHg; COHb 0.7 % (0.0-3.9); MetHb 0.3 % (0.0-1.5); O2Hb 96.5 % (94.0-97.0)
[2023-11-19] MEDS: MULTIVITAMINS,THERAPEUTIC TABLET GT SCH (13:48)
[2023-11-19] MEDS: NUTREN 2.0 1,000 ML LIQUID GT PRN (17:40)
[2023-11-19] MEDS: CLONAZEPAM 1 MG TABLET GT SCH (21:36)
[2023-11-20] VITALS (20 sets, daily range): BP systolic 93–114; BP diastolic 63–73; TEMP 97.8–99.4; O2SAT 93–100
[2023-11-20 05:40] LABS: EOSINOPHILS # (AUTO) 0.2 K/uL (0.0-0.7); EOSINOPHILS % (AUTO) 4.6 % (0.0-7.0); HEMATOCRIT 25.6 % (31.2-41.9); HEMOGLOBIN 8.2 g/dL (10.9-14.3); LYMPHOCYTES # (AUTO) 0.6 K/uL (0.8-4.8); MEAN CORPUSCULAR HEMOGLOBIN 28.6 uug (24.7-32.8); MEAN CORPUSCULAR HGB CONC 32 g/dL (32.3-35.6); MEAN CORPUSCULAR VOLUME 88.7 fL (75.5-95.3); MONOCYTES # (AUTO) 0.4 K/uL (0.1-1.30); MONOCYTES % (AUTO) 9.1 % (0.0-11.0); NEUTROPHILS # (AUTO) 3.4 K/uL (1.8-8.9); NEUTROPHILS % (AUTO) 72.3 % (38.5-71.5); PLATELET COUNT (AUTO) 218 K/uL (179-408); RED BLOOD CELL COUNT(AUTO) 2.89 MIL/uL (3.63-4.92); WHITE BLOOD COUNT (AUTO) 4.7 K/uL (3.8-11.8)
[2023-11-20 05:47] LABS: DIFFERENTIAL COMMENT 1
[2023-11-20 05:50] LABS: CALCIUM 8.9 mg/dL (8.5-10.1); CARBON DIOXIDE 38 mmol/L (21-32); CHLORIDE 95 mmol/L (98-107); CREATININE 0.3 mg/dL (0.6-1.3); GLUCOSE 130 mg/dL (74-106); POTASSIUM 3.5 mmol/L (3.5-5.1); SODIUM SERUM 136 mmol/L (136-145); UREA NITROGEN, BLOOD 19 mg/dL (7-18)
[2023-11-20] MEDS: CEFEPIME HCL 2 G in IV DEXTROSE 5% 100 ML IV SCH ×3 (05:52→22:31)
[2023-11-20] MEDS: METRONIDAZOLE 500 MG TABLET GT SCH ×3 (06:22→22:32)
[2023-11-20] MEDS: ACETAMINOPHEN ES 500 MG TABLET GT SCH ×2 (06:23→22:37)
[2023-11-20] MEDS: PANTOPRAZOLE ORAL SUSPENSION 40 MG SUSPDR.PKT GT SCH (06:23)
[2023-11-20] MEDS: IPRATROPIUM BROMIDE 0.5 MG/2.5 ML NEBU NEB SCH ×3 (07:17→23:40)
[2023-11-20] MEDS: LEVALBUTEROL HCL 1.25 MG/0.5 ML NEB NEB SCH ×3 (07:17→23:40)
[2023-11-20 07:43] LABS: ABG BASE EXCESS 12.7 mmol/L (-2.0-2.0); ABG PCO2 53.5 mmHg (35.0-48.0); ABG PH 7.469 (7.340-7.440); ABG SITE RIGHT RADIAL; ABG TOTAL HEMOGLOBIN 9.2 G/dL (12.0-16.0); AaDO2 93.5 mmHg; COHb 0.4 % (0.0-3.9); MetHb 0.3 % (0.0-1.5); O2Hb 92.1 % (94.0-97.0)
[2023-11-20] MEDS: MICAFUNGIN SODIUM 100 MG in IV NORMAL SALINE 100 ML IV SCH (08:06)
[2023-11-20] MEDS: APIXABAN 2.5 MG TABLET GT SCH ×2 (08:07→22:33)
[2023-11-20] MEDS: BACLOFEN 10 MG TABLET GT SCH ×3 (08:30→22:37)
[2023-11-20] MEDS: PRAMIPEXOLE 0.25 MG TABLET GT SCH ×2 (08:30→16:12)
[2023-11-20] MEDS: ASCORBIC ACID 500 MG TABLET GT SCH (08:30)
[2023-11-20] MEDS: ZINC SULFATE 220 MG CAPSULE GT SCH (08:30)
[2023-11-20] MEDS: ARGININE/GLUTAMINE/CALCIUM BMB 1 EACH POWD.PACK GT SCH ×2 (08:31→16:13)
[2023-11-20] MEDS: DOXYCYCLINE HYCLATE IV 100 MG in IV DEXTROSE 5% 100 ML IV SCH ×2 (09:55→22:31)
[2023-11-20] MEDS: MEDIHONEY= THERAHONEY 1.5 OZ TUBE TOP SCH (11:00)
[2023-11-20] MEDS: CARBIDOPA/LEVODOPA 25-250MG TABLET GT SCH ×3 (11:21→22:37)
[2023-11-20] MEDS: FERROUS SULFATE 300 MG/5 ML LIQUID UDC GT SCH ×2 (11:21→22:33)
[2023-11-20] MEDS: PROTEIN SUPPLEMENT (PROSTAT) 30 ML LIQUID PO SCH (11:21)
[2023-11-20] MEDS: MULTIVITAMINS,THERAPEUTIC TABLET GT SCH (12:02)
[2023-11-20] MEDS: ACETAMINOPHEN 650 MG/20.3 ML LIQUID UDC GT PRN (14:42)
[2023-11-20] MEDS: NUTREN 2.0 1,000 ML LIQUID GT PRN (16:54)
[2023-11-20] MEDS: CLONAZEPAM 1 MG TABLET GT SCH (22:33)
[2023-11-21] VITALS (13 sets, daily range): BP systolic 105–121; BP diastolic 63–75; TEMP 98–101.4; O2SAT 92–99
[2023-11-21] MEDS: IPRATROPIUM BROMIDE 0.5 MG/2.5 ML NEBU NEB SCH ×3 (04:00→23:17)
[2023-11-21] MEDS: LEVALBUTEROL HCL 1.25 MG/0.5 ML NEB NEB SCH ×3 (04:00→23:17)
[2023-11-21] MEDS: METRONIDAZOLE 500 MG TABLET GT SCH ×3 (05:24→21:33)
[2023-11-21] MEDS: ACETAMINOPHEN ES 500 MG TABLET GT SCH ×2 (05:24→21:36)
[2023-11-21] MEDS: CEFEPIME HCL 2 G in IV DEXTROSE 5% 100 ML IV SCH ×3 (05:25→21:37)
[2023-11-21] MEDS: PANTOPRAZOLE ORAL SUSPENSION 40 MG SUSPDR.PKT GT SCH (05:25)
[2023-11-21 07:13] LABS: BASOPHILS % (AUTO) 0.5 % (0.0-2.0); EOSINOPHILS # (AUTO) 0.2 K/uL (0.0-0.7); EOSINOPHILS % (AUTO) 2.4 % (0.0-7.0); HEMATOCRIT 25.9 % (31.2-41.9); HEMOGLOBIN 8.1 g/dL (10.9-14.3); LYMPHOCYTES # (AUTO) 0.4 K/uL (0.8-4.8); LYMPHOCYTES % (AUTO) 5.5 % (20.5-51.5); MEAN CORPUSCULAR HEMOGLOBIN 28.5 uug (24.7-32.8); MEAN CORPUSCULAR HGB CONC 31 g/dL (32.3-35.6); MEAN CORPUSCULAR VOLUME 90.9 fL (75.5-95.3); MONOCYTES # (AUTO) 0.4 K/uL (0.1-1.30); NEUTROPHILS # (AUTO) 6.7 K/uL (1.8-8.9); NEUTROPHILS % (AUTO) 86.6 % (38.5-71.5); PLATELET COUNT (AUTO) 226 K/uL (179-408); RED BLOOD CELL COUNT(AUTO) 2.85 MIL/uL (3.63-4.92); RED CELL DISTRIBUTION WIDTH 21.5 % (12.3-17.7); WHITE BLOOD COUNT (AUTO) 7.7 K/uL (3.8-11.8)
[2023-11-21 07:22] LABS: CALCIUM 8.8 mg/dL (8.5-10.1); CARBON DIOXIDE 37 mmol/L (21-32); CHLORIDE 95 mmol/L (98-107); CREATININE 0.4 mg/dL (0.6-1.3); GLUCOSE 156 mg/dL (74-106); POTASSIUM 3.7 mmol/L (3.5-5.1); SODIUM SERUM 134 mmol/L (136-145); UREA NITROGEN, BLOOD 27 mg/dL (7-18)
[2023-11-21 07:26] LABS: DIFFERENTIAL COMMENT 1
[2023-11-21] MEDS: CARBIDOPA/LEVODOPA 25-250MG TABLET GT SCH ×4 (08:20→20:57)
[2023-11-21] MEDS: DOXYCYCLINE HYCLATE IV 100 MG in IV DEXTROSE 5% 100 ML IV SCH ×2 (08:21→20:57)
[2023-11-21] MEDS: BACLOFEN 10 MG TABLET GT SCH ×3 (08:23→21:33)
[2023-11-21] MEDS: PRAMIPEXOLE 0.25 MG TABLET GT SCH ×2 (08:23→16:21)
[2023-11-21] MEDS: ASCORBIC ACID 500 MG TABLET GT SCH (08:23)
[2023-11-21] MEDS: ZINC SULFATE 220 MG CAPSULE GT SCH (08:24)
[2023-11-21] MEDS: MICAFUNGIN SODIUM 100 MG in IV NORMAL SALINE 100 ML IV SCH (08:26)
[2023-11-21] MEDS: APIXABAN 2.5 MG TABLET GT SCH ×2 (08:26→20:56)
[2023-11-21] MEDS: ACETAMINOPHEN 650 MG/20.3 ML LIQUID UDC GT PRN ×3 (09:06→21:33)
[2023-11-21] MEDS: MEDIHONEY= THERAHONEY 1.5 OZ TUBE TOP SCH (09:07)
[2023-11-21] MEDS: ARGININE/GLUTAMINE/CALCIUM BMB 1 EACH POWD.PACK GT SCH ×2 (09:07→16:22)
[2023-11-21] MEDS: PROTEIN SUPPLEMENT (PROSTAT) 30 ML LIQUID PO SCH (11:58)
[2023-11-21] MEDS: FERROUS SULFATE 300 MG/5 ML LIQUID UDC GT SCH ×2 (11:58→21:33)
[2023-11-21] MEDS: MULTIVITAMINS,THERAPEUTIC TABLET GT SCH (13:00)
[2023-11-21] MEDS: NUTREN 2.0 1,000 ML LIQUID GT PRN (17:22)
[2023-11-21] MEDS: CLONAZEPAM 1 MG TABLET GT SCH (21:33)
[2023-11-21] MEDS: METOCLOPRAMIDE HCL 10 MG/2 ML VIAL IV SCH (21:34)
[2023-11-22] VITALS (11 sets, daily range): BP systolic 109–124; BP diastolic 56–80; TEMP 98.6–101; O2SAT 90–100
[2023-11-22] MEDS: METRONIDAZOLE 500 MG TABLET GT SCH (05:25)
[2023-11-22] MEDS: METOCLOPRAMIDE HCL 10 MG/2 ML VIAL IV SCH ×3 (05:25→21:33)
[2023-11-22] MEDS: CEFEPIME HCL 2 G in IV DEXTROSE 5% 100 ML IV SCH (05:25)
[2023-11-22] MEDS: PANTOPRAZOLE ORAL SUSPENSION 40 MG SUSPDR.PKT GT SCH (06:19)
[2023-11-22] MEDS: ACETAMINOPHEN ES 500 MG TABLET GT SCH ×2 (06:19→21:34)
[2023-11-22 07:13] LABS: CARBON DIOXIDE 37 mmol/L (21-32); CHLORIDE 99 mmol/L (98-107); CREATININE 0.3 mg/dL (0.6-1.3); GLUCOSE 147 mg/dL (74-106); POTASSIUM 3.6 mmol/L (3.5-5.1); SODIUM SERUM 138 mmol/L (136-145); UREA NITROGEN, BLOOD 25 mg/dL (7-18)
[2023-11-22 07:22] LABS: BASOPHILS # (AUTO) 0.1 K/UL (0.0-0.2); BASOPHILS % (AUTO) 1.1 % (0.0-2.0); DIFFERENTIAL COMMENT 0; EOSINOPHILS # (AUTO) 0.2 K/uL (0.0-0.7); EOSINOPHILS % (AUTO) 3.3 % (0.0-7.0); HEMATOCRIT 26.5 % (31.2-41.9); HEMOGLOBIN 8.4 g/dL (10.9-14.3); LYMPHOCYTES # (AUTO) 0.5 K/uL (0.8-4.8); LYMPHOCYTES % (AUTO) 7.6 % (20.5-51.5); MEAN CORPUSCULAR HEMOGLOBIN 29.1 uug (24.7-32.8); MEAN CORPUSCULAR HGB CONC 32 g/dL (32.3-35.6); MEAN CORPUSCULAR VOLUME 91.5 fL (75.5-95.3); MONOCYTES # (AUTO) 0.2 K/uL (0.1-1.30); MONOCYTES % (AUTO) 3.8 % (0.0-11.0); NEUTROPHILS # (AUTO) 5.2 K/uL (1.8-8.9); NEUTROPHILS % (AUTO) 84.2 % (38.5-71.5); PLATELET COUNT (AUTO) 233 K/uL (179-408); RED BLOOD CELL COUNT(AUTO) 2.89 MIL/uL (3.63-4.92); RED CELL DISTRIBUTION WIDTH 21.8 % (12.3-17.7); WHITE BLOOD COUNT (AUTO) 6.1 K/uL (3.8-11.8)
[2023-11-22] MEDS: IPRATROPIUM BROMIDE 0.5 MG/2.5 ML NEBU NEB SCH ×2 (07:48→15:30)
[2023-11-22] MEDS: LEVALBUTEROL HCL 1.25 MG/0.5 ML NEB NEB SCH ×2 (07:48→15:30)
[2023-11-22] MEDS: MICAFUNGIN SODIUM 100 MG in IV NORMAL SALINE 100 ML IV SCH (08:33)
[2023-11-22] MEDS: APIXABAN 2.5 MG TABLET GT SCH ×2 (08:34→21:36)
[2023-11-22] MEDS: BACLOFEN 10 MG TABLET GT SCH ×3 (08:35→21:34)
[2023-11-22] MEDS: CARBIDOPA/LEVODOPA 25-250MG TABLET GT SCH ×4 (08:35→21:34)
[2023-11-22] MEDS: ASCORBIC ACID 500 MG TABLET GT SCH (08:35)
[2023-11-22] MEDS: ZINC SULFATE 220 MG CAPSULE GT SCH (08:35)
[2023-11-22] MEDS: PRAMIPEXOLE 0.25 MG TABLET GT SCH ×2 (08:40→18:31)
[2023-11-22] MEDS: ARGININE/GLUTAMINE/CALCIUM BMB 1 EACH POWD.PACK GT SCH ×2 (08:42→18:32)
[2023-11-22 08:55] LABS: ABG BASE EXCESS 13.7 mmol/L (-2.0-2.0); ABG HCO3 38.2 mmol/L (22.0-26.0); ABG PCO2 48.6 mmHg (35.0-48.0); ABG PH 7.513 (7.340-7.440); ABG PO2 57.7 mmHg (75.0-100.0); ABG TOTAL HEMOGLOBIN 9.3 G/dL (12.0-16.0); AaDO2 92.1 mmHg; COHb 0.2 % (0.0-3.9); O2Hb 90.5 % (94.0-97.0)
[2023-11-22] MEDS: ACETAMINOPHEN 650 MG/20.3 ML LIQUID UDC GT PRN (08:57)
[2023-11-22] MEDS ORDERED: ACETAzolamide SODIUM 500 MG VIAL IV ONE (09:15)
[2023-11-22] MEDS: DOXYCYCLINE HYCLATE IV 100 MG in IV DEXTROSE 5% 100 ML IV SCH ×2 (09:30→21:33)
[2023-11-22] MEDS: MEDIHONEY= THERAHONEY 1.5 OZ TUBE TOP SCH (09:31)
[2023-11-22] MEDS: FERROUS SULFATE 300 MG/5 ML LIQUID UDC GT SCH ×2 (12:28→21:33)
[2023-11-22] MEDS: MULTIVITAMINS,THERAPEUTIC TABLET GT SCH (12:28)
[2023-11-22] MEDS: PROTEIN SUPPLEMENT (PROSTAT) 30 ML LIQUID PO SCH (12:29)
[2023-11-22] MEDS: levoFLOXacin 500 MG/D5W 500 MG in PREMIXED 1 EACH IV SCH (14:43)
[2023-11-22] MEDS: NUTREN 2.0 1,000 ML LIQUID GT PRN (18:52)
[2023-11-22] MEDS: CLONAZEPAM 1 MG TABLET GT SCH (21:36)
[2023-11-23] VITALS (12 sets, daily range): BP systolic 102–127; BP diastolic 63–82; TEMP 98.3–101.1; O2SAT 92–100
[2023-11-23] MEDS: IPRATROPIUM BROMIDE 0.5 MG/2.5 ML NEBU NEB SCH ×4 (00:10→22:35)
[2023-11-23] MEDS: LEVALBUTEROL HCL 1.25 MG/0.5 ML NEB NEB SCH ×4 (00:11→22:35)
[2023-11-23] MEDS: PANTOPRAZOLE ORAL SUSPENSION 40 MG SUSPDR.PKT GT SCH (06:24)
[2023-11-23] MEDS: METOCLOPRAMIDE HCL 10 MG/2 ML VIAL IV SCH ×3 (06:24→22:21)
[2023-11-23] MEDS: ACETAMINOPHEN ES 500 MG TABLET GT SCH ×2 (06:24→22:20)
[2023-11-23 07:19] LABS: BASOPHILS % (AUTO) 0.7 % (0.0-2.0); EOSINOPHILS # (AUTO) 0.2 K/uL (0.0-0.7); EOSINOPHILS % (AUTO) 4.1 % (0.0-7.0); HEMATOCRIT 25.8 % (31.2-41.9); HEMOGLOBIN 8.2 g/dL (10.9-14.3); LYMPHOCYTES # (AUTO) 0.6 K/uL (0.8-4.8); LYMPHOCYTES % (AUTO) 10.7 % (20.5-51.5); MEAN CORPUSCULAR HEMOGLOBIN 29.2 uug (24.7-32.8); MEAN CORPUSCULAR HGB CONC 32 g/dL (32.3-35.6); MEAN CORPUSCULAR VOLUME 91.9 fL (75.5-95.3); MONOCYTES # (AUTO) 0.3 K/uL (0.1-1.30); MONOCYTES % (AUTO) 5.7 % (0.0-11.0); NEUTROPHILS # (AUTO) 4.3 K/uL (1.8-8.9); NEUTROPHILS % (AUTO) 78.8 % (38.5-71.5); PLATELET COUNT (AUTO) 265 K/uL (179-408); RED BLOOD CELL COUNT(AUTO) 2.81 MIL/uL (3.63-4.92); RED CELL DISTRIBUTION WIDTH 22.2 % (12.3-17.7); WHITE BLOOD COUNT (AUTO) 5.5 K/uL (3.8-11.8)
[2023-11-23 07:38] LABS: ALANINE AMINOTRANSFERASE 24 U/L (14-59); ALBUMIN 2.1 g/dL (3.4-5.0); ALKALINE PHOSPHATASE 62 U/L (50-136); ASPARTATE AMINOTRANSFERASE 16 U/L (15-37); BILIRUBIN,TOTAL 0.2 mg/dL (0.2-1.0); CALCIUM 8.7 mg/dL (8.5-10.1); CARBON DIOXIDE 28 mmol/L (21-32); CHLORIDE 100 mmol/L (98-107); CREATININE 0.3 mg/dL (0.6-1.3); GLUCOSE 141 mg/dL (74-106); POTASSIUM 3.3 mmol/L (3.5-5.1); SODIUM SERUM 134 mmol/L (136-145); TOTAL PROTEIN, SERUM 6.4 g/dL (6.4-8.2); UREA NITROGEN, BLOOD 27 mg/dL (7-18)
[2023-11-23 07:41] LABS: DIFFERENTIAL COMMENT 1
[2023-11-23] MEDS: ASCORBIC ACID 500 MG TABLET GT SCH (08:43)
[2023-11-23] MEDS: CARBIDOPA/LEVODOPA 25-250MG TABLET GT SCH ×4 (08:43→19:59)
[2023-11-23] MEDS: PRAMIPEXOLE 0.25 MG TABLET GT SCH ×2 (08:43→16:23)
[2023-11-23] MEDS: ZINC SULFATE 220 MG CAPSULE GT SCH (08:43)
[2023-11-23] MEDS: BACLOFEN 10 MG TABLET GT SCH ×3 (08:43→22:20)
[2023-11-23] MEDS: LACTULOSE 20 G/30 ML LIQUID UDC GT SCH (08:44)
[2023-11-23] MEDS: ARGININE/GLUTAMINE/CALCIUM BMB 1 EACH POWD.PACK GT SCH ×2 (08:44→16:23)
[2023-11-23] MEDS: DOXYCYCLINE HYCLATE IV 100 MG in IV DEXTROSE 5% 100 ML IV SCH ×2 (08:48→20:37)
[2023-11-23] MEDS: MICAFUNGIN SODIUM 100 MG in IV NORMAL SALINE 100 ML IV SCH (08:48)
[2023-11-23] MEDS: APIXABAN 2.5 MG TABLET GT SCH ×2 (08:57→20:00)
[2023-11-23] MEDS: MEDIHONEY= THERAHONEY 1.5 OZ TUBE TOP SCH (08:57)
[2023-11-23] MEDS: FERROUS SULFATE 300 MG/5 ML LIQUID UDC GT SCH ×2 (11:55→22:21)
[2023-11-23] MEDS: PROTEIN SUPPLEMENT (PROSTAT) 30 ML LIQUID PO SCH (11:56)
[2023-11-23] MEDS ORDERED: POTASSIUM CHLORIDE 20 MEQ POWDER PACKET GT ONE (12:00)
[2023-11-23] MEDS: levoFLOXacin 500 MG/D5W 500 MG in PREMIXED 1 EACH IV SCH (13:14)
[2023-11-23] MEDS: MULTIVITAMINS,THERAPEUTIC TABLET GT SCH (13:14)
[2023-11-23] MEDS: ACETAMINOPHEN 650 MG/20.3 ML LIQUID UDC GT PRN (16:23)
[2023-11-23] MEDS: NUTREN 2.0 1,000 ML LIQUID GT PRN (21:40)
[2023-11-23] MEDS: CLONAZEPAM 1 MG TABLET GT SCH (22:20)
[2023-11-24] VITALS (11 sets, daily range): BP systolic 109–127; BP diastolic 55–76; TEMP 99.8–101.6; O2SAT 96–100
[2023-11-24] MEDS: METOCLOPRAMIDE HCL 10 MG/2 ML VIAL IV SCH ×3 (05:33→21:44)
[2023-11-24] MEDS: ACETAMINOPHEN ES 500 MG TABLET GT SCH ×2 (06:12→21:46)
[2023-11-24] MEDS: PANTOPRAZOLE ORAL SUSPENSION 40 MG SUSPDR.PKT GT SCH (06:14)
[2023-11-24 07:27] LABS: BASOPHILS % (AUTO) 0.6 % (0.0-2.0); EOSINOPHILS # (AUTO) 0.2 K/uL (0.0-0.7); EOSINOPHILS % (AUTO) 2.4 % (0.0-7.0); HEMATOCRIT 27.7 % (31.2-41.9); HEMOGLOBIN 8.8 g/dL (10.9-14.3); LYMPHOCYTES # (AUTO) 0.6 K/uL (0.8-4.8); LYMPHOCYTES % (AUTO) 9.3 % (20.5-51.5); MEAN CORPUSCULAR HEMOGLOBIN 29.5 uug (24.7-32.8); MEAN CORPUSCULAR HGB CONC 32 g/dL (32.3-35.6); MEAN CORPUSCULAR VOLUME 92.6 fL (75.5-95.3); MONOCYTES # (AUTO) 0.3 K/uL (0.1-1.30); MONOCYTES % (AUTO) 5.1 % (0.0-11.0); NEUTROPHILS # (AUTO) 5.3 K/uL (1.8-8.9); NEUTROPHILS % (AUTO) 82.6 % (38.5-71.5); PLATELET COUNT (AUTO) 266 K/uL (179-408); RED BLOOD CELL COUNT(AUTO) 2.99 MIL/uL (3.63-4.92); RED CELL DISTRIBUTION WIDTH 22.2 % (12.3-17.7); WHITE BLOOD COUNT (AUTO) 6.5 K/uL (3.8-11.8)
[2023-11-24 07:39] LABS: DIFFERENTIAL COMMENT 1
[2023-11-24] MEDS: LEVALBUTEROL HCL 1.25 MG/0.5 ML NEB NEB SCH ×3 (07:49→22:39)
[2023-11-24] MEDS: IPRATROPIUM BROMIDE 0.5 MG/2.5 ML NEBU NEB SCH ×3 (07:49→22:39)
[2023-11-24 08:01] LABS: ALANINE AMINOTRANSFERASE 24 U/L (14-59); ALBUMIN 2.3 g/dL (3.4-5.0); ALKALINE PHOSPHATASE 66 U/L (50-136); ASPARTATE AMINOTRANSFERASE 11 U/L (15-37); BILIRUBIN,TOTAL 0.2 mg/dL (0.2-1.0); CALCIUM 8.5 mg/dL (8.5-10.1); CARBON DIOXIDE 34 mmol/L (21-32); CHLORIDE 102 mmol/L (98-107); CREATININE 0.3 mg/dL (0.6-1.3); GLUCOSE 143 mg/dL (74-106); SODIUM SERUM 138 mmol/L (136-145); TOTAL PROTEIN, SERUM 6.7 g/dL (6.4-8.2); UREA NITROGEN, BLOOD 27 mg/dL (7-18)
[2023-11-24] MEDS: ZINC SULFATE 220 MG CAPSULE GT SCH (08:46)
[2023-11-24] MEDS: CARBIDOPA/LEVODOPA 25-250MG TABLET GT SCH ×4 (08:46→20:36)
[2023-11-24] MEDS: MICAFUNGIN SODIUM 100 MG in IV NORMAL SALINE 100 ML IV SCH (08:46)
[2023-11-24] MEDS: BACLOFEN 10 MG TABLET GT SCH ×3 (08:47→21:44)
[2023-11-24] MEDS: PRAMIPEXOLE 0.25 MG TABLET GT SCH ×2 (08:47→16:56)
[2023-11-24] MEDS: ASCORBIC ACID 500 MG TABLET GT SCH (08:47)
[2023-11-24] MEDS: APIXABAN 2.5 MG TABLET GT SCH ×2 (08:49→20:38)
[2023-11-24] MEDS: LACTULOSE 20 G/30 ML LIQUID UDC GT SCH (08:50)
[2023-11-24] MEDS: ARGININE/GLUTAMINE/CALCIUM BMB 1 EACH POWD.PACK GT SCH ×2 (08:51→16:57)
[2023-11-24] MEDS: MEDIHONEY= THERAHONEY 1.5 OZ TUBE TOP SCH (08:52)
[2023-11-24] MEDS: ACETAMINOPHEN 650 MG/20.3 ML LIQUID UDC GT PRN ×2 (09:47→20:39)
[2023-11-24] MEDS: DOXYCYCLINE HYCLATE IV 100 MG in IV DEXTROSE 5% 100 ML IV SCH ×2 (09:47→21:43)
[2023-11-24] MEDS: MULTIVITAMINS,THERAPEUTIC TABLET GT SCH (12:19)
[2023-11-24] MEDS: FERROUS SULFATE 300 MG/5 ML LIQUID UDC GT SCH ×2 (12:19→21:43)
[2023-11-24] MEDS: PROTEIN SUPPLEMENT (PROSTAT) 30 ML LIQUID PO SCH (12:19)
[2023-11-24] MEDS: levoFLOXacin 500 MG/D5W 500 MG in PREMIXED 1 EACH IV SCH (14:30)
[2023-11-24] MEDS: CLONAZEPAM 1 MG TABLET GT SCH (21:44)
[2023-11-25] VITALS (14 sets, daily range): BP systolic 107–132; BP diastolic 64–76; TEMP 99.1–102.8; O2SAT 94–100
[2023-11-25] MEDS: PANTOPRAZOLE ORAL SUSPENSION 40 MG SUSPDR.PKT GT SCH (05:56)
[2023-11-25] MEDS: METOCLOPRAMIDE HCL 10 MG/2 ML VIAL IV SCH ×3 (05:56→21:53)
[2023-11-25] MEDS: ACETAMINOPHEN ES 500 MG TABLET GT SCH ×2 (06:40→21:53)
[2023-11-25 07:23] LABS: BASOPHILS % (AUTO) 0.5 % (0.0-2.0); EOSINOPHILS % (AUTO) 0.9 % (0.0-7.0); HEMATOCRIT 26.3 % (31.2-41.9); HEMOGLOBIN 8.4 g/dL (10.9-14.3); LYMPHOCYTES # (AUTO) 0.2 K/uL (0.8-4.8); LYMPHOCYTES % (AUTO) 4.7 % (20.5-51.5); MEAN CORPUSCULAR HEMOGLOBIN 29.6 uug (24.7-32.8); MEAN CORPUSCULAR HGB CONC 32 g/dL (32.3-35.6); MEAN CORPUSCULAR VOLUME 92.4 fL (75.5-95.3); MONOCYTES # (AUTO) 0.2 K/uL (0.1-1.30); MONOCYTES % (AUTO) 4.7 % (0.0-11.0); NEUTROPHILS # (AUTO) 3.6 K/uL (1.8-8.9); NEUTROPHILS % (AUTO) 89.2 % (38.5-71.5); PLATELET COUNT (AUTO) 236 K/uL (179-408); RED BLOOD CELL COUNT(AUTO) 2.84 MIL/uL (3.63-4.92); RED CELL DISTRIBUTION WIDTH 21.8 % (12.3-17.7); WHITE BLOOD COUNT (AUTO) 4.1 K/uL (3.8-11.8)
[2023-11-25 07:29] LABS: DIFFERENTIAL COMMENT 1
[2023-11-25 07:56] LABS: ALANINE AMINOTRANSFERASE 35 U/L (14-59); ALBUMIN 2.2 g/dL (3.4-5.0); ALKALINE PHOSPHATASE 60 U/L (50-136); ASPARTATE AMINOTRANSFERASE 20 U/L (15-37); BILIRUBIN,TOTAL 0.3 mg/dL (0.2-1.0); CALCIUM 8.5 mg/dL (8.5-10.1); CARBON DIOXIDE 36 mmol/L (21-32); CHLORIDE 99 mmol/L (98-107); CREATININE 0.3 mg/dL (0.6-1.3); GLUCOSE 151 mg/dL (74-106); POTASSIUM 4.4 mmol/L (3.5-5.1); SODIUM SERUM 137 mmol/L (136-145); TOTAL PROTEIN, SERUM 6.5 g/dL (6.4-8.2); UREA NITROGEN, BLOOD 22 mg/dL (7-18)
[2023-11-25] MEDS: LEVALBUTEROL HCL 1.25 MG/0.5 ML NEB NEB SCH ×3 (08:13→23:45)
[2023-11-25] MEDS: IPRATROPIUM BROMIDE 0.5 MG/2.5 ML NEBU NEB SCH ×3 (08:13→23:45)
[2023-11-25] MEDS: PRAMIPEXOLE 0.25 MG TABLET GT SCH ×2 (08:34→17:20)
[2023-11-25] MEDS: ZINC SULFATE 220 MG CAPSULE GT SCH (08:34)
[2023-11-25] MEDS: BACLOFEN 10 MG TABLET GT SCH ×3 (08:34→21:53)
[2023-11-25] MEDS: APIXABAN 2.5 MG TABLET GT SCH ×2 (08:35→21:14)
[2023-11-25] MEDS: CARBIDOPA/LEVODOPA 25-250MG TABLET GT SCH ×4 (08:35→20:58)
[2023-11-25] MEDS: LACTULOSE 20 G/30 ML LIQUID UDC GT SCH (08:35)
[2023-11-25] MEDS: ASCORBIC ACID 500 MG TABLET GT SCH (08:35)
[2023-11-25] MEDS: DOXYCYCLINE HYCLATE IV 100 MG in IV DEXTROSE 5% 100 ML IV SCH ×2 (08:40→21:00)
[2023-11-25] MEDS: MEDIHONEY= THERAHONEY 1.5 OZ TUBE TOP SCH (08:46)
[2023-11-25] MEDS: ARGININE/GLUTAMINE/CALCIUM BMB 1 EACH POWD.PACK GT SCH ×2 (08:48→17:20)
[2023-11-25 10:34] LABS: MAGNESIUM 2.2 mg/dL (1.8-2.4); PHOSPHOROUS 1.7 mg/dL (2.5-4.9)
[2023-11-25] MEDS ORDERED: NORMAL SALINE NASAL 45 ML BOTTLE NS PRN (11:00)
[2023-11-25] MEDS: PROTEIN SUPPLEMENT (PROSTAT) 30 ML LIQUID PO SCH (11:15)
[2023-11-25] MEDS: FERROUS SULFATE 300 MG/5 ML LIQUID UDC GT SCH ×2 (11:15→21:53)
[2023-11-25] MEDS: MULTIVITAMINS,THERAPEUTIC TABLET GT SCH (13:30)
[2023-11-25] MEDS: levoFLOXacin 500 MG/D5W 500 MG in PREMIXED 1 EACH IV SCH (13:31)
[2023-11-25] MEDS ORDERED: NEUTRA PHOS PACKET PO ONE (16:00)
[2023-11-25] MEDS: ACETAMINOPHEN 650 MG/20.3 ML LIQUID UDC GT PRN (17:19)
[2023-11-25] MEDS: CLONAZEPAM 1 MG TABLET GT SCH (21:53)
[2023-11-25] MEDS: MEROPENEM 1 G in IV NORMAL SALINE 100 ML IV SCH (21:54)
[2023-11-25] MEDS: NUTREN 2.0 1,000 ML LIQUID GT PRN (22:00)
[2023-11-26] VITALS (12 sets, daily range): BP systolic 110–136; BP diastolic 65–74; TEMP 97.8–102.2; O2SAT 93–100
[2023-11-26] MEDS: METOCLOPRAMIDE HCL 10 MG/2 ML VIAL IV SCH ×3 (05:41→22:35)
[2023-11-26] MEDS: MEROPENEM 1 G in IV NORMAL SALINE 100 ML IV SCH ×3 (05:41→22:36)
[2023-11-26] MEDS: PANTOPRAZOLE ORAL SUSPENSION 40 MG SUSPDR.PKT GT SCH (06:05)
[2023-11-26] MEDS: ACETAMINOPHEN ES 500 MG TABLET GT SCH ×2 (06:05→22:35)
[2023-11-26] MEDS: IPRATROPIUM BROMIDE 0.5 MG/2.5 ML NEBU NEB SCH ×3 (07:41→21:32)
[2023-11-26] MEDS: LEVALBUTEROL HCL 1.25 MG/0.5 ML NEB NEB SCH ×3 (07:41→21:32)
[2023-11-26] MEDS: CARBIDOPA/LEVODOPA 25-250MG TABLET GT SCH ×4 (08:48→20:31)
[2023-11-26] MEDS: APIXABAN 2.5 MG TABLET GT SCH ×2 (08:49→20:32)
[2023-11-26 09:04] LABS: CALCIUM 8.9 mg/dL (8.5-10.1); CHLORIDE 98 mmol/L (98-107); CREATININE 0.3 mg/dL (0.6-1.3); GLUCOSE 134 mg/dL (74-106); POTASSIUM 4.3 mmol/L (3.5-5.1); SODIUM SERUM 138 mmol/L (136-145); UREA NITROGEN, BLOOD 25 mg/dL (7-18)
[2023-11-26] MEDS: ZINC SULFATE 220 MG CAPSULE GT SCH (09:16)
[2023-11-26] MEDS: PRAMIPEXOLE 0.25 MG TABLET GT SCH ×2 (09:16→16:13)
[2023-11-26] MEDS: ASCORBIC ACID 500 MG TABLET GT SCH (09:16)
[2023-11-26] MEDS: BACLOFEN 10 MG TABLET GT SCH ×3 (09:16→22:35)
[2023-11-26] MEDS: ARGININE/GLUTAMINE/CALCIUM BMB 1 EACH POWD.PACK GT SCH ×2 (09:17→16:14)
[2023-11-26] MEDS: LACTULOSE 20 G/30 ML LIQUID UDC GT SCH (09:17)
[2023-11-26] MEDS: DOXYCYCLINE HYCLATE IV 100 MG in IV DEXTROSE 5% 100 ML IV SCH ×2 (09:18→20:45)
[2023-11-26] MEDS: MEDIHONEY= THERAHONEY 1.5 OZ TUBE TOP SCH (09:19)
[2023-11-26 09:22] LABS: CARBON DIOXIDE 41 mmol/L (21-32)
[2023-11-26] MEDS: FERROUS SULFATE 300 MG/5 ML LIQUID UDC GT SCH ×2 (11:32→22:34)
[2023-11-26] MEDS: PROTEIN SUPPLEMENT (PROSTAT) 30 ML LIQUID PO SCH (11:32)
[2023-11-26] MEDS: MULTIVITAMINS,THERAPEUTIC TABLET GT SCH (13:34)
[2023-11-26] MEDS: ACETAMINOPHEN 650 MG/20.3 ML LIQUID UDC GT PRN ×2 (14:28→20:45)
[2023-11-26] MEDS ORDERED: NEUTRA PHOS PACKET GT ONE (15:20)
[2023-11-26] MEDS ORDERED: NEUTRA PHOS PACKET PO ONE (15:20)
[2023-11-26 17:44] LABS: ABG BASE EXCESS 13.7 mmol/L (-2.0-2.0); ABG HCO3 40.7 mmol/L (22.0-26.0); ABG PCO2 65.9 mmHg (35.0-48.0); ABG PH 7.409 (7.340-7.440); ABG PO2 63.9 mmHg (75.0-100.0); ABG SITE RIGHT RADIAL; AaDO2 91.8 mmHg; COHb 0.9 % (0.0-3.9); MetHb 0.3 % (0.0-1.5); O2Hb 91.1 % (94.0-97.0)
[2023-11-26] MEDS: CLONAZEPAM 1 MG TABLET GT SCH (22:34)
[2023-11-27] VITALS (11 sets, daily range): BP systolic 103–149; BP diastolic 58–82; TEMP 98.3–102; O2SAT 90–99
[2023-11-27] MEDS: METOCLOPRAMIDE HCL 10 MG/2 ML VIAL IV SCH ×3 (05:49→23:12)
[2023-11-27] MEDS: MEROPENEM 1 G in IV NORMAL SALINE 100 ML IV SCH ×3 (05:49→23:11)
[2023-11-27] MEDS: PANTOPRAZOLE ORAL SUSPENSION 40 MG SUSPDR.PKT GT SCH (06:02)
[2023-11-27] MEDS: ACETAMINOPHEN ES 500 MG TABLET GT SCH ×2 (06:02→23:11)
[2023-11-27 06:38] LABS: BASOPHILS % (AUTO) 0.6 % (0.0-2.0); EOSINOPHILS % (AUTO) 1.2 % (0.0-7.0); HEMATOCRIT 24.9 % (31.2-41.9); HEMOGLOBIN 7.9 g/dL (10.9-14.3); LYMPHOCYTES # (AUTO) 0.3 K/uL (0.8-4.8); LYMPHOCYTES % (AUTO) 12.5 % (20.5-51.5); MEAN CORPUSCULAR HEMOGLOBIN 29.5 uug (24.7-32.8); MEAN CORPUSCULAR HGB CONC 32 g/dL (32.3-35.6); MEAN CORPUSCULAR VOLUME 92.9 fL (75.5-95.3); MONOCYTES # (AUTO) 0.1 K/uL (0.1-1.30); MONOCYTES % (AUTO) 5.1 % (0.0-11.0); NEUTROPHILS # (AUTO) 1.9 K/uL (1.8-8.9); NEUTROPHILS % (AUTO) 80.6 % (38.5-71.5); PLATELET COUNT (AUTO) 232 K/uL (179-408); RED BLOOD CELL COUNT(AUTO) 2.68 MIL/uL (3.63-4.92); RED CELL DISTRIBUTION WIDTH 21.4 % (12.3-17.7); WHITE BLOOD COUNT (AUTO) 2.3 K/uL (3.8-11.8)
[2023-11-27 06:50] LABS: DIFFERENTIAL COMMENT 1
[2023-11-27] MEDS: IPRATROPIUM BROMIDE 0.5 MG/2.5 ML NEBU NEB SCH ×4 (07:13→23:30)
[2023-11-27] MEDS: LEVALBUTEROL HCL 1.25 MG/0.5 ML NEB NEB SCH ×4 (07:13→23:30)
[2023-11-27 08:13] LABS: CALCIUM 9.2 mg/dL (8.5-10.1); CHLORIDE 100 mmol/L (98-107); GLUCOSE 126 mg/dL (74-106); POTASSIUM 4.5 mmol/L (3.5-5.1); SODIUM SERUM 140 mmol/L (136-145)
[2023-11-27 08:14] LABS: CREATININE 0.3 mg/dL (0.6-1.3); MAGNESIUM 2.4 mg/dL (1.8-2.4); PHOSPHOROUS 2.1 mg/dL (2.5-4.9); UREA NITROGEN, BLOOD 22 mg/dL (7-18)
[2023-11-27 08:18] LABS: CARBON DIOXIDE 43 mmol/L (21-32)
[2023-11-27] MEDS: CARBIDOPA/LEVODOPA 25-250MG TABLET GT SCH ×4 (08:59→21:51)
[2023-11-27] MEDS: PRAMIPEXOLE 0.25 MG TABLET GT SCH ×2 (09:00→16:20)
[2023-11-27] MEDS: BACLOFEN 10 MG TABLET GT SCH ×3 (09:00→23:11)
[2023-11-27] MEDS: ASCORBIC ACID 500 MG TABLET GT SCH (09:00)
[2023-11-27] MEDS: ZINC SULFATE 220 MG CAPSULE GT SCH (09:00)
[2023-11-27] MEDS: LACTULOSE 20 G/30 ML LIQUID UDC GT SCH (09:00)
[2023-11-27] MEDS: DOXYCYCLINE HYCLATE IV 100 MG in IV DEXTROSE 5% 100 ML IV SCH ×2 (09:02→21:52)
[2023-11-27] MEDS: APIXABAN 2.5 MG TABLET GT SCH ×2 (09:03→21:51)
[2023-11-27] MEDS: ARGININE/GLUTAMINE/CALCIUM BMB 1 EACH POWD.PACK GT SCH ×2 (09:04→16:21)
[2023-11-27] MEDS: MEDIHONEY= THERAHONEY 1.5 OZ TUBE TOP SCH (09:20)
[2023-11-27] MEDS ORDERED: ACETAzolamide 250 MG TABLET PO SCH (10:15)
[2023-11-27] MEDS: FERROUS SULFATE 300 MG/5 ML LIQUID UDC GT SCH ×2 (10:40→23:11)
[2023-11-27] MEDS: PROTEIN SUPPLEMENT (PROSTAT) 30 ML LIQUID PO SCH (10:41)
[2023-11-27] MEDS: ACETAMINOPHEN 650 MG/20.3 ML LIQUID UDC GT PRN (10:59)
[2023-11-27] MEDS: MULTIVITAMINS,THERAPEUTIC TABLET GT SCH (12:28)
[2023-11-27 13:11] LABS: PLATELET ESTIMATE ADEQUATE
[2023-11-27 13:12] LABS: BAND % (MANUAL) 1 % (0-10); EOSINOPHILS % (MANUAL) 1 % (0-8); LYMPHOCYTES % (MANUAL) 15 % (20-40); MONOCYTES % (MANUAL) 8 % (2-10); NEUTROPHILS % (MANUAL) 75 % (42-75)
[2023-11-27] MEDS ORDERED: MICAFUNGIN SODIUM IV SCH (15:00)
[2023-11-27] MEDS ORDERED: NORMAL SALINE IV SCH (15:00)
[2023-11-27] MEDS ORDERED: NEUTRA PHOS PACKET GT ONE (16:40)
[2023-11-27] MEDS: NORMAL SALINE IV SCH (17:46)
[2023-11-27] MEDS: MICAFUNGIN SODIUM IV SCH (17:46)
[2023-11-27] MEDS: CLONAZEPAM 1 MG TABLET GT SCH (23:11)
[2023-11-28] VITALS (13 sets, daily range): BP systolic 104–168; BP diastolic 62–79; TEMP 97.5–100.8; O2SAT 94–100
[2023-11-28] MEDS: PANTOPRAZOLE ORAL SUSPENSION 40 MG SUSPDR.PKT GT SCH (06:27)
[2023-11-28] MEDS: MEROPENEM 1 G in IV NORMAL SALINE 100 ML IV SCH ×3 (06:27→22:35)
[2023-11-28] MEDS: METOCLOPRAMIDE HCL 10 MG/2 ML VIAL IV SCH ×3 (06:28→22:33)
[2023-11-28 06:47] LABS: BASOPHILS % (AUTO) 0.6 % (0.0-2.0); EOSINOPHILS % (AUTO) 1.2 % (0.0-7.0); HEMOGLOBIN 8.2 g/dL (10.9-14.3); LYMPHOCYTES # (AUTO) 0.3 K/uL (0.8-4.8); LYMPHOCYTES % (AUTO) 11.1 % (20.5-51.5); MEAN CORPUSCULAR HEMOGLOBIN 28.8 uug (24.7-32.8); MEAN CORPUSCULAR HGB CONC 31 g/dL (32.3-35.6); MEAN CORPUSCULAR VOLUME 94.4 fL (75.5-95.3); MONOCYTES # (AUTO) 0.1 K/uL (0.1-1.30); MONOCYTES % (AUTO) 5.9 % (0.0-11.0); NEUTROPHILS % (AUTO) 81.2 % (38.5-71.5); PLATELET COUNT (AUTO) 204 K/uL (179-408); RED BLOOD CELL COUNT(AUTO) 2.86 MIL/uL (3.63-4.92); WHITE BLOOD COUNT (AUTO) 2.5 K/uL (3.8-11.8)
[2023-11-28 07:12] LABS: CALCIUM 9.5 mg/dL (8.5-10.1); CHLORIDE 105 mmol/L (98-107); CREATININE 0.3 mg/dL (0.6-1.3); GLUCOSE 156 mg/dL (74-106); MAGNESIUM 2.2 mg/dL (1.8-2.4); PHOSPHOROUS 1.9 mg/dL (2.5-4.9); POTASSIUM 3.6 mmol/L (3.5-5.1); SODIUM SERUM 147 mmol/L (136-145); UREA NITROGEN, BLOOD 26 mg/dL (7-18)
[2023-11-28 07:17] LABS: DIFFERENTIAL COMMENT 1
[2023-11-28] MEDS: ACETAMINOPHEN ES 500 MG TABLET GT SCH ×2 (07:23→22:33)
[2023-11-28 07:24] LABS: CARBON DIOXIDE 45 mmol/L (21-32)
[2023-11-28] MEDS: IPRATROPIUM BROMIDE 0.5 MG/2.5 ML NEBU NEB SCH ×3 (08:27→23:35)
[2023-11-28] MEDS: LEVALBUTEROL HCL 1.25 MG/0.5 ML NEB NEB SCH ×3 (08:27→23:35)
[2023-11-28] MEDS: FERROUS SULFATE 300 MG/5 ML LIQUID UDC GT SCH ×2 (11:27→22:33)
[2023-11-28] MEDS: ASCORBIC ACID 500 MG TABLET GT SCH (11:27)
[2023-11-28] MEDS: BACLOFEN 10 MG TABLET GT SCH ×3 (11:27→22:34)
[2023-11-28] MEDS: CARBIDOPA/LEVODOPA 25-250MG TABLET GT SCH ×4 (11:27→20:43)
[2023-11-28] MEDS: PROTEIN SUPPLEMENT (PROSTAT) 30 ML LIQUID PO SCH (11:28)
[2023-11-28] MEDS: ACETAzolamide SODIUM 500 MG VIAL IV SCH (11:29)
[2023-11-28] MEDS: PRAMIPEXOLE 0.25 MG TABLET GT SCH ×2 (11:29→16:51)
[2023-11-28] MEDS: ARGININE/GLUTAMINE/CALCIUM BMB 1 EACH POWD.PACK GT SCH ×2 (11:30→16:52)
[2023-11-28] MEDS: APIXABAN 2.5 MG TABLET GT SCH ×2 (11:31→20:44)
[2023-11-28] MEDS: LACTULOSE 20 G/30 ML LIQUID UDC GT SCH (11:37)
[2023-11-28] MEDS: ZINC SULFATE 220 MG CAPSULE GT SCH (11:37)
[2023-11-28] MEDS: DOXYCYCLINE HYCLATE IV 100 MG in IV DEXTROSE 5% 100 ML IV SCH ×2 (11:38→20:45)
[2023-11-28] MEDS: MEDIHONEY= THERAHONEY 1.5 OZ TUBE TOP SCH (11:39)
[2023-11-28] MEDS: MULTIVITAMINS,THERAPEUTIC TABLET GT SCH (15:06)
[2023-11-28] MEDS: NORMAL SALINE IV SCH (18:21)
[2023-11-28] MEDS: MICAFUNGIN SODIUM IV SCH (18:21)
[2023-11-28] MEDS ORDERED: NEUTRA PHOS PACKET GT ONE (19:45)
[2023-11-28] MEDS: CLONAZEPAM 1 MG TABLET GT SCH (22:33)
[2023-11-29] VITALS (10 sets, daily range): BP systolic 98–148; BP diastolic 63–85; TEMP 98.9–102.5; O2SAT 94–99
[2023-11-29] MEDS: NUTREN 2.0 1,000 ML LIQUID GT PRN ×2 (00:13→22:00)
[2023-11-29] MEDS: METOCLOPRAMIDE HCL 10 MG/2 ML VIAL IV SCH ×3 (05:59→21:37)
[2023-11-29] MEDS: MEROPENEM 1 G in IV NORMAL SALINE 100 ML IV SCH ×3 (05:59→21:37)
[2023-11-29] MEDS: PANTOPRAZOLE ORAL SUSPENSION 40 MG SUSPDR.PKT GT SCH (06:00)
[2023-11-29] MEDS: ACETAMINOPHEN ES 500 MG TABLET GT SCH ×2 (06:00→21:37)
[2023-11-29 07:08] LABS: BASOPHILS % (AUTO) 0.3 % (0.0-2.0); EOSINOPHILS # (AUTO) 0.1 K/uL (0.0-0.7); EOSINOPHILS % (AUTO) 3.1 % (0.0-7.0); HEMATOCRIT 27.1 % (31.2-41.9); HEMOGLOBIN 8.4 g/dL (10.9-14.3); LYMPHOCYTES # (AUTO) 0.7 K/uL (0.8-4.8); LYMPHOCYTES % (AUTO) 16.5 % (20.5-51.5); MEAN CORPUSCULAR HEMOGLOBIN 29.4 uug (24.7-32.8); MEAN CORPUSCULAR HGB CONC 31 g/dL (32.3-35.6); MEAN CORPUSCULAR VOLUME 94.9 fL (75.5-95.3); MONOCYTES # (AUTO) 0.2 K/uL (0.1-1.30); MONOCYTES % (AUTO) 4.7 % (0.0-11.0); NEUTROPHILS % (AUTO) 75.4 % (38.5-71.5); PLATELET COUNT (AUTO) 224 K/uL (179-408); RED BLOOD CELL COUNT(AUTO) 2.86 MIL/uL (3.63-4.92); RED CELL DISTRIBUTION WIDTH 20.4 % (12.3-17.7)
[2023-11-29 07:17] LABS: DIFFERENTIAL COMMENT 1
[2023-11-29 07:26] LABS: ALANINE AMINOTRANSFERASE 42 U/L (14-59); ALBUMIN 2.1 g/dL (3.4-5.0); ALKALINE PHOSPHATASE 57 U/L (50-136); ASPARTATE AMINOTRANSFERASE 53 U/L (15-37); BILIRUBIN,TOTAL 0.2 mg/dL (0.2-1.0); CHLORIDE 101 mmol/L (98-107); CREATININE 0.2 mg/dL (0.6-1.3); GLUCOSE 133 mg/dL (74-106); SODIUM SERUM 142 mmol/L (136-145); TOTAL PROTEIN, SERUM 6.7 g/dL (6.4-8.2); UREA NITROGEN, BLOOD 28 mg/dL (7-18)
[2023-11-29] MEDS: LEVALBUTEROL HCL 1.25 MG/0.5 ML NEB NEB SCH ×3 (07:36→22:34)
[2023-11-29] MEDS: IPRATROPIUM BROMIDE 0.5 MG/2.5 ML NEBU NEB SCH ×3 (07:36→22:34)
[2023-11-29 07:38] LABS: CARBON DIOXIDE 43 mmol/L (21-32)
[2023-11-29] MEDS: ZINC SULFATE 220 MG CAPSULE GT SCH (08:37)
[2023-11-29] MEDS: BACLOFEN 10 MG TABLET GT SCH ×3 (08:37→21:37)
[2023-11-29] MEDS: CARBIDOPA/LEVODOPA 25-250MG TABLET GT SCH ×4 (08:37→20:34)
[2023-11-29] MEDS: PRAMIPEXOLE 0.25 MG TABLET GT SCH ×2 (08:39→16:49)
[2023-11-29] MEDS: APIXABAN 2.5 MG TABLET GT SCH ×2 (08:39→20:34)
[2023-11-29] MEDS: LACTULOSE 20 G/30 ML LIQUID UDC GT SCH (08:40)
[2023-11-29] MEDS: ACETAzolamide SODIUM 500 MG VIAL IV SCH (08:41)
[2023-11-29] MEDS: ASCORBIC ACID 500 MG TABLET GT SCH (08:41)
[2023-11-29] MEDS: DOXYCYCLINE HYCLATE IV 100 MG in IV DEXTROSE 5% 100 ML IV SCH ×2 (08:45→20:39)
[2023-11-29] MEDS: MEDIHONEY= THERAHONEY 1.5 OZ TUBE TOP SCH (08:59)
[2023-11-29] MEDS: ARGININE/GLUTAMINE/CALCIUM BMB 1 EACH POWD.PACK GT SCH ×2 (08:59→17:30)
[2023-11-29] MEDS: FERROUS SULFATE 300 MG/5 ML LIQUID UDC GT SCH ×2 (11:03→21:37)
[2023-11-29] MEDS: PROTEIN SUPPLEMENT (PROSTAT) 30 ML LIQUID PO SCH (11:03)
[2023-11-29] MEDS: MULTIVITAMINS,THERAPEUTIC TABLET GT SCH (13:18)
[2023-11-29] MEDS ORDERED: IOHEXOL 350 100 ML INFUS..BTL ONE (15:26)
[2023-11-29] MEDS ORDERED: SWABABLE VALVE TRANSFER SET EA MC ONE (15:26)
[2023-11-29] MEDS ORDERED: IV NORMAL SALINE 250 ML IV ONE (15:26)
[2023-11-29] MEDS ORDERED: NEUTRA PHOS PACKET PO ONE (17:45)
[2023-11-29] MEDS: ACETAMINOPHEN 650 MG/20.3 ML LIQUID UDC GT PRN (17:59)
[2023-11-29] MEDS: NORMAL SALINE IV SCH (18:00)
[2023-11-29] MEDS: MICAFUNGIN SODIUM IV SCH (18:00)
[2023-11-29 19:06] LABS: ABG BASE EXCESS 17.5 mmol/L (-2.0-2.0); ABG HCO3 45.9 mmol/L (22.0-26.0); ABG PCO2 87.5 mmHg (35.0-48.0); ABG PH 7.338 (7.340-7.440); ABG PO2 114.1 mmHg (75.0-100.0); ABG SITE RIGHT RADIAL; ABG TOTAL HEMOGLOBIN 8.7 G/dL (12.0-16.0); AaDO2 97.6 mmHg; COHb 0.8 % (0.0-3.9); MetHb 0.1 % (0.0-1.5); O2Hb 97.4 % (94.0-97.0)
[2023-11-29] MEDS: CLONAZEPAM 1 MG TABLET GT SCH (21:37)
[2023-11-30] VITALS (12 sets, daily range): BP systolic 99–136; BP diastolic 65–82; TEMP 98.6–100.1; O2SAT 93–99
[2023-11-30] MEDS: MEROPENEM 1 G in IV NORMAL SALINE 100 ML IV SCH ×3 (05:28→23:20)
[2023-11-30] MEDS: METOCLOPRAMIDE HCL 10 MG/2 ML VIAL IV SCH (05:28)
[2023-11-30] MEDS: ACETAMINOPHEN ES 500 MG TABLET GT SCH ×2 (06:06→21:39)
[2023-11-30] MEDS: PANTOPRAZOLE ORAL SUSPENSION 40 MG SUSPDR.PKT GT SCH (06:06)
[2023-11-30 06:42] LABS: BASOPHILS % (AUTO) 0.3 % (0.0-2.0); EOSINOPHILS # (AUTO) 0.1 K/uL (0.0-0.7); EOSINOPHILS % (AUTO) 2.5 % (0.0-7.0); HEMOGLOBIN 7.7 g/dL (10.9-14.3); LYMPHOCYTES # (AUTO) 0.4 K/uL (0.8-4.8); LYMPHOCYTES % (AUTO) 9.1 % (20.5-51.5); MEAN CORPUSCULAR HEMOGLOBIN 28.9 uug (24.7-32.8); MEAN CORPUSCULAR HGB CONC 31 g/dL (32.3-35.6); MEAN CORPUSCULAR VOLUME 93.4 fL (75.5-95.3); MONOCYTES # (AUTO) 0.2 K/uL (0.1-1.30); MONOCYTES % (AUTO) 4.1 % (0.0-11.0); NEUTROPHILS # (AUTO) 3.4 K/uL (1.8-8.9); PLATELET COUNT (AUTO) 205 K/uL (179-408); RED BLOOD CELL COUNT(AUTO) 2.67 MIL/uL (3.63-4.92); RED CELL DISTRIBUTION WIDTH 20.9 % (12.3-17.7); WHITE BLOOD COUNT (AUTO) 4.1 K/uL (3.8-11.8)
[2023-11-30 07:03] LABS: ALANINE AMINOTRANSFERASE 55 U/L (14-59); ALKALINE PHOSPHATASE 56 U/L (50-136); ASPARTATE AMINOTRANSFERASE 46 U/L (15-37); BILIRUBIN,TOTAL 0.2 mg/dL (0.2-1.0); CALCIUM 9.2 mg/dL (8.5-10.1); CHLORIDE 104 mmol/L (98-107); CREATININE 0.4 mg/dL (0.6-1.3); GLUCOSE 137 mg/dL (74-106); POTASSIUM 3.6 mmol/L (3.5-5.1); SODIUM SERUM 149 mmol/L (136-145); TOTAL PROTEIN, SERUM 6.4 g/dL (6.4-8.2); UREA NITROGEN, BLOOD 23 mg/dL (7-18)
[2023-11-30 07:09] LABS: CARBON DIOXIDE 43 mmol/L (21-32)
[2023-11-30 07:17] LABS: MAGNESIUM 2.1 mg/dL (1.8-2.4); PHOSPHOROUS 1.3 mg/dL (2.5-4.9)
[2023-11-30] MEDS: LEVALBUTEROL HCL 1.25 MG/0.5 ML NEB NEB SCH ×3 (08:18→21:41)
[2023-11-30] MEDS: IPRATROPIUM BROMIDE 0.5 MG/2.5 ML NEBU NEB SCH ×3 (08:18→21:41)
[2023-11-30] MEDS: PRAMIPEXOLE 0.25 MG TABLET GT SCH ×2 (08:31→17:03)
[2023-11-30] MEDS: BACLOFEN 10 MG TABLET GT SCH ×3 (08:31→21:39)
[2023-11-30] MEDS: LACTULOSE 20 G/30 ML LIQUID UDC GT SCH (08:31)
[2023-11-30] MEDS: ZINC SULFATE 220 MG CAPSULE GT SCH (08:31)
[2023-11-30] MEDS: ACETAzolamide SODIUM 500 MG VIAL IV SCH (08:31)
[2023-11-30] MEDS: CARBIDOPA/LEVODOPA 25-250MG TABLET GT SCH ×4 (08:31→20:22)
[2023-11-30] MEDS: ASCORBIC ACID 500 MG TABLET GT SCH (08:31)
[2023-11-30] MEDS: APIXABAN 2.5 MG TABLET GT SCH ×2 (08:34→20:25)
[2023-11-30] MEDS: ARGININE/GLUTAMINE/CALCIUM BMB 1 EACH POWD.PACK GT SCH ×2 (08:37→17:05)
[2023-11-30] MEDS: MEDIHONEY= THERAHONEY 1.5 OZ TUBE TOP SCH (08:38)
[2023-11-30 08:43] LABS: ABG BASE EXCESS 19.9 mmol/L (-2.0-2.0); ABG HCO3 45.6 mmol/L (22.0-26.0); ABG PCO2 61.8 mmHg (35.0-48.0); ABG PH 7.486 (7.340-7.440); ABG PO2 76.9 mmHg (75.0-100.0); ABG SITE RIGHT RADIAL; ABG TOTAL HEMOGLOBIN 8.3 G/dL (12.0-16.0); AaDO2 95.8 mmHg; MetHb 0.3 % (0.0-1.5)
[2023-11-30] MEDS: DOXYCYCLINE HYCLATE IV 100 MG in IV DEXTROSE 5% 100 ML IV SCH ×2 (09:37→21:54)
[2023-11-30] MEDS: ACETAMINOPHEN 650 MG/20.3 ML LIQUID UDC GT PRN ×2 (09:49→17:04)
[2023-11-30] MEDS: METOCLOPRAMIDE HCL 10 MG TABLET GT SCH ×2 (09:51→17:03)
[2023-11-30] MEDS: FERROUS SULFATE 300 MG/5 ML LIQUID UDC GT SCH ×2 (11:58→21:40)
[2023-11-30] MEDS: PROTEIN SUPPLEMENT (PROSTAT) 30 ML LIQUID PO SCH (11:59)
[2023-11-30] MEDS: MULTIVITAMINS,THERAPEUTIC TABLET GT SCH (12:04)
[2023-11-30] MEDS: NORMAL SALINE IV SCH (17:03)
[2023-11-30] MEDS: MICAFUNGIN SODIUM IV SCH (17:03)
[2023-11-30 17:18] LABS: C-REACTIVE PROTEIN 7.89 mg/dL (0.00-0.30)
[2023-11-30] MEDS ORDERED: NEUTRA PHOS PACKET GT ONE (17:45)
[2023-11-30 18:02] LABS: *RHEUMATOID FACTOR SCREEN NEGATIVE (NEGATIVE); HIV-1 p24 ANTIGEN NON REACTIVE (NONREACTIVE); HIV-1/2 ANTIBODY NON REACTIVE (NONREACTIVE)
[2023-11-30] MEDS: CLONAZEPAM 1 MG TABLET GT SCH (21:39)
[2023-11-30] MEDS ORDERED: DOXYCYCLINE HYCLATE 100 MG INJ IV ONE (21:44)
[2023-12-01] VITALS (26 sets, daily range): BP systolic 111–150; BP diastolic 71–88; TEMP 99.5–101; O2SAT 93–100
[2023-12-01] MEDS: METOCLOPRAMIDE HCL 10 MG TABLET GT SCH ×3 (00:27→16:37)
[2023-12-01 05:38] LABS: BASOPHILS % (AUTO) 0.6 % (0.0-2.0); LYMPHOCYTES # (AUTO) 0.5 K/uL (0.8-4.8); MONOCYTES # (AUTO) 0.2 K/uL (0.1-1.30); NEUTROPHILS # (AUTO) 3.3 K/uL (1.8-8.9); WHITE BLOOD COUNT (AUTO) 4.2 K/uL (3.8-11.8)
[2023-12-01 05:40] LABS: EOSINOPHILS # (AUTO) 0.2 K/uL (0.0-0.7); EOSINOPHILS % (AUTO) 3.8 % (0.0-7.0); HEMATOCRIT 23.3 % (31.2-41.9); LYMPHOCYTES % (AUTO) 12.6 % (20.5-51.5); MEAN CORPUSCULAR HEMOGLOBIN 29.3 uug (24.7-32.8); MEAN CORPUSCULAR HGB CONC 32 g/dL (32.3-35.6); MEAN CORPUSCULAR VOLUME 92.5 fL (75.5-95.3); MONOCYTES % (AUTO) 5.4 % (0.0-11.0); NEUTROPHILS % (AUTO) 77.6 % (38.5-71.5); PLATELET COUNT (AUTO) 202 K/uL (179-408); RED BLOOD CELL COUNT(AUTO) 2.52 MIL/uL (3.63-4.92); RED CELL DISTRIBUTION WIDTH 20.3 % (12.3-17.7)
[2023-12-01] MEDS: MEROPENEM 1 G in IV NORMAL SALINE 100 ML IV SCH ×3 (05:40→21:39)
[2023-12-01 05:49] LABS: ALANINE AMINOTRANSFERASE 38 U/L (14-59); ALBUMIN 1.9 g/dL (3.4-5.0); ALKALINE PHOSPHATASE 55 U/L (50-136); ASPARTATE AMINOTRANSFERASE 35 U/L (15-37); BILIRUBIN,TOTAL 0.3 mg/dL (0.2-1.0); CHLORIDE 104 mmol/L (98-107); CREATININE 0.2 mg/dL (0.6-1.3); DIFFERENTIAL COMMENT 1; GLUCOSE 110 mg/dL (74-106); HEMOGLOBIN 7.4 g/dL (10.9-14.3); POTASSIUM 3.7 mmol/L (3.5-5.1); SODIUM SERUM 145 mmol/L (136-145); TOTAL PROTEIN, SERUM 6.2 g/dL (6.4-8.2); UREA NITROGEN, BLOOD 28 mg/dL (7-18)
[2023-12-01 05:50] LABS: MAGNESIUM 1.9 mg/dL (1.8-2.4); PHOSPHOROUS 1.9 mg/dL (2.5-4.9)
[2023-12-01 06:07] LABS: CARBON DIOXIDE 44 mmol/L (21-32)
[2023-12-01] MEDS: PANTOPRAZOLE ORAL SUSPENSION 40 MG SUSPDR.PKT GT SCH (06:44)
[2023-12-01] MEDS: ACETAMINOPHEN ES 500 MG TABLET GT SCH ×2 (06:44→21:37)
[2023-12-01] MEDS: LEVALBUTEROL HCL 1.25 MG/0.5 ML NEB NEB SCH ×3 (07:29→23:30)
[2023-12-01] MEDS: IPRATROPIUM BROMIDE 0.5 MG/2.5 ML NEBU NEB SCH ×3 (07:29→23:30)
[2023-12-01] MEDS: DOXYCYCLINE HYCLATE IV 100 MG in IV DEXTROSE 5% 100 ML IV SCH (09:00)
[2023-12-01 09:27] LABS: ABG BASE EXCESS 17.2 mmol/L (-2.0-2.0); ABG HCO3 43.7 mmol/L (22.0-26.0); ABG PH 7.432 (7.340-7.440); ABG PO2 70.7 mmHg (75.0-100.0); ABG SITE RIGHT RADIAL; ABG TOTAL HEMOGLOBIN 8.4 G/dL (12.0-16.0); COHb 0.8 % (0.0-3.9); MetHb 0.3 % (0.0-1.5); O2Hb 92.7 % (94.0-97.0)
[2023-12-01] MEDS: LACTULOSE 20 G/30 ML LIQUID UDC GT SCH (09:37)
[2023-12-01] MEDS: BACLOFEN 10 MG TABLET GT SCH ×3 (09:38→21:37)
[2023-12-01] MEDS: ZINC SULFATE 220 MG CAPSULE GT SCH (09:38)
[2023-12-01] MEDS: ACETAzolamide SODIUM 500 MG VIAL IV SCH (09:38)
[2023-12-01] MEDS: CARBIDOPA/LEVODOPA 25-250MG TABLET GT SCH ×4 (09:38→21:00)
[2023-12-01] MEDS: ASCORBIC ACID 500 MG TABLET GT SCH (09:38)
[2023-12-01] MEDS: PRAMIPEXOLE 0.25 MG TABLET GT SCH ×2 (09:39→15:54)
[2023-12-01] MEDS: APIXABAN 2.5 MG TABLET GT SCH ×2 (09:45→21:01)
[2023-12-01] MEDS: ARGININE/GLUTAMINE/CALCIUM BMB 1 EACH POWD.PACK GT SCH ×2 (09:53→18:42)
[2023-12-01] MEDS: MEDIHONEY= THERAHONEY 1.5 OZ TUBE TOP SCH (09:55)
[2023-12-01 10:07] LABS: *IMMUNOGLOBULIN G, SERUM 913 mg/dL (586-1602); IMMUNOGLOBULIN A, SERUM 248 mg/dL (87-352); IMMUNOGLOBULIN M, SERUM 123 mg/dL (26-217)
[2023-12-01 11:09] LABS: *ANTI-SCLERODERMA-70 AB <0.2 AI (0.0-0.9); *RNP ANTIBODIES 0.2 AI (0.0-0.9); *SJOGREN'S ANTI-SS-A <0.2 AI (0.0-0.9); *SJOGREN'S ANTI-SS-B <0.2 AI (0.0-0.9); *SMITH ANTIBODIES <0.2 AI (0.0-0.9); ANTI-DNA(DS) AB, QN <1 IU/mL (0-9); ANTI-NUCLEAR AB DIRECT Negative (Negative)
[2023-12-01] MEDS: FERROUS SULFATE 300 MG/5 ML LIQUID UDC GT SCH ×2 (11:34→21:37)
[2023-12-01] MEDS: ACETAMINOPHEN 650 MG/20.3 ML LIQUID UDC GT PRN (11:34)
[2023-12-01] MEDS: PROTEIN SUPPLEMENT (PROSTAT) 30 ML LIQUID PO SCH (11:37)
[2023-12-01] MEDS: MULTIVITAMINS,THERAPEUTIC TABLET GT SCH (13:05)
[2023-12-01] MEDS ORDERED: NEUTRA PHOS PACKET PO ONE (15:15)
[2023-12-01] MEDS ORDERED: POTASSIUM PHOSPHATE MM 15 MMOL in IV NORMAL SALINE 250 ML IV ONE (15:45)
[2023-12-01] MEDS: VANCOMYCIN IV 750 MG in IV DEXTROSE 5% 250 ML IV SCH (15:52)
[2023-12-01] MEDS: CLONAZEPAM 1 MG TABLET GT SCH (21:37)
[2023-12-02] VITALS (29 sets, daily range): BP systolic 118–165; BP diastolic 72–95; TEMP 99–100.1; O2SAT 92–100
[2023-12-02] MEDS: METOCLOPRAMIDE HCL 10 MG TABLET GT SCH ×4 (00:35→23:56)
[2023-12-02] MEDS: VANCOMYCIN IV 750 MG in IV DEXTROSE 5% 250 ML IV SCH ×3 (02:20→23:53)
[2023-12-02 03:11] LABS: FOLATE (FOLIC ACID), SERUM >20.0 ng/mL (>3.0)
[2023-12-02 05:10] LABS: EOSINOPHILS # (AUTO) 0.2 K/uL (0.0-0.7); LYMPHOCYTES # (AUTO) 0.5 K/uL (0.8-4.8); MONOCYTES # (AUTO) 0.3 K/uL (0.1-1.30)
[2023-12-02 05:13] LABS: BASOPHILS % (AUTO) 0.8 % (0.0-2.0); EOSINOPHILS % (AUTO) 4.2 % (0.0-7.0); HEMATOCRIT 23.8 % (31.2-41.9); MEAN CORPUSCULAR HEMOGLOBIN 28.7 uug (24.7-32.8); MEAN CORPUSCULAR HGB CONC 31 g/dL (32.3-35.6); NEUTROPHILS # (AUTO) 3.5 K/uL (1.8-8.9); PLATELET COUNT (AUTO) 197 K/uL (179-408); RED BLOOD CELL COUNT(AUTO) 2.59 MIL/uL (3.63-4.92); RED CELL DISTRIBUTION WIDTH 20.7 % (12.3-17.7); WHITE BLOOD COUNT (AUTO) 4.5 K/uL (3.8-11.8)
[2023-12-02 05:16] LABS: DIFFERENTIAL COMMENT 1; HEMOGLOBIN 7.4 g/dL (10.9-14.3)
[2023-12-02 05:22] LABS: MAGNESIUM 2.1 mg/dL (1.8-2.4); PHOSPHOROUS 3.1 mg/dL (2.5-4.9)
[2023-12-02 05:25] LABS: ALANINE AMINOTRANSFERASE 25 U/L (14-59); ALBUMIN 1.9 g/dL (3.4-5.0); ALKALINE PHOSPHATASE 62 U/L (50-136); ASPARTATE AMINOTRANSFERASE 37 U/L (15-37); BILIRUBIN,TOTAL 0.3 mg/dL (0.2-1.0); CALCIUM 9.6 mg/dL (8.5-10.1); CHLORIDE 103 mmol/L (98-107); CREATININE 0.3 mg/dL (0.6-1.3); GLUCOSE 135 mg/dL (74-106); POTASSIUM 3.7 mmol/L (3.5-5.1); SODIUM SERUM 145 mmol/L (136-145); TOTAL PROTEIN, SERUM 6.2 g/dL (6.4-8.2); UREA NITROGEN, BLOOD 22 mg/dL (7-18)
[2023-12-02] MEDS: MEROPENEM 1 G in IV NORMAL SALINE 100 ML IV SCH ×3 (05:31→21:27)
[2023-12-02 05:55] LABS: CARBON DIOXIDE 41 mmol/L (21-32)
[2023-12-02] MEDS: PANTOPRAZOLE ORAL SUSPENSION 40 MG SUSPDR.PKT GT SCH (06:14)
[2023-12-02] MEDS: ACETAMINOPHEN ES 500 MG TABLET GT SCH ×2 (06:14→21:16)
[2023-12-02 06:40] LABS: ABG BASE EXCESS 15.3 mmol/L (-2.0-2.0); ABG HCO3 41.5 mmol/L (22.0-26.0); ABG PCO2 63.8 mmHg (35.0-48.0); ABG PH 7.431 (7.340-7.440); ABG PO2 59.9 mmHg (75.0-100.0); ABG SITE LEFT FEMORAL; ABG TOTAL HEMOGLOBIN 8.1 G/dL (12.0-16.0); AaDO2 90.7 mmHg; COHb 0.6 % (0.0-3.9); MetHb 0.1 % (0.0-1.5); O2Hb 89.5 % (94.0-97.0)
[2023-12-02] MEDS: IPRATROPIUM BROMIDE 0.5 MG/2.5 ML NEBU NEB SCH ×3 (07:35→22:38)
[2023-12-02] MEDS: LEVALBUTEROL HCL 1.25 MG/0.5 ML NEB NEB SCH ×3 (07:35→22:39)
[2023-12-02] MEDS: CARBIDOPA/LEVODOPA 25-250MG TABLET GT SCH ×4 (07:45→20:44)
[2023-12-02] MEDS: PRAMIPEXOLE 0.25 MG TABLET GT SCH ×2 (07:46→16:21)
[2023-12-02] MEDS: LACTULOSE 20 G/30 ML LIQUID UDC GT SCH (07:47)
[2023-12-02 08:10] LABS: HEPATITIS B SURFACE AB, QUAL Non Reactive (.); HEPATITIS B SURFACE AG Negative (Negative); HEPATITIS C VIRUS ANTIBODY Non Reactive (Non Reactive)
[2023-12-02] MEDS: APIXABAN 2.5 MG TABLET GT SCH ×2 (08:31→20:45)
[2023-12-02] MEDS: ARGININE/GLUTAMINE/CALCIUM BMB 1 EACH POWD.PACK GT SCH ×2 (08:33→16:32)
[2023-12-02] MEDS: BACLOFEN 10 MG TABLET GT SCH ×3 (09:32→21:16)
[2023-12-02] MEDS: ASCORBIC ACID 500 MG TABLET GT SCH (09:33)
[2023-12-02] MEDS: ACETAzolamide SODIUM 500 MG VIAL IV SCH (09:33)
[2023-12-02] MEDS: ZINC SULFATE 220 MG CAPSULE GT SCH (09:33)
[2023-12-02] MEDS: MEDIHONEY= THERAHONEY 1.5 OZ TUBE TOP SCH (09:35)
[2023-12-02] MEDS: FERROUS SULFATE 300 MG/5 ML LIQUID UDC GT SCH ×2 (11:04→21:24)
[2023-12-02] MEDS: PROTEIN SUPPLEMENT (PROSTAT) 30 ML LIQUID PO SCH (11:07)
[2023-12-02] MEDS: MULTIVITAMINS,THERAPEUTIC TABLET GT SCH (13:54)
[2023-12-02] MEDS: ACETAMINOPHEN 650 MG/20.3 ML LIQUID UDC GT PRN (14:54)
[2023-12-02] MEDS: CLONAZEPAM 1 MG TABLET GT SCH (21:16)
[2023-12-03] VITALS (27 sets, daily range): BP systolic 102–160; BP diastolic 50–98; TEMP 98.7–102.4; O2SAT 95–100
[2023-12-03 05:06] LABS: LYMPHOCYTES # (AUTO) 0.3 K/uL (0.8-4.8); MONOCYTES # (AUTO) 0.1 K/uL (0.1-1.30)
[2023-12-03 05:08] LABS: BASOPHILS % (AUTO) 0.2 % (0.0-2.0); HEMATOCRIT 23.4 % (31.2-41.9); MEAN CORPUSCULAR HGB CONC 31 g/dL (32.3-35.6); MEAN CORPUSCULAR VOLUME 92.9 fL (75.5-95.3); MONOCYTES % (AUTO) 2.9 % (0.0-11.0); NEUTROPHILS # (AUTO) 3.9 K/uL (1.8-8.9); NEUTROPHILS % (AUTO) 88.9 % (38.5-71.5); PLATELET COUNT (AUTO) 208 K/uL (179-408); RED BLOOD CELL COUNT(AUTO) 2.52 MIL/uL (3.63-4.92); WHITE BLOOD COUNT (AUTO) 4.4 K/uL (3.8-11.8)
[2023-12-03 05:17] LABS: DIFFERENTIAL COMMENT 1; HEMOGLOBIN 7.3 g/dL (10.9-14.3)
[2023-12-03] MEDS: MEROPENEM 1 G in IV NORMAL SALINE 100 ML IV SCH ×3 (05:18→22:44)
[2023-12-03] MEDS: ACETAMINOPHEN 650 MG/20.3 ML LIQUID UDC GT PRN (05:42)
[2023-12-03] MEDS: PANTOPRAZOLE ORAL SUSPENSION 40 MG SUSPDR.PKT GT SCH (05:43)
[2023-12-03 05:46] LABS: MAGNESIUM 2.1 mg/dL (1.8-2.4); PHOSPHOROUS 2.5 mg/dL (2.5-4.9)
[2023-12-03 05:47] LABS: ALANINE AMINOTRANSFERASE 47 U/L (14-59); ALBUMIN 1.9 g/dL (3.4-5.0); ALKALINE PHOSPHATASE 55 U/L (50-136); ASPARTATE AMINOTRANSFERASE 28 U/L (15-37); BILIRUBIN,TOTAL 0.3 mg/dL (0.2-1.0); CALCIUM 9.3 mg/dL (8.5-10.1); CARBON DIOXIDE 39 mmol/L (21-32); CHLORIDE 104 mmol/L (98-107); CREATININE 0.4 mg/dL (0.6-1.3); GLUCOSE 199 mg/dL (74-106); POTASSIUM 3.5 mmol/L (3.5-5.1); SODIUM SERUM 146 mmol/L (136-145); TOTAL PROTEIN, SERUM 6.2 g/dL (6.4-8.2); UREA NITROGEN, BLOOD 31 mg/dL (7-18)
[2023-12-03 06:22] LABS: ABG BASE EXCESS 12.3 mmol/L (-2.0-2.0); ABG HCO3 39.7 mmol/L (22.0-26.0); ABG PCO2 72.2 mmHg (35.0-48.0); ABG PH 7.358 (7.340-7.440); ABG PO2 85.1 mmHg (75.0-100.0); ABG TOTAL HEMOGLOBIN 8.7 G/dL (12.0-16.0); AaDO2 95.6 mmHg; COHb 0.8 % (0.0-3.9); MetHb 0.2 % (0.0-1.5); O2Hb 94.3 % (94.0-97.0)
[2023-12-03] MEDS: ACETAMINOPHEN ES 500 MG TABLET GT SCH ×2 (07:00→22:41)
[2023-12-03] MEDS: IPRATROPIUM BROMIDE 0.5 MG/2.5 ML NEBU NEB SCH ×3 (07:17→23:49)
[2023-12-03] MEDS: LEVALBUTEROL HCL 1.25 MG/0.5 ML NEB NEB SCH ×3 (07:17→23:49)
[2023-12-03] MEDS: METOCLOPRAMIDE HCL 10 MG TABLET GT SCH ×3 (08:49→22:41)
[2023-12-03] MEDS: CARBIDOPA/LEVODOPA 25-250MG TABLET GT SCH ×4 (08:50→22:41)
[2023-12-03] MEDS: VANCOMYCIN IV 750 MG in IV DEXTROSE 5% 250 ML IV SCH ×2 (08:50→17:27)
[2023-12-03] MEDS: APIXABAN 2.5 MG TABLET GT SCH ×2 (08:52→22:43)
[2023-12-03] MEDS: ARGININE/GLUTAMINE/CALCIUM BMB 1 EACH POWD.PACK GT SCH ×2 (09:00→16:30)
[2023-12-03] MEDS: FERROUS SULFATE 300 MG/5 ML LIQUID UDC GT SCH ×2 (10:41→22:41)
[2023-12-03] MEDS: ZINC SULFATE 220 MG CAPSULE GT SCH (10:41)
[2023-12-03] MEDS: BACLOFEN 10 MG TABLET GT SCH ×3 (10:41→22:40)
[2023-12-03] MEDS: ASCORBIC ACID 500 MG TABLET GT SCH (10:41)
[2023-12-03] MEDS: ACETAzolamide SODIUM 500 MG VIAL IV SCH (10:55)
[2023-12-03] MEDS: LACTULOSE 20 G/30 ML LIQUID UDC GT SCH (10:55)
[2023-12-03] MEDS: PRAMIPEXOLE 0.25 MG TABLET GT SCH ×2 (10:55→16:31)
[2023-12-03] MEDS: PROTEIN SUPPLEMENT (PROSTAT) 30 ML LIQUID PO SCH (11:00)
[2023-12-03 12:14] LABS: FREE KAPPA LT CHAINS SERUM 35.3 mg/L (3.3-19.4); FREE LAMBDA LT CHAIN SERUM 30.7 mg/L (5.7-26.3); KAPPA/LAMBDA RATIO SERUM 1.15 (0.26-1.65)
[2023-12-03] MEDS: MEDIHONEY= THERAHONEY 1.5 OZ TUBE TOP SCH (12:52)
[2023-12-03] MEDS: MULTIVITAMINS,THERAPEUTIC TABLET GT SCH (12:54)
[2023-12-03] MEDS ORDERED: IOHEXOL 300MG/ML 100 ML INFUS..BTL ONE (14:35)
[2023-12-03] MEDS ORDERED: SWABABLE VALVE TRANSFER SET EA MC ONE (14:35)
[2023-12-03] MEDS ORDERED: IV NORMAL SALINE 250 ML IV ONE (14:35)
[2023-12-03] MEDS: CLONAZEPAM 1 MG TABLET GT SCH (22:40)
[2023-12-03] MEDS: NUTREN 2.0 1,000 ML LIQUID GT PRN (23:40)
[2023-12-04] VITALS (24 sets, daily range): BP systolic 110–155; BP diastolic 53–90; TEMP 98.2–99.8; O2SAT 94–100
[2023-12-04 03:30] LABS: BASOPHILS % (AUTO) 0.5 % (0.0-2.0); EOSINOPHILS # (AUTO) 0.1 K/uL (0.0-0.7); LYMPHOCYTES # (AUTO) 0.5 K/uL (0.8-4.8); LYMPHOCYTES % (AUTO) 9.7 % (20.5-51.5); MEAN CORPUSCULAR HEMOGLOBIN 28.9 uug (24.7-32.8); MEAN CORPUSCULAR HGB CONC 31 g/dL (32.3-35.6); WHITE BLOOD COUNT (AUTO) 5.6 K/uL (3.8-11.8)
[2023-12-04 03:31] LABS: CALCIUM 9.3 mg/dL (8.5-10.1); CHLORIDE 102 mmol/L (98-107); CREATININE 0.2 mg/dL (0.6-1.3); GLUCOSE 112 mg/dL (74-106); MAGNESIUM 2.3 mg/dL (1.8-2.4); PHOSPHOROUS 2.4 mg/dL (2.5-4.9); POTASSIUM 3.8 mmol/L (3.5-5.1); SODIUM SERUM 144 mmol/L (136-145); UREA NITROGEN, BLOOD 25 mg/dL (7-18)
[2023-12-04 03:32] LABS: EOSINOPHILS % (AUTO) 1.9 % (0.0-7.0); HEMATOCRIT 22.3 % (31.2-41.9); MEAN CORPUSCULAR VOLUME 92.8 fL (75.5-95.3); MONOCYTES # (AUTO) 0.4 K/uL (0.1-1.30); MONOCYTES % (AUTO) 6.7 % (0.0-11.0); NEUTROPHILS # (AUTO) 4.6 K/uL (1.8-8.9); NEUTROPHILS % (AUTO) 81.2 % (38.5-71.5); PLATELET COUNT (AUTO) 210 K/uL (179-408); RED CELL DISTRIBUTION WIDTH 19.9 % (12.3-17.7)
[2023-12-04 03:56] LABS: CARBON DIOXIDE 43 mmol/L (21-32); DIFFERENTIAL COMMENT 1; RED BLOOD CELL COUNT(AUTO) 2.41 MIL/uL (3.63-4.92)
[2023-12-04] MEDS: VANCOMYCIN IV 750 MG in IV DEXTROSE 5% 250 ML IV SCH ×2 (04:00→13:08)
[2023-12-04] MEDS: PANTOPRAZOLE ORAL SUSPENSION 40 MG SUSPDR.PKT GT SCH (05:30)
[2023-12-04] MEDS: ACETAMINOPHEN ES 500 MG TABLET GT SCH ×2 (05:31→22:09)
[2023-12-04] MEDS: MEROPENEM 1 G in IV NORMAL SALINE 100 ML IV SCH ×3 (05:31→22:09)
[2023-12-04] MEDS: LEVALBUTEROL HCL 1.25 MG/0.5 ML NEB NEB SCH ×2 (07:54→14:51)
[2023-12-04] MEDS: IPRATROPIUM BROMIDE 0.5 MG/2.5 ML NEBU NEB SCH ×2 (07:54→14:51)
[2023-12-04] MEDS: APIXABAN 2.5 MG TABLET GT SCH ×2 (08:00→20:00)
[2023-12-04] MEDS: CARBIDOPA/LEVODOPA 25-250MG TABLET GT SCH ×4 (08:18→22:06)
[2023-12-04] MEDS: PRAMIPEXOLE 0.25 MG TABLET GT SCH ×2 (08:19→16:28)
[2023-12-04] MEDS: ARGININE/GLUTAMINE/CALCIUM BMB 1 EACH POWD.PACK GT SCH ×2 (08:20→16:32)
[2023-12-04] MEDS: METOCLOPRAMIDE HCL 10 MG TABLET GT SCH ×2 (08:21→16:27)
[2023-12-04] MEDS: LACTULOSE 20 G/30 ML LIQUID UDC GT SCH (08:25)
[2023-12-04] MEDS: ASCORBIC ACID 500 MG TABLET GT SCH (08:28)
[2023-12-04] MEDS: ACETAzolamide SODIUM 500 MG VIAL IV SCH (08:28)
[2023-12-04] MEDS: ZINC SULFATE 220 MG CAPSULE GT SCH (08:28)
[2023-12-04] MEDS: BACLOFEN 10 MG TABLET GT SCH ×3 (08:28→22:06)
[2023-12-04] MEDS: MEDIHONEY= THERAHONEY 1.5 OZ TUBE TOP SCH (08:34)
[2023-12-04 09:39] LABS: ABG BASE EXCESS 15.7 mmol/L (-2.0-2.0); ABG PCO2 73.8 mmHg (35.0-48.0); ABG PH 7.383 (7.340-7.440); ABG PO2 90.4 mmHg (75.0-100.0); ABG SITE RIGHT RADIAL; ABG TOTAL HEMOGLOBIN 8.4 G/dL (12.0-16.0); AaDO2 96.4 mmHg; COHb 0.7 % (0.0-3.9); MetHb 0.3 % (0.0-1.5); O2Hb 95.4 % (94.0-97.0)
[2023-12-04] MEDS ORDERED: FUROSEMIDE 20 MG/2 ML VIAL IV PRN (10:15)
[2023-12-04] MEDS: PROTEIN SUPPLEMENT (PROSTAT) 30 ML LIQUID PO SCH (11:55)
[2023-12-04] MEDS: FERROUS SULFATE 300 MG/5 ML LIQUID UDC GT SCH ×2 (11:55→22:06)
[2023-12-04] MEDS: MULTIVITAMINS,THERAPEUTIC TABLET GT SCH (12:12)
[2023-12-04] MEDS ORDERED: diphenhydrAMINE 50 MG/1 ML VIAL IV ONE (14:15)
[2023-12-04] MEDS ORDERED: ACETAMINOPHEN 325 MG TABLET PO ONE (14:15)
[2023-12-04] MEDS ORDERED: NEUTRA PHOS PACKET PO ONE (16:15)
[2023-12-04] MEDS: CLONAZEPAM 1 MG TABLET GT SCH (22:06)
[2023-12-05] VITALS (16 sets, daily range): BP systolic 99–145; BP diastolic 51–87; TEMP 98.9–101.7; O2SAT 92–99
[2023-12-05] MEDS: IPRATROPIUM BROMIDE 0.5 MG/2.5 ML NEBU NEB SCH ×5 (00:20→23:11)
[2023-12-05] MEDS: LEVALBUTEROL HCL 1.25 MG/0.5 ML NEB NEB SCH ×5 (00:20→23:11)
[2023-12-05] MEDS: METOCLOPRAMIDE HCL 10 MG TABLET GT SCH ×3 (00:40→16:47)
[2023-12-05] MEDS: VANCOMYCIN IV 750 MG in IV DEXTROSE 5% 250 ML IV SCH ×2 (00:41→12:33)
[2023-12-05 05:11] LABS: A/G RATIO 0.6 (0.7-1.7); ALBUMIN 2.2 g/dL (2.9-4.4); ALPHA-1-GLOBULIN 0.5 g/dL (0.0-0.4); ALPHA-2-GLOBULIN 1.1 g/dL (0.4-1.0); GLOBULIN, TOTAL 3.7 g/dL (2.2-3.9); M-SPIKE Not Observed g/dL (Not Observed)
[2023-12-05 05:20] LABS: BASOPHILS % (AUTO) 0.5 % (0.0-2.0); EOSINOPHILS # (AUTO) 0.1 K/uL (0.0-0.7); HEMATOCRIT 30.5 % (31.2-41.9); HEMOGLOBIN 9.9 g/dL (10.9-14.3); LYMPHOCYTES # (AUTO) 0.5 K/uL (0.8-4.8); LYMPHOCYTES % (AUTO) 11.2 % (20.5-51.5); MEAN CORPUSCULAR HEMOGLOBIN 28.9 uug (24.7-32.8); MEAN CORPUSCULAR HGB CONC 32 g/dL (32.3-35.6); MEAN CORPUSCULAR VOLUME 89.2 fL (75.5-95.3); MONOCYTES # (AUTO) 0.4 K/uL (0.1-1.30); NEUTROPHILS # (AUTO) 3.7 K/uL (1.8-8.9); NEUTROPHILS % (AUTO) 77.3 % (38.5-71.5); PLATELET COUNT (AUTO) 209 K/uL (179-408); RED BLOOD CELL COUNT(AUTO) 3.42 MIL/uL (3.63-4.92); RED CELL DISTRIBUTION WIDTH 19.1 % (12.3-17.7); WHITE BLOOD COUNT (AUTO) 4.8 K/uL (3.8-11.8)
[2023-12-05 05:23] LABS: DIFFERENTIAL COMMENT 1
[2023-12-05] MEDS: PANTOPRAZOLE ORAL SUSPENSION 40 MG SUSPDR.PKT GT SCH (06:19)
[2023-12-05] MEDS: MEROPENEM 1 G in IV NORMAL SALINE 100 ML IV SCH ×3 (06:19→23:22)
[2023-12-05] MEDS: ACETAMINOPHEN ES 500 MG TABLET GT SCH ×2 (06:19→23:22)
[2023-12-05] MEDS: APIXABAN 2.5 MG TABLET GT SCH ×2 (08:00→20:34)
[2023-12-05] MEDS: ZINC SULFATE 220 MG CAPSULE GT SCH (08:21)
[2023-12-05] MEDS: PRAMIPEXOLE 0.25 MG TABLET GT SCH ×2 (08:21→16:47)
[2023-12-05] MEDS: CARBIDOPA/LEVODOPA 25-250MG TABLET GT SCH ×4 (08:21→20:32)
[2023-12-05] MEDS: ASCORBIC ACID 500 MG TABLET GT SCH (08:21)
[2023-12-05] MEDS: LACTULOSE 20 G/30 ML LIQUID UDC GT SCH (08:21)
[2023-12-05] MEDS: BACLOFEN 10 MG TABLET GT SCH ×3 (08:21→23:22)
[2023-12-05] MEDS: ACETAzolamide SODIUM 500 MG VIAL IV SCH (08:22)
[2023-12-05] MEDS: ARGININE/GLUTAMINE/CALCIUM BMB 1 EACH POWD.PACK GT SCH ×2 (08:23→16:48)
[2023-12-05] MEDS: MEDIHONEY= THERAHONEY 1.5 OZ TUBE TOP SCH (08:25)
[2023-12-05] MEDS ORDERED: NUTREN 2.0 1,000 ML LIQUID GT PRN (11:15)
[2023-12-05] MEDS: FERROUS SULFATE 300 MG/5 ML LIQUID UDC GT SCH ×2 (11:16→23:21)
[2023-12-05] MEDS: PROTEIN SUPPLEMENT (PROSTAT) 30 ML LIQUID PO SCH (11:21)
[2023-12-05] MEDS: MULTIVITAMINS,THERAPEUTIC TABLET GT SCH (13:48)
[2023-12-05] MEDS ORDERED: NEUTRA PHOS PACKET PO ONE (17:10)
[2023-12-05] MEDS ORDERED: NEUTRA PHOS PACKET GT ONE (17:10)
[2023-12-05] MEDS: ACETAMINOPHEN 650 MG/20.3 ML LIQUID UDC GT PRN (18:08)
[2023-12-05] MEDS: CLONAZEPAM 1 MG TABLET GT SCH (23:22)
[2023-12-06] VITALS: BP 134/78; TEMP 101.5; O2SAT 98
[2023-12-06] MEDS: METOCLOPRAMIDE HCL 10 MG TABLET GT SCH ×3 (00:41→16:20)
[2023-12-06 03:00] VITALS: TEMP 98.5; O2SAT 99
[2023-12-06] MEDS: ACETAMINOPHEN 650 MG/20.3 ML LIQUID UDC GT PRN (03:20)
[2023-12-06] MEDS: MEROPENEM 1 G in IV NORMAL SALINE 100 ML IV SCH ×3 (05:06→21:52)
[2023-12-06 05:23] VITALS: BP 102/61; TEMP 98.1; O2SAT 98
[2023-12-06] MEDS: PANTOPRAZOLE ORAL SUSPENSION 40 MG SUSPDR.PKT GT SCH (06:17)
[2023-12-06] MEDS: ACETAMINOPHEN ES 500 MG TABLET GT SCH ×2 (06:17→21:51)
[2023-12-06 07:26] LABS: BASOPHILS % (AUTO) 0.5 % (0.0-2.0); EOSINOPHILS # (AUTO) 0.1 K/uL (0.0-0.7); EOSINOPHILS % (AUTO) 1.8 % (0.0-7.0); HEMATOCRIT 29.3 % (31.2-41.9); HEMOGLOBIN 9.2 g/dL (10.9-14.3); LYMPHOCYTES # (AUTO) 0.8 K/uL (0.8-4.8); LYMPHOCYTES % (AUTO) 13.2 % (20.5-51.5); MEAN CORPUSCULAR HEMOGLOBIN 29.2 uug (24.7-32.8); MEAN CORPUSCULAR HGB CONC 31 g/dL (32.3-35.6); MEAN CORPUSCULAR VOLUME 93.2 fL (75.5-95.3); MONOCYTES # (AUTO) 0.5 K/uL (0.1-1.30); MONOCYTES % (AUTO) 8.3 % (0.0-11.0); NEUTROPHILS # (AUTO) 4.5 K/uL (1.8-8.9); NEUTROPHILS % (AUTO) 76.2 % (38.5-71.5); PLATELET COUNT (AUTO) 209 K/uL (179-408); RED BLOOD CELL COUNT(AUTO) 3.14 MIL/uL (3.63-4.92); RED CELL DISTRIBUTION WIDTH 19.2 % (12.3-17.7); WHITE BLOOD COUNT (AUTO) 5.9 K/uL (3.8-11.8)
[2023-12-06 07:27] LABS: DIFFERENTIAL COMMENT 1
[2023-12-06 07:44] LABS: ABG BASE EXCESS 17.9 mmol/L (-2.0-2.0); ABG HCO3 47.5 mmol/L (22.0-26.0); ABG PCO2 88.6 mmHg (35.0-48.0); ABG PH 7.347 (7.340-7.440); ABG PO2 58.2 mmHg (75.0-100.0); ABG SITE RIGHT RADIAL; ABG TOTAL HEMOGLOBIN 11.6 G/dL (12.0-16.0); AaDO2 86.9 mmHg; COHb 0.2 % (0.0-3.9); MetHb 0.4 % (0.0-1.5); O2Hb 88.2 % (94.0-97.0)
[2023-12-06] MEDS: IPRATROPIUM BROMIDE 0.5 MG/2.5 ML NEBU NEB SCH ×3 (08:18→22:12)
[2023-12-06] MEDS: LEVALBUTEROL HCL 1.25 MG/0.5 ML NEB NEB SCH ×3 (08:18→22:12)
[2023-12-06 08:24] LABS: CHLORIDE 108 mmol/L (98-107); CREATININE 0.2 mg/dL (0.6-1.3); GLUCOSE 101 mg/dL (74-106); MAGNESIUM 2.7 mg/dL (1.8-2.4); PHOSPHOROUS 2.3 mg/dL (2.5-4.9); POTASSIUM 3.8 mmol/L (3.5-5.1); SODIUM SERUM 149 mmol/L (136-145); UREA NITROGEN, BLOOD 31 mg/dL (7-18)
[2023-12-06 08:32] LABS: CARBON DIOXIDE 40 mmol/L (21-32)
[2023-12-06] MEDS: ZINC SULFATE 220 MG CAPSULE GT SCH (08:47)
[2023-12-06] MEDS: CARBIDOPA/LEVODOPA 25-250MG TABLET GT SCH ×4 (08:47→20:10)
[2023-12-06] MEDS: BACLOFEN 10 MG TABLET GT SCH ×3 (08:48→21:51)
[2023-12-06] MEDS: ASCORBIC ACID 500 MG TABLET GT SCH (08:48)
[2023-12-06] MEDS: PRAMIPEXOLE 0.25 MG TABLET GT SCH ×2 (08:48→16:20)
[2023-12-06] MEDS: MEDIHONEY= THERAHONEY 1.5 OZ TUBE TOP SCH (08:50)
[2023-12-06] MEDS: LACTULOSE 20 G/30 ML LIQUID UDC GT SCH (08:53)
[2023-12-06 08:55] LABS: CALCIUM 8.9 mg/dL (8.5-10.1)
[2023-12-06] MEDS: APIXABAN 2.5 MG TABLET GT SCH ×2 (08:59→20:10)
[2023-12-06] MEDS: ACETAzolamide SODIUM 500 MG VIAL IV SCH (08:59)
[2023-12-06] MEDS: ARGININE/GLUTAMINE/CALCIUM BMB 1 EACH POWD.PACK GT SCH ×2 (09:10→16:20)
[2023-12-06] MEDS: FERROUS SULFATE 300 MG/5 ML LIQUID UDC GT SCH ×2 (11:32→21:51)
[2023-12-06] MEDS: PROTEIN SUPPLEMENT (PROSTAT) 30 ML LIQUID PO SCH (11:33)
[2023-12-06 12:05] VITALS: BP 124/79; TEMP 97.4; O2SAT 98
[2023-12-06] MEDS: MULTIVITAMINS,THERAPEUTIC TABLET GT SCH (13:36)
[2023-12-06] MEDS ORDERED: JEVITY 1.2 1000 ML LIQUID GT PRN ×2 (13:45→18:45)
[2023-12-06 16:00] VITALS: BP 138/88; TEMP 97.7; O2SAT 98
[2023-12-06] MEDS ORDERED: NUTREN 2.0 1,000 ML LIQUID GT PRN (16:00)
[2023-12-06] MEDS ORDERED: NEUTRA PHOS PACKET PO ONE (17:45)
[2023-12-06] MEDS ORDERED: NEUTRA PHOS PACKET GT ONE (17:45)
[2023-12-06 20:00] VITALS: BP 143/85; TEMP 101.2; O2SAT 95
[2023-12-06] MEDS: CLONAZEPAM 1 MG TABLET GT SCH (21:51)
[2023-12-07] VITALS (9 sets, daily range): BP systolic 120–143; BP diastolic 74–88; TEMP 98.6–102.4; O2SAT 94–97
[2023-12-07] MEDS: METOCLOPRAMIDE HCL 10 MG TABLET GT SCH ×3 (00:20→16:47)
[2023-12-07] MEDS: ACETAMINOPHEN 650 MG/20.3 ML LIQUID UDC GT PRN (04:49)
[2023-12-07] MEDS: MEROPENEM 1 G in IV NORMAL SALINE 100 ML IV SCH ×3 (06:00→22:13)
[2023-12-07 06:47] LABS: BASOPHILS % (AUTO) 0.6 % (0.0-2.0); EOSINOPHILS # (AUTO) 0.1 K/uL (0.0-0.7); EOSINOPHILS % (AUTO) 2.1 % (0.0-7.0); HEMATOCRIT 28.6 % (31.2-41.9); HEMOGLOBIN 9.2 g/dL (10.9-14.3); LYMPHOCYTES # (AUTO) 0.4 K/uL (0.8-4.8); LYMPHOCYTES % (AUTO) 9.2 % (20.5-51.5); MEAN CORPUSCULAR HEMOGLOBIN 29.5 uug (24.7-32.8); MEAN CORPUSCULAR HGB CONC 32 g/dL (32.3-35.6); MEAN CORPUSCULAR VOLUME 92.1 fL (75.5-95.3); MONOCYTES # (AUTO) 0.4 K/uL (0.1-1.30); MONOCYTES % (AUTO) 8.2 % (0.0-11.0); NEUTROPHILS # (AUTO) 3.8 K/uL (1.8-8.9); NEUTROPHILS % (AUTO) 79.9 % (38.5-71.5); PLATELET COUNT (AUTO) 217 K/uL (179-408); RED CELL DISTRIBUTION WIDTH 18.8 % (12.3-17.7); WHITE BLOOD COUNT (AUTO) 4.8 K/uL (3.8-11.8)
[2023-12-07] MEDS: ACETAMINOPHEN ES 500 MG TABLET GT SCH ×2 (06:54→21:26)
[2023-12-07] MEDS: PANTOPRAZOLE ORAL SUSPENSION 40 MG SUSPDR.PKT GT SCH (06:54)
[2023-12-07 07:43] LABS: CALCIUM 9.3 mg/dL (8.5-10.1); CHLORIDE 108 mmol/L (98-107); CREATININE 0.3 mg/dL (0.6-1.3); GLUCOSE 132 mg/dL (74-106); MAGNESIUM 2.3 mg/dL (1.8-2.4); PHOSPHOROUS 2.2 mg/dL (2.5-4.9); SODIUM SERUM 150 mmol/L (136-145); UREA NITROGEN, BLOOD 30 mg/dL (7-18)
[2023-12-07 07:56] LABS: DIFFERENTIAL COMMENT 1
[2023-12-07] MEDS: LEVALBUTEROL HCL 1.25 MG/0.5 ML NEB NEB SCH ×3 (08:09→23:01)
[2023-12-07] MEDS: IPRATROPIUM BROMIDE 0.5 MG/2.5 ML NEBU NEB SCH ×3 (08:09→23:01)
[2023-12-07 08:25] LABS: C-REACTIVE PROTEIN 1.11 mg/dL (0.00-0.30); CARBON DIOXIDE 43 mmol/L (21-32)
[2023-12-07] MEDS: ACETAzolamide SODIUM 500 MG VIAL IV SCH (08:47)
[2023-12-07] MEDS: BACLOFEN 10 MG TABLET GT SCH ×3 (08:48→22:12)
[2023-12-07] MEDS: PRAMIPEXOLE 0.25 MG TABLET GT SCH ×2 (08:48→16:47)
[2023-12-07] MEDS: ASCORBIC ACID 500 MG TABLET GT SCH (08:48)
[2023-12-07] MEDS: LACTULOSE 20 G/30 ML LIQUID UDC GT SCH (08:48)
[2023-12-07] MEDS: CARBIDOPA/LEVODOPA 25-250MG TABLET GT SCH ×4 (08:49→20:35)
[2023-12-07] MEDS: ZINC SULFATE 220 MG CAPSULE GT SCH (08:49)
[2023-12-07] MEDS: APIXABAN 2.5 MG TABLET GT SCH ×2 (08:50→20:36)
[2023-12-07] MEDS: ARGININE/GLUTAMINE/CALCIUM BMB 1 EACH POWD.PACK GT SCH ×2 (08:55→16:48)
[2023-12-07] MEDS: MEDIHONEY= THERAHONEY 1.5 OZ TUBE TOP SCH (08:55)
[2023-12-07 09:19] LABS: ABG BASE EXCESS 17.8 mmol/L (-2.0-2.0); ABG HCO3 45.5 mmol/L (22.0-26.0); ABG PH 7.401 (7.340-7.440); ABG PO2 63.7 mmHg (75.0-100.0); ABG SITE RIGHT RADIAL; ABG TOTAL HEMOGLOBIN 10.3 G/dL (12.0-16.0); AaDO2 91.2 mmHg; COHb 0.2 % (0.0-3.9); MetHb 0.4 % (0.0-1.5); O2Hb 91.2 % (94.0-97.0)
[2023-12-07] MEDS: MULTIVITAMINS,THERAPEUTIC TABLET GT SCH (12:14)
[2023-12-07] MEDS: PROTEIN SUPPLEMENT (PROSTAT) 30 ML LIQUID PO SCH (12:15)
[2023-12-07] MEDS: FERROUS SULFATE 300 MG/5 ML LIQUID UDC GT SCH ×2 (12:15→22:11)
[2023-12-07] MEDS ORDERED: POTASSIUM PHOSPHATE MM 15 MMOL in IV NORMAL SALINE 250 ML IV ONE (16:00)
[2023-12-07] MEDS: CLONAZEPAM 1 MG TABLET GT SCH (22:12)
[2023-12-08] VITALS (9 sets, daily range): BP systolic 123–128; BP diastolic 72–77; TEMP 97.6–100.1; O2SAT 96–100
[2023-12-08] MEDS: METOCLOPRAMIDE HCL 10 MG TABLET GT SCH ×3 (00:54→17:01)
[2023-12-08] MEDS ORDERED: VANCOMYCIN IV 1,000 MG in IV DEXTROSE 5% 250 ML IV ONE (01:00)
[2023-12-08] MEDS ORDERED: VANCOMYCIN IV 200 ML ONE (01:15)
[2023-12-08] MEDS: MEROPENEM 1 G in IV NORMAL SALINE 100 ML IV SCH ×3 (06:14→22:51)
[2023-12-08] MEDS: ACETAMINOPHEN ES 500 MG TABLET GT SCH ×2 (06:15→22:12)
[2023-12-08] MEDS: PANTOPRAZOLE ORAL SUSPENSION 40 MG SUSPDR.PKT GT SCH (06:15)
[2023-12-08 06:54] LABS: BASOPHILS % (AUTO) 0.5 % (0.0-2.0); EOSINOPHILS # (AUTO) 0.1 K/uL (0.0-0.7); EOSINOPHILS % (AUTO) 1.5 % (0.0-7.0); HEMATOCRIT 31.1 % (31.2-41.9); HEMOGLOBIN 9.7 g/dL (10.9-14.3); LYMPHOCYTES # (AUTO) 0.4 K/uL (0.8-4.8); LYMPHOCYTES % (AUTO) 7.1 % (20.5-51.5); MEAN CORPUSCULAR HEMOGLOBIN 29.1 uug (24.7-32.8); MEAN CORPUSCULAR HGB CONC 31 g/dL (32.3-35.6); MEAN CORPUSCULAR VOLUME 93.5 fL (75.5-95.3); MONOCYTES # (AUTO) 0.5 K/uL (0.1-1.30); MONOCYTES % (AUTO) 7.9 % (0.0-11.0); NEUTROPHILS # (AUTO) 5.3 K/uL (1.8-8.9); PLATELET COUNT (AUTO) 235 K/uL (179-408); RED BLOOD CELL COUNT(AUTO) 3.33 MIL/uL (3.63-4.92); WHITE BLOOD COUNT (AUTO) 6.3 K/uL (3.8-11.8)
[2023-12-08 07:11] LABS: DIFFERENTIAL COMMENT 1
[2023-12-08 07:32] LABS: CALCIUM 9.5 mg/dL (8.5-10.1); CHLORIDE 112 mmol/L (98-107); CREATININE 0.3 mg/dL (0.6-1.3); GLUCOSE 143 mg/dL (74-106); MAGNESIUM 2.4 mg/dL (1.8-2.4); PHOSPHOROUS 2.4 mg/dL (2.5-4.9); POTASSIUM 3.8 mmol/L (3.5-5.1); UREA NITROGEN, BLOOD 32 mg/dL (7-18)
[2023-12-08] MEDS: IPRATROPIUM BROMIDE 0.5 MG/2.5 ML NEBU NEB SCH ×2 (07:54→15:30)
[2023-12-08] MEDS: LEVALBUTEROL HCL 1.25 MG/0.5 ML NEB NEB SCH ×2 (07:54→15:30)
[2023-12-08 08:27] LABS: SODIUM SERUM 156 mmol/L (136-145)
[2023-12-08 08:28] LABS: CARBON DIOXIDE 44 mmol/L (21-32)
[2023-12-08 08:55] LABS: ABG BASE EXCESS 16.8 mmol/L (-2.0-2.0); ABG HCO3 45.4 mmol/L (22.0-26.0); ABG PH 7.372 (7.340-7.440); ABG TOTAL HEMOGLOBIN 11.3 G/dL (12.0-16.0); AaDO2 94.7 mmHg; COHb 0.5 % (0.0-3.9); MetHb 0.1 % (0.0-1.5); O2Hb 94.2 % (94.0-97.0)
[2023-12-08] MEDS: ASCORBIC ACID 500 MG TABLET GT SCH (08:56)
[2023-12-08] MEDS: CARBIDOPA/LEVODOPA 25-250MG TABLET GT SCH ×4 (08:56→20:15)
[2023-12-08] MEDS: PRAMIPEXOLE 0.25 MG TABLET GT SCH ×2 (08:56→17:01)
[2023-12-08] MEDS: ARGININE/GLUTAMINE/CALCIUM BMB 1 EACH POWD.PACK GT SCH ×2 (08:56→17:01)
[2023-12-08] MEDS: BACLOFEN 10 MG TABLET GT SCH ×3 (08:56→22:12)
[2023-12-08] MEDS: ZINC SULFATE 220 MG CAPSULE GT SCH (08:56)
[2023-12-08] MEDS: ACETAzolamide SODIUM 500 MG VIAL IV SCH (08:56)
[2023-12-08] MEDS: LACTULOSE 20 G/30 ML LIQUID UDC GT SCH (08:57)
[2023-12-08] MEDS: MEDIHONEY= THERAHONEY 1.5 OZ TUBE TOP SCH (08:57)
[2023-12-08] MEDS: APIXABAN 2.5 MG TABLET GT SCH ×2 (08:59→20:00)
[2023-12-08] MEDS: IV D5W 1000ML 1,000 ML IV PRN (10:07)
[2023-12-08] MEDS: PROTEIN SUPPLEMENT (PROSTAT) 30 ML LIQUID PO SCH (10:08)
[2023-12-08] MEDS: FERROUS SULFATE 300 MG/5 ML LIQUID UDC GT SCH ×2 (10:08→22:12)
[2023-12-08] MEDS: VANCOMYCIN IV 750 MG in IV DEXTROSE 5% 250 ML IV SCH ×2 (12:15→23:21)
[2023-12-08] MEDS: MULTIVITAMINS,THERAPEUTIC TABLET GT SCH (12:15)
[2023-12-08] MEDS ORDERED: NEUTRA PHOS PACKET GT ONE (15:15)
[2023-12-08] MEDS: CLONAZEPAM 1 MG TABLET GT SCH (22:12)
[2023-12-09] VITALS (10 sets, daily range): BP systolic 112–121; BP diastolic 66–71; TEMP 97.2–101.3; O2SAT 95–100
[2023-12-09] MEDS: METOCLOPRAMIDE HCL 10 MG TABLET GT SCH ×4 (00:46→23:55)
[2023-12-09] MEDS: IPRATROPIUM BROMIDE 0.5 MG/2.5 ML NEBU NEB SCH ×4 (01:19→23:30)
[2023-12-09] MEDS: LEVALBUTEROL HCL 1.25 MG/0.5 ML NEB NEB SCH ×4 (01:19→23:30)
[2023-12-09] MEDS: MEROPENEM 1 G in IV NORMAL SALINE 100 ML IV SCH ×3 (05:34→22:26)
[2023-12-09] MEDS: IV D5W 1000ML 1,000 ML IV PRN ×2 (05:35→21:37)
[2023-12-09] MEDS: PANTOPRAZOLE ORAL SUSPENSION 40 MG SUSPDR.PKT GT SCH (06:53)
[2023-12-09] MEDS: ACETAMINOPHEN ES 500 MG TABLET GT SCH ×2 (06:53→21:37)
[2023-12-09] MEDS: ACETAMINOPHEN 650 MG/20.3 ML LIQUID UDC GT PRN ×2 (07:47→21:38)
[2023-12-09] MEDS: PRAMIPEXOLE 0.25 MG TABLET GT SCH ×2 (08:43→16:20)
[2023-12-09] MEDS: BACLOFEN 10 MG TABLET GT SCH ×3 (08:43→21:36)
[2023-12-09] MEDS: ASCORBIC ACID 500 MG TABLET GT SCH (08:43)
[2023-12-09] MEDS: CARBIDOPA/LEVODOPA 25-250MG TABLET GT SCH ×4 (08:43→20:24)
[2023-12-09] MEDS: ZINC SULFATE 220 MG CAPSULE GT SCH (08:43)
[2023-12-09] MEDS: LACTULOSE 20 G/30 ML LIQUID UDC GT SCH (08:43)
[2023-12-09] MEDS: APIXABAN 2.5 MG TABLET GT SCH ×2 (08:44→20:24)
[2023-12-09] MEDS: ARGININE/GLUTAMINE/CALCIUM BMB 1 EACH POWD.PACK GT SCH ×2 (08:44→16:21)
[2023-12-09] MEDS: ACETAzolamide SODIUM 500 MG VIAL IV SCH (08:44)
[2023-12-09] MEDS: MEDIHONEY= THERAHONEY 1.5 OZ TUBE TOP SCH (08:45)
[2023-12-09 10:32] LABS: CHLORIDE 103 mmol/L (98-107); CREATININE 0.3 mg/dL (0.6-1.3); GLUCOSE 122 mg/dL (74-106); MAGNESIUM 2.6 mg/dL (1.8-2.4); PHOSPHOROUS 2.1 mg/dL (2.5-4.9); POTASSIUM 3.5 mmol/L (3.5-5.1); SODIUM SERUM 144 mmol/L (136-145); UREA NITROGEN, BLOOD 29 mg/dL (7-18); VANCOMYCIN,TROUGH 17.5 ug/mL (10.0-20.0)
[2023-12-09 10:37] LABS: CARBON DIOXIDE 40 mmol/L (21-32)
[2023-12-09] MEDS: VANCOMYCIN IV 750 MG in IV DEXTROSE 5% 250 ML IV SCH ×2 (10:55→20:23)
[2023-12-09] MEDS: PROTEIN SUPPLEMENT (PROSTAT) 30 ML LIQUID PO SCH (11:45)
[2023-12-09] MEDS: FERROUS SULFATE 300 MG/5 ML LIQUID UDC GT SCH ×2 (11:45→21:36)
[2023-12-09] MEDS: MULTIVITAMINS,THERAPEUTIC TABLET GT SCH (13:10)
[2023-12-09] MEDS: NUTREN 2.0 1,000 ML LIQUID GT PRN (14:28)
[2023-12-09] MEDS ORDERED: NEUTRA PHOS PACKET GT ONE (15:30)
[2023-12-09] MEDS: CLONAZEPAM 1 MG TABLET GT SCH (21:36)
[2023-12-10] VITALS (7 sets, daily range): BP systolic 107–134; BP diastolic 69–84; TEMP 97.2–99.1; O2SAT 96–100
[2023-12-10 06:16] LABS: BASOPHILS % (AUTO) 0.6 % (0.0-2.0); EOSINOPHILS # (AUTO) 0.1 K/uL (0.0-0.7); EOSINOPHILS % (AUTO) 2.4 % (0.0-7.0); HEMATOCRIT 27.6 % (31.2-41.9); HEMOGLOBIN 8.8 g/dL (10.9-14.3); LYMPHOCYTES # (AUTO) 0.5 K/uL (0.8-4.8); LYMPHOCYTES % (AUTO) 11.6 % (20.5-51.5); MEAN CORPUSCULAR HEMOGLOBIN 29.4 uug (24.7-32.8); MEAN CORPUSCULAR HGB CONC 32 g/dL (32.3-35.6); MONOCYTES # (AUTO) 0.4 K/uL (0.1-1.30); MONOCYTES % (AUTO) 8.4 % (0.0-11.0); NEUTROPHILS # (AUTO) 3.2 K/uL (1.8-8.9); PLATELET COUNT (AUTO) 212 K/uL (179-408); RED CELL DISTRIBUTION WIDTH 18.6 % (12.3-17.7); WHITE BLOOD COUNT (AUTO) 4.2 K/uL (3.8-11.8)
[2023-12-10] MEDS: ACETAMINOPHEN ES 500 MG TABLET GT SCH ×2 (06:30→22:26)
[2023-12-10] MEDS: PANTOPRAZOLE ORAL SUSPENSION 40 MG SUSPDR.PKT GT SCH (06:30)
[2023-12-10] MEDS: MEROPENEM 1 G in IV NORMAL SALINE 100 ML IV SCH ×3 (06:30→22:28)
[2023-12-10 06:44] LABS: CALCIUM 8.5 mg/dL (8.5-10.1); CARBON DIOXIDE 39 mmol/L (21-32); CHLORIDE 99 mmol/L (98-107); CREATININE 0.3 mg/dL (0.6-1.3); GLUCOSE 133 mg/dL (74-106); MAGNESIUM 2.2 mg/dL (1.8-2.4); PHOSPHOROUS 2.3 mg/dL (2.5-4.9); POTASSIUM 3.7 mmol/L (3.5-5.1); SODIUM SERUM 140 mmol/L (136-145); UREA NITROGEN, BLOOD 17 mg/dL (7-18)
[2023-12-10 06:48] LABS: DIFFERENTIAL COMMENT 1
[2023-12-10 07:09] LABS: C-REACTIVE PROTEIN 0.69 mg/dL (0.00-0.30)
[2023-12-10] MEDS: IPRATROPIUM BROMIDE 0.5 MG/2.5 ML NEBU NEB SCH ×4 (08:19→23:30)
[2023-12-10] MEDS: LEVALBUTEROL HCL 1.25 MG/0.5 ML NEB NEB SCH ×4 (08:19→23:30)
[2023-12-10] MEDS: BACLOFEN 10 MG TABLET GT SCH ×3 (08:35→22:27)
[2023-12-10] MEDS: METOCLOPRAMIDE HCL 10 MG TABLET GT SCH ×2 (08:36→16:08)
[2023-12-10] MEDS: CARBIDOPA/LEVODOPA 25-250MG TABLET GT SCH ×4 (08:36→20:09)
[2023-12-10] MEDS: ZINC SULFATE 220 MG CAPSULE GT SCH (08:36)
[2023-12-10] MEDS: APIXABAN 2.5 MG TABLET GT SCH ×2 (08:36→20:08)
[2023-12-10] MEDS: LACTULOSE 20 G/30 ML LIQUID UDC GT SCH (08:37)
[2023-12-10] MEDS: ASCORBIC ACID 500 MG TABLET GT SCH (08:37)
[2023-12-10] MEDS: ACETAzolamide 250 MG TABLET GT SCH (08:37)
[2023-12-10] MEDS: PRAMIPEXOLE 0.25 MG TABLET GT SCH ×2 (08:37→16:08)
[2023-12-10] MEDS: ARGININE/GLUTAMINE/CALCIUM BMB 1 EACH POWD.PACK GT SCH ×2 (08:38→16:09)
[2023-12-10] MEDS: MEDIHONEY= THERAHONEY 1.5 OZ TUBE TOP SCH (08:39)
[2023-12-10] MEDS: VANCOMYCIN IV 750 MG in IV DEXTROSE 5% 250 ML IV SCH ×2 (08:43→18:41)
[2023-12-10] MEDS: FERROUS SULFATE 300 MG/5 ML LIQUID UDC GT SCH ×2 (11:00→22:26)
[2023-12-10] MEDS: PROTEIN SUPPLEMENT (PROSTAT) 30 ML LIQUID PO SCH (12:05)
[2023-12-10] MEDS: NUTREN 2.0 1,000 ML LIQUID GT PRN (12:32)
[2023-12-10] MEDS: ACETAMINOPHEN 650 MG/20.3 ML LIQUID UDC GT PRN ×2 (12:33→12:36)
[2023-12-10] MEDS: MULTIVITAMINS,THERAPEUTIC TABLET GT SCH (12:36)
[2023-12-10] MEDS: IV D5W 1000ML 1,000 ML IV PRN (14:32)
[2023-12-10] MEDS ORDERED: NEUTRA PHOS PACKET GT ONE (16:15)
[2023-12-10] MEDS: CLONAZEPAM 1 MG TABLET GT SCH (22:27)
[2023-12-11] VITALS (8 sets, daily range): BP systolic 94–124; BP diastolic 54–81; TEMP 97.9–100.3; O2SAT 95–100
[2023-12-11] MEDS: METOCLOPRAMIDE HCL 10 MG TABLET GT SCH ×3 (00:22→15:57)
[2023-12-11] MEDS: MEROPENEM 1 G in IV NORMAL SALINE 100 ML IV SCH ×4 (05:36→21:59)
[2023-12-11] MEDS: VANCOMYCIN IV 750 MG in IV DEXTROSE 5% 250 ML IV SCH ×2 (05:39→16:48)
[2023-12-11] MEDS: PANTOPRAZOLE ORAL SUSPENSION 40 MG SUSPDR.PKT GT SCH (06:24)
[2023-12-11] MEDS: ACETAMINOPHEN ES 500 MG TABLET GT SCH ×2 (06:24→21:59)
[2023-12-11] MEDS: IPRATROPIUM BROMIDE 0.5 MG/2.5 ML NEBU NEB SCH ×3 (07:45→21:22)
[2023-12-11] MEDS: LEVALBUTEROL HCL 1.25 MG/0.5 ML NEB NEB SCH ×3 (07:45→21:23)
[2023-12-11] MEDS: ZINC SULFATE 220 MG CAPSULE GT SCH (08:40)
[2023-12-11] MEDS: LACTULOSE 20 G/30 ML LIQUID UDC GT SCH (08:40)
[2023-12-11] MEDS: ASCORBIC ACID 500 MG TABLET GT SCH (08:40)
[2023-12-11] MEDS: APIXABAN 2.5 MG TABLET GT SCH ×2 (08:41→20:01)
[2023-12-11] MEDS: CARBIDOPA/LEVODOPA 25-250MG TABLET GT SCH ×4 (08:41→19:59)
[2023-12-11] MEDS: BACLOFEN 10 MG TABLET GT SCH ×3 (08:41→21:59)
[2023-12-11] MEDS: ARGININE/GLUTAMINE/CALCIUM BMB 1 EACH POWD.PACK GT SCH ×2 (08:42→15:57)
[2023-12-11] MEDS: MEDIHONEY= THERAHONEY 1.5 OZ TUBE TOP SCH (08:44)
[2023-12-11] MEDS: REMEDY ESSENTIAL ZINC PASTE 113 GM TP PRN (08:45)
[2023-12-11] MEDS: IV D5W 1000ML 1,000 ML IV PRN (08:45)
[2023-12-11] MEDS: PRAMIPEXOLE 0.25 MG TABLET GT SCH ×2 (08:53→15:57)
[2023-12-11] MEDS: ACETAzolamide 250 MG TABLET GT SCH (08:53)
[2023-12-11] MEDS: PROTEIN SUPPLEMENT (PROSTAT) 30 ML LIQUID PO SCH (11:11)
[2023-12-11] MEDS: FERROUS SULFATE 300 MG/5 ML LIQUID UDC GT SCH ×2 (11:11→21:59)
[2023-12-11 11:50] LABS: ALANINE AMINOTRANSFERASE 9 U/L (14-59); ALBUMIN 1.9 g/dL (3.4-5.0); ALKALINE PHOSPHATASE 78 U/L (50-136); ASPARTATE AMINOTRANSFERASE 24 U/L (15-37); BILIRUBIN,TOTAL 0.4 mg/dL (0.2-1.0); CALCIUM 8.5 mg/dL (8.5-10.1); CARBON DIOXIDE 38 mmol/L (21-32); CHLORIDE 99 mmol/L (98-107); CREATININE 0.3 mg/dL (0.6-1.3); GLUCOSE 141 mg/dL (74-106); POTASSIUM 3.2 mmol/L (3.5-5.1); SODIUM SERUM 138 mmol/L (136-145); UREA NITROGEN, BLOOD 12 mg/dL (7-18)
[2023-12-11] MEDS: ACETAMINOPHEN 650 MG/20.3 ML LIQUID UDC GT PRN (12:45)
[2023-12-11] MEDS: MULTIVITAMINS,THERAPEUTIC TABLET GT SCH (12:45)
[2023-12-11 13:50] LABS: BASOPHILS % (AUTO) 0.4 % (0.0-2.0); EOSINOPHILS # (AUTO) 0.1 K/uL (0.0-0.7); EOSINOPHILS % (AUTO) 1.9 % (0.0-7.0); HEMATOCRIT 27.9 % (31.2-41.9); HEMOGLOBIN 8.9 g/dL (10.9-14.3); LYMPHOCYTES # (AUTO) 0.3 K/uL (0.8-4.8); LYMPHOCYTES % (AUTO) 6.9 % (20.5-51.5); MEAN CORPUSCULAR HEMOGLOBIN 29.6 uug (24.7-32.8); MEAN CORPUSCULAR HGB CONC 32 g/dL (32.3-35.6); MEAN CORPUSCULAR VOLUME 93.2 fL (75.5-95.3); MONOCYTES # (AUTO) 0.3 K/uL (0.1-1.30); MONOCYTES % (AUTO) 6.5 % (0.0-11.0); NEUTROPHILS # (AUTO) 4.2 K/uL (1.8-8.9); NEUTROPHILS % (AUTO) 84.3 % (38.5-71.5); PLATELET COUNT (AUTO) 231 K/uL (179-408); RED CELL DISTRIBUTION WIDTH 18.2 % (12.3-17.7)
[2023-12-11 13:52] LABS: DIFFERENTIAL COMMENT 1
[2023-12-11] MEDS: POTASSIUM CHLORIDE 50 ML IV SCH ×2 (14:44→15:52)
[2023-12-11] MEDS: NUTREN 2.0 1,000 ML LIQUID GT PRN (15:11)
[2023-12-11] MEDS: CLONAZEPAM 1 MG TABLET GT SCH (21:59)
[2023-12-12] VITALS (9 sets, daily range): BP systolic 98–119; BP diastolic 67–77; TEMP 97.4–101.1; O2SAT 95–99
[2023-12-12] MEDS: METOCLOPRAMIDE HCL 10 MG TABLET GT SCH ×3 (00:15→16:46)
[2023-12-12] MEDS: VANCOMYCIN IV 750 MG in IV DEXTROSE 5% 250 ML IV SCH ×2 (04:22→15:13)
[2023-12-12] MEDS: MEROPENEM 1 G in IV NORMAL SALINE 100 ML IV SCH ×3 (05:44→22:14)
[2023-12-12] MEDS: IV D5W 1000ML 1,000 ML IV PRN (05:52)
[2023-12-12] MEDS: ACETAMINOPHEN ES 500 MG TABLET GT SCH ×2 (06:06→22:14)
[2023-12-12] MEDS: PANTOPRAZOLE ORAL SUSPENSION 40 MG SUSPDR.PKT GT SCH (06:06)
[2023-12-12] MEDS: LEVALBUTEROL HCL 1.25 MG/0.5 ML NEB NEB SCH ×3 (07:42→21:36)
[2023-12-12] MEDS: IPRATROPIUM BROMIDE 0.5 MG/2.5 ML NEBU NEB SCH ×3 (07:42→21:36)
[2023-12-12 07:48] LABS: BASOPHILS % (AUTO) 0.7 % (0.0-2.0); EOSINOPHILS # (AUTO) 0.1 K/uL (0.0-0.7); EOSINOPHILS % (AUTO) 2.9 % (0.0-7.0); HEMATOCRIT 27.2 % (31.2-41.9); HEMOGLOBIN 8.8 g/dL (10.9-14.3); LYMPHOCYTES # (AUTO) 0.5 K/uL (0.8-4.8); LYMPHOCYTES % (AUTO) 12.6 % (20.5-51.5); MEAN CORPUSCULAR HEMOGLOBIN 29.7 uug (24.7-32.8); MEAN CORPUSCULAR HGB CONC 32 g/dL (32.3-35.6); MONOCYTES # (AUTO) 0.4 K/uL (0.1-1.30); MONOCYTES % (AUTO) 9.8 % (0.0-11.0); PLATELET COUNT (AUTO) 235 K/uL (179-408); RED BLOOD CELL COUNT(AUTO) 2.96 MIL/uL (3.63-4.92); RED CELL DISTRIBUTION WIDTH 18.3 % (12.3-17.7); WHITE BLOOD COUNT (AUTO) 4.1 K/uL (3.8-11.8)
[2023-12-12 08:03] LABS: CALCIUM 8.9 mg/dL (8.5-10.1); CARBON DIOXIDE 37 mmol/L (21-32); CHLORIDE 99 mmol/L (98-107); CREATININE 0.3 mg/dL (0.6-1.3); GLUCOSE 114 mg/dL (74-106); MAGNESIUM 2.3 mg/dL (1.8-2.4); PHOSPHOROUS 2.9 mg/dL (2.5-4.9); POTASSIUM 3.9 mmol/L (3.5-5.1); SODIUM SERUM 138 mmol/L (136-145); UREA NITROGEN, BLOOD 14 mg/dL (7-18)
[2023-12-12 08:07] LABS: DIFFERENTIAL COMMENT 1
[2023-12-12 08:25] LABS: ABG HCO3 37.4 mmol/L (22.0-26.0); ABG PCO2 61.3 mmHg (35.0-48.0); ABG PH 7.403 (7.340-7.440); ABG PO2 80.4 mmHg (75.0-100.0); ABG SITE RIGHT RADIAL; ABG TOTAL HEMOGLOBIN 9.4 G/dL (12.0-16.0); AaDO2 95.6 mmHg; COHb 0.8 % (0.0-3.9); MetHb 0.1 % (0.0-1.5); O2Hb 94.4 % (94.0-97.0)
[2023-12-12] MEDS: LACTULOSE 20 G/30 ML LIQUID UDC GT SCH (08:46)
[2023-12-12] MEDS: ZINC SULFATE 220 MG CAPSULE GT SCH (08:48)
[2023-12-12] MEDS: BACLOFEN 10 MG TABLET GT SCH ×3 (08:48→22:14)
[2023-12-12] MEDS: APIXABAN 2.5 MG TABLET GT SCH ×2 (08:48→20:26)
[2023-12-12] MEDS: CARBIDOPA/LEVODOPA 25-250MG TABLET GT SCH ×4 (08:48→20:25)
[2023-12-12] MEDS: ASCORBIC ACID 500 MG TABLET GT SCH (08:48)
[2023-12-12] MEDS: PRAMIPEXOLE 0.25 MG TABLET GT SCH ×2 (08:48→16:46)
[2023-12-12] MEDS: ARGININE/GLUTAMINE/CALCIUM BMB 1 EACH POWD.PACK GT SCH ×2 (08:49→16:46)
[2023-12-12] MEDS: MEDIHONEY= THERAHONEY 1.5 OZ TUBE TOP SCH (08:58)
[2023-12-12] MEDS: ACETAzolamide 250 MG TABLET GT SCH (09:02)
[2023-12-12] MEDS: PROTEIN SUPPLEMENT (PROSTAT) 30 ML LIQUID PO SCH (11:16)
[2023-12-12] MEDS: FERROUS SULFATE 300 MG/5 ML LIQUID UDC GT SCH ×2 (11:16→22:17)
[2023-12-12] MEDS: ACETAMINOPHEN 650 MG/20.3 ML LIQUID UDC GT PRN (14:14)
[2023-12-12] MEDS: MULTIVITAMINS,THERAPEUTIC TABLET GT SCH (14:15)
[2023-12-12] MEDS: CLONAZEPAM 1 MG TABLET GT SCH (22:14)
[2023-12-13] VITALS (7 sets, daily range): BP systolic 101–128; BP diastolic 59–83; TEMP 98.2–101; O2SAT 95–100
[2023-12-13] MEDS: METOCLOPRAMIDE HCL 10 MG TABLET GT SCH ×3 (00:18→16:10)
[2023-12-13] MEDS: VANCOMYCIN IV 750 MG in IV DEXTROSE 5% 250 ML IV SCH ×2 (02:23→16:10)
[2023-12-13] MEDS: ACETAMINOPHEN 650 MG/20.3 ML LIQUID UDC GT PRN ×2 (04:21→16:10)
[2023-12-13] MEDS: MEROPENEM 1 G in IV NORMAL SALINE 100 ML IV SCH ×3 (05:34→21:24)
[2023-12-13] MEDS: ACETAMINOPHEN ES 500 MG TABLET GT SCH ×2 (06:28→21:21)
[2023-12-13] MEDS: PANTOPRAZOLE ORAL SUSPENSION 40 MG SUSPDR.PKT GT SCH (06:28)
[2023-12-13] MEDS: IPRATROPIUM BROMIDE 0.5 MG/2.5 ML NEBU NEB SCH ×2 (07:34→14:47)
[2023-12-13] MEDS: LEVALBUTEROL HCL 1.25 MG/0.5 ML NEB NEB SCH ×2 (07:34→14:47)
[2023-12-13] MEDS: CARBIDOPA/LEVODOPA 25-250MG TABLET GT SCH ×4 (08:34→20:55)
[2023-12-13] MEDS: ASCORBIC ACID 500 MG TABLET GT SCH (08:34)
[2023-12-13] MEDS: PRAMIPEXOLE 0.25 MG TABLET GT SCH ×2 (08:34→16:10)
[2023-12-13] MEDS: ZINC SULFATE 220 MG CAPSULE GT SCH (08:35)
[2023-12-13] MEDS: ARGININE/GLUTAMINE/CALCIUM BMB 1 EACH POWD.PACK GT SCH ×2 (08:35→16:11)
[2023-12-13] MEDS: BACLOFEN 10 MG TABLET GT SCH ×3 (08:35→21:23)
[2023-12-13] MEDS: MEDIHONEY= THERAHONEY 1.5 OZ TUBE TOP SCH (08:35)
[2023-12-13] MEDS: LACTULOSE 20 G/30 ML LIQUID UDC GT SCH (08:36)
[2023-12-13] MEDS: APIXABAN 2.5 MG TABLET GT SCH ×2 (08:36→20:54)
[2023-12-13] MEDS: ACETAzolamide 250 MG TABLET GT SCH (09:41)
[2023-12-13] MEDS: FERROUS SULFATE 300 MG/5 ML LIQUID UDC GT SCH ×2 (11:13→21:22)
[2023-12-13] MEDS: PROTEIN SUPPLEMENT (PROSTAT) 30 ML LIQUID PO SCH (11:14)
[2023-12-13] MEDS: MULTIVITAMINS,THERAPEUTIC TABLET GT SCH (12:31)
[2023-12-13] MEDS: CLONAZEPAM 1 MG TABLET GT SCH (21:22)
[2023-12-14] VITALS (10 sets, daily range): BP systolic 101–130; BP diastolic 63–73; TEMP 98.5–99.5; O2SAT 95–100
[2023-12-14] MEDS: IPRATROPIUM BROMIDE 0.5 MG/2.5 ML NEBU NEB SCH ×4 (00:11→23:31)
[2023-12-14] MEDS: LEVALBUTEROL HCL 1.25 MG/0.5 ML NEB NEB SCH ×4 (00:11→23:31)
[2023-12-14] MEDS: METOCLOPRAMIDE HCL 10 MG TABLET GT SCH ×4 (00:24→23:49)
[2023-12-14] MEDS: VANCOMYCIN IV 750 MG in IV DEXTROSE 5% 250 ML IV SCH ×2 (03:44→17:09)
[2023-12-14] MEDS: MEROPENEM 1 G in IV NORMAL SALINE 100 ML IV SCH ×3 (05:50→22:12)
[2023-12-14] MEDS: PANTOPRAZOLE ORAL SUSPENSION 40 MG SUSPDR.PKT GT SCH (06:17)
[2023-12-14] MEDS: ACETAMINOPHEN ES 500 MG TABLET GT SCH ×2 (06:17→22:08)
[2023-12-14 07:47] LABS: ABG BASE EXCESS 10.3 mmol/L (-2.0-2.0); ABG PCO2 61.6 mmHg (35.0-48.0); ABG PH 7.397 (7.340-7.440); ABG PO2 69.2 mmHg (75.0-100.0); ABG SITE RIGHT RADIAL; ABG TOTAL HEMOGLOBIN 10.8 G/dL (12.0-16.0); AaDO2 93.3 mmHg; COHb 0.3 % (0.0-3.9); MetHb 0.1 % (0.0-1.5); O2Hb 92.7 % (94.0-97.0)
[2023-12-14 07:59] LABS: BASOPHILS % (AUTO) 0.4 % (0.0-2.0); EOSINOPHILS # (AUTO) 0.1 K/uL (0.0-0.7); EOSINOPHILS % (AUTO) 3.1 % (0.0-7.0); HEMATOCRIT 26.1 % (31.2-41.9); HEMOGLOBIN 8.5 g/dL (10.9-14.3); LYMPHOCYTES # (AUTO) 0.5 K/uL (0.8-4.8); LYMPHOCYTES % (AUTO) 10.7 % (20.5-51.5); MEAN CORPUSCULAR HEMOGLOBIN 29.8 uug (24.7-32.8); MEAN CORPUSCULAR HGB CONC 32 g/dL (32.3-35.6); MONOCYTES # (AUTO) 0.5 K/uL (0.1-1.30); MONOCYTES % (AUTO) 9.5 % (0.0-11.0); NEUTROPHILS # (AUTO) 3.7 K/uL (1.8-8.9); NEUTROPHILS % (AUTO) 76.3 % (38.5-71.5); PLATELET COUNT (AUTO) 262 K/uL (179-408); RED BLOOD CELL COUNT(AUTO) 2.84 MIL/uL (3.63-4.92); RED CELL DISTRIBUTION WIDTH 18.7 % (12.3-17.7); WHITE BLOOD COUNT (AUTO) 4.8 K/uL (3.8-11.8)
[2023-12-14 08:07] LABS: DIFFERENTIAL COMMENT 1
[2023-12-14 08:14] LABS: CALCIUM 8.5 mg/dL (8.5-10.1); CARBON DIOXIDE 37 mmol/L (21-32); CHLORIDE 99 mmol/L (98-107); CREATININE 0.2 mg/dL (0.6-1.3); GLUCOSE 105 mg/dL (74-106); MAGNESIUM 2.2 mg/dL (1.8-2.4); PHOSPHOROUS 2.2 mg/dL (2.5-4.9); POTASSIUM 3.7 mmol/L (3.5-5.1); SODIUM SERUM 137 mmol/L (136-145); UREA NITROGEN, BLOOD 17 mg/dL (7-18)
[2023-12-14] MEDS: APIXABAN 2.5 MG TABLET GT SCH ×2 (08:51→20:20)
[2023-12-14] MEDS: CARBIDOPA/LEVODOPA 25-250MG TABLET GT SCH ×4 (08:52→20:14)
[2023-12-14] MEDS: ASCORBIC ACID 500 MG TABLET GT SCH (08:52)
[2023-12-14] MEDS: MEDIHONEY= THERAHONEY 1.5 OZ TUBE TOP SCH (08:53)
[2023-12-14] MEDS: BACLOFEN 10 MG TABLET GT SCH ×3 (08:53→22:08)
[2023-12-14] MEDS: PRAMIPEXOLE 0.25 MG TABLET GT SCH ×2 (08:53→16:50)
[2023-12-14] MEDS: ARGININE/GLUTAMINE/CALCIUM BMB 1 EACH POWD.PACK GT SCH ×2 (08:53→16:50)
[2023-12-14] MEDS: ZINC SULFATE 220 MG CAPSULE GT SCH (08:53)
[2023-12-14] MEDS: ACETAzolamide 250 MG TABLET GT SCH (08:53)
[2023-12-14] MEDS: LACTULOSE 20 G/30 ML LIQUID UDC GT SCH (08:53)
[2023-12-14] MEDS: PROTEIN SUPPLEMENT (PROSTAT) 30 ML LIQUID PO SCH (11:15)
[2023-12-14] MEDS: FERROUS SULFATE 300 MG/5 ML LIQUID UDC GT SCH ×2 (11:15→22:08)
[2023-12-14] MEDS: MULTIVITAMINS,THERAPEUTIC TABLET GT SCH (13:27)
[2023-12-14] MEDS ORDERED: NEUTRA PHOS PACKET PO ONE (16:00)
[2023-12-14] MEDS: CLONAZEPAM 1 MG TABLET GT SCH (22:08)
[2023-12-15] VITALS (11 sets, daily range): BP systolic 107–128; BP diastolic 46–73; TEMP 97.3–101.3; O2SAT 94–100
[2023-12-15] MEDS: VANCOMYCIN IV 750 MG in IV DEXTROSE 5% 250 ML IV SCH ×2 (05:00→16:23)
[2023-12-15] MEDS: MEROPENEM 1 G in IV NORMAL SALINE 100 ML IV SCH ×3 (06:03→21:40)
[2023-12-15] MEDS: PANTOPRAZOLE ORAL SUSPENSION 40 MG SUSPDR.PKT GT SCH (06:03)
[2023-12-15] MEDS: ACETAMINOPHEN ES 500 MG TABLET GT SCH ×2 (06:03→21:38)
[2023-12-15] MEDS: LEVALBUTEROL HCL 1.25 MG/0.5 ML NEB NEB SCH ×3 (07:52→22:41)
[2023-12-15] MEDS: IPRATROPIUM BROMIDE 0.5 MG/2.5 ML NEBU NEB SCH ×3 (07:52→22:41)
[2023-12-15 08:21] LABS: CALCIUM 8.8 mg/dL (8.5-10.1); CARBON DIOXIDE 35 mmol/L (21-32); CHLORIDE 100 mmol/L (98-107); CREATININE 0.2 mg/dL (0.6-1.3); GLUCOSE 108 mg/dL (74-106); PHOSPHOROUS 2.1 mg/dL (2.5-4.9); POTASSIUM 3.6 mmol/L (3.5-5.1); SODIUM SERUM 138 mmol/L (136-145); UREA NITROGEN, BLOOD 23 mg/dL (7-18)
[2023-12-15] MEDS: METOCLOPRAMIDE HCL 10 MG TABLET GT SCH ×2 (10:25→16:22)
[2023-12-15] MEDS: LACTULOSE 20 G/30 ML LIQUID UDC GT SCH (10:25)
[2023-12-15] MEDS: CARBIDOPA/LEVODOPA 25-250MG TABLET GT SCH ×4 (10:25→20:09)
[2023-12-15] MEDS: ZINC SULFATE 220 MG CAPSULE GT SCH (10:26)
[2023-12-15] MEDS: PRAMIPEXOLE 0.25 MG TABLET GT SCH ×2 (10:26→16:23)
[2023-12-15] MEDS: BACLOFEN 10 MG TABLET GT SCH ×3 (10:27→21:39)
[2023-12-15] MEDS: ASCORBIC ACID 500 MG TABLET GT SCH (10:27)
[2023-12-15] MEDS: FERROUS SULFATE 300 MG/5 ML LIQUID UDC GT SCH ×2 (10:27→21:39)
[2023-12-15] MEDS: MEDIHONEY= THERAHONEY 1.5 OZ TUBE TOP SCH (10:28)
[2023-12-15] MEDS: ARGININE/GLUTAMINE/CALCIUM BMB 1 EACH POWD.PACK GT SCH ×2 (10:28→16:24)
[2023-12-15] MEDS: APIXABAN 2.5 MG TABLET GT SCH ×2 (10:30→20:10)
[2023-12-15] MEDS: PROTEIN SUPPLEMENT (PROSTAT) 30 ML LIQUID PO SCH (10:31)
[2023-12-15] MEDS: ACETAzolamide 250 MG TABLET GT SCH (10:33)
[2023-12-15] MEDS: MULTIVITAMINS,THERAPEUTIC TABLET GT SCH (13:22)
[2023-12-15] MEDS ORDERED: NEUTRA PHOS PACKET GT ONE (16:15)
[2023-12-15] MEDS: CLONAZEPAM 1 MG TABLET GT SCH (21:39)
[2023-12-16] VITALS (11 sets, daily range): BP systolic 108–143; BP diastolic 71–84; TEMP 97.5–99.9; O2SAT 90–100
[2023-12-16] MEDS: METOCLOPRAMIDE HCL 10 MG TABLET GT SCH ×3 (00:16→16:36)
[2023-12-16] MEDS: NUTREN 2.0 1,000 ML LIQUID GT PRN ×2 (00:32→16:45)
[2023-12-16 02:46] LABS: *BILIRUBIN,URIN NEGATIVE (NEGATIVE); *BLOOD, URINE NEGATIVE (NEGATIVE); *COLOR,URINE YELLOW (YELLOW); *KETONES,URINE NEGATIVE (NEGATIVE); *PROTEIN,URINE NEGATIVE (NEGATIVE); *UROBILINOGEN,URINE 0.2 E.U./dl (NORMAL); LEUKOCYTE ESTERASE ,URINE 1+ (NEGATIVE); NITRITE, URINE NEGATIVE (NEGATIVE); UGLUCOSE NEGATIVE (NEGATIVE)
[2023-12-16 02:55] LABS: *CLARITY,URINE HAZY (CLEAR)
[2023-12-16 02:56] LABS: BACTERIA,URINE FEW /HPF (NONE SEEN); RBC,URINE 0-3 /HPF (0-3); SQUAMOUS EPITHELIAL CELL,UR FEW /HPF (NONE SEEN)
[2023-12-16 04:15] LABS: BASOPHILS % (AUTO) 0.7 % (0.0-2.0); EOSINOPHILS # (AUTO) 0.2 K/uL (0.0-0.7); EOSINOPHILS % (AUTO) 4.9 % (0.0-7.0); HEMATOCRIT 27.9 % (31.2-41.9); LYMPHOCYTES # (AUTO) 0.6 K/uL (0.8-4.8); LYMPHOCYTES % (AUTO) 15.7 % (20.5-51.5); MEAN CORPUSCULAR HEMOGLOBIN 29.7 uug (24.7-32.8); MEAN CORPUSCULAR HGB CONC 32 g/dL (32.3-35.6); MEAN CORPUSCULAR VOLUME 92.2 fL (75.5-95.3); MONOCYTES # (AUTO) 0.4 K/uL (0.1-1.30); MONOCYTES % (AUTO) 11.8 % (0.0-11.0); NEUTROPHILS # (AUTO) 2.3 K/uL (1.8-8.9); NEUTROPHILS % (AUTO) 66.9 % (38.5-71.5); PLATELET COUNT (AUTO) 244 K/uL (179-408); RED BLOOD CELL COUNT(AUTO) 3.03 MIL/uL (3.63-4.92); RED CELL DISTRIBUTION WIDTH 18.5 % (12.3-17.7); WHITE BLOOD COUNT (AUTO) 3.5 K/uL (3.8-11.8)
[2023-12-16 04:29] LABS: DIFFERENTIAL COMMENT 1
[2023-12-16 04:39] LABS: ALANINE AMINOTRANSFERASE 27 U/L (14-59); ALKALINE PHOSPHATASE 80 U/L (50-136); ASPARTATE AMINOTRANSFERASE 21 U/L (15-37); BILIRUBIN,TOTAL 0.2 mg/dL (0.2-1.0); CALCIUM 8.9 mg/dL (8.5-10.1); CARBON DIOXIDE 37 mmol/L (21-32); CHLORIDE 103 mmol/L (98-107); CREATININE 0.3 mg/dL (0.6-1.3); GLUCOSE 123 mg/dL (74-106); MAGNESIUM 2.1 mg/dL (1.8-2.4); PHOSPHOROUS 2.2 mg/dL (2.5-4.9); POTASSIUM 3.6 mmol/L (3.5-5.1); SODIUM SERUM 143 mmol/L (136-145); TOTAL PROTEIN, SERUM 6.3 g/dL (6.4-8.2); UREA NITROGEN, BLOOD 27 mg/dL (7-18)
[2023-12-16 04:41] LABS: C-REACTIVE PROTEIN 0.58 mg/dL (0.00-0.30)
[2023-12-16] MEDS: VANCOMYCIN IV 750 MG in IV DEXTROSE 5% 250 ML IV SCH ×2 (05:00→17:04)
[2023-12-16] MEDS: MEROPENEM 1 G in IV NORMAL SALINE 100 ML IV SCH ×2 (06:07→13:33)
[2023-12-16] MEDS: PANTOPRAZOLE ORAL SUSPENSION 40 MG SUSPDR.PKT GT SCH (06:07)
[2023-12-16] MEDS: ACETAMINOPHEN ES 500 MG TABLET GT SCH ×2 (06:07→21:28)
[2023-12-16] MEDS: IPRATROPIUM BROMIDE 0.5 MG/2.5 ML NEBU NEB SCH ×2 (07:46→15:13)
[2023-12-16] MEDS: LEVALBUTEROL HCL 1.25 MG/0.5 ML NEB NEB SCH ×2 (07:46→15:13)
[2023-12-16] MEDS: LACTULOSE 20 G/30 ML LIQUID UDC GT SCH (09:00)
[2023-12-16] MEDS: ARGININE/GLUTAMINE/CALCIUM BMB 1 EACH POWD.PACK GT SCH ×2 (09:27→16:35)
[2023-12-16] MEDS: ZINC SULFATE 220 MG CAPSULE GT SCH (09:28)
[2023-12-16] MEDS: MEDIHONEY= THERAHONEY 1.5 OZ TUBE TOP SCH (09:28)
[2023-12-16] MEDS: BACLOFEN 10 MG TABLET GT SCH ×3 (09:28→21:28)
[2023-12-16] MEDS: PRAMIPEXOLE 0.25 MG TABLET GT SCH ×2 (09:28→16:36)
[2023-12-16] MEDS: ASCORBIC ACID 500 MG TABLET GT SCH ×2 (09:29→09:37)
[2023-12-16] MEDS: ACETAzolamide 250 MG TABLET GT SCH (09:36)
[2023-12-16] MEDS: CARBIDOPA/LEVODOPA 25-250MG TABLET GT SCH ×4 (09:38→20:33)
[2023-12-16] MEDS: APIXABAN 2.5 MG TABLET GT SCH ×2 (09:39→20:41)
[2023-12-16] MEDS: FERROUS SULFATE 300 MG/5 ML LIQUID UDC GT SCH ×2 (11:00→21:28)
[2023-12-16] MEDS: PROTEIN SUPPLEMENT (PROSTAT) 30 ML LIQUID PO SCH (11:21)
[2023-12-16] MEDS: MULTIVITAMINS,THERAPEUTIC TABLET GT SCH (13:31)
[2023-12-16] MEDS ORDERED: NEUTRA PHOS PACKET GT ONE (16:35)
[2023-12-16 21:06] LABS: ADENOVIRUS Not Detected (Not Detected); CORONAVIRUS 229E Not Detected (Not Detected); CORONAVIRUS HKU1 Not Detected (Not Detected); CORONAVIRUS NL63 Not Detected (Not Detected); CORONAVIRUS OC43 Not Detected (Not Detected); NP BORDETELLA PERTUSIS Not Detected (Not Detected); NP CHLAMYDOPHILA PNEUMONIAE Not Detected (Not Detected); NP HUMAN METAPNEUMOVIRUS Not Detected (Not Detected); NP HUMAN RHINO/ENTERO VIRUS Not Detected (Not Detected); NP INFLUENZA A Not Detected (Not Detected); NP INFLUENZA A/H1 Not Detected (Not Detected); NP INFLUENZA A/H1-2009 Not Detected (Not Detected); NP INFLUENZA A/H3 Not Detected (Not Detected); NP INFLUENZA B Not Detected (Not Detected); NP MYCOPLASMA PNEUMONIAE Not Detected (Not Detected); NP PARAINFLUENZA 1 Not Detected (Not Detected); NP PARAINFLUENZA 2 Not Detected (Not Detected); NP PARAINFLUENZA 3 Not Detected (Not Detected); NP PARAINFLUENZA 4 Not Detected (Not Detected); NP RESPIRATORY SYNCYTIAL VIRUS Detected (Not Detected)
[2023-12-16] MEDS: CLONAZEPAM 1 MG TABLET GT SCH (21:28)
[2023-12-17] MEDS: LEVALBUTEROL HCL 1.25 MG/0.5 ML NEB NEB SCH ×4 (00:07→23:30)
[2023-12-17] MEDS: IPRATROPIUM BROMIDE 0.5 MG/2.5 ML NEBU NEB SCH ×4 (00:07→23:30)
[2023-12-17] MEDS: METOCLOPRAMIDE HCL 10 MG TABLET GT SCH ×3 (00:20→17:48)
[2023-12-17 00:25] VITALS: BP 121/72; TEMP 98.9; O2SAT 98
[2023-12-17 04:50] VITALS: BP 129/75; TEMP 99.8; O2SAT 98
[2023-12-17] MEDS: VANCOMYCIN IV 750 MG in IV DEXTROSE 5% 250 ML IV SCH ×2 (05:05→17:49)
[2023-12-17] MEDS: ACETAMINOPHEN ES 500 MG TABLET GT SCH ×2 (06:49→21:25)
[2023-12-17] MEDS: PANTOPRAZOLE ORAL SUSPENSION 40 MG SUSPDR.PKT GT SCH (06:49)
[2023-12-17 07:50] LABS: BASOPHILS % (AUTO) 0.5 % (0.0-2.0); EOSINOPHILS # (AUTO) 0.2 K/uL (0.0-0.7); EOSINOPHILS % (AUTO) 5.3 % (0.0-7.0); HEMOGLOBIN 8.2 g/dL (10.9-14.3); LYMPHOCYTES # (AUTO) 0.5 K/uL (0.8-4.8); LYMPHOCYTES % (AUTO) 11.9 % (20.5-51.5); MEAN CORPUSCULAR HEMOGLOBIN 30.3 uug (24.7-32.8); MEAN CORPUSCULAR HGB CONC 33 g/dL (32.3-35.6); MEAN CORPUSCULAR VOLUME 92.4 fL (75.5-95.3); MONOCYTES # (AUTO) 0.4 K/uL (0.1-1.30); MONOCYTES % (AUTO) 10.7 % (0.0-11.0); NEUTROPHILS # (AUTO) 2.8 K/uL (1.8-8.9); NEUTROPHILS % (AUTO) 71.6 % (38.5-71.5); PLATELET COUNT (AUTO) 225 K/uL (179-408); RED CELL DISTRIBUTION WIDTH 19.1 % (12.3-17.7); WHITE BLOOD COUNT (AUTO) 3.9 K/uL (3.8-11.8)
[2023-12-17 08:19] LABS: DIFFERENTIAL COMMENT 1
[2023-12-17] MEDS: CARBIDOPA/LEVODOPA 25-250MG TABLET GT SCH ×4 (08:22→21:03)
[2023-12-17] MEDS: ZINC SULFATE 220 MG CAPSULE GT SCH (08:22)
[2023-12-17] MEDS: ACETAzolamide 250 MG TABLET GT SCH (08:23)
[2023-12-17] MEDS: LACTULOSE 20 G/30 ML LIQUID UDC GT SCH (08:23)
[2023-12-17] MEDS: BACLOFEN 10 MG TABLET GT SCH ×3 (08:23→21:25)
[2023-12-17] MEDS: ASCORBIC ACID 500 MG TABLET GT SCH (08:23)
[2023-12-17] MEDS: PRAMIPEXOLE 0.25 MG TABLET GT SCH ×2 (08:23→17:48)
[2023-12-17] MEDS: APIXABAN 2.5 MG TABLET GT SCH ×2 (08:25→21:05)
[2023-12-17] MEDS: MEDIHONEY= THERAHONEY 1.5 OZ TUBE TOP SCH (08:25)
[2023-12-17] MEDS: ARGININE/GLUTAMINE/CALCIUM BMB 1 EACH POWD.PACK GT SCH ×2 (08:25→17:49)
[2023-12-17 09:01] LABS: CALCIUM 8.8 mg/dL (8.5-10.1); CARBON DIOXIDE 35 mmol/L (21-32); CHLORIDE 103 mmol/L (98-107); CREATININE 0.3 mg/dL (0.6-1.3); GLUCOSE 137 mg/dL (74-106); MAGNESIUM 2.2 mg/dL (1.8-2.4); PHOSPHOROUS 2.2 mg/dL (2.5-4.9); POTASSIUM 3.3 mmol/L (3.5-5.1); SODIUM SERUM 143 mmol/L (136-145); UREA NITROGEN, BLOOD 21 mg/dL (7-18)
[2023-12-17] MEDS ORDERED: POTASSIUM PHOSPHATE MM 7.5 MMOL in IV NORMAL SALINE 97.5 ML IV ONE (10:30)
[2023-12-17 10:49] LABS: ABG BASE EXCESS 8.8 mmol/L (-2.0-2.0); ABG HCO3 36.7 mmol/L (22.0-26.0); ABG PCO2 71.9 mmHg (35.0-48.0); ABG PH 7.326 (7.340-7.440); ABG PO2 73.5 mmHg (75.0-100.0); ABG SITE RIGHT RADIAL; ABG TOTAL HEMOGLOBIN 10.4 G/dL (12.0-16.0); AaDO2 93.1 mmHg; COHb 0.4 % (0.0-3.9); MetHb 0.2 % (0.0-1.5); O2Hb 92.2 % (94.0-97.0)
[2023-12-17] MEDS: FERROUS SULFATE 300 MG/5 ML LIQUID UDC GT SCH ×2 (10:56→21:25)
[2023-12-17] MEDS: PROTEIN SUPPLEMENT (PROSTAT) 30 ML LIQUID PO SCH (10:57)
[2023-12-17 11:37] VITALS: BP 121/27; TEMP 100.4; O2SAT 93
[2023-12-17 11:45] VITALS: BP 121/72; TEMP 100.4
[2023-12-17] MEDS: MULTIVITAMINS,THERAPEUTIC TABLET GT SCH (12:57)
[2023-12-17 15:23] VITALS: BP 123/69; TEMP 100.1
[2023-12-17 16:25] LABS: ABG BASE EXCESS 10.8 mmol/L (-2.0-2.0); ABG HCO3 37.6 mmol/L (22.0-26.0); ABG PCO2 64.4 mmHg (35.0-48.0); ABG PH 7.384 (7.340-7.440); ABG PO2 79.8 mmHg (75.0-100.0); ABG SITE RIGHT RADIAL; ABG TOTAL HEMOGLOBIN 9.7 G/dL (12.0-16.0); AaDO2 95.2 mmHg; COHb 0.7 % (0.0-3.9); MetHb 0.1 % (0.0-1.5); O2Hb 94.3 % (94.0-97.0)
[2023-12-17 19:45] VITALS: BP 112/77; TEMP 98.3; O2SAT 96
[2023-12-17] MEDS: CLONAZEPAM 1 MG TABLET GT SCH (21:25)
[2023-12-18 00:05] VITALS: BP 110/67; TEMP 100; O2SAT 99
[2023-12-18] MEDS: ACETAMINOPHEN 650 MG/20.3 ML LIQUID UDC GT PRN ×2 (00:17→16:07)
[2023-12-18] MEDS: METOCLOPRAMIDE HCL 10 MG TABLET GT SCH ×3 (00:17→16:07)
[2023-12-18 04:20] VITALS: BP 108/73; TEMP 98.2; O2SAT 99
[2023-12-18] MEDS: VANCOMYCIN IV 750 MG in IV DEXTROSE 5% 250 ML IV SCH ×2 (05:07→16:20)
[2023-12-18] MEDS: PANTOPRAZOLE ORAL SUSPENSION 40 MG SUSPDR.PKT GT SCH (06:18)
[2023-12-18] MEDS: ACETAMINOPHEN ES 500 MG TABLET GT SCH ×2 (06:18→22:08)
[2023-12-18] MEDS: IPRATROPIUM BROMIDE 0.5 MG/2.5 ML NEBU NEB SCH ×3 (07:20→23:22)
[2023-12-18] MEDS: LEVALBUTEROL HCL 1.25 MG/0.5 ML NEB NEB SCH ×3 (07:20→23:23)
[2023-12-18 07:55] LABS: BASOPHILS % (AUTO) 0.5 % (0.0-2.0); EOSINOPHILS # (AUTO) 0.2 K/uL (0.0-0.7); EOSINOPHILS % (AUTO) 5.3 % (0.0-7.0); HEMATOCRIT 26.4 % (31.2-41.9); HEMOGLOBIN 8.6 g/dL (10.9-14.3); LYMPHOCYTES # (AUTO) 0.5 K/uL (0.8-4.8); MEAN CORPUSCULAR HGB CONC 33 g/dL (32.3-35.6); MEAN CORPUSCULAR VOLUME 92.1 fL (75.5-95.3); MONOCYTES # (AUTO) 0.4 K/uL (0.1-1.30); MONOCYTES % (AUTO) 9.1 % (0.0-11.0); NEUTROPHILS % (AUTO) 72.1 % (38.5-71.5); PLATELET COUNT (AUTO) 242 K/uL (179-408); RED BLOOD CELL COUNT(AUTO) 2.87 MIL/uL (3.63-4.92); RED CELL DISTRIBUTION WIDTH 18.8 % (12.3-17.7); WHITE BLOOD COUNT (AUTO) 4.2 K/uL (3.8-11.8)
[2023-12-18 07:59] LABS: DIFFERENTIAL COMMENT 1
[2023-12-18 08:00] VITALS: BP 113/63; TEMP 100.3; O2SAT 100
[2023-12-18 08:55] LABS: ALANINE AMINOTRANSFERASE 39 U/L (14-59); ALBUMIN 2.1 g/dL (3.4-5.0); ALKALINE PHOSPHATASE 86 U/L (50-136); ASPARTATE AMINOTRANSFERASE 23 U/L (15-37); CALCIUM 8.8 mg/dL (8.5-10.1); CARBON DIOXIDE 36 mmol/L (21-32); CHLORIDE 102 mmol/L (98-107); CREATININE 0.3 mg/dL (0.6-1.3); GLUCOSE 124 mg/dL (74-106); MAGNESIUM 2.2 mg/dL (1.8-2.4); NT-PRO BNP 177 pg/mL (0-125); PHOSPHOROUS 2.2 mg/dL (2.5-4.9); POTASSIUM 3.4 mmol/L (3.5-5.1); SODIUM SERUM 141 mmol/L (136-145); TOTAL PROTEIN, SERUM 6.4 g/dL (6.4-8.2); UREA NITROGEN, BLOOD 25 mg/dL (7-18)
[2023-12-18] MEDS ORDERED: FUROSEMIDE 20 MG/2 ML VIAL IV ONE (09:00)
[2023-12-18] MEDS: LACTULOSE 20 G/30 ML LIQUID UDC GT SCH (09:26)
[2023-12-18] MEDS: CARBIDOPA/LEVODOPA 25-250MG TABLET GT SCH ×4 (09:27→20:11)
[2023-12-18] MEDS: ASCORBIC ACID 500 MG TABLET GT SCH (09:27)
[2023-12-18] MEDS: PRAMIPEXOLE 0.25 MG TABLET GT SCH ×2 (09:27→16:20)
[2023-12-18] MEDS: BACLOFEN 10 MG TABLET GT SCH ×3 (09:27→22:08)
[2023-12-18] MEDS: ZINC SULFATE 220 MG CAPSULE GT SCH (09:27)
[2023-12-18] MEDS: ACETAzolamide 250 MG TABLET GT SCH (09:28)
[2023-12-18] MEDS: APIXABAN 2.5 MG TABLET GT SCH ×2 (09:28→20:00)
[2023-12-18] MEDS: ARGININE/GLUTAMINE/CALCIUM BMB 1 EACH POWD.PACK GT SCH ×2 (09:29→16:23)
[2023-12-18] MEDS: MEDIHONEY= THERAHONEY 1.5 OZ TUBE TOP SCH (09:29)
[2023-12-18] MEDS ORDERED: POTASSIUM PHOSPHATE MM 15 MMOL in IV NORMAL SALINE 250 ML IV ONE (10:00)
[2023-12-18] MEDS: PROTEIN SUPPLEMENT (PROSTAT) 30 ML LIQUID PO SCH (11:07)
[2023-12-18] MEDS: FERROUS SULFATE 300 MG/5 ML LIQUID UDC GT SCH ×2 (11:07→22:08)
[2023-12-18 11:43] VITALS: BP 108/71; TEMP 100.4; O2SAT 99
[2023-12-18] MEDS: MULTIVITAMINS,THERAPEUTIC TABLET GT SCH (14:16)
[2023-12-18] MEDS ORDERED: NEUTRA PHOS PACKET PO ONE (16:15)
[2023-12-18 16:57] VITALS: BP 143/91; TEMP 102.8; O2SAT 99
[2023-12-18] MEDS: NUTREN 2.0 1,000 ML LIQUID GT PRN (19:00)
[2023-12-18 19:55] VITALS: BP 107/66; TEMP 97.7; O2SAT 99
[2023-12-18] MEDS: CLONAZEPAM 1 MG TABLET GT SCH (22:08)
[2023-12-18] MEDS: PIPERACILLIN SODIUM/TAZOBACTAM 3.375 G in IV DEXTROSE 5% 50 ML IV SCH (23:00)
[2023-12-19 00:02] VITALS: BP 112/59; TEMP 98; O2SAT 98
[2023-12-19] MEDS: METOCLOPRAMIDE HCL 10 MG TABLET GT SCH ×3 (00:02→15:16)
[2023-12-19] MEDS ORDERED: PIPERACILLIN SODIUM/TAZO 3.375 GM VIAL ONE (00:55)
[2023-12-19] MEDS ORDERED: PIPERACILLIN/TAZOBACTAM/D5W 50 ML IV ONE (00:55)
[2023-12-19 04:10] VITALS: BP 122/77; TEMP 98.1; O2SAT 98
[2023-12-19] MEDS: VANCOMYCIN IV 750 MG in IV DEXTROSE 5% 250 ML IV SCH ×2 (05:11→17:21)
[2023-12-19] MEDS: PIPERACILLIN SODIUM/TAZOBACTAM 3.375 G in IV DEXTROSE 5% 50 ML IV SCH ×3 (06:12→22:37)
[2023-12-19] MEDS: PANTOPRAZOLE ORAL SUSPENSION 40 MG SUSPDR.PKT GT SCH (06:13)
[2023-12-19] MEDS: ACETAMINOPHEN ES 500 MG TABLET GT SCH ×2 (06:14→22:33)
[2023-12-19] MEDS: LEVALBUTEROL HCL 1.25 MG/0.5 ML NEB NEB SCH ×3 (07:28→22:44)
[2023-12-19] MEDS: IPRATROPIUM BROMIDE 0.5 MG/2.5 ML NEBU NEB SCH ×3 (07:28→22:44)
[2023-12-19 07:50] VITALS: BP 116/70; TEMP 99.2; O2SAT 98
[2023-12-19] MEDS: ZINC SULFATE 220 MG CAPSULE GT SCH (09:35)
[2023-12-19] MEDS: PRAMIPEXOLE 0.25 MG TABLET GT SCH ×2 (09:35→17:20)
[2023-12-19] MEDS: LACTULOSE 20 G/30 ML LIQUID UDC GT SCH (09:36)
[2023-12-19] MEDS: ACETAzolamide 250 MG TABLET GT SCH (09:36)
[2023-12-19] MEDS: ASCORBIC ACID 500 MG TABLET GT SCH (09:36)
[2023-12-19] MEDS: BACLOFEN 10 MG TABLET GT SCH ×3 (09:36→22:33)
[2023-12-19] MEDS: APIXABAN 2.5 MG TABLET GT SCH ×2 (09:40→21:43)
[2023-12-19] MEDS: CARBIDOPA/LEVODOPA 25-250MG TABLET GT SCH ×4 (09:40→21:43)
[2023-12-19] MEDS: ARGININE/GLUTAMINE/CALCIUM BMB 1 EACH POWD.PACK GT SCH ×2 (09:48→17:20)
[2023-12-19] MEDS: MEDIHONEY= THERAHONEY 1.5 OZ TUBE TOP SCH (09:49)
[2023-12-19] MEDS: FERROUS SULFATE 300 MG/5 ML LIQUID UDC GT SCH ×2 (10:45→21:43)
[2023-12-19] MEDS: PROTEIN SUPPLEMENT (PROSTAT) 30 ML LIQUID PO SCH (10:46)
[2023-12-19 12:09] VITALS: BP 118/64; TEMP 99.6; O2SAT 90
[2023-12-19] MEDS: MULTIVITAMINS,THERAPEUTIC TABLET GT SCH (13:21)
[2023-12-19] MEDS: ACETAMINOPHEN 650 MG/20.3 ML LIQUID UDC GT PRN (15:16)
[2023-12-19 15:27] VITALS: BP 117/75; TEMP 101.4; O2SAT 99
[2023-12-19] MEDS: NUTREN 2.0 1,000 ML LIQUID GT PRN (18:07)
[2023-12-19 20:00] VITALS: BP 118/81; TEMP 98.4; O2SAT 99
[2023-12-19] MEDS ORDERED: SWABABLE VALVE TRANSFER SET EA MC ONE (20:04)
[2023-12-19] MEDS ORDERED: IOHEXOL 300MG/ML 100 ML INFUS..BTL ONE (20:04)
[2023-12-19] MEDS ORDERED: IV NORMAL SALINE 250 ML IV ONE (20:05)
[2023-12-19] MEDS: CLONAZEPAM 1 MG TABLET GT SCH (22:33)
[2023-12-20] VITALS: BP 115/74; TEMP 99.8; O2SAT 100
[2023-12-20] MEDS: METOCLOPRAMIDE HCL 10 MG TABLET GT SCH ×3 (00:39→16:43)
[2023-12-20 04:00] VITALS: BP 137/77; TEMP 99.3; O2SAT 99
[2023-12-20 05:10] LABS: ABG HCO3 32.4 mmol/L (22.0-26.0); ABG PCO2 51.4 mmHg (35.0-48.0); ABG PH 7.418 (7.340-7.440); ABG PO2 92.2 mmHg (75.0-100.0); ABG SITE RIGHT RADIAL; ABG TOTAL HEMOGLOBIN 9.3 G/dL (12.0-16.0); AaDO2 97.1 mmHg; COHb 0.5 % (0.0-3.9); MetHb 0.2 % (0.0-1.5)
[2023-12-20] MEDS: PIPERACILLIN SODIUM/TAZOBACTAM 3.375 G in IV DEXTROSE 5% 50 ML IV SCH ×3 (05:26→21:05)
[2023-12-20] MEDS: VANCOMYCIN IV 750 MG in IV DEXTROSE 5% 250 ML IV SCH ×2 (05:27→17:10)
[2023-12-20] MEDS: ACETAMINOPHEN ES 500 MG TABLET GT SCH ×2 (06:30→21:02)
[2023-12-20] MEDS: PANTOPRAZOLE ORAL SUSPENSION 40 MG SUSPDR.PKT GT SCH (06:30)
[2023-12-20 07:29] LABS: BASOPHILS % (AUTO) 0.5 % (0.0-2.0); EOSINOPHILS # (AUTO) 0.3 K/uL (0.0-0.7); HEMATOCRIT 25.9 % (31.2-41.9); HEMOGLOBIN 8.4 g/dL (10.9-14.3); LYMPHOCYTES # (AUTO) 0.5 K/uL (0.8-4.8); LYMPHOCYTES % (AUTO) 11.1 % (20.5-51.5); MEAN CORPUSCULAR HEMOGLOBIN 30.3 uug (24.7-32.8); MEAN CORPUSCULAR HGB CONC 33 g/dL (32.3-35.6); MONOCYTES # (AUTO) 0.3 K/uL (0.1-1.30); MONOCYTES % (AUTO) 6.8 % (0.0-11.0); NEUTROPHILS # (AUTO) 3.2 K/uL (1.8-8.9); NEUTROPHILS % (AUTO) 74.6 % (38.5-71.5); PLATELET COUNT (AUTO) 222 K/uL (179-408); RED BLOOD CELL COUNT(AUTO) 2.79 MIL/uL (3.63-4.92); RED CELL DISTRIBUTION WIDTH 18.2 % (12.3-17.7); WHITE BLOOD COUNT (AUTO) 4.3 K/uL (3.8-11.8)
[2023-12-20] MEDS: LEVALBUTEROL HCL 1.25 MG/0.5 ML NEB NEB SCH ×2 (07:35→15:30)
[2023-12-20] MEDS: IPRATROPIUM BROMIDE 0.5 MG/2.5 ML NEBU NEB SCH ×2 (07:35→15:30)
[2023-12-20 07:54] LABS: CALCIUM 8.9 mg/dL (8.5-10.1); CARBON DIOXIDE 32 mmol/L (21-32); CHLORIDE 103 mmol/L (98-107); CREATININE 0.4 mg/dL (0.6-1.3); DIFFERENTIAL COMMENT 1; GLUCOSE 181 mg/dL (74-106); PHOSPHOROUS 3.2 mg/dL (2.5-4.9); POTASSIUM 3.3 mmol/L (3.5-5.1); SODIUM SERUM 141 mmol/L (136-145); UREA NITROGEN, BLOOD 28 mg/dL (7-18)
[2023-12-20 08:18] LABS: ABG BASE EXCESS 9.3 mmol/L (-2.0-2.0); ABG HCO3 35.7 mmol/L (22.0-26.0); ABG PCO2 59.3 mmHg (35.0-48.0); ABG PH 7.397 (7.340-7.440); ABG PO2 94.7 mmHg (75.0-100.0); ABG SITE RIGHT RADIAL; ABG TOTAL HEMOGLOBIN 10.1 G/dL (12.0-16.0); COHb 0.1 % (0.0-3.9); MetHb 0.1 % (0.0-1.5); O2Hb 96.5 % (94.0-97.0)
[2023-12-20] MEDS: CARBIDOPA/LEVODOPA 25-250MG TABLET GT SCH ×4 (08:53→19:57)
[2023-12-20] MEDS: BACLOFEN 10 MG TABLET GT SCH ×3 (08:53→21:02)
[2023-12-20] MEDS: ZINC SULFATE 220 MG CAPSULE GT SCH (08:53)
[2023-12-20] MEDS: ASCORBIC ACID 500 MG TABLET GT SCH (08:53)
[2023-12-20] MEDS: APIXABAN 2.5 MG TABLET GT SCH ×2 (08:54→19:58)
[2023-12-20] MEDS: LACTULOSE 20 G/30 ML LIQUID UDC GT SCH (08:55)
[2023-12-20] MEDS: PRAMIPEXOLE 0.25 MG TABLET GT SCH ×2 (08:55→16:43)
[2023-12-20] MEDS: MEDIHONEY= THERAHONEY 1.5 OZ TUBE TOP SCH (08:56)
[2023-12-20] MEDS: ARGININE/GLUTAMINE/CALCIUM BMB 1 EACH POWD.PACK GT SCH ×2 (09:37→16:43)
[2023-12-20] MEDS: ACETAzolamide 250 MG TABLET GT SCH (09:37)
[2023-12-20] MEDS: SODIUM HYPOCHLORITE 0.25% (HALF STRENGTH) 480 ML BOTTLE TOP SCH (09:38)
[2023-12-20] MEDS ORDERED: POTASSIUM CHLORIDE 20 MEQ POWDER PACKET GT ONE (11:45)
[2023-12-20] MEDS: PROTEIN SUPPLEMENT (PROSTAT) 30 ML LIQUID PO SCH (11:57)
[2023-12-20] MEDS: FERROUS SULFATE 300 MG/5 ML LIQUID UDC GT SCH ×2 (12:01→21:02)
[2023-12-20] MEDS: MULTIVITAMINS,THERAPEUTIC TABLET GT SCH (12:01)
[2023-12-20 15:10] VITALS: O2SAT 94
[2023-12-20 15:20] VITALS: O2SAT 99
[2023-12-20 15:51] VITALS: BP 118/66; TEMP 99.6; O2SAT 100
[2023-12-20 20:00] VITALS: BP 109/73; TEMP 99.1; O2SAT 97
[2023-12-20] MEDS: NUTREN 2.0 1,000 ML LIQUID GT PRN (20:05)
[2023-12-20] MEDS: CLONAZEPAM 1 MG TABLET GT SCH (21:02)
[2023-12-21] VITALS (9 sets, daily range): BP systolic 102–119; BP diastolic 63–73; TEMP 98.2–99.3; O2SAT 95–100
[2023-12-21] MEDS: IPRATROPIUM BROMIDE 0.5 MG/2.5 ML NEBU NEB SCH ×4 (00:08→23:37)
[2023-12-21] MEDS: LEVALBUTEROL HCL 1.25 MG/0.5 ML NEB NEB SCH ×4 (00:08→23:37)
[2023-12-21] MEDS: METOCLOPRAMIDE HCL 10 MG TABLET GT SCH ×4 (00:15→15:40)
[2023-12-21] MEDS: VANCOMYCIN IV 750 MG in IV DEXTROSE 5% 250 ML IV SCH (04:13)
[2023-12-21] MEDS: ACETAMINOPHEN 650 MG/20.3 ML LIQUID UDC GT PRN (05:06)
[2023-12-21] MEDS: PIPERACILLIN SODIUM/TAZOBACTAM 3.375 G in IV DEXTROSE 5% 50 ML IV SCH ×3 (05:17→21:34)
[2023-12-21] MEDS: PANTOPRAZOLE ORAL SUSPENSION 40 MG SUSPDR.PKT GT SCH (06:11)
[2023-12-21] MEDS: ACETAMINOPHEN ES 500 MG TABLET GT SCH ×2 (06:12→21:19)
[2023-12-21] MEDS: CARBIDOPA/LEVODOPA 25-250MG TABLET GT SCH ×4 (08:27→20:31)
[2023-12-21] MEDS: APIXABAN 2.5 MG TABLET GT SCH ×2 (08:27→20:32)
[2023-12-21] MEDS: LACTULOSE 20 G/30 ML LIQUID UDC GT SCH (08:28)
[2023-12-21] MEDS: PRAMIPEXOLE 0.25 MG TABLET GT SCH ×2 (08:44→16:26)
[2023-12-21] MEDS: BACLOFEN 10 MG TABLET GT SCH ×3 (08:44→21:19)
[2023-12-21] MEDS: ASCORBIC ACID 500 MG TABLET GT SCH (08:44)
[2023-12-21] MEDS: SODIUM HYPOCHLORITE 0.25% (HALF STRENGTH) 480 ML BOTTLE TOP SCH (08:45)
[2023-12-21] MEDS: ZINC SULFATE 220 MG CAPSULE GT SCH (08:45)
[2023-12-21] MEDS: MEDIHONEY= THERAHONEY 1.5 OZ TUBE TOP SCH (08:45)
[2023-12-21] MEDS: ACETAzolamide 250 MG TABLET GT SCH (08:46)
[2023-12-21] MEDS: ARGININE/GLUTAMINE/CALCIUM BMB 1 EACH POWD.PACK GT SCH ×2 (08:46→16:26)
[2023-12-21] MEDS: FERROUS SULFATE 300 MG/5 ML LIQUID UDC GT SCH ×2 (11:51→21:19)
[2023-12-21] MEDS: PROTEIN SUPPLEMENT (PROSTAT) 30 ML LIQUID PO SCH (11:52)
[2023-12-21] MEDS: MULTIVITAMINS,THERAPEUTIC TABLET GT SCH (12:49)
[2023-12-21] MEDS: CLONAZEPAM 1 MG TABLET GT SCH (21:19)
[2023-12-22] VITALS (8 sets, daily range): BP systolic 98–119; BP diastolic 57–79; TEMP 98.3–99.7; O2SAT 92–100
[2023-12-22] MEDS: PIPERACILLIN SODIUM/TAZOBACTAM 3.375 G in IV DEXTROSE 5% 50 ML IV SCH (06:33)
[2023-12-22] MEDS: LEVALBUTEROL HCL 1.25 MG/0.5 ML NEB NEB SCH ×3 (07:29→23:17)
[2023-12-22] MEDS: IPRATROPIUM BROMIDE 0.5 MG/2.5 ML NEBU NEB SCH ×3 (07:29→23:17)
[2023-12-22 07:42] LABS: BASOPHILS % (AUTO) 0.6 % (0.0-2.0); EOSINOPHILS # (AUTO) 0.4 K/uL (0.0-0.7); EOSINOPHILS % (AUTO) 8.2 % (0.0-7.0); HEMATOCRIT 25.9 % (31.2-41.9); HEMOGLOBIN 8.5 g/dL (10.9-14.3); LYMPHOCYTES # (AUTO) 0.5 K/uL (0.8-4.8); LYMPHOCYTES % (AUTO) 10.6 % (20.5-51.5); MEAN CORPUSCULAR HEMOGLOBIN 29.9 uug (24.7-32.8); MEAN CORPUSCULAR HGB CONC 33 g/dL (32.3-35.6); MEAN CORPUSCULAR VOLUME 91.1 fL (75.5-95.3); MONOCYTES # (AUTO) 0.4 K/uL (0.1-1.30); NEUTROPHILS # (AUTO) 3.3 K/uL (1.8-8.9); NEUTROPHILS % (AUTO) 72.6 % (38.5-71.5); PLATELET COUNT (AUTO) 206 K/uL (179-408); RED BLOOD CELL COUNT(AUTO) 2.85 MIL/uL (3.63-4.92); RED CELL DISTRIBUTION WIDTH 17.8 % (12.3-17.7); WHITE BLOOD COUNT (AUTO) 4.5 K/uL (3.8-11.8)
[2023-12-22 07:52] LABS: CALCIUM 8.9 mg/dL (8.5-10.1); CARBON DIOXIDE 34 mmol/L (21-32); CHLORIDE 102 mmol/L (98-107); CREATININE 0.3 mg/dL (0.6-1.3); GLUCOSE 110 mg/dL (74-106); MAGNESIUM 2.2 mg/dL (1.8-2.4); PHOSPHOROUS 3.8 mg/dL (2.5-4.9); POTASSIUM 3.4 mmol/L (3.5-5.1); SODIUM SERUM 142 mmol/L (136-145); UREA NITROGEN, BLOOD 18 mg/dL (7-18)
[2023-12-22 08:26] LABS: DIFFERENTIAL COMMENT 1
[2023-12-22] MEDS: LACTULOSE 20 G/30 ML LIQUID UDC GT SCH (08:58)
[2023-12-22] MEDS: PANTOPRAZOLE ORAL SUSPENSION 40 MG SUSPDR.PKT GT SCH (08:58)
[2023-12-22] MEDS: ASCORBIC ACID 500 MG TABLET GT SCH (08:59)
[2023-12-22] MEDS: BACLOFEN 10 MG TABLET GT SCH ×3 (08:59→21:49)
[2023-12-22] MEDS: ZINC SULFATE 220 MG CAPSULE GT SCH (08:59)
[2023-12-22] MEDS: ACETAMINOPHEN ES 500 MG TABLET GT SCH ×2 (08:59→21:49)
[2023-12-22] MEDS: METOCLOPRAMIDE HCL 10 MG TABLET GT SCH ×3 (08:59→23:58)
[2023-12-22] MEDS: CARBIDOPA/LEVODOPA 25-250MG TABLET GT SCH ×4 (09:01→19:57)
[2023-12-22] MEDS: APIXABAN 2.5 MG TABLET GT SCH ×2 (09:01→19:59)
[2023-12-22] MEDS: PRAMIPEXOLE 0.25 MG TABLET GT SCH ×2 (09:01→17:29)
[2023-12-22] MEDS: ARGININE/GLUTAMINE/CALCIUM BMB 1 EACH POWD.PACK GT SCH ×2 (09:04→17:28)
[2023-12-22] MEDS: ACETAzolamide 250 MG TABLET GT SCH (09:04)
[2023-12-22] MEDS: MEDIHONEY= THERAHONEY 1.5 OZ TUBE TOP SCH (09:04)
[2023-12-22] MEDS: SODIUM HYPOCHLORITE 0.25% (HALF STRENGTH) 480 ML BOTTLE TOP SCH (09:04)
[2023-12-22 09:13] LABS: ABG BASE EXCESS 5.1 mmol/L (-2.0-2.0); ABG HCO3 30.3 mmol/L (22.0-26.0); ABG PCO2 47.6 mmHg (35.0-48.0); ABG PH 7.421 (7.340-7.440); ABG PO2 75.7 mmHg (75.0-100.0); ABG SITE RIGHT RADIAL; ABG TOTAL HEMOGLOBIN 9.8 G/dL (12.0-16.0); AaDO2 95.3 mmHg; COHb 0.1 % (0.0-3.9); MetHb 0.2 % (0.0-1.5); O2Hb 93.9 % (94.0-97.0)
[2023-12-22] MEDS ORDERED: POTASSIUM CHLORIDE 20 MEQ POWDER PACKET GT ONE ×2 (09:30→14:00)
[2023-12-22] MEDS: FERROUS SULFATE 300 MG/5 ML LIQUID UDC GT SCH ×2 (11:00→21:49)
[2023-12-22] MEDS: PROTEIN SUPPLEMENT (PROSTAT) 30 ML LIQUID PO SCH (11:38)
[2023-12-22] MEDS: MULTIVITAMINS,THERAPEUTIC TABLET GT SCH (13:31)
[2023-12-22] MEDS: PIPERACILLIN SODIUM/TAZOBACTAM 3.375 G in IV DEXTROSE 5% 100 ML IV SCH ×2 (13:31→21:48)
[2023-12-22] MEDS: CLONAZEPAM 1 MG TABLET GT SCH (21:49)
[2023-12-23] VITALS (12 sets, daily range): BP systolic 101–140; BP diastolic 59–82; TEMP 97.4–99.5; O2SAT 96–100
[2023-12-23] MEDS: PIPERACILLIN SODIUM/TAZOBACTAM 3.375 G in IV DEXTROSE 5% 100 ML IV SCH ×3 (05:49→21:58)
[2023-12-23] MEDS: ACETAMINOPHEN ES 500 MG TABLET GT SCH ×2 (06:21→21:58)
[2023-12-23] MEDS: PANTOPRAZOLE ORAL SUSPENSION 40 MG SUSPDR.PKT GT SCH (06:21)
[2023-12-23 08:24] LABS: CALCIUM 8.9 mg/dL (8.5-10.1); CARBON DIOXIDE 30 mmol/L (21-32); CHLORIDE 105 mmol/L (98-107); CREATININE 0.4 mg/dL (0.6-1.3); GLUCOSE 136 mg/dL (74-106); MAGNESIUM 2.1 mg/dL (1.8-2.4); PHOSPHOROUS 3.9 mg/dL (2.5-4.9); POTASSIUM 3.4 mmol/L (3.5-5.1); SODIUM SERUM 141 mmol/L (136-145); UREA NITROGEN, BLOOD 24 mg/dL (7-18)
[2023-12-23] MEDS: ZINC SULFATE 220 MG CAPSULE GT SCH (08:31)
[2023-12-23] MEDS: LACTULOSE 20 G/30 ML LIQUID UDC GT SCH (08:31)
[2023-12-23] MEDS: METOCLOPRAMIDE HCL 10 MG TABLET GT SCH ×3 (08:31→23:44)
[2023-12-23] MEDS: BACLOFEN 10 MG TABLET GT SCH ×3 (08:31→21:58)
[2023-12-23 08:36] LABS: BASOPHILS % (AUTO) 0.6 % (0.0-2.0); DIFFERENTIAL COMMENT 1; EOSINOPHILS # (AUTO) 0.4 K/uL (0.0-0.7); EOSINOPHILS % (AUTO) 8.7 % (0.0-7.0); HEMATOCRIT 26.8 % (31.2-41.9); HEMOGLOBIN 8.7 g/dL (10.9-14.3); LYMPHOCYTES # (AUTO) 0.5 K/uL (0.8-4.8); LYMPHOCYTES % (AUTO) 11.1 % (20.5-51.5); MEAN CORPUSCULAR HEMOGLOBIN 30.3 uug (24.7-32.8); MEAN CORPUSCULAR HGB CONC 32 g/dL (32.3-35.6); MEAN CORPUSCULAR VOLUME 93.4 fL (75.5-95.3); MONOCYTES # (AUTO) 0.4 K/uL (0.1-1.30); MONOCYTES % (AUTO) 7.9 % (0.0-11.0); NEUTROPHILS # (AUTO) 3.4 K/uL (1.8-8.9); NEUTROPHILS % (AUTO) 71.7 % (38.5-71.5); PLATELET COUNT (AUTO) 214 K/uL (179-408); RED BLOOD CELL COUNT(AUTO) 2.87 MIL/uL (3.63-4.92); RED CELL DISTRIBUTION WIDTH 18.2 % (12.3-17.7); WHITE BLOOD COUNT (AUTO) 4.7 K/uL (3.8-11.8)
[2023-12-23] MEDS: APIXABAN 2.5 MG TABLET GT SCH ×2 (08:37→20:13)
[2023-12-23] MEDS: ACETAzolamide 250 MG TABLET GT SCH (08:37)
[2023-12-23] MEDS: CARBIDOPA/LEVODOPA 25-250MG TABLET GT SCH ×4 (08:41→20:11)
[2023-12-23] MEDS: ASCORBIC ACID 500 MG TABLET GT SCH (08:41)
[2023-12-23] MEDS: ARGININE/GLUTAMINE/CALCIUM BMB 1 EACH POWD.PACK GT SCH ×2 (08:42→16:17)
[2023-12-23] MEDS: PRAMIPEXOLE 0.25 MG TABLET GT SCH ×2 (08:46→16:20)
[2023-12-23] MEDS: IPRATROPIUM BROMIDE 0.5 MG/2.5 ML NEBU NEB SCH ×3 (08:58→23:35)
[2023-12-23] MEDS: LEVALBUTEROL HCL 1.25 MG/0.5 ML NEB NEB SCH ×3 (08:58→23:35)
[2023-12-23] MEDS: SODIUM HYPOCHLORITE 0.25% (HALF STRENGTH) 480 ML BOTTLE TOP SCH (09:00)
[2023-12-23] MEDS: MEDIHONEY= THERAHONEY 1.5 OZ TUBE TOP SCH (09:00)
[2023-12-23] MEDS: POTASSIUM CHLORIDE 20 MEQ POWDER PACKET GT SCH (10:31)
[2023-12-23] MEDS: FERROUS SULFATE 300 MG/5 ML LIQUID UDC GT SCH ×2 (11:56→21:58)
[2023-12-23] MEDS: PROTEIN SUPPLEMENT (PROSTAT) 30 ML LIQUID PO SCH (11:56)
[2023-12-23] MEDS: MULTIVITAMINS,THERAPEUTIC TABLET GT SCH (13:12)
[2023-12-23] MEDS: CLONAZEPAM 1 MG TABLET GT SCH (21:57)
[2023-12-23] MEDS: NUTREN 2.0 1,000 ML LIQUID GT PRN (22:38)
[2023-12-24] VITALS (11 sets, daily range): BP systolic 106–122; BP diastolic 72–77; TEMP 98–99.8; O2SAT 97–100
[2023-12-24] MEDS: PIPERACILLIN SODIUM/TAZOBACTAM 3.375 G in IV DEXTROSE 5% 100 ML IV SCH ×3 (05:52→21:21)
[2023-12-24] MEDS: ACETAMINOPHEN ES 500 MG TABLET GT SCH ×2 (06:20→21:21)
[2023-12-24] MEDS: PANTOPRAZOLE ORAL SUSPENSION 40 MG SUSPDR.PKT GT SCH (06:20)
[2023-12-24] MEDS: LEVALBUTEROL HCL 1.25 MG/0.5 ML NEB NEB SCH ×3 (07:54→23:30)
[2023-12-24] MEDS: IPRATROPIUM BROMIDE 0.5 MG/2.5 ML NEBU NEB SCH ×3 (07:54→23:30)
[2023-12-24] MEDS: PRAMIPEXOLE 0.25 MG TABLET GT SCH ×2 (08:16→17:07)
[2023-12-24] MEDS: LACTULOSE 20 G/30 ML LIQUID UDC GT SCH (08:16)
[2023-12-24] MEDS: ASCORBIC ACID 500 MG TABLET GT SCH (08:16)
[2023-12-24] MEDS: POTASSIUM CHLORIDE 20 MEQ POWDER PACKET GT SCH (08:17)
[2023-12-24] MEDS: ZINC SULFATE 220 MG CAPSULE GT SCH (08:17)
[2023-12-24] MEDS: METOCLOPRAMIDE HCL 10 MG TABLET GT SCH ×2 (08:17→17:07)
[2023-12-24] MEDS: BACLOFEN 10 MG TABLET GT SCH ×3 (08:17→21:20)
[2023-12-24] MEDS: APIXABAN 2.5 MG TABLET GT SCH ×2 (08:17→20:00)
[2023-12-24] MEDS: CARBIDOPA/LEVODOPA 25-250MG TABLET GT SCH ×4 (08:17→19:57)
[2023-12-24] MEDS: ARGININE/GLUTAMINE/CALCIUM BMB 1 EACH POWD.PACK GT SCH ×2 (08:18→17:08)
[2023-12-24] MEDS: SODIUM HYPOCHLORITE 0.25% (HALF STRENGTH) 480 ML BOTTLE TOP SCH (08:18)
[2023-12-24] MEDS: MEDIHONEY= THERAHONEY 1.5 OZ TUBE TOP SCH (08:19)
[2023-12-24] MEDS: REMEDY ESSENTIAL ZINC PASTE 113 GM TP PRN (08:20)
[2023-12-24] MEDS: ACETAzolamide 250 MG TABLET GT SCH (08:21)
[2023-12-24] MEDS: PROTEIN SUPPLEMENT (PROSTAT) 30 ML LIQUID PO SCH (11:14)
[2023-12-24] MEDS: FERROUS SULFATE 300 MG/5 ML LIQUID UDC GT SCH ×2 (11:14→21:20)
[2023-12-24] MEDS: MULTIVITAMINS,THERAPEUTIC TABLET GT SCH (12:24)
[2023-12-24] MEDS: CLONAZEPAM 1 MG TABLET GT SCH (21:20)
[2023-12-25] VITALS (7 sets, daily range): BP systolic 102–129; BP diastolic 61–65; TEMP 97.6–98.3; O2SAT 98–100
[2023-12-25] MEDS: METOCLOPRAMIDE HCL 10 MG TABLET GT SCH ×3 (00:08→16:48)
[2023-12-25] MEDS: PIPERACILLIN SODIUM/TAZOBACTAM 3.375 G in IV DEXTROSE 5% 100 ML IV SCH ×3 (05:53→21:22)
[2023-12-25 06:28] LABS: CALCIUM 8.9 mg/dL (8.5-10.1); CARBON DIOXIDE 29 mmol/L (21-32); CHLORIDE 107 mmol/L (98-107); CREATININE 0.2 mg/dL (0.6-1.3); GLUCOSE 130 mg/dL (74-106); POTASSIUM 3.6 mmol/L (3.5-5.1); SODIUM SERUM 141 mmol/L (136-145); UREA NITROGEN, BLOOD 21 mg/dL (7-18)
[2023-12-25] MEDS: PANTOPRAZOLE ORAL SUSPENSION 40 MG SUSPDR.PKT GT SCH (06:29)
[2023-12-25] MEDS: ACETAMINOPHEN ES 500 MG TABLET GT SCH ×2 (06:30→21:22)
[2023-12-25 06:31] LABS: BASOPHILS % (AUTO) 0.5 % (0.0-2.0); EOSINOPHILS # (AUTO) 0.4 K/uL (0.0-0.7); EOSINOPHILS % (AUTO) 7.4 % (0.0-7.0); LYMPHOCYTES # (AUTO) 0.7 K/uL (0.8-4.8); MEAN CORPUSCULAR HGB CONC 32 g/dL (32.3-35.6); MEAN CORPUSCULAR VOLUME 93.5 fL (75.5-95.3); MONOCYTES # (AUTO) 0.3 K/uL (0.1-1.30); MONOCYTES % (AUTO) 6.7 % (0.0-11.0); NEUTROPHILS # (AUTO) 3.7 K/uL (1.8-8.9); NEUTROPHILS % (AUTO) 71.4 % (38.5-71.5); PLATELET COUNT (AUTO) 222 K/uL (179-408); RED BLOOD CELL COUNT(AUTO) 2.99 MIL/uL (3.63-4.92); RED CELL DISTRIBUTION WIDTH 17.8 % (12.3-17.7); WHITE BLOOD COUNT (AUTO) 5.2 K/uL (3.8-11.8)
[2023-12-25 06:41] LABS: DIFFERENTIAL COMMENT 1
[2023-12-25] MEDS: IPRATROPIUM BROMIDE 0.5 MG/2.5 ML NEBU NEB SCH ×3 (08:11→23:30)
[2023-12-25] MEDS: LEVALBUTEROL HCL 1.25 MG/0.5 ML NEB NEB SCH ×3 (08:11→23:30)
[2023-12-25] MEDS: ACETAzolamide 250 MG TABLET GT SCH (08:56)
[2023-12-25] MEDS: LACTULOSE 20 G/30 ML LIQUID UDC GT SCH (08:56)
[2023-12-25] MEDS: BACLOFEN 10 MG TABLET GT SCH ×3 (08:57→21:23)
[2023-12-25] MEDS: CARBIDOPA/LEVODOPA 25-250MG TABLET GT SCH ×4 (08:57→20:40)
[2023-12-25] MEDS: ASCORBIC ACID 500 MG TABLET GT SCH (08:57)
[2023-12-25] MEDS: PRAMIPEXOLE 0.25 MG TABLET GT SCH ×2 (08:57→16:48)
[2023-12-25] MEDS: ZINC SULFATE 220 MG CAPSULE GT SCH (08:57)
[2023-12-25] MEDS: APIXABAN 2.5 MG TABLET GT SCH ×2 (08:57→20:53)
[2023-12-25] MEDS: ARGININE/GLUTAMINE/CALCIUM BMB 1 EACH POWD.PACK GT SCH ×2 (08:58→16:49)
[2023-12-25] MEDS: MEDIHONEY= THERAHONEY 1.5 OZ TUBE TOP SCH (08:59)
[2023-12-25] MEDS: SODIUM HYPOCHLORITE 0.25% (HALF STRENGTH) 480 ML BOTTLE TOP SCH (08:59)
[2023-12-25] MEDS: PROTEIN SUPPLEMENT (PROSTAT) 30 ML LIQUID PO SCH (11:45)
[2023-12-25] MEDS: FERROUS SULFATE 300 MG/5 ML LIQUID UDC GT SCH ×2 (11:46→21:24)
[2023-12-25] MEDS: MULTIVITAMINS,THERAPEUTIC TABLET GT SCH (13:49)
[2023-12-25] MEDS: CLONAZEPAM 1 MG TABLET GT SCH (21:22)
[2023-12-26] MEDS: METOCLOPRAMIDE HCL 10 MG TABLET GT SCH ×2 (00:15→08:19)
[2023-12-26] MEDS: PIPERACILLIN SODIUM/TAZOBACTAM 3.375 G in IV DEXTROSE 5% 100 ML IV SCH ×2 (05:55→14:08)
[2023-12-26] MEDS: ACETAMINOPHEN ES 500 MG TABLET GT SCH (05:55)
[2023-12-26 06:00] VITALS: BP 114/71; TEMP 97.3; O2SAT 99
[2023-12-26] MEDS: PANTOPRAZOLE ORAL SUSPENSION 40 MG SUSPDR.PKT GT SCH (06:01)
[2023-12-26 07:13] LABS: BASOPHILS % (AUTO) 0.7 % (0.0-2.0); EOSINOPHILS # (AUTO) 0.4 K/uL (0.0-0.7); HEMATOCRIT 26.2 % (31.2-41.9); HEMOGLOBIN 8.5 g/dL (10.9-14.3); LYMPHOCYTES # (AUTO) 0.7 K/uL (0.8-4.8); LYMPHOCYTES % (AUTO) 13.4 % (20.5-51.5); MEAN CORPUSCULAR HEMOGLOBIN 30.3 uug (24.7-32.8); MEAN CORPUSCULAR HGB CONC 33 g/dL (32.3-35.6); MEAN CORPUSCULAR VOLUME 93.2 fL (75.5-95.3); MONOCYTES # (AUTO) 0.4 K/uL (0.1-1.30); MONOCYTES % (AUTO) 8.8 % (0.0-11.0); NEUTROPHILS # (AUTO) 3.4 K/uL (1.8-8.9); NEUTROPHILS % (AUTO) 69.1 % (38.5-71.5); PLATELET COUNT (AUTO) 189 K/uL (179-408); RED BLOOD CELL COUNT(AUTO) 2.81 MIL/uL (3.63-4.92); WHITE BLOOD COUNT (AUTO) 4.9 K/uL (3.8-11.8)
[2023-12-26 07:22] LABS: CALCIUM 8.5 mg/dL (8.5-10.1); CARBON DIOXIDE 29 mmol/L (21-32); CHLORIDE 106 mmol/L (98-107); CREATININE 0.3 mg/dL (0.6-1.3); GLUCOSE 132 mg/dL (74-106); POTASSIUM 3.5 mmol/L (3.5-5.1); SODIUM SERUM 140 mmol/L (136-145); UREA NITROGEN, BLOOD 17 mg/dL (7-18)
[2023-12-26 07:45] LABS: DIFFERENTIAL COMMENT 1
[2023-12-26] MEDS: LACTULOSE 20 G/30 ML LIQUID UDC GT SCH (08:17)
[2023-12-26] MEDS: ZINC SULFATE 220 MG CAPSULE GT SCH (08:18)
[2023-12-26] MEDS: CARBIDOPA/LEVODOPA 25-250MG TABLET GT SCH ×2 (08:19→12:04)
[2023-12-26] MEDS: PRAMIPEXOLE 0.25 MG TABLET GT SCH (08:19)
[2023-12-26] MEDS: BACLOFEN 10 MG TABLET GT SCH ×2 (08:19→14:07)
[2023-12-26] MEDS: ASCORBIC ACID 500 MG TABLET GT SCH (08:19)
[2023-12-26] MEDS: ARGININE/GLUTAMINE/CALCIUM BMB 1 EACH POWD.PACK GT SCH (08:20)
[2023-12-26] MEDS: APIXABAN 2.5 MG TABLET GT SCH (08:20)
[2023-12-26] MEDS: MEDIHONEY= THERAHONEY 1.5 OZ TUBE TOP SCH (08:21)
[2023-12-26] MEDS: SODIUM HYPOCHLORITE 0.25% (HALF STRENGTH) 480 ML BOTTLE TOP SCH (08:21)
[2023-12-26 08:23] VITALS: O2SAT 98
[2023-12-26] MEDS: ACETAzolamide 250 MG TABLET GT SCH (08:24)
[2023-12-26 08:33] VITALS: O2SAT 99
[2023-12-26] MEDS: LEVALBUTEROL HCL 1.25 MG/0.5 ML NEB NEB SCH (08:41)
[2023-12-26] MEDS: IPRATROPIUM BROMIDE 0.5 MG/2.5 ML NEBU NEB SCH (08:41)
[2023-12-26] MEDS: FERROUS SULFATE 300 MG/5 ML LIQUID UDC GT SCH (11:00)
[2023-12-26] MEDS: PROTEIN SUPPLEMENT (PROSTAT) 30 ML LIQUID PO SCH (11:00)
[2023-12-26 11:30] VITALS: BP 103/67; TEMP 97.9; O2SAT 98
[2023-12-26] MEDS: MULTIVITAMINS,THERAPEUTIC TABLET GT SCH (12:04)
[2023-12-26 13:25] VITALS: TEMP 98.8
== END 2023-12-26 16:25 | DRG 853 ==
LOC: ER 17:17 → MEDSURG3 23:00 → TELE-TD3 11-19 13:55 → CCU 11-19 16:45 → TELE-TD3 11-20 21:49 → TELE3 11-23 10:02 → CCU 11-30 15:36 → MEDSURG3 12-05 22:01 → DOU3 12-05 22:27 → TELE-TD3 12-05 23:16 → TELE3 12-24 08:48
PROVIDERS: ADMIT Nurse Practitioner Family; ATTEND Nurse Practitioner Family
PROC: 05HB33Z Insertion of Infusion Device into Right Basilic Vein, Percutaneous Approach (ICD-10-PCS; 2023-11-12)
PROC: 0QB13ZZ Excision of Sacrum, Percutaneous Approach (ICD-10-PCS; principal; 2023-11-14)
PROC: 0QB13ZZ Excision of Sacrum, Percutaneous Approach (ICD-10-PCS; 2023-11-25)
PROC: 5A09457 Assistance with Respiratory Ventilation, 24-96 Consecutive Hours, Continuous Positive Airway Pressure (ICD-10-PCS; 2023-11-29)
PROC: 30233N1 Transfusion of Nonautologous Red Blood Cells into Peripheral Vein, Percutaneous Approach (ICD-10-PCS; 2023-12-04)
PROC: 0QB13ZZ Excision of Sacrum, Percutaneous Approach (ICD-10-PCS; 2023-12-05)
PROC: 0QB13ZZ Excision of Sacrum, Percutaneous Approach (ICD-10-PCS; 2023-12-16)
PROC: 0QB13ZZ Excision of Sacrum, Percutaneous Approach (ICD-10-PCS; 2023-12-20)
DX: A41.53 Sepsis due to Serratia (principal); G93.41 Metabolic encephalopathy; J69.0 Pneumonitis due to inhalation of food and vomit; L89.154 Pressure ulcer of sacral region, stage 4; J96.21 Acute and chronic respiratory failure with hypoxia; J96.22 Acute and chronic respiratory failure with hypercapnia; R65.21 Severe sepsis with septic shock; N39.0 Urinary tract infection, site not specified; F02.83 Dementia in other diseases classified elsewhere, unspecified severity, with mood disturbance; Z16.21 Resistance to vancomycin; D68.59 Other primary thrombophilia; D61.818 Other pancytopenia; M46.28 Osteomyelitis of vertebra, sacral and sacrococcygeal region; J98.11 Atelectasis; E87.0 Hyperosmolality and hypernatremia; E87.3 Alkalosis; E44.0 Moderate protein-calorie malnutrition; B96.89 Other specified bacterial agents as the cause of diseases classified elsewhere; S50.02XA Contusion of left elbow, initial encounter; X58.XXXA Exposure to other specified factors, initial encounter; Y92.9 Unspecified place or not applicable; N20.0 Calculus of kidney; K56.41 Fecal impaction; R13.10 Dysphagia, unspecified; E87.6 Hypokalemia; E88.09 Other disorders of plasma-protein metabolism, not elsewhere classified; G20.A1 Parkinson's disease without dyskinesia, without mention of fluctuations; Z22.322 Carrier or suspected carrier of Methicillin resistant Staphylococcus aureus; Z74.01 Bed confinement status; Z93.1 Gastrostomy status; D63.8 Anemia in other chronic diseases classified elsewhere; M24.522 Contracture, left elbow; M24.521 Contracture, right elbow; M24.532 Contracture, left wrist; M24.531 Contracture, right wrist; T18.5XXA Foreign body in anus and rectum, initial encounter; E03.9 Hypothyroidism, unspecified; Z66 Do not resuscitate; R79.89 Other specified abnormal findings of blood chemistry; G31.9 Degenerative disease of nervous system, unspecified; I51.7 Cardiomegaly; E83.39 Other disorders of phosphorus metabolism; D50.9 Iron deficiency anemia, unspecified; Z87.440 Personal history of urinary (tract) infections; Z87.891 Personal history of nicotine dependence; Z86.718 Personal history of other venous thrombosis and embolism; Z79.01 Long term (current) use of anticoagulants; Z87.01 Personal history of pneumonia (recurrent); Z68.25 Body mass index [BMI] 25.0-25.9, adult
CPT/HCPCS: 36415; 36600; 70030-TC; 71045; 71260; 74018; 82746; 82784; 82803; 83550; 83605; 83735; 84100; 84155; 84165; 84300; 84443; 84484; 84550; 85025; 85730; 86038; 86140; 86334; 86430; 86706; 86803; 86850; 86900; 86901; 86920; 87040; 87340; 87806; 88185; 93005; 93307; 94640; 94660; 94664; 94760; A4606; A4663; A6209; A6213; A9150; G0378; J0692; J0696; J1120; J1200; J1885; J1940; J1956; J2185; J2248; J2405; J2543; J2765; J3370; J3480; J3490; J3590; J7040; J7042; J7050; J7070; J8499; J8597; P9016; Q9967